=== PATIENT | female | born 1945 | race Caucasian/White ===

== ENCOUNTER 2021-01-07 14:53 | Emergency (ER) | payer OTHER ==
[2021-01-07 16:55] LABS: Absolute Lymphocytes (CBC) 1.9 K/uL (0.7-4.9); Basophils % 0.8 % (0-1.3); Hematocrit 41.6 % (36.0-45.0); Lymphocytes % 17.8 % (15.3-44.8)
[2021-01-07 17:05] LABS: Protime INR 0.95
--- NOTE | 2021-01-07 21:24 | ER ---
Nurse's Notes [facility] Name: Lavonne Vitale Age: 75 yrs Sex: Female : 1945 Arrival Date: 01/07/2021 Time: 14:55 Bed Waiting Private MD: Diagnosis: Presentation: 01/07 16:20 Chief complaint: Pt's states "her blood sugar has been high since yesterday, aa5 today it was 583 and she threw up twice". Pt sleepy during triage, pt states that is pt's baseline and states "she sleeps all day mostly and the doctor says it's the dementia". 16:20 Coronavirus screen: vomiting. Ebola Screen: Patient negative for fever greater than or aa5 equal to 101.5 degrees Fahrenheit, and additional compatible Ebola Virus Disease symptoms. Initial Sepsis Screen: Does the patient meet any 2 criteria? HR > 90 bpm. Does the patient have a suspected source of infection? No. Patient's initial sepsis screen is negative. Risk Assessment: Do you want to hurt yourself or someone else? Unable to obtain. Onset of symptoms was January 2021. 16:20 Method Of Arrival: Wheelchair aa5 16:20 Acuity: ESTRELLA 2 aa5 Historical: - Allergies: 16:33 Sulfa (Sulfonamide Antibiotics); aa5 - PMHx: 16:33 Diabetes mellitus; Dementia; Hypertensive disorder; Depressive disorder; aa5 - Immunization history:: Client reports receiving the 2nd dose of the Covid vaccine. - Social history:: Smoking status: Patient denies any tobacco usage or history of. Vital Signs: 16:20 BP 125 / 66; Pulse 108; Resp 20 S; Temp 98.8(TE); Pulse Ox 100% on R/A; Weight 51.26 kg aa5 (R); Height 5 ft. 0 in. (152.40 cm) (R); 16:20 Body Mass Index 22.07 (51.26 kg, 152.40 cm) aa5 ED Course: 14:55 Patient arrived in ED. as 16:31 Arm band placed on. aa5 16:33 Triage completed. aa5 16:42 Initial lab(s) drawn, by me, sent to lab. Inserted saline lock: 20 gauge in left aa5 antecubital area, using aseptic technique. Blood collected. 21:23 Patient's name was called from ER lobby. Unable to locate patient. Will disposition as lp1 left without being seen by a provider. Administered Medications: No medications were administered Point of Care Testing: Blood Glucose: 16:31 Blood Glucose: 352 mg/dL; aa5 Ranges: Outcome: 21:23 Patient left the ED. lp1 Signatures: Brittany Yoo Audri RN RN aa5 Cynid Root RN RN lp1 Corrections: (The following items were deleted from the chart) 19:18 16:20 Chief complaint: Pt's states "her blood sugar has been high since aa5 yesterday, today it was 583 and she threw up twice" aa5
[2021-01-07 21:31] VITALS: BP 125/66; TEMP 98.8; O2SAT 100
== END 2021-01-07 21:23 | disposition left against medical advice (07) ==
LOC: ER 14:53
DX: Z53.21 Procedure and treatment not carried out due to patient leaving prior to being seen by health care provider (principal)
CPT/HCPCS: 36415; 82947; 85025; 85610; 99283

== ENCOUNTER 2021-11-04 07:13 | Emergency (ER) | payer OTHER, SELFPAY ==
[2021-11-04 08:02] LABS: Hematocrit 33.5 % (36.0-45.0); Lymphocytes % 21.7 % (15.3-44.8); MCV 81.8 fL (80-100); MPV 7.4 fL (7.6-11.3)
[2021-11-04 08:28] LABS: Potassium 3.8 mmol/L (3.5-5.1)
--- NOTE | 2021-11-04 08:49 | RAD REPORT ---
EXAM DESCRIPTION: CT - Head Brain Wo Cont - 11/04/2021 8:12 am CLINICAL HISTORY: Syncope, simple, normal neuro exam COMPARISON: <Comparisons> TECHNIQUE: All CT scans are performed using dose optimization technique as appropriate and may inclu de automated exposure control or mA/KV adjustment according to patient size. FINDINGS: No intracranial hemorrhage, hydrocephalus or extra-axial fluid collection.No areas of brai n edema or evidence of midline shift. Mild chronic small vessel ischemic changes. The paranasal sinuses and mastoids are clear. The calvarium is intact. IMPRESSION: No acute intracranial abnormality.
--- NOTE | 2021-11-04 08:51 | RAD REPORT ---
EXAM DESCRIPTION: RAD - Chest Single View - 11/04/2021 8:23 am CLINICAL HISTORY: Syncope COMPARISON: CHEST SINGLE VIEW dated 02/07/2011 FINDINGS: Lines: None. Lungs: No evidence of edema or pneumonia. Pleural: No significant pleural effusions or pneumothorax. Cardiac: The heart size is within normal limits. Bones: No acute fractures. Other: IMPRESSION: No acute cardiopulmonary disease.
--- NOTE | 2021-11-04 10:31 | ER ---
Nurse's Notes [facility] Name: Lavonne Vitale Age: 75 yrs Sex: Female : 1945 Arrival Date: 11/04/2021 Time: 07:19 Bed 18 Private MD: Diagnosis: Vasovagal Syncope Presentation: 11/04 07:19 Chief complaint: EMS states: Pt from [facility], was found this morning by staff ph slumped over on toilet, unresponsive and diaphoretic, awake when EMS arrived, states that she was bearing down to have bowel movement, BP 120s/80s, HR 94, 99% RA, T 97.2, BGL 316, hx of dementia but pt is at baseline mental status. Coronavirus screen: Vaccine status: Patient reports receiving the 2nd dose of the covid vaccine. Ebola Screen: No symptoms or risks identified at this time. Initial Sepsis Screen: Does the patient meet any 2 criteria? No. Patient's initial sepsis screen is negative. Does the patient have a suspected source of infection? No. Patient's initial sepsis screen is negative. Risk Assessment: Do you want to hurt yourself or someone else? Patient reports no desire to harm self or others. Onset of symptoms was November 04, 2021. 07:19 Method Of Arrival: EMS: [facility] 07:19 Acuity: ESTRELLA 3 ph Triage Assessment: 07:25 General: Appears in no apparent distress. comfortable, Behavior is calm, cooperative, ph appropriate for age. Pain: Denies pain. Neuro: Level of Consciousness is awake, alert, obeys commands, Oriented to person, place, situation, Speech is normal, Pupils are PERRLA, Reports a syncopal episode. Cardiovascular: Capillary refill < 3 seconds in bilateral fingers Patient's skin is warm and dry. Respiratory: Airway is patent Respiratory effort is even, unlabored, Respiratory pattern is regular, symmetrical. Derm: Skin is intact, is healthy with good turgor, Skin is pink, warm \T\ dry. Musculoskeletal: Circulation, motion, and sensation intact. Range of motion: intact in all extremities. Historical: - Allergies: 07:22 Sulfa (Sulfonamide Antibiotics); ph - Home Meds: 07:57 aspirin 81 mg Oral tab 81 mg daily [Active]; atorvastatin 20 mg oral tab 1 tab once ph daily [Active]; buspirone 30 mg Oral tab 1 tab 2 times per day [Active]; calcium carbonate 500 mg Oral cap as needed for heartburn [Active]; cyanocobalamin (vitamin B-12) 1,000 mcg oral cap daily [Active]; escitalopram oxalate 15 mg oral tab once daily [Active]; furosemide 20 mg Oral tab 1 tab once daily [Active]; insulin glargine 100 unit/mL (3 mL) Sub-Q inpn 38 unit daily [Active]; levothyroxine 75 mcg cap 1 cap once daily [Active]; meloxicam 7.5 mg oral tab 1 tab once daily [Active]; Novolog U-100 Insulin aspart 100 unit/mL Sub-Q soln 8 unit before meals [Active]; Novolog U-100 Insulin aspart 100 unit/mL Sub-Q soln 100 unit/mL per sliding scale [Active]; omeprazole 20 mg Oral cpDR 1 cap once daily [Active]; ondansetron HCl 4 mg Oral tab 1 tab q6h PRN [Active]; - PMHx: 07:22 Dementia; depressive disorder; diabetes mellitus; Hypertensive disorder; ph - Immunization history:: Adult Immunizations up to date. - Social history:: Smoking status: Patient denies any tobacco usage or history of. Screenin:27 Abuse screen: Denies threats or abuse. Denies injuries from another. Nutritional ph screening: No deficits noted. Tuberculosis screening: No symptoms or risk factors identified. Fall Risk None identified. Assessment: 07:51 General: SEE TRIAGE ASSESSMENT. ph 09:00 Reassessment: Patient appears in no apparent distress at this time. No changes from ph previously documented assessment. Patient and/or family updated on plan of care and expected duration. Pain level reassessed. 10:00 Reassessment: Patient appears in no apparent distress at this time. No changes from ph previously documented assessment. Patient and/or family updated on plan of care and expected duration. Pain level reassessed. 10:47 Reassessment: Patient appears in no apparent distress at this time. Patient and/or ph family updated on plan of care and expected duration. Pain level reassessed. Pt awake and alert, oriented to person and place, pt placed up for d/c, report called to OPAL Mathis at [facility]. 11:00 Cardiovascular: Rhythm is sinus rhythm. jg9 11:03 Reassessment: Spoke with Brandi Edge regarding arranging transportation back to facility. [facility] nurse states that she will call back shortly. 12:18 Reassessment: patient advised that nursing staff at facility is working on getting jg9 someone to pick her up. 12:49 Reassessment: assisted to bathroom. jg9 Vital Signs: 07:19 BP 133 / 69; Pulse 64; Resp 13; Temp 97.3(T); Pulse Ox 100% on R/A; Weight 54.43 kg mb7 (R); Height 5 ft. 5 in. (165.10 cm) (R); 07:19 Pain 0/10; ph 08:04 BP 135 / 90; Pulse 74; Resp 18; Pulse Ox 99% on R/A; ph 09:00 BP 136 / 87; Pulse 68; Resp 18; Pulse Ox 99% on R/A; ph 10:44 BP 127 / 72; Pulse 81; Resp 18; Temp 97.4; Pulse Ox 100% on R/A; ph 07:19 Body Mass Index 19.97 (54.43 kg, 165.10 cm) mb7 ED Course: 07:19 Patient arrived in ED. ph 07:20 Patient has correct armband on for positive identification. Bed in low position. Call mb7 light in reach. Side rails up X 1. Door closed. Noise minimized. Warm blanket given. Client placed on continuous cardiac and pulse oximetry monitoring. NIBP monitoring applied. night monitor on. Pulse ox on. 07:22 Triage completed. ph 07:22 Naman Senior MD is Attending Physician. kdr 07:24 Shi Azul, OPAL is Primary Nurse. ph 07:27 Arm band placed on Patient placed in an exam room, on a stretcher. ph 07:41 EKG done, by ED staff, reviewed by Naman Senior MD. mb7 07:51 Initial lab(s) drawn, by me, sent to lab. Inserted saline lock: 22 gauge in right ph antecubital area, using aseptic technique. Blood collected. 08:14 CT Head Brain wo Cont In Process Unspecified. EDMS 08:25 XRAY Chest (1 view) In Process Unspecified. EDMS 10:44 No provider procedures requiring assistance completed. IV discontinued, intact, ph bleeding controlled, No redness/swelling at site. Pressure dressing applied. 11:30 Awaiting transportation. jg9 11:42 No apparent distress. Resting quietly. jg9 Administered Medications: No medications were administered Medication: 07:27 VIS not applicable for this client. ph Point of Care Testin:43 n/a jg9 Ranges: Outcome: 10:30 Discharge ordered by . kdr 11:43 Condition: stable jg9 13:19 Discharged to snf. jg9 13:19 Discharged to snf. Report called to OPAL Mathis jg9 13:19 Condition: stable 13:19 Discharge instructions given to 13:19 Discharge instructions given to patient, snf, Instructed on discharge instructions, follow up and referral plans. Demonstrated understanding of instructions, follow-up care. 13:20 Patient left the ED. jg9 Signatures: Dispatcher [employer] EDMS Naman Senior MD MD [facility] Mague Oliveira RN RN Shi Azul RN RN Sheron Tellez [id number] Niki Acosta RN RN jg9 Corrections: (The following items were deleted from the chart) 08:04 07:57 Home Meds: calcium-vitamin D3-vitamin K 500-100-40 mg-unit-mcg oral chew; ph ph
--- NOTE | 2021-11-04 10:31 | EDPHYS ---
Physician Documentation [facility] Name: Lavonne Vitale Age: 75 yrs Sex: Female : 1945 Arrival Date: 11/04/2021 Time: 07:19 Bed 18 Private MD: ED Physician Naman Senior HPI: 11/04 07:57 This 75 yrs old Female presents to ER via EMS with complaints of Syncope. kdr 07:57 The patient has experienced syncope, became unresponsive, lost consciousness. Onset: kdr The symptoms/episode began/occurred suddenly, just prior to arrival. Duration: This was a single episode, that lasted an unknown period of time. Context: the episode(s) was witnessed, by a bystander, by the [facility] staff, occurred at a [facility] or assisted living facility, occurred while the patient was defecating. Associated injury: The patient did not suffer any apparent associated injury. Associated signs and symptoms: Pertinent positives: diaphoresis, lightheadedness, weakness. Current symptoms: Currently, the patient is not experiencing any symptoms. The patient has not experienced similar symptoms in the past. The patient has not recently seen a physician. 10:35 The patient was reportedly on the toilet trying to have a bowel movement when she kdr became unresponsive. She was found diaphoretic sitting on the toilet. Arrival in the ED she was at her baseline neurologically.. Historical: - Allergies: 07:22 Sulfa (Sulfonamide Antibiotics); ph - Home Meds: 07:57 aspirin 81 mg Oral tab 81 mg daily [Active]; atorvastatin 20 mg oral tab 1 tab once ph daily [Active]; buspirone 30 mg Oral tab 1 tab 2 times per day [Active]; calcium carbonate 500 mg Oral cap as needed for heartburn [Active]; cyanocobalamin (vitamin B-12) 1,000 mcg oral cap daily [Active]; escitalopram oxalate 15 mg oral tab once daily [Active]; furosemide 20 mg Oral tab 1 tab once daily [Active]; insulin glargine 100 unit/mL (3 mL) Sub-Q inpn 38 unit daily [Active]; levothyroxine 75 mcg cap 1 cap once daily [Active]; meloxicam 7.5 mg oral tab 1 tab once daily [Active]; Novolog U-100 Insulin aspart 100 unit/mL Sub-Q soln 8 unit before meals [Active]; Novolog U-100 Insulin aspart 100 unit/mL Sub-Q soln 100 unit/mL per sliding scale [Active]; omeprazole 20 mg Oral cpDR 1 cap once daily [Active]; ondansetron HCl 4 mg Oral tab 1 tab q6h PRN [Active]; - PMHx: 07:22 Dementia; depressive disorder; diabetes mellitus; Hypertensive disorder; ph - Immunization history:: Adult Immunizations up to date. - Social history:: Smoking status: Patient denies any tobacco usage or history of. ROS: 10:35 Constitutional: Negative for fever, chills, and weight loss, Eyes: Negative for injury, kdr pain, redness, and discharge, Neck: Negative for injury, pain, and swelling, Cardiovascular: Negative for chest pain, palpitations, and edema, Respiratory: Negative for shortness of breath, cough, wheezing, and pleuritic chest pain, Abdomen/GI: Negative for abdominal pain, nausea, vomiting, diarrhea, and constipation, Back: Negative for injury and pain, : Negative for injury, bleeding, discharge, and swelling, MS/Extremity: Negative for injury and deformity, Skin: Negative for injury, rash, and discoloration, Psych: Negative for depression, anxiety, suicide ideation, homicidal ideation, and hallucinations, Allergy/Immunology: Negative for hives, rash, and allergies, Endocrine: Negative for neck swelling, polydipsia, polyuria, polyphagia, and marked weight changes, Hematologic/Lymphatic: Negative for swollen nodes, abnormal bleeding, and unusual bruising. 10:35 Neuro: Positive for syncope, Negative for altered mental status, dizziness, gait disturbance, headache, hearing loss, numbness, seizure activity. Exam: 07:56 ECG was reviewed by the Attending Physician. kdr 10:35 Constitutional: This is a well developed, well nourished patient who is awake, alert, kdr and in no acute distress. Head/Face: Normocephalic, atraumatic. Eyes: Pupils equal round and reactive to light, extra-ocular motions intact. Lids and lashes normal. Conjunctiva and sclera are non-icteric and not injected. Cornea within normal limits. Periorbital areas with no swelling, redness, or edema. Neck: Trachea midline, no thyromegaly or masses palpated, and no cervical lymphadenopathy. Supple, full range of motion without nuchal rigidity, or vertebral point tenderness. No Meningismus. Chest/axilla: Normal chest wall appearance and motion. Nontender with no deformity. No lesions are appreciated. Cardiovascular: Regular rate and rhythm with a normal S1 and S2. No gallops, murmurs, or rubs. Normal PMI, no JVD. No pulse deficits. Respiratory: Lungs have equal breath sounds bilaterally, clear to auscultation and percussion. No rales, rhonchi or wheezes noted. No increased work of breathing, no retractions or nasal flaring. Abdomen/GI: Soft, non-tender, with normal bowel sounds. No distension or tympany. No guarding or rebound. No evidence of tenderness throughout. Back: No spinal tenderness. No costovertebral tenderness. Full range of motion. Skin: Warm, dry with normal turgor. Normal color with no rashes, no lesions, and no evidence of cellulitis. MS/ Extremity: Pulses equal, no cyanosis. Neurovascular intact. Full, normal range of motion. Neuro: Awake and alert, GCS 15, oriented to person, place, time, and situation. Cranial nerves II-XII grossly intact. Motor strength 5/5 in all extremities. Sensory grossly intact. Cerebellar exam normal. Normal gait. Psych: Awake, alert, with orientation to person, place and time. Behavior, mood, and affect are within normal limits. Vital Signs: 07:19 BP 133 / 69; Pulse 64; Resp 13; Temp 97.3(T); Pulse Ox 100% on R/A; Weight 54.43 kg mb7 (R); Height 5 ft. 5 in. (165.10 cm) (R); 07:19 Pain 0/10; ph 08:04 BP 135 / 90; Pulse 74; Resp 18; Pulse Ox 99% on R/A; ph 09:00 BP 136 / 87; Pulse 68; Resp 18; Pulse Ox 99% on R/A; ph 10:44 BP 127 / 72; Pulse 81; Resp 18; Temp 97.4; Pulse Ox 100% on R/A; ph 07:19 Body Mass Index 19.97 (54.43 kg, 165.10 cm) [facility] MDM: 10:30 Patient medically screened. kdr 10:35 Data reviewed: vital signs, nurses notes, lab test result(s), radiologic studies. kdr Counseling: I had a detailed discussion with the patient and/or guardian regarding: the historical points, exam findings, and any diagnostic results supporting the discharge/admit diagnosis, lab results, radiology results, the need for outpatient follow up. ED course: Patient was alert and oriented at time of discharge she had no complaints at time of discharge. She was happy with the care provided the plan for discharge and follow-up. 11/04 07:23 Order name: Basic Metabolic Panel; Complete Time: 09:13 kdr 11/04 07:23 Order name: CBC with Diff; Complete Time: 09:13 kdr 11/04 07:23 Order name: Troponin HS; Complete Time: 09:13 kdr 11/04 07:23 Order name: XRAY Chest (1 view); Complete Time: 09:13 kdr 11/04 07:23 Order name: EKG; Complete Time: 07:23 kdr 11/04 07:59 Order name: CT Head Brain wo Cont; Complete Time: 09:13 kdr 11/04 07:23 Order name: Cardiac monitoring; Complete Time: 07:31 kdr 11/04 07:23 Order name: EKG - Nurse/Tech; Complete Time: 07:42 kdr 11/04 07:23 Order name: IV Saline Lock; Complete Time: 07:51 kdr 11/04 07:23 Order name: Labs collected and sent; Complete Time: 07:51 kdr 11/04 07:23 Order name: O2 Per Protocol; Complete Time: 07:31 kdr 11/04 07:23 Order name: O2 Sat Monitoring; Complete Time: 07:31 kdr EC:56 Rate is 60 beats/min. Rhythm is regular, Normal Sinus Rhythm with No ectopy. QRS [place] kdr is Normal. DE interval is normal. QRS interval is normal. QT interval is normal. Clinical impression: Normal ECG. Administered Medications: No medications were administered Point of Care Testin:43 n/a jg9 Ranges: Critical Glucose Levels:Adult <50 mg/dl or >400 mg/dl <40 mg/dl or >180 mg/dl Disposition Summary: 11/04/21 10:30 Discharge Ordered Location: Home kdr Problem: new kdr Symptoms: have improved kdr Condition: Stable kdr Diagnosis - Vasovagal Syncope kdr Followup: kdr - With: Private Physician - When: 2 - 3 days - Reason: If symptoms return, Further diagnostic work-up, Recheck today's complaints, Continuance of care, Re-evaluation by your physician Discharge Instructions: - Discharge Summary Sheet kdr - Vasovagal Syncope, Pediatric kdr Forms: - Medication Reconciliation Form kdr - Thank You Letter kdr Signatures: Dispatcher [employer] Naman Kaur MD MD kdr Shi Azul RN RN ph Corrections: (The following items were deleted from the chart) 08:04 07:57 Home Meds: calcium-vitamin D3-vitamin K 500-100-40 mg-unit-mcg oral chew; ph ph 10:38 08:00 Urine Dipstick-Ancillary ordered. kdr ph
[2021-11-04 13:32] VITALS: BP 127/72; TEMP 97.4; O2SAT 100
--- NOTE | 2021-11-07 08:03 | EKG ---
Test Date: 2021-11-04 Test Time: 07:41:40 Prn Physical Therapist: MB MEASUREMENT RESULTS: Intervals: Rate: 60 MN: 164 QRSD: 80 QT: 472 QTc: 472 [place]: P: 76 MN: 164 QRS: 89 T: 80 INTERPRETIVE STATEMENTS: Normal sinus rhythm Normal ECG Compared to ECG 02/07/2011 09:21:48 Sinus arrhythmia no longer present Electronically Signed On 11-07-21 07:56:17 CDT by Izaiah Handy
== END 2021-11-04 13:20 | disposition home or self-care (01) ==
LOC: ER 07:13
DX: R55 Syncope and collapse (principal); F03.90 Unspecified dementia, unspecified severity, without behavioral disturbance, psychotic disturbance, mood disturbance, and anxiety; I10 Essential (primary) hypertension; E11.8 Type 2 diabetes mellitus with unspecified complications; Z79.82 Long term (current) use of aspirin; Z79.4 Long term (current) use of insulin; Z88.2 Allergy status to sulfonamides
CPT/HCPCS: 36415; 70450; 71045; 80048; 84484; 85025; 93005; 99285

== ENCOUNTER 2021-12-23 14:26 | Emergency (ER) | payer OTHER ==
--- OUTSIDE RECORDS SUMMARY | 2021-12-23 14:32 | XMS REPORT | Continuity of Care Document ---
:1945 Author Organization [facility] t Address [address] [place] [address] Care Team Providers Name Role Phone Pcp, Patient Does Not Have A Primary Care Physician [phone] ANA NAPOLES Attending Clinician Unavailable ANA NAPOLES Attending Clinician Unavailable Doctor Unassigned, [place] Attending Clinician Unavailable Pcp, Patient Does Not Have A Attending Clinician [phone] FINN JOSEPH Attending Clinician Unavailable Willi Osullivan Attending Clinician Unavailable Piotr Arshad Attending Clinician Unavailable Lyudmila Montgomery Attending Clinician Unavailable SARY FUNK Admitting Clinician Unavailable Physician, No Primary or Family Admitting Clinician Unavaila Piotr Pack Admitting Clinician Unavailable UNDEFINED Admitting Clinician Unavailable Lyudmila Montgomery Admitting Clinician Unavailable Payers Payer Name Policy Type Policy Number Effective Date Expiration Date S ource Problems Condition Condition Condition Status Onset Resolution Last Treating Co mments Source Name Details Category Date Date Treatment Clinician Date Pneumonia Pneumonia Disease Active Uni vers 9-05 ity of 00:00: [place] 00 Medical Branch Allergies, Adverse Reactions, Alerts Allergy Allergy Status Severity Reaction(s) Onset Inactive Treating Comm ents Source Name Type Date Date Clinician Sulfa DA Active U UNKNOWN [facility] (Sulfona 2-24 [place] mide 00:00: d Antibiot 00 Medical ics) Center Sulfa DA Active SV UNKNOWN IN [facility] (Sulfona CHILDHOOD 1-14 Clear mide 00:00: [place] Antibiot 00 Regiona ics) l [facility] Sulfa Propensi Active Other - See Uni vers (Sulfona ty to comments 9-05 ity of mide adverse 00:00: [place] Antibiot reaction 00 Medica l ics) s Branch SULFA Drug Active Other-Cmnt Univer s (SULFONA Class 9-05 ity of MIDE 00:00: [place] ANTIBIOT 00 Medical ICS) Branch Sulfa DA Active SV UNKNOWN IN [facility] (Sulfona CHILDHOOD 1-04 [place] an mide 00:00: d Antibiot 00 Medical ics) Center Social History Social Habit Start Date Stop Date Quantity Comments Source History [facility] University o f Alcohol Std [place] Medical Drinks Branch History [facility] University o f Alcohol Binge [place] Medic al Branch History [facility] University o f Alcohol Comment [place] Med ical Branch Exposure to 2021-09-29 2021-10-09 Not sure University of SARS-CoV-2 00:00:00 15:02:00 [facility] (event) Branch Tobacco use and 2021-01-08 2021-01-08 Smokeless tobacco Un iversity of exposure 00:00:00 00:00:00 non-user [place] [facility] Alcohol intake 2021-01-08 2021-01-08 Lifetime University of 00:00:00 00:00:00 non-drinker [facility] (finding) Branch History SDOH 2021-01-08 2021-01-08 1 University o f Alcohol Frequency 00:00:00 00:00:[address] [facility] edical [place] [address] Sex Assigned At [birth year] Universit y of 00:00:00 00:00:00 [facility] Smoking Status Start Date Stop Date Source Never smoked tobacco [facility] Medications Ordered Filled Start Stop Current Ordering Indication Dosage Frequency Signature Comments Components Source Medication Medication Date Date Medication? Clinician (SIG) Name Name padmaja 0 Yes [id number] 1{box} 1 Box Un josse glucose 6-06 9101 daily. ity of scanning 00:00: [place] reader 00 Medical (FREESTYLE Branch ANALY 2 READER) Misc flash 2021-0 Yes [id number] 1{box} 1 Box Un josse glucose 6-06 9101 every 14 ity of sensor 00:00: (fourteen) [place] (FREESTYLE 00 days. Medical ANALY 2 Branch SENSOR) Kit flash 2021-0 Yes [id number] 1{box} 1 Box Un josse glucose 6-06 9101 daily. ity of scanning 00:00: [place] reader 00 Medical (FREESTYLE Branch ANALY 2 READER) Misc flash 2021-0 Yes [id number] 1{box} 1 Box Un josse glucose 6-06 9101 every 14 ity of sensor 00:00: (fourteen) [place] (FREESTYLE 00 days. Medical ANALY 2 Branch SENSOR) Kit flash 2021-0 Yes [id number] 1{box} 1 Box Un josse glucose 6-06 9101 daily. ity of scanning 00:00: [place] reader 00 Medical (FREESTYLE Branch ANALY 2 READER) Misc flash 2021-0 Yes [id number] 1{box} 1 Box Un josse glucose 6-06 9101 every 14 ity of sensor 00:00: (fourteen) [place] (FREESTYLE 00 days. Medical ANALY 2 Branch SENSOR) Kit aspirin 81 Yes 81mg Take 81 mg U nivers mg chewable 08 by mouth ity of tablet 18:57: daily. [place] [address] Medical Branch acetaZOLAMI Yes 250mg Take 250 U nivers DE 250 mg 9-08 mg by ity of tablet 18:57: mouth [place] 11 daily. Medical Branch escitalopra Yes 10mg Take 10 mg Univers m oxalate 08 by mouth ity of 10 mg 18:57: daily. [address] calcium-vit Yes Take by Uni vers gifford D 500 01-11 mouth ity of mg(1,250mg) 18:57: [place]. [place] -200 [place] 11 Medical per tablet Branch vitamin Yes 1000ug Take 1,000 Un josse B-12 1,000 9-08 mcg by ity of mcg tablet 18:57: mouth [place] 11 daily. [facility] Branch donepeziL Yes 10mg Take 10 mg Un josse 10 mg 9-08 by mouth ity of tablet 18:57: daily. [address] foLIC acid Yes 1mg Take 1 mg Un josse 1 mg tablet 9-08 by mouth ity of 18:57: daily. [address] insulin Yes 30U inject 30 Unive rs glargine,hu 9-08 Units ity of m.rec.anlog 18:57: under the [place] ([place] 11 skin every Me dical morning. [address] Morning insulin Yes 10U inject 10 Unive rs glargine,hu 9-08 Units ity of m.rec.anlog 18:57: under the [place] ([place] 11 skin every Me dical evening. [address] insulin Yes 10U inject 10 Unive rs lispro, 9-08 Units ity of human, 18:57: under the [place] injection 11 skin Medical before [address] meals and at bedtime. Humalog SITagliptin Yes 100mg Take 100 U nivers (JANUVIA) 9-08 mg by ity of 100 mg 18:57: mouth [place] tablet 11 daily. [facility] Levothyroxi Yes 75ug Take 75 Uni vers ne 75 mcg 9-08 mcg by ity of capsule 18:57: mouth [place] 11 daily. [facility] Branch lisinopriL Yes 5mg Take 5 mg Un josse 10 mg 9-08 by mouth ity of tablet 18:57: daily. [address] medroxyPROG Yes 2.5mg Take 2.5 U nivers ESTERone 9-08 mg by ity of 2.5 mg 18:57: mouth [place] tablet 11 daily. [facility] meloxicam Yes 7.5mg Take 7.5 Uni vers 7.5 mg 9-08 mg by ity of tablet 18:57: mouth [place] 11 daily. [facility] Branch pantoprazol Yes 40mg Take 40 mg Univers e 40 mg EC 01-11 by mouth ity o f tablet 18:57: daily. EC [place] [address] Medical Branch atorvastati Yes 20mg Take 20 mg Univers n 20 mg 9-08 by mouth ity of tablet 18:57: at [place] [address] bedtime. Medical Branch aspirin 81 Yes 81mg Take 81 mg U nivers mg chewable 908 by mouth ity of tablet 18:57: daily. [place] [address] Medical Branch acetaZOLAMI Yes 250mg Take 250 U nivers DE 250 mg 9-08 mg by ity of tablet 18:57: mouth [place] [address] daily. Medical Branch escitalopra Yes 10mg Take 10 mg Univers m oxalate 08 by mouth ity of 10 mg 18:57: daily. [address] Branch calcium-vit Yes Take by Uni vers gifford D 500 9-08 mouth ity of mg(1,250mg) 18:57: [place]. [place] -200 unit Medical per tablet Branch vitamin Yes 1000ug Take 1,000 Un josse B-12 1,000 9-08 mcg by ity of mcg tablet 18:57: mouth [place] [address] daily. Medical Branch donepeziL Yes 10mg Take 10 mg Un josse 10 mg 9-08 by mouth ity of tablet 18:57: daily. [address] foLIC acid Yes 1mg Take 1 mg Un josse 1 mg tablet 9-08 by mouth ity of 18:57: daily. [address] Branch insulin Yes 30U inject 30 Unive rs glargine,hu 9-08 Units ity of m.rec.anlog 18:57: under the [place] ([place] 11 skin every Me dical morning. [address] Morning insulin Yes 10U inject 10 Unive rs glargine,hu 9-08 Units ity of m.rec.anlog 18:57: under the [place] ([place] 11 skin every Me dical evening. Branch insulin Yes 10U inject 10 Unive rs lispro, 9-08 Units ity of human, 18:57: under the [place] [address] skin Medical before Branch meals and at bedtime. Humalog SITagliptin Yes 100mg Take 100 U nivers (JANUVIA) 9-08 mg by ity of 100 mg 18:57: mouth [place] tablet 11 daily. Medical Branch Levothyroxi Yes 75ug Take 75 Uni vers ne 75 mcg 9-08 mcg by ity of capsule 18:57: mouth [place] 11 daily. Medical Branch lisinopriL Yes 5mg Take 5 mg Un josse 10 mg 9-08 by mouth ity of tablet 18:57: daily. [place] [address] Medical Branch medroxyPROG Yes 2.5mg Take 2.5 U nivers ESTERone 9-08 mg by ity of 2.5 mg 18:57: mouth [place] tablet 11 daily. Medical Branch meloxicam Yes 7.5mg Take 7.5 Uni vers 7.5 mg 9-08 mg by ity of tablet 18:57: mouth [place] 11 daily. Medical Branch pantoprazol Yes 40mg Take 40 mg Univers e 40 mg EC 9-08 by mouth ity o f tablet 18:57: daily. EC [place] [address] Medical Branch atorvastati Yes 20mg Take 20 mg Univers n 20 mg 9-08 by mouth ity of tablet 18:57: at [place] [address] bedtime. Medical Branch aspirin 81 Yes 81mg Take 81 mg U nivers mg chewable 9-08 by mouth ity of tablet 18:57: daily. [place] [address] Medical Branch acetaZOLAMI Yes 250mg Take 250 U nivers DE 250 mg 9-08 mg by ity of tablet 18:57: mouth [place] 11 daily. Medical Branch escitalopra Yes 10mg Take 10 mg Univers m oxalate 9-08 by mouth ity of 10 mg 18:57: daily. [place] [address] Medical Branch calcium-vit Yes Take by Uni vers gifford D 500 9-08 mouth ity of mg(1,250mg) 18:57: [place]. [place] -200 unit 11 Medical per tablet Branch vitamin Yes 1000ug Take 1,000 Un josse B-12 1,000 9-08 mcg by ity of mcg tablet 18:57: mouth [place] 11 daily. Medical Branch donepeziL Yes 10mg Take 10 mg Un josse 10 mg 9-08 by mouth ity of tablet 18:57: daily. [address] Branch foLIC acid Yes 1mg Take 1 mg Un josse 1 mg tablet 9-08 by mouth ity of 18:57: daily. [address] insulin Yes 30U inject 30 Unive rs glargine,hu 9-08 Units ity of m.rec.anlog 18:57: under the [place] ([place] 11 skin every Me dical morning. Branch Morning insulin Yes 10U inject 10 Unive rs glargine,hu 9-08 Units ity of m.rec.anlog 18:57: under the [place] ([place] 11 skin every Me dical evening. Branch insulin Yes 10U inject 10 Unive rs lispro, 9-08 Units ity of human, 18:57: under the [place] injection 11 skin Medical before [address] meals and at bedtime. Humalog SITagliptin Yes 100mg Take 100 U nivers (JANUVIA) 9-08 mg by ity of 100 mg 18:57: mouth [place] tablet 11 daily. Medical Branch Levothyroxi Yes 75ug Take 75 Uni vers ne 75 mcg 9-08 mcg by ity of capsule 18:57: mouth [place] 11 daily. Medical Branch lisinopriL Yes 5mg Take 5 mg Un josse 10 mg 9-08 by mouth ity of tablet 18:57: daily. [address] Branch medroxyPROG Yes 2.5mg Take 2.5 U nivers ESTERone 9-08 mg by ity of 2.5 mg 18:57: mouth [place] tablet 11 daily. Medical Branch meloxicam Yes 7.5mg Take 7.5 Uni vers 7.5 mg 9-08 mg by ity of tablet 18:57: mouth [place] 11 daily. Medical Branch pantoprazol Yes 40mg Take 40 mg Univers e 40 mg EC 9-08 by mouth ity o f tablet 18:57: daily. EC [address] Branch atorvastati Yes 20mg Take 20 mg Univers n 20 mg 9-08 by mouth ity of tablet 18:57: at [place] 11 bedtime. Medical Branch Immunizations Ordered Filled Immunization Date Status Comments [facility] e Immunization Name Name SARS-COV-2 COVID-19 2020-08-20 Completed Unive rsity of MODERNA VACCINE 00:00:00 [facility] Branch SARS-COV-2 COVID-19 2020-08-20 Completed Unive rsity of MODERNA VACCINE 00:00:00 [facility] Branch SARS-COV-2 COVID-19 2020-08-20 Completed Unive rsity of MODERNA VACCINE 00:00:00 [facility] Branch SARS-COV-2 COVID-19 2020-07-20 Completed Unive rsity of MODERNA VACCINE 00:00:00 [facility] Branch SARS-COV-2 COVID-19 2020-07-20 Completed Unive rsity of MODERNA VACCINE 00:00:00 [facility] Branch SARS-COV-2 COVID-19 2020-07-20 Completed Unive rsity of MODERNA VACCINE 00:00:00 [facility] Branch Pneumococcal 13 2015-01-03 Completed Universit y of Conjugate, PCV13 00:00:00 [facility] dical (Prevnar 13) Branch Pneumococcal 13 2015-01-03 Completed Universit y of Conjugate, PCV13 00:00:00 [facility] dical (Prevnar 13) Branch Pneumococcal 13 2015-01-03 Completed Universit y of Conjugate, PCV13 00:00:00 [facility] dical (Prevnar 13) Branch Pneumococcal 2010-01-25 Completed University o f Polysaccharide, 00:00:00 [facility] PPSV23 (PNEUMOVAX) Branch Zoster(Zostavax)( 2010-01-25 Completed Unive rsity of ingles) 00:00:00 [facility] Pneumococcal 2010-01-25 Completed University o f [facility]ys[facility], [facility] Branch Zoster(Zostavax)( 2010-01-25 Completed Unive rsity of ingles) 00:00:00 [facility] Pneumococcal 2010-01-25 Completed University o f Polysaccharide, 00:00[facility]00 [facility]UM[facility] Branch Zoster(Zostavax)( 2010-01-25 Completed Unive rsity of ingles) 00:00:00 [facility] Influenza Virus 2008-05-06 Completed Universit y of Vaccine 00:00:00 [facility] Influenza Virus 2008-05-06 Completed Universit y of Vaccine 00:00:00 [facility] Influenza Virus 2008-05-06 Completed Universit y of Vaccine 00:00:00 [facility] Vital Signs Vital Name Observation Time Observation Value Comments Source Systolic blood 2021-10-09 20:18:00 179 [facility]Hg[facility] Diastolic blood 2021-10-09 20:18:00 62 mm[Hg] [facility] BMI 2021-10-09 20:17:00 22.55 kg/m2 [facility] Oxygen saturation 2021-10-09 20:17:00 98 /min [facility] in Arterial blood [facility] anch by Pulse oximetry Heart rate 2021-10-09 20:17:00 90 /min [facility] Body height 2021-10-09 20:17:00 153.7 cm [facility] Body weight 2021-10-09 20:17:00 53.252 kg [facility] Procedures Procedure Date / Time Performed Performing Clinician Sourc e EXTERNAL PROVIDER 2021-11-14 05:01:00 Doctor Unassigned, No Univ [facility] RECORDS [facility] POCT HEMOGLOBIN A1C 2021-10-09 20:20:00 Ana Napoles [facility] [place] [id number] 2021-06-12 00:00:00 RAJNISA.02 [facility] [id number] 2021-05-19 00:00:00 NICOLA [facility] Encounters Start End Encounter Admission Attending Care Care Encounter Source Date/Time Date/Time Type Type Clinicians Facility Department ID 2022-01-10 2022-01-10 Outpatient R ANA NAPOLES [facility] [id number] Univers 15:00:00 15:00:00 ANA NAPOLES [id number] [facility] 2021-12-25 2021-12-25 Outpatient R ANA NAPOLES [facility] [id number] Univers 08:30:00 08:30:00 ANA NAPOLES [id number] [facility] 2021-11-14 2021-11-14 Orders Doctor MARCELO [id number] Univers 00:00:00 00:00:00 Only Unassigned, FREDY 350.1.13.10 ity of [place] [facility] 4.2.7.2.686 Leonel as [id number] [address] 2021-11-09 2021-11-09 Telephone Pcp, [facility] [id number] Univers 00:00:00 00:00:00 Patient HEALTH 350.1.13.10 it y of Does Not [place] JO-ANN?BLEA [id number] [address] OFFICE [facility] 2021-10-09 2021-10-09 Office Ana Napoles [facility] [id number] Univers 15:00:00 16:13:14 Visit HEALTH 350.1.13.10 it y of [place] 4.2.7.2.686 Leonel as JO-ANN?BLEA [id number] [address] OFFICE [facility] 2021-09-01 2021-09-03 Inpatient E JAKE, [facility] MED [id number] 14:27:00 18:00:00 FINN Hobbs [place] 2021-06-29 2021-06-29 Emergency EM Willi Osullivan HCAPM KANDY LA61 [id number] [facility] 13:12:00 21:46:00 [id number] [facility] 2021-06-29 2021-06-29 Emergency EM [facility] H[facility] [id number] [facility] 13:12:00 21:46:00 12 [facility] 2021-06-11 2021-06-17 Inpatient EM ZACAHRY Arshad INTE [id number] [facility] 19:47:00 15:00:00 [facility] [id number] [facility] [place] 2021-06-11 2021-06-17 Inpatient EM BAYLEE ArshadPM INTE [id number] [facility] 19:47:00 15:00:00 Piotr 96 [facility] [place] 2021-06-12 2021-06-12 Outpatient EL JENNIFER Arshad LABO [id number] [facility] 01:15:00 01:15:00 Piotr [id number] [facility] 2021-05-20 2021-05-22 Inpatient EM Ulises, HCAPM MEDI.01 [id number] [facility] 10:41:00 19:00:00 Oladipo [id number] [facility] 2021-05-20 2021-05-22 Inpatient EM Ulises, HCAPM MEDI.01 [id number] [facility] 10:41:00 19:00:00 Oladipo 26 [facility] 2021-05-19 2021-05-19 Outpatient Ulises, HCACL LABO [id number] [facility] 23:50:00 23:50:00 Oladipo [id number] [facility] 2021-05-19 2021-05-19 Inpatient EM Ulises, BAYLEEPM INTE.02 [id number] [facility] 09:12:00 09:11:00 Oladipo [id number] [facility] Results Test Description Test Time Test Comments Results Result Comments Source POCT HEMOGLOBIN A1C TEST 2021-10-09 20:22:00 Test Item Value Reference Range Interpretation Comme nts POCT HBA1C (test code = 4548-4) 9 % 4-6 A Lab Interpretation (test code = 47543-1) [facility] [id number] 18:33:00 Test Item Value Reference Range Interpretation Comments SODIUM (test code = NA) 135 mmol/L 134-147 N POTASSIUM (test code = K) 3.5 mmol/L 3.4-5.0 N CHLORIDE (test code = CL) 102 mmol/L 100-108 N CARBON DIOXIDE (test code = 19 mmol/L 21-32 L CO2) ANION GAP (test code = GAP) 14.0 GAP calc 4.0-15.0 N GLUCOSE (test code = GLU) 275 MG/DL 70-110 H BLOOD UREA NITROGEN (test code 22 MG/DL 7-18 H = BUN) GLOMERULAR FILTRATION RATE 47 estGFR >60 L (test code = GFR) CREATININE (test code = CREAT) 1.2 MG/DL 0.6-1.0 H CALCIUM (test code = CA) 8.2 MG/DL 8.5-10.1 L GLUCOSE BEDSIDE [id number] 17:40:00 Test Item Value Reference Range Interpretation Comments GLUCOSE BEDSIDE TESTING (test code 274 mg/dL 70-110 H = GLUBED) VENOUS BLOOD [id number] 15:34:00 Test Item Value Reference Range Interpretation Comments VENOUS BLOOD GAS PH (test 7.28 pH units 7.26-7.43 N code = PHV) VENOUS BLOOD GAS PCO2 (test 32 mmHg 33-58 L code = PCO2V) VENOUS BLOOD GAS PO2 (test 29 mmHg 80-100 L code = PO2V) VBG HCO3 (test code = 14.5 mmol/L 22.0-26.0 L HCO3V) VBG BASE EXCESS (test code -11.0 mmol/L -2.0-2.0 L = RAYNE) VENOUS BLOOD GAS O2 SAT. 48 % (calc) 72-77 L (test code = O2SATV) VENOUS BLOOD GAS FIO2 (test 21 % 21-100 N code = FIO2V) VBG VENT MODE (test code = Room Air Descript VentMode MODEV) VENOUS BLOOD GAS SITE (test Other Site DESCRIPTION code = SITEV) UA RFLX MICR CULT IF [id number] 14:55:00 Test Item Value Reference Range Interpretation Comments UA COLOR (test code = YELLOW discript YEL/STRAW COLU) UA APPEARANCE (test code CLEAR discript CLEAR = APPU) UA GLUCOSE DIPSTICK (test 3+ mg/dL NEG code = DGLUU) UA BILIRUBIN DIPSTICK 1+ mg/dL NEG A (test code = BILU) UA KETONE DIPSTICK (test 2+ mg/dL NEG A code = KETU) UA SPECIFIC GRAVITY (test 1.010 SG 1.005-1.030 code = SGU) UA BLOOD DIPSTICK (test NEGATIVE mg/DL NEG code = EARLINE) UA PH DIPSTICK (test code 5.5 pH UNITS 5.0-7.0 = GAURANG) UA PROTEIN DIPSTICK (test NEGATIVE mg/dL NEG code = PROU) UA UROBILINIOGEN DIPSTICK 0.2 mg/dL <2.0 (test code = URO) UA NITRITE DIPSTICK (test NEGATIVE SCREEN NEG code = JILLIAN) UA LEUKOCYTE ESTERASE NEGATIVE Leuk/mcL NEGATIVE DIPSTICK (test code = LEUU) UA CULTURE NEEDED? (test NO, WBC<10 Criteria Culture CHK code = UACULT) Indication for culture: RiskForSepsis-no oth srcBASIC METABOLIC [id number] 14:51:00 Test Item Value Reference Range Interpretation Comments SODIUM (test code = NA) 128 mmol/L 134-147 L POTASSIUM (test code = K) 4.3 mmol/L 3.4-5.0 N CHLORIDE (test code = CL) 95 mmol/L 100-108 L CARBON DIOXIDE (test code = 17 mmol/L 21-32 L CO2) ANION GAP (test code = GAP) 16.0 GAP calc 4.0-15.0 H GLUCOSE (test code = GLU) 481 MG/DL 70-110 HH BLOOD UREA NITROGEN (test code 26 MG/DL 7-18 H = BUN) GLOMERULAR FILTRATION RATE 43 estGFR >60 L (test code = GFR) CREATININE (test code = CREAT) 1.3 MG/DL 0.6-1.0 H CALCIUM (test code = CA) 9.1 MG/DL 8.5-10.1 N HEPATIC FUNCTION [id number] 14:51:00 Test Item Value Reference Range Interpretation Comments TOTAL PROTEIN (test code = PROT) 6.8 G/DL 6.4-8.2 N ALBUMIN (test code = ALB) 3.2 G/DL 3.4-5.0 L BILIRUBIN TOTAL (test code = BILT) 0.50 MG/DL 0.2-1.2 N BILIRUBIN DIRECT (test code = 0.20 MG/DL 0.00-0.30 N BILD) BILIRUBIN INDIRECT (test code = 0.30 MG/DL 0.2-1.2 N BILIND) SGOT/AST (test code = AST) 14 Unit/L 15-37 L SGPT/ALT (test code = ALT) 19 Unit/L 12-78 N ALKALINE PHOSPHATASE TOTAL (test 79 Unit/L 45-117 N code = ALKP) [id number] 14:51:00 Test Item Value Reference Range Interpretation Comments LIPASE (test code = LIP) 149 Unit/L 114-286 N CBC W/AUTO [id number] 14:14:00 Test Item Value Reference Range Interpretation Comments WHITE BLOOD CELL (test code = 5.9 K/mm3 3.5-11.0 N WBC) RED BLOOD CELL (test code = 3.65 M/mm3 4.70-6.10 L RBC) HEMOGLOBIN (test code = HGB) 10.7 G/DL 10.4-14.9 N HEMATOCRIT (test code = HCT) 34.3 % 31.5-44.1 N MEAN CELL VOLUME (test code = 94.0 Fl 84.5-98.6 N MCV) MEAN CELL HGB (test code = MCH) 29.3 pg 27.0-34.2 N MEAN CELL HGB CONCETRATION 31.2 G/DL 31.5-34.0 L (test code = MCHC) RED CELL DISTRIBUTION WIDTH 16.6 SD 11.5-14.5 H (test code = RDW) PLATELET COUNT (test code = 388 K/mm3 150-450 N PLT) MEAN PLATELET VOLUME (test code 9.70 fL 7.0-10.5 N = MPV) NEUTROPHIL % (test code = NT%) 71.3 % 40-76 N IMMATURE GRANULOCYTE % (test 0.3 % 0.0-5.0 N code = IG%) LYMPHOCYTE % (test code = LY%) 16.9 % 20.5-51.1 L MONOCYTE % (test code = MO%) 10.3 % 1.7-9.3 H EOSINOPHIL % (test code = EO%) 0.2 % 0.0-6.0 N BASOPHIL % (test code = BA%) 1.0 % 0.0-2.0 N NUCLEATED RBC % (test code = 0.0 /100WBC% 0.0-1.0 N NRBC%) NEUTROPHIL # (test code = NT#) 4.2 K/mm3 1.8-7.6 N IMMATURE GRANULOCYTE # (test 0.02 x10 3/uL 0.00-0.03 N code = IG#) LYMPHOCYTE # (test code = LY#) 1.0 K/mm3 0.6-3.2 N MONOCYTE # (test code = MO#) 0.6 K/mm3 0.3-1.1 N EOSINOPHIL # (test code = EO#) 0.0 K/mm3 0.0-0.4 N BASOPHIL # (test code = BA#) 0.1 K/mm3 0.0-0.1 N NUCLEATED RBC # (test code = 0.0 K/mm3 0.0-0.1 N NRBC#) MANUAL DIFF REQUIRED (test code NO DIFF/SCN CRITERIA = MDIFF) GLUCOSE BEDSIDE [id number] 11:42:00 Test Item Value Reference Range Interpretation Comments GLUCOSE BEDSIDE TESTING (test code 222 mg/dL 70-110 H = GLUBED) GLUCOSE BEDSIDE [id number] 07:46:00 Test Item Value Reference Range Interpretation Comments GLUCOSE BEDSIDE TESTING (test code 170 mg/dL 70-110 H = GLUBED) GLUCOSE BEDSIDE [id number] 20:26:00 Test Item Value Reference Range Interpretation Comments GLUCOSE BEDSIDE TESTING (test code 235 mg/dL 70-110 H = GLUBED) GLUCOSE BEDSIDE [id number] 16:22:00 Test Item Value Reference Range Interpretation Comments GLUCOSE BEDSIDE TESTING (test code 120 mg/dL 70-110 H = GLUBED) GLUCOSE BEDSIDE [id number] 12:04:00 Test Item Value Reference Range Interpretation Comments GLUCOSE BEDSIDE TESTING (test code 146 mg/dL 70-110 H = GLUBED) GLUCOSE BEDSIDE [id number] 08:03:00 Test Item Value Reference Range Interpretation Comments GLUCOSE BEDSIDE TESTING (test code 137 mg/dL 70-110 H = GLUBED) GLUCOSE BEDSIDE [id number] 07:39:00 Test Item Value Reference Range Interpretation Comments GLUCOSE BEDSIDE TESTING (test code = 24 mg/dL 70-110 LL GLUBED) CBC W/AUTO [id number] 06:39:00 Test Item Value Reference Range Interpretation Comments WHITE BLOOD CELL (test code = 4.3 K/mm3 3.5-11.0 N WBC) RED BLOOD CELL (test code = 4.16 M/mm3 4.70-6.10 L RBC) HEMOGLOBIN (test code = HGB) 11.9 G/DL 10.4-14.9 N HEMATOCRIT (test code = HCT) 36.7 % 31.5-44.1 N MEAN CELL VOLUME (test code = 88.2 Fl 84.5-98.6 N MCV) MEAN CELL HGB (test code = MCH) 28.6 pg 27.0-34.2 N MEAN CELL HGB CONCETRATION 32.4 G/DL 31.5-34.0 N (test code = MCHC) RED CELL DISTRIBUTION WIDTH 16.1 SD 11.5-14.5 H (test code = RDW) PLATELET COUNT (test code = 218 K/mm3 150-450 N PLT) MEAN PLATELET VOLUME (test code 10.00 fL 7.0-10.5 N = MPV) NEUTROPHIL % (test code = NT%) 39.6 % 40-76 L IMMATURE GRANULOCYTE % (test 0.5 % 0.0-5.0 N code = IG%) LYMPHOCYTE % (test code = LY%) 42.4 % 20.5-51.1 N MONOCYTE % (test code = MO%) 10.7 % 1.7-9.3 H EOSINOPHIL % (test code = EO%) 6.3 % 0.0-6.0 H BASOPHIL % (test code = BA%) 0.5 % 0.0-2.0 N NUCLEATED RBC % (test code = 0.0 /100WBC% 0.0-1.0 N NRBC%) NEUTROPHIL # (test code = NT#) 1.7 K/mm3 1.8-7.6 L IMMATURE GRANULOCYTE # (test 0.02 x10 3/uL 0.00-0.03 N code = IG#) LYMPHOCYTE # (test code = LY#) 1.8 K/mm3 0.6-3.2 N MONOCYTE # (test code = MO#) 0.5 K/mm3 0.3-1.1 N EOSINOPHIL # (test code = EO#) 0.3 K/mm3 0.0-0.4 N BASOPHIL # (test code = BA#) 0.0 K/mm3 0.0-0.1 N NUCLEATED RBC # (test code = 0.0 K/mm3 0.0-0.1 N NRBC#) MANUAL DIFF REQUIRED (test code NO DIFF/SCN CRITERIA = MDIFF) GLUCOSE BEDSIDE [id number] 21:13:00 Test Item Value Reference Range Interpretation Comments GLUCOSE BEDSIDE TESTING (test code 168 mg/dL 70-110 H = GLUBED) BASIC METABOLIC [id number] 05:43:00 Test Item Value Reference Range Interpretation Comments SODIUM (test code = NA) 143 mmol/L 134-147 N POTASSIUM (test code = 3.9 mmol/L 3.4-5.0 N K) CHLORIDE (test code = 112 mmol/L 100-108 H CL) CARBON DIOXIDE (test 26 mmol/L 21-32 N code = CO2) ANION GAP (test code = 5.0 GAP calc 4.0-15.0 N GAP) GLUCOSE (test code = 47 MG/DL 70-110 L GLU) BLOOD UREA NITROGEN 2 MG/DL 7-18 L (test code = BUN) GLOMERULAR FILTRATION >=60 max estimate >60 RATE (test code = GFR) estGFR CREATININE (test code = 0.6 MG/DL 0.6-1.0 N CREAT) CALCIUM (test code = CA) 8.4 MG/DL 8.5-10.1 L [id number] 05:43:00 Test Item Value Reference Range Interpretation Comments PHOSPHOROUS (test code = PHOS) 2.5 MG/DL 2.5-4.9 N [id number] 05:43:00 Test Item Value Reference Range Interpretation Comments MAGNESIUM (test code = MAG) 1.9 MG/DL 1.8-2.4 N CBC W/AUTO [id number] 05:28:00 Test Item Value Reference Range Interpretation Comments WHITE BLOOD CELL (test code = 4.7 K/mm3 3.5-11.0 N WBC) RED BLOOD CELL (test code = 3.33 M/mm3 4.70-6.10 L RBC) HEMOGLOBIN (test code = HGB) 9.5 G/DL 10.4-14.9 L HEMATOCRIT (test code = HCT) 30.1 % 31.5-44.1 L MEAN CELL VOLUME (test code = 90.4 Fl 84.5-98.6 N MCV) MEAN CELL HGB (test code = MCH) 28.5 pg 27.0-34.2 N MEAN CELL HGB CONCETRATION 31.6 G/DL 31.5-34.0 N (test code = MCHC) RED CELL DISTRIBUTION WIDTH 16.2 SD 11.5-14.5 H (test code = RDW) PLATELET COUNT (test code = 169 K/mm3 150-450 N PLT) MEAN PLATELET VOLUME (test code 10.60 fL 7.0-10.5 H = MPV) NEUTROPHIL % (test code = NT%) 56.4 % 40-76 IMMATURE GRANULOCYTE % (test 0.2 % 0.0-5.0 N code = IG%) LYMPHOCYTE % (test code = LY%) 31.8 % 20.5-51.1 N MONOCYTE % (test code = MO%) 8.5 % 1.7-9.3 N EOSINOPHIL % (test code = EO%) 2.5 % 0.0-6.0 N BASOPHIL % (test code = BA%) 0.6 % 0.0-2.0 N NUCLEATED RBC % (test code = 0.0 /100WBC% 0.0-1.0 N NRBC%) NEUTROPHIL # (test code = NT#) 2.7 K/mm3 1.8-7.6 N IMMATURE GRANULOCYTE # (test 0.01 x10 3/uL 0.00-0.03 N code = IG#) LYMPHOCYTE # (test code = LY#) 1.5 K/mm3 0.6-3.2 N MONOCYTE # (test code = MO#) 0.4 K/mm3 0.3-1.1 N EOSINOPHIL # (test code = EO#) 0.1 K/mm3 0.0-0.4 N BASOPHIL # (test code = BA#) 0.0 K/mm3 0.0-0.1 N NUCLEATED RBC # (test code = 0.0 K/mm3 0.0-0.1 N NRBC#) MANUAL DIFF REQUIRED (test code NO DIFF/SCN CRITERIA = MDIFF) GLUCOSE BEDSIDE [id number] 21:02:00 Test Item Value Reference Range Interpretation Comments GLUCOSE BEDSIDE TESTING (test code 155 mg/dL 70-110 H = GLUBED) GLUCOSE BEDSIDE [id number] 16:10:00 Test Item Value Reference Range Interpretation Comments GLUCOSE BEDSIDE TESTING (test code 146 mg/dL 70-110 H = GLUBED) GLUCOSE BEDSIDE [id number] 12:23:00 Test Item Value Reference Range Interpretation Comments GLUCOSE BEDSIDE TESTING (test code 329 mg/dL 70-110 H = GLUBED) GLUCOSE BEDSIDE [id number] 07:59:00 Test Item Value Reference Range Interpretation Comments GLUCOSE BEDSIDE TESTING (test code 225 mg/dL 70-110 H = GLUBED) - XR CHEST 1 [id number] 07:34:00 [facility] 1945 Sex: F Name: AKIRA RODRIGUEZ [place] : 1945 Age/S: 75 / F [id number] Unit #: [id number] Loc: [place] [address] Phys: Yanet Bragg APRENRRIQUE Acct: [id number] Dis Date: Status: ADM IN PHONE #: [phone] Exam Date: 06/14/2021 0700 FAX #: Reason: cough EXAMS: CPT: [id number] XR CHEST 1 V 06125 Fluoro Time: DAP (Gy m2): Air Kerma (mGy): EXAMINATION: Frontal chest radiograph INDICATION: cough COMPARISON: Previous day LOCATION: S17 FINDINGS: Mild interlobular septal thickening. Appearance is most suggestive of edema, infection considered less likely. No definite pleural effusion or pneumothorax. Grossly stable cardiac silhouette. IMPRESSION: Suspect mild edema. at 0734 Reported and signed by: Latrell Weston M.D. CC: Yanet Bragg; Piotr Arshad MD PAGE 1 Signed Report Name: AKIRA RODRIGUEZ [place] : 1945 Age/S: 75 / F [address] [place] [address] Unit #: [id number] Loc: [place] [address] Phys: Yanet Bragg APRENRRIQUE Acct: [id number] Dis Date: Status: ADM IN PHONE #: [phone] Exam Date: 06/14/2021 0700 FAX#: Reason: cough EXAMS: CPT: [id number] XR CHEST 1 V 46497 Fluoro Time: DAP (Gy m2): Air Kerma (mGy): (Continued) Technologist: Twin Lopez, RT(R)(CT) Trnscb Date/Time: 06/14/2021 (0734) [email or web address] Orig Print D/T: S: 06/14/2021 (0762) PAGE 2 Signed ReportT4 [id number] 05:13:00 Test Item Value Reference Range Interpretation Comments T4 FREE (test code = T4F) 1.00 NG/DL 0.89-1.76 N THYROID STIMULATING [id number] 05:13:00 Test Item Value Reference Range Interpretation Comments THYROID STIMULATING HORMONE 2.680 mcIU/ML 0.340-4.820 (test code = TSH) BASIC METABOLIC [id number] 04:48:00 Test Item Value Reference Range Interpretation Comments SODIUM (test code = NA) 142 mmol/L 134-147 N POTASSIUM (test code = 3.2 mmol/L 3.4-5.0 L K) CHLORIDE (test code = 114 mmol/L 100-108 H CL) CARBON DIOXIDE (test 21 mmol/L 21-32 N code = CO2) ANION GAP (test code = 7.0 GAP calc 4.0-15.0 N GAP) GLUCOSE (test code = 198 MG/DL 70-110 H GLU) BLOOD UREA NITROGEN 4 MG/DL 7-18 L (test code = BUN) GLOMERULAR FILTRATION >=60 max estimate >60 RATE (test code = GFR) estGFR CREATININE (test code = 0.7 MG/DL 0.6-1.0 N CREAT) CALCIUM (test code = CA) 7.2 MG/DL 8.5-10.1 L [id number] 04:48:00 Test Item Value Reference Range Interpretation Comments PHOSPHOROUS (test code = PHOS) 2.3 MG/DL 2.5-4.9 L [id number] 04:48:00 Test Item Value Reference Range Interpretation Comments MAGNESIUM (test code = MAG) 1.6 MG/DL 1.8-2.4 L CBC W/AUTO [id number] 04:30:00 Test Item Value Reference Range Interpretation Comments WHITE BLOOD CELL (test code = 6.0 K/mm3 3.5-11.0 N WBC) RED BLOOD CELL (test code = 3.01 M/mm3 4.70-6.10 L RBC) HEMOGLOBIN (test code = HGB) 8.5 G/DL 10.4-14.9 L HEMATOCRIT (test code = HCT) 26.7 % 31.5-44.1 L MEAN CELL VOLUME (test code = 88.7 Fl 84.5-98.6 N MCV) MEAN CELL HGB (test code = MCH) 28.2 pg 27.0-34.2 N MEAN CELL HGB CONCETRATION 31.8 G/DL 31.5-34.0 N (test code = MCHC) RED CELL DISTRIBUTION WIDTH 15.9 SD 11.5-14.5 H (test code = RDW) PLATELET COUNT (test code = 159 K/mm3 150-450 N PLT) MEAN PLATELET VOLUME (test code 10.00 fL 7.0-10.5 N = MPV) NEUTROPHIL % (test code = NT%) 72.0 % 40-76 IMMATURE GRANULOCYTE % (test 0.3 % 0.0-5.0 N code = IG%) LYMPHOCYTE % (test code = LY%) 21.2 % 20.5-51.1 N MONOCYTE % (test code = MO%) 5.0 % 1.7-9.3 N EOSINOPHIL % (test code = EO%) 1.0 % 0.0-6.0 N BASOPHIL % (test code = BA%) 0.5 % 0.0-2.0 N NUCLEATED RBC % (test code = 0.0 /100WBC% 0.0-1.0 N NRBC%) NEUTROPHIL # (test code = NT#) 4.3 K/mm3 1.8-7.6 N IMMATURE GRANULOCYTE # (test 0.02 x10 3/uL 0.00-0.03 N code = IG#) LYMPHOCYTE # (test code = LY#) 1.3 K/mm3 0.6-3.2 N MONOCYTE # (test code = MO#) 0.3 K/mm3 0.3-1.1 N EOSINOPHIL # (test code = EO#) 0.1 K/mm3 0.0-0.4 N BASOPHIL # (test code = BA#) 0.0 K/mm3 0.0-0.1 N NUCLEATED RBC # (test code = 0.0 K/mm3 0.0-0.1 N NRBC#) MANUAL DIFF REQUIRED (test code NO DIFF/SCN CRITERIA = MDIFF) GLUCOSE BEDSIDE [id number] 01:33:00 Test Item Value Reference Range Interpretation Comments GLUCOSE BEDSIDE TESTING (test code 156 mg/dL 70-110 H = GLUBED) BASIC METABOLIC [id number] 23:08:00 Test Item Value Reference Range Interpretation Comments SODIUM (test code = NA) 140 mmol/L 134-147 N POTASSIUM (test code = 3.2 mmol/L 3.4-5.0 L K) CHLORIDE (test code = 112 mmol/L 100-108 H CL) CARBON DIOXIDE (test 20 mmol/L 21-32 L code = CO2) ANION GAP (test code = 8.0 GAP calc 4.0-15.0 N GAP) GLUCOSE (test code = 249 MG/DL 70-110 H GLU) BLOOD UREA NITROGEN 6 MG/DL 7-18 L (test code = BUN) GLOMERULAR FILTRATION >=60 max estimate >60 RATE (test code = GFR) estGFR CREATININE (test code = 0.8 MG/DL 0.6-1.0 N CREAT) CALCIUM (test code = CA) 6.9 MG/DL 8.5-10.1 L [id number] 23:08:00 Test Item Value Reference Range Interpretation Comments PHOSPHOROUS (test code = PHOS) 2.4 MG/DL 2.5-4.9 L [id number] 23:08:00 Test Item Value Reference Range Interpretation Comments MAGNESIUM (test code = MAG) 1.9 MG/DL 1.8-2.4 GLUCOSE BEDSIDE [id number] 21:28:00 Test Item Value Reference Range Interpretation Comments GLUCOSE BEDSIDE TESTING (test code 280 mg/dL 70-110 H = GLUBED) GLUCOSE BEDSIDE [id number] 19:42:00 Test Item Value Reference Range Interpretation Comments GLUCOSE BEDSIDE TESTING (test code 242 mg/dL 70-110 H = GLUBED) GLUCOSE BEDSIDE [id number] 18:53:00 Test Item Value Reference Range Interpretation Comments GLUCOSE BEDSIDE TESTING (test code 231 mg/dL 70-110 H = GLUBED) GLUCOSE BEDSIDE [id number] 17:55:00 Test Item Value Reference Range Interpretation Comments GLUCOSE BEDSIDE TESTING (test code 159 mg/dL 70-110 H = GLUBED) GLUCOSE BEDSIDE [id number] 17:53:00 Test Item Value Reference Range Interpretation Comments GLUCOSE BEDSIDE TESTING (test code 196 mg/dL 70-110 H = GLUBED) BASIC METABOLIC [id number] 16:26:00 Test Item Value Reference Range Interpretation Comments SODIUM (test code = NA) 139 mmol/L 134-147 N POTASSIUM (test code = 3.3 mmol/L 3.4-5.0 L K) CHLORIDE (test code = 112 mmol/L 100-108 H CL) CARBON DIOXIDE (test 18 mmol/L 21-32 L code = CO2) ANION GAP (test code = 9.0 GAP calc 4.0-15.0 N GAP) GLUCOSE (test code = 112 MG/DL 70-110 H GLU) BLOOD UREA NITROGEN 9 MG/DL 7-18 N (test code = BUN) GLOMERULAR FILTRATION >=60 max estimate >60 RATE (test code = GFR) estGFR CREATININE (test code = 0.9 MG/DL 0.6-1.0 N CREAT) CALCIUM (test code = CA) 7.0 MG/DL 8.5-10.1 L [id number] 16:26:00 Test Item Value Reference Range Interpretation Comments PHOSPHOROUS (test code = PHOS) 2.6 MG/DL 2.5-4.9 N [id number] 16:26:00 Test Item Value Reference Range Interpretation Comments MAGNESIUM (test code = MAG) 2.2 MG/DL 1.8-2.4 N GLUCOSE BEDSIDE [id number] 16:20:00 Test Item Value Reference Range Interpretation Comments GLUCOSE BEDSIDE TESTING (test code 115 mg/dL 70-110 H = GLUBED) GLUCOSE BEDSIDE [id number] 16:20:00 Test Item Value Reference Range Interpretation Comments GLUCOSE BEDSIDE TESTING (test code 112 mg/dL 70-110 H = GLUBED) GLUCOSE BEDSIDE [id number] 16:04:00 Test Item Value Reference Range Interpretation Comments GLUCOSE BEDSIDE TESTING (test code 147 mg/dL 70-110 H = GLUBED) GLUCOSE BEDSIDE [id number] 11:58:00 Test Item Value Reference Range Interpretation Comments GLUCOSE BEDSIDE TESTING (test code 165 mg/dL 70-110 H = GLUBED) GLUCOSE BEDSIDE [id number] 11:58:00 Test Item Value Reference Range Interpretation Comments GLUCOSE BEDSIDE TESTING (test code 199 mg/dL 70-110 H = GLUBED) BASIC METABOLIC [id number] 11:00:00 Test Item Value Reference Range Interpretation Comments SODIUM (test code = NA) 141 mmol/L 134-147 N POTASSIUM (test code = K) 3.7 mmol/L 3.4-5.0 N CHLORIDE (test code = CL) 115 mmol/L 100-108 H CARBON DIOXIDE (test code = 16 mmol/L 21-32 L CO2) ANION GAP (test code = GAP) 10.0 GAP calc 4.0-15.0 N GLUCOSE (test code = GLU) 188 MG/DL 70-110 H BLOOD UREA NITROGEN (test code 10 MG/DL 7-18 N = BUN) GLOMERULAR FILTRATION RATE 52 estGFR >60 L (test code = GFR) CREATININE (test code = CREAT) 1.1 MG/DL 0.6-1.0 H CALCIUM (test code = CA) 6.6 MG/DL 8.5-10.1 L [id number] 11:00:00 Test Item Value Reference Range Interpretation Comments PHOSPHOROUS (test code = PHOS) 2.2 MG/DL 2.5-4.9 L [id number] 11:00:00 Test Item Value Reference Range Interpretation Comments MAGNESIUM (test code = MAG) 2.0 MG/DL 1.8-2.4 VENOUS BLOOD [id number] 10:20:00 Test Item Value Reference Range Interpretation Comments VENOUS BLOOD GAS PH (test code 7.39 pH units 7.26-7.43 N = PHV) VENOUS BLOOD GAS PCO2 (test 24 mmHg 33-58 L code = PCO2V) VENOUS BLOOD GAS PO2 (test code 33 mmHg 80-100 L = PO2V) VBG HCO3 (test code = HCO3V) 14.3 mmol/L 22.0-26.0 L VBG BASE EXCESS (test code = -8.6 mmol/L -2.0-2.0 L RAYNE) VENOUS BLOOD GAS O2 SAT. (test 63 % (calc) 72-77 L code = O2SATV) VENOUS BLOOD GAS FIO2 (test 21 % 21-100 N code = FIO2V) VENOUS BLOOD GAS SITE (test Other Site DESCRIPTION code = SITEV) GLUCOSE BEDSIDE [id number] 09:21:00 Test Item Value Reference Range Interpretation Comments GLUCOSE BEDSIDE TESTING (test code 256 mg/dL 70-110 H = GLUBED) GLUCOSE BEDSIDE [id number] 09:21:00 Test Item Value Reference Range Interpretation Comments GLUCOSE BEDSIDE TESTING (test code 281 mg/dL 70-110 H = GLUBED) - XR CHEST 1 [id number] 08:49:00 [facility] 1945 Sex: F Name: AKIRA RODRIGUEZ [facility] : 1945 Age/S: 75 / F [id number] Unit #: [id number] Loc: [place] [address] Phys: Indra Corado MD Acct: [id number] Dis Date: Status: ADM IN PHONE #: [phone] Date: 06/13/2021 0840 FAX #: Reason: POSSIBLE PNA EXAMS: CPT: [id number] XR CHEST 1 V 46494 Fluoro Time: DAP (Gy m2): Air Kerma (mGy): EXAMINATION: - XR CHEST 1 V. LOCATION: B2. HISTORY: POSSIBLE PNA. COMPARISON: Radiograph dated 06/12/2021. TECHNIQUE: Single AP view of the chest was obtained. FINDINGS: The heart is mildly enlarged in size. Lungs are clear. No acute osseous abnormality is identified. IMPRESSION: Mild cardiomegaly with no acute pulmonary process. at 0849 Reported and signed by: Nasim Jamison M.D. CC: Indra Corado MD;Piotr Arshad MD PAGE 1 Signed Report Name: AKIRA RODRIGUEZ [place] : 1945 Age/S: 75 / F [id number] Unit #: [id number] Loc: [place] [address] Phys: Indra Corado MD Acct: [id number] Dis Date: Status: ADM IN PHONE #: [phone] Exam Date: 06/13/2021 08 FAX #: Reason: POSSIBLE PNA EXAMS: CPT: [id number] XR CHEST 1 V 23036 Fluoro Time: DAP (Gy m2): Air Kerma (mGy): (Continued) Technologist: GUILHERME COLES, RT(R)(CT) Trnscb Date/Time: 06/13/2021 (0849) [email or web address] Orig PrintD/T: S: 06/13/2021 (0852) PAGE 2 Signed ReportGLUCOSE BEDSIDE [id number] 07:17:00 Test Item Value Reference Range Interpretation Comments GLUCOSE BEDSIDE TESTING (test code 340 mg/dL 70-110 H = GLUBED) GLUCOSE BEDSIDE [id number] 07:17:00 Test Item Value Reference Range Interpretation Comments GLUCOSE BEDSIDE TESTING (test code 418 mg/dL 70-110 H = GLUBED) BASIC METABOLIC [id number] 04:54:00 Test Item Value Reference Range Interpretation Comments SODIUM (test code = 140 mmol/L 134-147 N NA) POTASSIUM (test code 3.7 mmol/L 3.4-5.0 N = K) CHLORIDE (test code = 110 mmol/L 100-108 H CL) CARBON DIOXIDE (test 12 mmol/L 21-32 L code = CO2) ANION GAP (test code 18.0 GAP calc 4.0-15.0 H = GAP) GLUCOSE (test code = 446 MG/DL 70-110 H RN ARIANA OLEARY AGREED GLU) WITH THE RESULT . BLOOD UREA NITROGEN 11 MG/DL 7-18 N (test code = BUN) GLOMERULAR FILTRATION 58 estGFR >60 L RATE (test code = GFR) CREATININE (test code 1.0 MG/DL 0.6-1.0 N = CREAT) CALCIUM (test code = 7.1 MG/DL 8.5-10.1 L CA) [id number] 04:54:00 Test Item Value Reference Range Interpretation Comments PHOSPHOROUS (test code = PHOS) 2.4 MG/DL 2.5-4.9 L [id number] 04:54:00 Test Item Value Reference Range Interpretation Comments MAGNESIUM (test code = MAG) 2.3 MG/DL 1.8-2.4 CBC W/AUTO [id number] 04:39:00 Test Item Value Reference Range Interpretation Comments WHITE BLOOD CELL (test code = 14.8 K/mm3 3.5-11.0 H WBC) RED BLOOD CELL (test code = 3.34 M/mm3 4.70-6.10 L RBC) HEMOGLOBIN (test code = HGB) 9.7 G/DL 10.4-14.9 L HEMATOCRIT (test code = HCT) 30.4 % 31.5-44.1 L MEAN CELL VOLUME (test code = 91.0 Fl 84.5-98.6 N MCV) MEAN CELL HGB (test code = MCH) 29.0 pg 27.0-34.2 N MEAN CELL HGB CONCETRATION 31.9 G/DL 31.5-34.0 N (test code = MCHC) RED CELL DISTRIBUTION WIDTH 15.3 SD 11.5-14.5 H (test code = RDW) PLATELET COUNT (test code = 197 K/mm3 150-450 N PLT) MEAN PLATELET VOLUME (test code 10.30 fL 7.0-10.5 N = MPV) NEUTROPHIL % (test code = NT%) 88.7 % 40-76 H IMMATURE GRANULOCYTE % (test 0.7 % 0.0-5.0 N code = IG%) LYMPHOCYTE % (test code = LY%) 6.5 % 20.5-51.1 L MONOCYTE % (test code = MO%) 3.9 % 1.7-9.3 N EOSINOPHIL % (test code = EO%) 0.1 % 0.0-6.0 N BASOPHIL % (test code = BA%) 0.1 % 0.0-2.0 N NUCLEATED RBC % (test code = 0.0 /100WBC% 0.0-1.0 N NRBC%) NEUTROPHIL # (test code = NT#) 13.2 K/mm3 1.8-7.6 H IMMATURE GRANULOCYTE # (test 0.11 x10 3/uL 0.00-0.03 H code = IG#) LYMPHOCYTE # (test code = LY#) 1.0 K/mm3 0.6-3.2 N MONOCYTE # (test code = MO#) 0.6 K/mm3 0.3-1.1 N EOSINOPHIL # (test code = EO#) 0.0 K/mm3 0.0-0.4 N BASOPHIL # (test code = BA#) 0.0 K/mm3 0.0-0.1 N NUCLEATED RBC # (test code = 0.0 K/mm3 0.0-0.1 N NRBC#) MANUAL DIFF REQUIRED (test code NO DIFF/SCN CRITERIA = MDIFF) GLUCOSE BEDSIDE [id number] 04:20:00 Test Item Value Reference Range Interpretation Comments GLUCOSE BEDSIDE TESTING (test code 414 mg/dL 70-110 H = GLUBED) GLUCOSE BEDSIDE [id number] 23:58:00 Test Item Value Reference Range Interpretation Comments GLUCOSE BEDSIDE TESTING (test code 236 mg/dL 70-110 H = GLUBED) - US RETROPERITONEAL [id number] 23:14:00 [facility] 1945 Sex: F Name: AKIRA RODRIGUEZ [facility] : 1945 Age/S: 75 / F [id number] Unit #: [id number] Loc: [place] [address] Phys: Rufus Luke MD Acct: [id number] Dis Date: Status: ADM IN PHONE #: [phone] Exam Date: 06/12/2021 2304 FAX #: Reason: urinary retention EXAMS: CPT: [id number] US RETROPERITONEAL COM [id number] EXAM: - US RETROPERITONEAL COM LOCATION: H61 REASON FOR EXAM: urinary retention TECHNIQUE: Grayscale grayscale and color Doppler evaluation of the kidneys was performed by the maintenance instructor. Multiple still images were saved and submitted for interpretation. COMPARISON: None. FINDINGS: RIGHT KIDNEY: The right kidney measures 10.7 x 3.9 x 4.4 cm. The right kidney is normal in size, morphology, an d echogenicity, without evidence of solid mass or hydronephrosis. A few small subcentimeter cysts are present. LEFT KIDNEY: The left kidney measures 10.6 x 4.6 x 4.3 cm. The left kidney is normal in size, morphology, and echogenicity, without evidence of solid mass or hydronephrosis. A few small subcentimeter cysts are present. URINARY BLADDER: The urinary bladder is decompressed with Danielson catheter in place. OTHER FINDINGS: There is small volume simple free fluid in the right upper quadrant surrounding the liver. IMPRESSION: 1. Normal renal cortical echogenicity and thickness without hydronephrosis. 2. Small volume simple free fluid in the right upper quadrant. at 2314 Reported and signed by: Lawrence Kennedy M.D. CC: Rufus Luke MD; Piotr Arshad MD Technologist: Velasquez Ronquillo [facility] Date/Time: 06/12/2021 (2314) [email or web address] PAGE 1 Signed Report Name: AKIRA RODRIGUEZ [place] : 1945 Age/S: 75 / F [id number] Unit #: [id number] Loc: [place] [address] Phys: Rufus Luke MD Acct: [id number] Dis Date: Status: ADM IN PHONE #: [phone] Exam Date: 06/12/2021 2306 FAX #: Reason: urinary retention EXAMS: CPT: [id number] Hello! Messenger [facility] [id number] (Continued) Orig Print D/T: S: 06/12/2021 (2317) Probe: PAGE 2 Signed Report BASIC METABOLIC [id number] 19:03:00 Test Item Value Reference Range Interpretation Comments SODIUM (test code = NA) 141 mmol/L 134-147 N POTASSIUM (test code = 3.5 mmol/L 3.4-5.0 N K) CHLORIDE (test code = 114 mmol/L 100-108 H CL) CARBON DIOXIDE (test 19 mmol/L 21-32 L code = CO2) ANION GAP (test code = 8.0 GAP calc 4.0-15.0 N GAP) GLUCOSE (test code = 99 MG/DL 70-110 N GLU) BLOOD UREA NITROGEN 14 MG/DL 7-18 N (test code = BUN) GLOMERULAR FILTRATION >=60 max estimate >60 RATE (test code = GFR) estGFR CREATININE (test code = 0.9 MG/DL 0.6-1.0 N CREAT) CALCIUM (test code = CA) 6.9 MG/DL 8.5-10.1 L [id number] 19:03:00 Test Item Value Reference Range Interpretation Comments PHOSPHOROUS (test code = PHOS) 2.7 MG/DL 2.5-4.9 [id number] 19:03:00 Test Item Value Reference Range Interpretation Comments MAGNESIUM (test code = MAG) 1.8 MG/DL 1.8-2.4 LACTIC [id number] 18:57:00 Test Item Value Reference Range Interpretation Comments LACTIC ACID (test code = LACT) 1.6 mmol/L 0.4-2.0 N GLUCOSE BEDSIDE [id number] 18:44:00 Test Item Value Reference Range Interpretation Comments GLUCOSE BEDSIDE TESTING (test code = 94 mg/dL 70-110 N GLUBED) GLUCOSE BEDSIDE [id number] 16:46:00 Test Item Value Reference Range Interpretation Comments GLUCOSE BEDSIDE TESTING (test code 104 mg/dL 70-110 N = GLUBED) LACTIC [id number] 15:02:00 Test Item Value Reference Range Interpretation Comments LACTIC ACID (test code = LACT) 3.0 mmol/L 0.4-2.0 H GLUCOSE BEDSIDE [id number] 13:34:00 Test Item Value Reference Range Interpretation Comments GLUCOSE BEDSIDE TESTING (test code = 70 mg/dL 70-110 N GLUBED) GLUCOSE BEDSIDE [id number] 13:34:00 Test Item Value Reference Range Interpretation Comments GLUCOSE BEDSIDE TESTING (test code 160 mg/dL 70-110 H = GLUBED) GLUCOSE BEDSIDE [id number] 13:34:00 Test Item Value Reference Range Interpretation Comments GLUCOSE BEDSIDE TESTING (test code 173 mg/dL 70-110 H = GLUBED) GLUCOSE BEDSIDE [id number] 13:34:00 Test Item Value Reference Range Interpretation Comments GLUCOSE BEDSIDE TESTING (test code 178 mg/dL 70-110 H = GLUBED) GLUCOSE BEDSIDE [id number] 13:34:00 Test Item Value Reference Range Interpretation Comments GLUCOSE BEDSIDE TESTING (test code 230 mg/dL 70-110 H = GLUBED) - XR CHEST 1 [id number] 12:00:00 [facility] 1945 Sex: F Name: AKIRA RODRIGUEZ [facility] : 1945 Age/S: 75 / F [id number] Unit #: [id number] Loc: [place] [address] Phys: Indra Corado MD Acct: [id number] Dis Date: Status: ADM IN PHONE #: [phone] Exam Date: 06/12/2021 1153 FAX #: Reason: SOB EXAMS: CPT: [id number] XR CHEST 1 V [id number] Fluoro Time: DAP (Gy m2): Air Kerma (mGy): EXAM: - XR CHEST 1 V CLINICAL HISTORY: SOB TECHNIQUE: Single frontal view. COMPARISON: Chest radiograph 05/20/2021 LOCATION: U19 FINDINGS: The trachea appears normal. The mediastinum and cardiac silhouette are within the upper limits for normal size. The lungs are clear. No pleural effusions. Mild thoracic levocurvature noted. IMPRESSION: No acute cardiopulmonary process. at 1200 Reported and signed by: Bautista Delgado D.O. CC: Indra Corado MD; Piotr Arshad MD PAGE 1 Signed Report Name: AKIRA RODRIGUEZ [facility] : 1945 Age/S: 75 / F [id number] Unit #: [id number] Loc: [place] [address] Phys: Indra Corado MD Acct: [id number] Dis Date: Status: ADM IN PHONE #: [phone] Exam Date: 06/12/2021 1153 FAX #: Reason: SOB EXAMS: CPT: [id number] XR CHEST 1 V 60843 Fluoro Time: DAP (Gy m2): AirKerma (mGy): (Continued) Technologist: Jaylen Whitehead RT(R) Trnscb Date/Time: 06/12/2021 (1200) [email or web address] Orig Print D/T: S: 06/12/2021 (6146) PAGE 2 Signed ReportBASIC METABOLIC [id number] 11:33:00 Test Item Value Reference Range Interpretation Comments SODIUM (test code = NA) 140 mmol/L 134-147 N POTASSIUM (test code = K) 2.6 mmol/L 3.4-5.0 LL CHLORIDE (test code = CL) 109 mmol/L 100-108 H CARBON DIOXIDE (test code = CO2) 22 mmol/L 21-32 N ANION GAP (test code = GAP) 9.0 GAP calc 4.0-15.0 N GLUCOSE (test code = GLU) 181 MG/DL 70-110 H BLOOD UREA NITROGEN (test code = 23 MG/DL 7-18 H BUN) GLOMERULAR FILTRATION RATE (test 39 estGFR >60 L code = GFR) CREATININE (test code = CREAT) 1.4 MG/DL 0.6-1.0 H CALCIUM (test code = CA) 6.9 MG/DL 8.5-10.1 L [id number] 10:36:00 Test Item Value Reference Range Interpretation Comments MAGNESIUM (test code = MAG) 1.4 MG/DL 1.8-2.4 L CBC W/AUTO [id number] 10:26:00 Test Item Value Reference Range Interpretation Comments WHITE BLOOD CELL (test code = 11.7 K/mm3 3.5-11.0 H WBC) RED BLOOD CELL (test code = 2.82 M/mm3 4.70-6.10 L RBC) HEMOGLOBIN (test code = HGB) 8.2 G/DL 10.4-14.9 L HEMATOCRIT (test code = HCT) 24.6 % 31.5-44.1 L MEAN CELL VOLUME (test code = 87.2 Fl 84.5-98.6 MCV) MEAN CELL HGB (test code = MCH) 29.1 pg 27.0-34.2 N MEAN CELL HGB CONCETRATION 33.3 G/DL 31.5-34.0 N (test code = MCHC) RED CELL DISTRIBUTION WIDTH 14.4 SD 11.5-14.5 N (test code = RDW) PLATELET COUNT (test code = 196 K/mm3 150-450 N PLT) MEAN PLATELET VOLUME (test code 9.90 fL 7.0-10.5 N = MPV) NEUTROPHIL % (test code = NT%) 87.1 % 40-76 H IMMATURE GRANULOCYTE % (test 0.4 % 0.0-5.0 N code = IG%) LYMPHOCYTE % (test code = LY%) 7.0 % 20.5-51.1 L MONOCYTE % (test code = MO%) 5.4 % 1.7-9.3 N EOSINOPHIL % (test code = EO%) 0.0 % 0.0-6.0 N BASOPHIL % (test code = BA%) 0.1 % 0.0-2.0 N NUCLEATED RBC % (test code = 0.0 /100WBC% 0.0-1.0 N NRBC%) NEUTROPHIL # (test code = NT#) 10.2 K/mm3 1.8-7.6 H IMMATURE GRANULOCYTE # (test 0.05 x10 3/uL 0.00-0.03 H code = IG#) LYMPHOCYTE # (test code = LY#) 0.8 K/mm3 0.6-3.2 N MONOCYTE # (test code = MO#) 0.6 K/mm3 0.3-1.1 N EOSINOPHIL # (test code = EO#) 0.0 K/mm3 0.0-0.4 N BASOPHIL # (test code = BA#) 0.0 K/mm3 0.0-0.1 N NUCLEATED RBC # (test code = 0.0 K/mm3 0.0-0.1 N NRBC#) MANUAL DIFF REQUIRED (test code NO DIFF/SCN CRITERIA = MDIFF) LACTIC [id number] 09:08:00 Test Item Value Reference Range Interpretation Comments LACTIC ACID (test code = LACT) 3.8 mmol/L 0.4-2.0 H GLUCOSE BEDSIDE [id number] 07:16:00 Test Item Value Reference Range Interpretation Comments GLUCOSE BEDSIDE TESTING (test code 254 mg/dL 70-110 H = GLUBED) UA RFLX MICR CULT IF [id number] 06:53:00 Test Item Value Reference Range Interpretation Comments UA COLOR (test code = YELLOW discript YEL/STRAW COLU) UA APPEARANCE (test code CLOUDY discript CLEAR A = APPU) UA GLUCOSE DIPSTICK (test 1+ mg/dL NEG code = DGLUU) UA BILIRUBIN DIPSTICK 2+ mg/dL NEG A (test code = BILU) UA KETONE DIPSTICK (test 3+ mg/dL NEG A code = KETU) UA SPECIFIC GRAVITY (test 1.020 SG 1.005-1.030 code = SGU) UA BLOOD DIPSTICK (test 1+ mg/DL NEG A code = EARLINE) UA PH DIPSTICK (test code 5.5 pH UNITS 5.0-7.0 = GAURANG) UA PROTEIN DIPSTICK (test TRACE mg/dL NEG A code = PROU) UA UROBILINIOGEN DIPSTICK 0.2 mg/dL <2.0 (test code = URO) UA NITRITE DIPSTICK (test NEGATIVE SCREEN NEG code = JILLIAN) UA LEUKOCYTE ESTERASE TRACE Leuk/mcL NEGATIVE A DIPSTICK (test code = LEUU) UA CULTURE NEEDED? (test NO, WBC<10 Criteria Culture CHK code = UACULT) UA WBC (test code = WBCU) 0-1 #WBC/HPF 0-3 UA RBC (test code = RBCU) 3-5 #RBC/HPF 0-3 A UA BACTERIA (test code = TRACE /HPF NONE-TRACE BACU) UA SQUAMOUS CELLS (test TRACE /HPF NONE code = SQU) UA MUCUS (test code = TRACE /LPF NONE SEEN MUCU) Indication for culture: Suprapubic PainBASIC METABOLIC [id number] 06:17:00 Test Item Value Reference Range Interpretation Comments SODIUM (test code = NA) 137 mmol/L 134-147 N POTASSIUM (test code = K) 3.0 mmol/L 3.4-5.0 L CHLORIDE (test code = CL) 108 mmol/L 100-108 N CARBON DIOXIDE (test code = 15 mmol/L 21-32 L CO2) ANION GAP (test code = GAP) 14.0 GAP calc 4.0-15.0 GLUCOSE (test code = GLU) 335 MG/DL 70-110 H BLOOD UREA NITROGEN (test code 30 MG/DL 7-18 H = BUN) GLOMERULAR FILTRATION RATE 29 estGFR >60 L (test code = GFR) CREATININE (test code = CREAT) 1.8 MG/DL 0.6-1.0 H CALCIUM (test code = CA) 7.1 MG/DL 8.5-10.1 L [id number] 06:17:00 Test Item Value Reference Range Interpretation Comments PHOSPHOROUS (test code = PHOS) 1.6 MG/DL 2.5-4.9 L [id number] 06:17:00 Test Item Value Reference Range Interpretation Comments MAGNESIUM (test code = MAG) 0.5 MG/DL 1.8-2.4 LL VENOUS BLOOD [id number] 06:16:00 Test Item Value Reference Range Interpretation Comments VENOUS BLOOD GAS PH (test code 7.32 pH units 7.26-7.43 N = PHV) VENOUS BLOOD GAS PCO2 (test 30 mmHg 33-58 L code = PCO2V) VENOUS BLOOD GAS PO2 (test code 70 mmHg 80-100 L = PO2V) VBG HCO3 (test code = HCO3V) 15.2 mmol/L 22.0-26.0 L VBG BASE EXCESS (test code = -9.5 mmol/L -2.0-2.0 L RAYNE) VENOUS BLOOD GAS O2 SAT. (test 93 % (calc) 72-77 H code = O2SATV) VENOUS BLOOD GAS FIO2 (test 21 % 21-100 N code = FIO2V) VENOUS BLOOD GAS SITE (test Other Site DESCRIPTION code = SITEV) LACTIC [id number] 06:02:00 Test Item Value Reference Range Interpretation Comments LACTIC ACID (test code = LACT) 3.4 mmol/L 0.4-2.0 H GLUCOSE BEDSIDE [id number] 05:13:00 Test Item Value Reference Range Interpretation Comments GLUCOSE BEDSIDE TESTING (test code 297 mg/dL 70-110 H = GLUBED) GLUCOSE BEDSIDE [id number] 03:10:00 Test Item Value Reference Range Interpretation Comments GLUCOSE BEDSIDE TESTING (test code 396 mg/dL 70-110 H = GLUBED) VENOUS BLOOD [id number] 02:04:00 Test Item Value Reference Range Interpretation Comments VENOUS BLOOD GAS PH (test 7.21 pH units 7.26-7.43 L code = PHV) VENOUS BLOOD GAS PCO2 (test 23 mmHg 33-58 L code = PCO2V) VENOUS BLOOD GAS PO2 (test 32 mmHg 80-100 L code = PO2V) VBG HCO3 (test code = 9.1 mmol/L 22.0-26.0 L HCO3V) VBG BASE EXCESS (test code -16.8 mmol/L -2.0-2.0 L = RAYNE) VENOUS BLOOD GAS O2 SAT. 51 % (calc) 72-77 L (test code = O2SATV) VENOUS BLOOD GAS FIO2 (test 21 % 21-100 N code = FIO2V) VBG VENT MODE (test code = Room Air Descript VentMode MODEV) VENOUS BLOOD GAS SITE (test Other Site DESCRIPTION code = SITEV) LACTIC [id number] 01:22:00 Test Item Value Reference Range Interpretation Comments LACTIC ACID (test code = LACT) 2.4 mmol/L 0.4-2.0 H BASIC METABOLIC [id number] 01:21:00 Test Item Value Reference Range Interpretation Comments SODIUM (test code = NA) 133 mmol/L 134-147 L POTASSIUM (test code = K) 4.0 mmol/L 3.4-5.0 N CHLORIDE (test code = CL) 101 mmol/L 100-108 CARBON DIOXIDE (test code = 7 mmol/L 21-32 LL CO2) ANION GAP (test code = GAP) 25.0 GAP calc 4.0-15.0 H GLUCOSE (test code = GLU) 550 MG/DL 70-110 HH BLOOD UREA NITROGEN (test code 37 MG/DL 7-18 H = BUN) GLOMERULAR FILTRATION RATE 27 estGFR >60 L (test code = GFR) CREATININE (test code = CREAT) 1.9 MG/DL 0.6-1.0 H CALCIUM (test code = CA) 7.4 MG/DL 8.5-10.1 L [id number] 01:21:00 Test Item Value Reference Range Interpretation Comments PHOSPHOROUS (test code = PHOS) 4.5 MG/DL 2.5-4.9 N [id number] 01:21:00 Test Item Value Reference Range Interpretation Comments MAGNESIUM (test code = MAG) 1.2 MG/DL 1.8-2.4 L GLUCOSE BEDSIDE [id number] 00:27:00 Test Item Value Reference Range Interpretation Comments GLUCOSE BEDSIDE TESTING (test code 525 mg/dL 70-110 HH = GLUBED) BASIC METABOLIC [id number] 22:41:00 Test Item Value Reference Range Interpretation Comments SODIUM (test code = NA) 128 mmol/L 134-147 L POTASSIUM (test code = K) 4.9 mmol/L 3.4-5.0 N CHLORIDE (test code = CL) 92 mmol/L 100-108 L CARBON DIOXIDE (test code = 4 mmol/L 21-32 LL CO2) ANION GAP (test code = GAP) 32.0 GAP calc 4.0-15.0 H GLUCOSE (test code = GLU) 880 MG/DL 70-110 HH BLOOD UREA NITROGEN (test code 39 MG/DL 7-18 H = BUN) GLOMERULAR FILTRATION RATE 23 estGFR >60 L (test code = GFR) CREATININE (test code = CREAT) 2.2 MG/DL 0.6-1.0 H CALCIUM (test code = CA) 8.0 MG/DL 8.5-10.1 L TROP-I HIGH [id number] 22:39:00 Test Item Value Reference Range Interpretation Comments TROP-I HIGH 30.8 ng/L 0-34 CAUTION: Units of the SENSITIVITY (test current te st methodology code = TROPIHS) (ng/L) diffe rfrom the prior test meth odology (ng/mL) by a fa ctor of 1000. 99t h Percentile Uppe r Reference Limit (URL):Fem ales: 34 ng/LMales: 54 n g/L In order to distin guish acute elevations of h igh sensitivitytrop onin from other clinical conditions, the FourthUnive rsal Definition of M yocardial Infarction stressesclinica l assessment and the demonstration o f a rise and/orfall in s erial troponin result s above the URL. Results fr om different metho dologies should not be c omparedto one another as quantitative re sults and URLs may varyby method. Completed by Nursing: [id number] 22:04:00 Test Item Value Reference Range Interpretation Comments PaO2/FiO2 (test 542.9 mm/Hg See_Comment [Automated message] The code = [id number]) system ic h generated this result tra nsmitted reference range : 200. The reference r lizabeth was not used to int erpret this result as normal/abnormal . ARTERIAL BLOOD [id number] 22:04:00 Test Item Value Reference Range Interpretation Comments ARTERIAL BLOOD GAS PH 6.99 pH units 7.35-7.45 LL (test code = PHA) ARTERIAL BLOOD GAS PCO2 17 mmHg 35-45 LL (test code = PCO2A) ARTERIAL BLOOD GAS PO2 114 mmHg 80-100 H (test code = PO2A) BICARBONATE TOTAL HCO3 4.0 mmol/L 22.0-26.0 L (test code = HCO3) BASE EXCESS (test code = -25.8 mmol/L -3.0-3.0 L SUSY) ABG O2 SATURATION (test 96 % 90-100 N code = SATA) FIO2 (test code = FIO2A) 21 % (calc) 21-100 N ABG VENT MODE (test code Room Air Descript Vent Mode = MODEA) ABG SITE (test code = Left Brachial ARTKIT DESCRIPTION SITEA) MODIFIED KATRIN'S (test Yes Circ.CHK POSITIVE code = MODALL) [id number] 21:37:00 Test Item Value Reference Range Interpretation Comments POTASSIUM (test code = K) 4.9 mmol/L 3.4-5.0 N LACTIC [id number] 21:31:00 Test Item Value Reference Range Interpretation Comments LACTIC ACID (test code = LACT) 4.7 mmol/L 0.4-2.0 HH LACTIC [id number] 20:01:00 Test Item Value Reference Range Interpretation Comments LACTIC ACID (test code = LACT) 4.4 mmol/L 0.4-2.0 HH VENOUS BLOOD [id number] 19:50:00 Test Item Value Reference Range Interpretation Comments VENOUS BLOOD GAS PH (test 6.97 pH units 7.26-7.43 L code = PHV) VENOUS BLOOD GAS PCO2 26 mmHg 33-58 L (test code = PCO2V) VENOUS BLOOD GAS PO2 37 mmHg 80-100 L (test code = PO2V) VBG HCO3 (test code = 5.8 mmol/L 22.0-26.0 L HCO3V) VBG BASE EXCESS (test -24.8 mmol/L -2.0-2.0 L code = RAYNE) VENOUS BLOOD GAS O2 SAT. 45 % (calc) 72-77 L (test code = O2SATV) VENOUS BLOOD GAS FIO2 21 % 21-100 N (test code = FIO2V) VBG VENT MODE (test code SIMV PC/PS Descript VentMode = MODEV) VENOUS BLOOD GAS SITE Other Site DESCRIPTION (test code = SITEV) COMPREHENSIVE METABOLIC [id number] 19:14:00 Test Item Value Reference Range Interpretation Comments SODIUM (test code = NA) 122 mmol/L 134-147 LL mmo l/L POTASSIUM (test code = K) 5.5 mmol/L 3.4-5.0 H CHLORIDE (test code = CL) 85 mmol/L 100-108 L CARBON DIOXIDE (test code = 5 mmol/L 21-32 LL CO2) ANION GAP (test code = GAP) 32.0 GAP calc 4.0-15.0 H GLUCOSE (test code = GLU) 973 MG/DL 70-110 HH BLOOD UREA NITROGEN (test code 37 MG/DL 7-18 H = BUN) GLOMERULAR FILTRATION RATE 23 estGFR >60 L (test code = GFR) CREATININE (test code = CREAT) 2.2 MG/DL 0.6-1.0 H TOTAL PROTEIN (test code = 7.4 G/DL 6.4-8.2 N PROT) ALBUMIN (test code = ALB) 3.6 G/DL 3.4-5.0 N GLOBULIN (test code = GLOB) 3.8 GM/dL ALBUMIN/GLOBULIN RATIO (test 1.0 RATIO 1.2-2.2 L code = A/G) CALCIUM (test code = CA) 8.5 MG/DL 8.5-10.1 N BILIRUBIN TOTAL (test code = 0.60 MG/DL 0.2-1.2 N BILT) SGOT/AST (test code = AST) 17 Unit/L 15-37 N SGPT/ALT (test code = ALT) 15 Unit/L 12-78 N ALKALINE PHOSPHATASE TOTAL 90 Unit/L 45-117 N (test code = ALKP) Completed by Nursing: [id number] 19:14:00 Test Item Value Reference Range Interpretation Comments MAGNESIUM (test code = MAG) 1.3 MG/DL 1.8-2.4 L Completed by Nursing: NOTROP-I HIGH [id number] 19:14:00 Test Item Value Reference Range Interpretation Comments TROP-I HIGH 19.1 ng/L 0-34 N CAUTION: Units of the SENSITIVITY (test current te st methodology code = TROPIHS) (ng/L) diffe rfrom the prior test meth odology (ng/mL) by a fa ctor of 1000. 99t h Percentile Uppe r Reference Limit (URL):Fem ales: 34 ng/LMales: 54 n g/L In order to distin guish acute elevations of h igh sensitivitytrop onin from other clinical conditions, the FourthUnive rsal Definition of M yocardial Infarction stressesclinica l assessment and the demonstration o f a rise and/orfall in s erial troponin result s above the URL. Results fr om different metho dologies should not be c omparedto one another as quantitative re sults and URLs may varyby method. Completed by Nursing: NO- CT HEAD/BRAIN W/O [id number] 18:42:00 [facility] 1945 Sex: F Name: AKIRA RODRIGUEZ : 1945 Age/S: 75 / F [id number] [address] [place] Unit #: [id number] Loc: [facility] [address] Phys: Savanah Crowley MD Acct: [id number] Dis Date: Status: REG ER PHONE #: [phone] Exam Date: 06/11/20211836 FAX #: Reason: AMS EXAMS: CPT: [id number] CT HEAD/BRAIN W/O CONT [id number] Exam: CT head without contrast. Location: H 12 History: AMS Technique: Unenhanced spiral slices were taken from the base of the skull, through the vertex. One or more of the following dose reduction techniques were used: Automated exposure control, adjustment of the mA and/or kV according to patient size, and/or utilization of iterative reconstruction technique. Findings: No acute intracranial abnormality is identified. Prominence of the gyri and sulci is consistent with mild, diffuse cerebral atrophy. Periventricular ischemic white matter changes are present along with scattered microinfarcts in the periventricular and subcortical deep white matter. The brain parenchyma and the CSF spaces areotherwise unremarkable. No mass, midline shift, hemorrhage, edema or hydrocephalus is seen. The visualized paranasal sinuses are clear. The mastoid air cells are well pneumatized. The bony calvarium isintact. Impression: 1. No acute intracranial abnormality. 2. Atrophy. 3. Atherosclerotic microvascular disease. 4. Otherwise unremarkable exam. Electronically Signed by Lizett Modi on 06/11/2021 at 1842 Reported and signed by: Benoit Modi M.D. CC: Savanah Crowley MDTechnologist:Geovanna Iglesias, RT(R) CTDI: DLP: Trnscb Date/Time: 06/11/2021 (1841) Wilfrido Orig Print D/T: S: 06/11/2021 (1845) PAGE 1 Signed ReportCBC W/AUTO [id number] 18:31:00 Test Item Value Reference Range Interpretation Comments WHITE BLOOD CELL (test code = 16.3 K/mm3 3.5-11.0 H WBC) RED BLOOD CELL (test code = 3.80 M/mm3 4.70-6.10 L RBC) HEMOGLOBIN (test code = HGB) 10.9 G/DL 10.4-14.9 N HEMATOCRIT (test code = HCT) 37.0 % 31.5-44.1 N MEAN CELL VOLUME (test code = 97.4 Fl 84.5-98.6 N MCV) MEAN CELL HGB (test code = MCH) 28.7 pg 27.0-34.2 N MEAN CELL HGB CONCETRATION 29.5 G/DL 31.5-34.0 L (test code = MCHC) RED CELL DISTRIBUTION WIDTH 15.1 SD 11.5-14.5 H (test code = RDW) PLATELET COUNT (test code = 290 K/mm3 150-450 N PLT) MEAN PLATELET VOLUME (test code 11.20 fL 7.0-10.5 H = MPV) NEUTROPHIL % (test code = NT%) 83.9 % 40-76 H IMMATURE GRANULOCYTE % (test 1.2 % 0.0-5.0 N code = IG%) LYMPHOCYTE % (test code = LY%) 8.1 % 20.5-51.1 L MONOCYTE % (test code = MO%) 6.2 % 1.7-9.3 N EOSINOPHIL % (test code = EO%) 0.2 % 0.0-6.0 N BASOPHIL % (test code = BA%) 0.4 % 0.0-2.0 N NUCLEATED RBC % (test code = 0.0 /100WBC% 0.0-1.0 N NRBC%) NEUTROPHIL # (test code = NT#) 13.7 K/mm3 1.8-7.6 H IMMATURE GRANULOCYTE # (test 0.20 x10 3/uL 0.00-0.03 H code = IG#) LYMPHOCYTE # (test code = LY#) 1.3 K/mm3 0.6-3.2 N MONOCYTE # (test code = MO#) 1.0 K/mm3 0.3-1.1 N EOSINOPHIL # (test code = EO#) 0.0 K/mm3 0.0-0.4 N BASOPHIL # (test code = BA#) 0.1 K/mm3 0.0-0.1 N NUCLEATED RBC # (test code = 0.0 K/mm3 0.0-0.1 N NRBC#) MANUAL DIFF REQUIRED (test code NO DIFF/SCN CRITERIA = MDIFF) COVID 19 Asymptomatic IH [id number] 18:24:00 Test Item Value Reference Range Interpretation Comments COVID 19 Asymptomatic NEGATIVE Negative Per ma nufacturer, IH AG (test code = negative results should COVNONPUIAG) be treated aspresumptive a nd, if inconsistent wi th clinical signs andsymptoms or necessary for p atient management, jasmin uld betested with a n alternative mol ecular assay. Negative resultsdo not p reclude SARS-CoV-2 infe ction and should not be usedas the sole basis for patient man agement decisions. Nega tive results should be considered in t he context of apat ient's recent exposure s, history, presen ce of clinicalsigns a nd symptoms consis tent with COVID-19. GLUCOSE BEDSIDE [id number] 17:21:00 Test Item Value Reference Range Interpretation Comments GLUCOSE BEDSIDE TESTING (test code 271 mg/dL 70-110 H = GLUBED) - DUP VEIN UNI [id number] 13:04:00 [facility] 1945 Sex: F Name: AKIRA RODRIGUEZ [facility] : 1945 Age/S: 75 / F [id number] [address] Unit #: [id number] Loc: [place] [address] Phys: Lyudmila Montgomery MD Acct: [id number] Dis Date: Status: ADM IN PHONE #: [phone] Exam Date: 05/22/2021 1245 FAX #: Reason: left arm swelling EXAMS: CPT: [id number] [place] [address] HISTORY: Right leg pain TECHNIQUE: Grayscale real-time B-mode imaging with color flow and spectral flow Doppler analysis was performed of the upper extremity. FINDINGS: There is normal flow and compressibility involving the visualized venous structures of the left upper extremity. The cephalic vein is not well visualized.. IMPRESSION: 1. No evidence of left upper extremity venous thrombus. at 1304 Reported and signed by: Juanito Olsen M.D. CC: Lyudmila Montgomery MD Technologist: Tash Vargas [facility] Date/Time: 05/22/2021 (0644) [id number] PAGE 1 Signed Report Name: AKIRA RODRIGUEZ [facility] : 1945 Age/S: 75 / F [id number] [address] Unit #: [id number] Loc: [place] [address] Phys: Lyudmila Montgomery MD Acct: [id number] Date: Status: ADM IN PHONE #: [phone] Exam Date: 05/22/2021 1245 FAX #: Reason: left arm swelling EXAMS: CPT: [id number] [address] (Continued) Orig Print D/T: S: 05/22/2021 (6088) Probe: PAGE 2 Signed ReportGLUCOSE BEDSIDE [id number] 11:46:00 Test Item Value Reference Range Interpretation Comments GLUCOSE BEDSIDE TESTING (test code 205 mg/dL 70-110 H = GLUBED) GLUCOSE BEDSIDE [id number] 07:54:00 Test Item Value Reference Range Interpretation Comments GLUCOSE BEDSIDE TESTING (test code = 94 mg/dL 70-110 N GLUBED) COMPREHENSIVE METABOLIC [id number] 06:29:00 Test Item Value Reference Range Interpretation Comments SODIUM (test code = NA) 146 mmol/L 134-147 N POTASSIUM (test code = 4.0 mmol/L 3.4-5.0 N K) CHLORIDE (test code = 119 mmol/L 100-108 H CL) CARBON DIOXIDE (test 23 mmol/L 21-32 N code = CO2) ANION GAP (test code = 4.0 GAP calc 4.0-15.0 N GAP) GLUCOSE (test code = 120 MG/DL 70-110 H GLU) BLOOD UREA NITROGEN 3 MG/DL 7-18 L (test code = BUN) GLOMERULAR FILTRATION >=60 max estimate >60 RATE (test code = GFR) estGFR CREATININE (test code = 0.6 MG/DL 0.6-1.0 N CREAT) TOTAL PROTEIN (test code 4.7 G/DL 6.4-8.2 L = PROT) ALBUMIN (test code = 1.7 G/DL 3.4-5.0 L ALB) GLOBULIN (test code = 3.0 GM/dL GLOB) ALBUMIN/GLOBULIN RATIO 0.6 RATIO 1.2-2.2 L (test code = A/G) CALCIUM (test code = CA) 7.5 MG/DL 8.5-10.1 L BILIRUBIN TOTAL (test 0.30 MG/DL 0.2-1.2 N code = BILT) SGOT/AST (test code = 10 Unit/L 15-37 L AST) SGPT/ALT (test code = 7 Unit/L 12-78 L ALT) ALKALINE PHOSPHATASE 51 Unit/L 45-117 N TOTAL (test code = ALKP) [id number] 06:29:00 Test Item Value Reference Range Interpretation Comments PHOSPHOROUS (test code = PHOS) 2.2 MG/DL 2.5-4.9 L [id number] 06:29:00 Test Item Value Reference Range Interpretation Comments MAGNESIUM (test code = MAG) 2.3 MG/DL 1.8-2.4 CBC W/AUTO [id number] 06:27:00 Test Item Value Reference Range Interpretation Comments WHITE BLOOD CELL (test code = 6.0 K/mm3 3.5-11.0 N WBC) RED BLOOD CELL (test code = 3.26 M/mm3 4.70-6.10 L RBC) HEMOGLOBIN (test code = HGB) 9.3 G/DL 10.4-14.9 L HEMATOCRIT (test code = HCT) 30.0 % 31.5-44.1 L MEAN CELL VOLUME (test code = 92.0 Fl 84.5-98.6 N MCV) MEAN CELL HGB (test code = MCH) 28.5 pg 27.0-34.2 N MEAN CELL HGB CONCETRATION 31.0 G/DL 31.5-34.0 L (test code = MCHC) RED CELL DISTRIBUTION WIDTH 15.6 SD 11.5-14.5 H (test code = RDW) PLATELET COUNT (test code = 296 K/mm3 150-450 N PLT) MEAN PLATELET VOLUME (test code 9.70 fL 7.0-10.5 N = MPV) NEUTROPHIL % (test code = NT%) 63.1 % 40-76 IMMATURE GRANULOCYTE % (test 0.2 % 0.0-5.0 N code = IG%) LYMPHOCYTE % (test code = LY%) 22.8 % 20.5-51.1 N MONOCYTE % (test code = MO%) 8.7 % 1.7-9.3 N EOSINOPHIL % (test code = EO%) 4.5 % 0.0-6.0 N BASOPHIL % (test code = BA%) 0.7 % 0.0-2.0 N NUCLEATED RBC % (test code = 0.0 /100WBC% 0.0-1.0 N NRBC%) NEUTROPHIL # (test code = NT#) 3.8 K/mm3 1.8-7.6 N IMMATURE GRANULOCYTE # (test 0.01 x10 3/uL 0.00-0.03 N code = IG#) LYMPHOCYTE # (test code = LY#) 1.4 K/mm3 0.6-3.2 N MONOCYTE # (test code = MO#) 0.5 K/mm3 0.3-1.1 N EOSINOPHIL # (test code = EO#) 0.3 K/mm3 0.0-0.4 N BASOPHIL # (test code = BA#) 0.0 K/mm3 0.0-0.1 N NUCLEATED RBC # (test code = 0.0 K/mm3 0.0-0.1 N NRBC#) MANUAL DIFF REQUIRED (test code NO DIFF/SCN CRITERIA = MDIFF) Novel Coronavirus 20:46:00 Test Item Value Reference Range Interpretation Comments Novel Coronavirus Negative Negative Positive r esults are 2019 Inhouse (test indicativ e of the presence code = [id number]) ofSARS-CoV -2 RNA, clinical correlation wit h patient historyand othe r diagnostic info rmation is necessary to determinepatien t infection status. Positiv e results do not rule out bacterial infection or co -infection with other viru ses. Negative result s do not preclude SARS-C oV-2 infection andsh ould not be used as the devonte e basis for patient managementdecis ions. Negative result s must be combined with otherclinical observations, p atient history, and epidemiological information . Detection of SARS-CoV-2 RNA may be affe cted bysample collec tion methods, storag e conditions, and /or stageof infection. Imelda l RNA mutations, vacc inations, antiviraltherap eutics, antibiotics, chemotherapeuti c orimmunosuppres tangela drugs have not been e valuated for effectson d etection. Results are for the identification of SARS-CoV-2 RNA usingreal-time (RT) polymerase jose n reaction (PCR) technolog yfor the qualitative det ection of nucleic acids f rom [id number] v irus and diagnosis of SA RS-CoV-2 virusinfection. It is an Emergency Use Authorization ( EUA) testauthorized by the [place] FDA. Novel Coronavirus [id number] 20:45:00 Test Item Value Reference Range Interpretation Comments Novel Coronavirus Negative Negative Positive r esults are 2019 Inhouse (test indicativ e of the presence code = [id number]) ofSARS-CoV -2 RNA, clinical correlation wit h patient historyand othe r diagnostic info rmation is necessary to determinepatien t infection status. Positiv e results do not rule out bacterial infection or co -infection with other viru ses. Negative result s do not preclude SARS-C oV-2 infection andsh ould not be used as the devonte e basis for patient managementdecis ions. Negative result s must be combined with otherclinical observations, p atient history, and epidemiological information . Detection of SARS-CoV-2 RNA may be affe cted bysample collec tion methods, storag e conditions, and /or stageof infection. Imelda l RNA mutations, vacc inations, antiviraltherap eutics, antibiotics, chemotherapeuti c orimmunosuppres tangela drugs have not been e valuated for effectson d etection. Results are for the identification of SARS-CoV-2 RNA usingreal-time (RT) polymerase jose n reaction (PCR) technolog yfor the qualitative det ection of nucleic acids f rom [id number] v irus and diagnosis of SA RS-CoV-2 virusinfection. It is an Emergency Use Authorization ( EUA) testauthorized by the [place] FDA. GLUCOSE BEDSIDE [id number] 20:18:00 Test Item Value Reference Range Interpretation Comments GLUCOSE BEDSIDE TESTING (test code 212 mg/dL 70-110 H = GLUBED) GLUCOSE BEDSIDE [id number] 16:28:00 Test Item Value Reference Range Interpretation Comments GLUCOSE BEDSIDE TESTING (test code 202 mg/dL 70-110 H = GLUBED) GLUCOSE BEDSIDE [id number] 11:13:00 Test Item Value Reference Range Interpretation Comments GLUCOSE BEDSIDE TESTING (test code 102 mg/dL 70-110 N = GLUBED) [id number] 06:57:00 Test Item Value Reference Range Interpretation Comments PHOSPHOROUS (test code = PHOS) 1.9 MG/DL 2.5-4.9 L [id number] 06:57:00 Test Item Value Reference Range Interpretation Comments MAGNESIUM (test code = MAG) 1.6 MG/DL 1.8-2.4 L GLUCOSE BEDSIDE [id number] 06:41:00 Test Item Value Reference Range Interpretation Comments GLUCOSE BEDSIDE TESTING (test code = 95 mg/dL 70-110 N GLUBED) BASIC METABOLIC [id number] 05:04:00 Test Item Value Reference Range Interpretation Comments SODIUM (test code = NA) 146 mmol/L 134-147 N POTASSIUM (test code = 3.0 mmol/L 3.4-5.0 L K) CHLORIDE (test code = 119 mmol/L 100-108 H CL) CARBON DIOXIDE (test 20 mmol/L 21-32 L code = CO2) ANION GAP (test code = 7.0 GAP calc 4.0-15.0 N GAP) GLUCOSE (test code = 172 MG/DL 70-110 H GLU) BLOOD UREA NITROGEN 5 MG/DL 7-18 L (test code = BUN) GLOMERULAR FILTRATION >=60 max estimate >60 RATE (test code = GFR) estGFR CREATININE (test code = 0.5 MG/DL 0.6-1.0 L CREAT) CALCIUM (test code = CA) 6.9 MG/DL 8.5-10.1 L CBC W/AUTO [id number] 04:49:00 Test Item Value Reference Range Interpretation Comments WHITE BLOOD CELL (test code = 7.2 K/mm3 3.5-11.0 N WBC) RED BLOOD CELL (test code = 3.13 M/mm3 4.70-6.10 L RBC) HEMOGLOBIN (test code = HGB) 9.2 G/DL 10.4-14.9 L HEMATOCRIT (test code = HCT) 28.4 % 31.5-44.1 L MEAN CELL VOLUME (test code = 90.7 Fl 84.5-98.6 N MCV) MEAN CELL HGB (test code = MCH) 29.4 pg 27.0-34.2 N MEAN CELL HGB CONCETRATION 32.4 G/DL 31.5-34.0 N (test code = MCHC) RED CELL DISTRIBUTION WIDTH 15.4 SD 11.5-14.5 H (test code = RDW) PLATELET COUNT (test code = 257 K/mm3 150-450 N PLT) MEAN PLATELET VOLUME (test code 9.20 fL 7.0-10.5 N = MPV) NEUTROPHIL % (test code = NT%) 74.2 % 40-76 N IMMATURE GRANULOCYTE % (test 0.3 % 0.0-5.0 N code = IG%) LYMPHOCYTE % (test code = LY%) 12.9 % 20.5-51.1 L MONOCYTE % (test code = MO%) 9.0 % 1.7-9.3 N EOSINOPHIL % (test code = EO%) 3.0 % 0.0-6.0 N BASOPHIL % (test code = BA%) 0.6 % 0.0-2.0 N NUCLEATED RBC % (test code = 0.0 /100WBC% 0.0-1.0 N NRBC%) NEUTROPHIL # (test code = NT#) 5.4 K/mm3 1.8-7.6 N IMMATURE GRANULOCYTE # (test 0.02 x10 3/uL 0.00-0.03 N code = IG#) LYMPHOCYTE # (test code = LY#) 0.9 K/mm3 0.6-3.2 N MONOCYTE # (test code = MO#) 0.7 K/mm3 0.3-1.1 N EOSINOPHIL # (test code = EO#) 0.2 K/mm3 0.0-0.4 N BASOPHIL # (test code = BA#) 0.0 K/mm3 0.0-0.1 N NUCLEATED RBC # (test code = 0.0 K/mm3 0.0-0.1 N NRBC#) MANUAL DIFF REQUIRED (test code NO DIFF/SCN CRITERIA = MDIFF) BASIC METABOLIC [id number] 20:58:00 Test Item Value Reference Range Interpretation Comments SODIUM (test code = NA) 138 mmol/L 134-147 N POTASSIUM (test code = 3.5 mmol/L 3.4-5.0 N K) CHLORIDE (test code = 111 mmol/L 100-108 H CL) CARBON DIOXIDE (test 19 mmol/L 21-32 L code = CO2) ANION GAP (test code = 8.0 GAP calc 4.0-15.0 N GAP) GLUCOSE (test code = 281 MG/DL 70-110 H GLU) BLOOD UREA NITROGEN 7 MG/DL 7-18 N (test code = BUN) GLOMERULAR FILTRATION >=60 max estimate >60 RATE (test code = GFR) estGFR CREATININE (test code = 0.7 MG/DL 0.6-1.0 N CREAT) CALCIUM (test code = CA) 7.7 MG/DL 8.5-10.1 L GLUCOSE BEDSIDE [id number] 20:17:00 Test Item Value Reference Range Interpretation Comments GLUCOSE BEDSIDE TESTING (test code 212 mg/dL 70-110 H = GLUBED) BASIC METABOLIC [id number] 18:31:00 Test Item Value Reference Range Interpretation Comments SODIUM (test code = NA) 141 mmol/L 134-147 N POTASSIUM (test code = 4.0 mmol/L 3.4-5.0 N K) CHLORIDE (test code = 116 mmol/L 100-108 H CL) CARBON DIOXIDE (test 19 mmol/L 21-32 L code = CO2) ANION GAP (test code = 6.0 GAP calc 4.0-15.0 N GAP) GLUCOSE (test code = 145 MG/DL 70-110 H GLU) BLOOD UREA NITROGEN 8 MG/DL 7-18 N (test code = BUN) GLOMERULAR FILTRATION >=60 max estimate >60 RATE (test code = GFR) estGFR CREATININE (test code = 0.7 MG/DL 0.6-1.0 N CREAT) CALCIUM (test code = CA) 7.9 MG/DL 8.5-10.1 L [id number] 18:31:00 Test Item Value Reference Range Interpretation Comments MAGNESIUM (test code = MAG) 3.0 MG/DL 1.8-2.4 H GLUCOSE BEDSIDE [id number] 16:33:00 Test Item Value Reference Range Interpretation Comments GLUCOSE BEDSIDE TESTING (test code 172 mg/dL 70-110 H = GLUBED) UA RFLX MICR CULT IF [id number] 13:31:00 Test Item Value Reference Range Interpretation Comments UA COLOR (test code = YELLOW discript YEL/STRAW COLU) UA APPEARANCE (test code CLEAR discript CLEAR = APPU) UA GLUCOSE DIPSTICK (test NEGATIVE mg/dL NEG code = DGLUU) UA BILIRUBIN DIPSTICK NEGATIVE mg/dL NEG (test code = BILU) UA KETONE DIPSTICK (test TRACE mg/dL NEG code = KETU) UA SPECIFIC GRAVITY (test 1.015 SG 1.005-1.030 code = SGU) UA BLOOD DIPSTICK (test NEGATIVE mg/DL NEG code = EARLINE) UA PH DIPSTICK (test code 6.0 pH UNITS 5.0-7.0 = GAURANG) UA PROTEIN DIPSTICK (test NEGATIVE mg/dL NEG code = PROU) UA UROBILINIOGEN DIPSTICK 0.2 mg/dL <2.0 (test code = URO) UA NITRITE DIPSTICK (test NEGATIVE SCREEN NEG code = JILLIAN) UA LEUKOCYTE ESTERASE NEGATIVE Leuk/mcL NEGATIVE DIPSTICK (test code = LEUU) UA CULTURE NEEDED? (test NO, WBC<10 Criteria Culture CHK code = UACULT) Indication for culture: Flank [id number] 10:41:00 Test Item Value Reference Range Interpretation Comments PHOSPHOROUS (test code = PHOS) 3.2 MG/DL 2.5-4.9 N [id number] 10:41:00 Test Item Value Reference Range Interpretation Comments MAGNESIUM (test code = MAG) 0.9 MG/DL 1.8-2.4 LL BASIC METABOLIC [id number] 08:10:00 Test Item Value Reference Range Interpretation Comments SODIUM (test code = NA) 141 mmol/L 134-147 N POTASSIUM (test code = 3.0 mmol/L 3.4-5.0 L K) CHLORIDE (test code = 114 mmol/L 100-108 H CL) CARBON DIOXIDE (test 20 mmol/L 21-32 L code = CO2) ANION GAP (test code = 7.0 GAP calc 4.0-15.0 N GAP) GLUCOSE (test code = 219 MG/DL 70-110 H GLU) BLOOD UREA NITROGEN 12 MG/DL 7-18 N (test code = BUN) GLOMERULAR FILTRATION >=60 max estimate >60 RATE (test code = GFR) estGFR CREATININE (test code = 0.8 MG/DL 0.6-1.0 N CREAT) CALCIUM (test code = CA) 7.9 MG/DL 8.5-10.1 L CBC W/AUTO [id number] 07:50:00 Test Item Value Reference Range Interpretation Comments WHITE BLOOD CELL (test code = 8.9 K/mm3 3.5-11.0 N WBC) RED BLOOD CELL (test code = 3.37 M/mm3 4.70-6.10 L RBC) HEMOGLOBIN (test code = HGB) 9.9 G/DL 10.4-14.9 L HEMATOCRIT (test code = HCT) 30.8 % 31.5-44.1 L MEAN CELL VOLUME (test code = 91.4 Fl 84.5-98.6 N MCV) MEAN CELL HGB (test code = MCH) 29.4 pg 27.0-34.2 N MEAN CELL HGB CONCETRATION 32.1 G/DL 31.5-34.0 N (test code = MCHC) RED CELL DISTRIBUTION WIDTH 15.1 SD 11.5-14.5 H (test code = RDW) PLATELET COUNT (test code = 307 K/mm3 150-450 N PLT) MEAN PLATELET VOLUME (test code 9.50 fL 7.0-10.5 N = MPV) NEUTROPHIL % (test code = NT%) 77.9 % 40-76 H IMMATURE GRANULOCYTE % (test 0.5 % 0.0-5.0 N code = IG%) LYMPHOCYTE % (test code = LY%) 11.9 % 20.5-51.1 L MONOCYTE % (test code = MO%) 6.7 % 1.7-9.3 N EOSINOPHIL % (test code = EO%) 2.4 % 0.0-6.0 N BASOPHIL % (test code = BA%) 0.6 % 0.0-2.0 N NUCLEATED RBC % (test code = 0.0 /100WBC% 0.0-1.0 N NRBC%) NEUTROPHIL # (test code = NT#) 6.9 K/mm3 1.8-7.6 N IMMATURE GRANULOCYTE # (test 0.04 x10 3/uL 0.00-0.03 H code = IG#) LYMPHOCYTE # (test code = LY#) 1.1 K/mm3 0.6-3.2 N MONOCYTE # (test code = MO#) 0.6 K/mm3 0.3-1.1 N EOSINOPHIL # (test code = EO#) 0.2 K/mm3 0.0-0.4 N BASOPHIL # (test code = BA#) 0.1 K/mm3 0.0-0.1 N NUCLEATED RBC # (test code = 0.0 K/mm3 0.0-0.1 N NRBC#) MANUAL DIFF REQUIRED (test code NO DIFF/SCN CRITERIA = MDIFF) - XR CHEST 1 [id number] 07:30:00 [facility] 1945 Sex: F Name: AKIRA RODRIGUEZ [facility] : 1945 Age/S: 75 / F [id number] [address] [place] Unit #: [id number] Loc: [place] [address] Phys: Indra Corado MD Acct: [id number] Dis Date: Status: ADM IN PHONE #: [phone] Exam Date: 05/20/2021714 FAX #: Reason: NEW ICU ADMIT EXAMS: CPT: [id number] XR CHEST 1 V 28644 Fluoro Time: DAP (Gy m2): Air Kerma (mGy): Chest one view portable 05/20/2021 7:30 AM CLINICAL INDICATION: Syncope COMPARISON: The previous day LOCATION: W1 IMPRESSION: There has been no significant interval change when compared to the previous examination. Cardiomediastinal contours are stable. The central pulmonary vasculature is not engorged. There is bibasilar atelectasis. A right PICC is present. at 0730 Reported and signed by: Jhon gAuilar M.D. CC: Indra Corado MD; Lyudmila Montgomery MD PAGE 1 Signed Report Name: AKIRA RODRIGUEZ [facility] : 1945 Age/S: 75 / F [id number] [address] Unit #: [id number] Loc: [place] [address] Phys: Indra Corado MD Acct: [id number] Dis Date: Status: ADM IN PHONE #: [phone] Exam Date:05/20/2021714 FAX #: Reason: NEW ICU ADMIT EXAMS: CPT: [id number] XR CHEST 1 V 20411 Fluoro Time: DAP (Gy m2): Air Kerma (mGy): (Continued) Technologist: Twin Lopez, RT(R)(CT) Trnscb Date/Time: 05/20/2021 (729) [email or web address] Orig Print D/T: S: 05/20/2021 (0733) PAGE 2 Signed ReportT3 [id number] 02:08:00 Test Item Value Reference Range Interpretation Comments T3 FREE (test code = 1.4 pg/mL 2.0-4.4 A Perform ed At: [facility] T3F) [id number] [place], [place] [id number] Serafin Fuentes MD Ph:[phone] [id number] 19:02:00 Test Item Value Reference Range Interpretation Comments GLYCOSYLATED HEMOGLOBIN (HA1C) 10.4 % A1C 0.0-5.7 H (test code = GLYHGB) ESTIMATED AVERAGE GLUCOSE (test 252 MG/DLest code = EAG) THYROID STIMULATING [id number] 18:56:00 Test Item Value Reference Range Interpretation Comments THYROID STIMULATING HORMONE 0.130 mcIU/ML 0.340-4.820 L (test code = TSH) T4 [id number] 18:52:00 Test Item Value Reference Range Interpretation Comments T4 FREE (test code = T4F) 1.22 NG/DL 0.89-1.76 N - CT HEAD/BRAIN W/O [id number] 14:53:00 [facility] : 1945 Sex: F Name: AKIRA RODRIGUEZ [facility] : 1945 Age/S: 75 / F [address] [facility] [place] Unit #: [id number] Loc: [place] [address] Phys: Lyudmila Montgomery MD Acct: [id number] Dis Date: Status: ADM IN PHONE #: [phone] Exam Date: 05/19/2021 1445 FAX #: Reason: syncope EXAMS: CPT: [id number] CT HEAD/BRAIN W/O CONT 48789 LOCATION: T18 EXAM: CT HEAD WITHOUT CONTRAST INDICATION: syncope, COMPARISON: CT head May 09, 2012 TECHNIQUE: Multiple CT images of the head were obtained. No intravenous contrast was given. Up-to-date CT equipment and radiation dose reduction techniques were utilized. Automatic exposure controlwas utilized. FINDINGS: No intracranial hemorrhage or extra-axial collection is seen. Bilateral basal ganglia calcifications. No midline shift or mass effect is identified. There is no territorial infarct. Patient Agata loss with proportional enlargement of ventricles and sulci. The calvarium is intact. Peripheral soft tissues are normal. Paranasal sinuses and mastoid air cells are clear. IMPRESSION: No intracranial hemorrhage or territorial infarct. Age- related volume loss. at 1453 Reported and signed by: Otis Jiang M.D. CC: Lyudmila Montgomery MD Technologist:Cyndi Landrum, RT(R); Jacqueline CTDI: DLP: Trnscb Date/Time: 05/19/2021 (0907) [email or web address] Orig Print D/T: S: 05/19/2021 (6240) PAGE 1 Signed Report- XR CHEST 1 [id number] 13:56:00 [facility] : 1945 Sex: F Name: AKIRA RODRIGUEZ [facility] : 1945 Age/S: 75 / F [id number] [address] [place] Unit #: [id number] Loc: [place] [address] Phys: Lyudmila Montgomery MD Acct: [id number] Dis Date: Status: ADM IN PHONE #: [phone] Exam Date: 05/19/2021 1340 FAX #: Reason: PICC LINE PLACEMENT EXAMS: CPT: [id number] XR CHEST 1 V 24606 Fluoro Time: DAP (Gy m2): Air Kerma (mGy): EXAMINATION: Frontal chest radiograph INDICATION: PICC LINE PLACEMENT COMPARISON: 05/19/2021 LOCATION: S17 FINDINGS: PICC terminates at SVC. Clear lungs. No pleural effusion or pneumothorax identified. Cardiac silhouette is mildly enlarged similar to prior. IMPRESSION: PICC terminates at SVC. at 1356 Reported and signed by: Latrell Weston M.D. CC: Lyudmila Montgomery MD PAGE 1 Signed Report Name: AKIRA RODRIGUEZ [place] : 1945 Age/S: 75 / F [id number] [address] Unit #: [id number]: [place] [address] Phys: Lyudmila Montgomery MD Acct: [id number] Dis Date: Status: ADM IN PHONE #: [phone] Exam Date: 05/19/2021 1345 FAX #: Reason: PICC LINE PLACEMENT EXAMS: CPT: [id number] XR CHEST 1 V 19352 Fluoro Time: DAP (Gy m2): Air Kerma (mGy): (Continued) Technologist: Sophie Naylor, RT(R) Trnscb Date/Time: 05/19/2021 (9166) [email or web address] Orig Print D/T: S: 05/19/2021 (8678) PAGE 2 Signed ReportCOVID 19 Asymptomatic IH [id number] 11:23:00 Test Item Value Reference Range Interpretation Comments COVID 19 Asymptomatic NEGATIVE Negative Per ma nufacturer, IH AG (test code = negative results should COVNONPUIAG) be treated aspresumptive a nd, if inconsistent wi th clinical signs andsymptoms or necessary for p atient management, jasmin uld betested with a n alternative mol ecular assay. Negative resultsdo not p reclude SARS-CoV-2 infe ction and should not be usedas the sole basis for patient man agement decisions. Nega tive results should be considered in t he context of apat ient's recent exposure s, history, presen ce of clinicalsigns a nd symptoms consis tent with COVID-19. RBC [id number] 10:25:00 Test Item Value Reference Range Interpretation Comments PLATELET ESTIMATE (test ADEQUATE THOUSAND ADEQUATE code = PLTEST) PLATELET MORPHOLOGY (test NORMAL code = PLTMORPH) CBC W/AUTO [id number] 10:25:00 Test Item Value Reference Range Interpretation Comments WHITE BLOOD CELL (test code = 9.9 K/mm3 3.5-11.0 N WBC) RED BLOOD CELL (test code = 3.15 M/mm3 4.70-6.10 L RBC) HEMOGLOBIN (test code = HGB) 9.1 G/DL 10.4-14.9 L HEMATOCRIT (test code = HCT) 29.3 % 31.5-44.1 L MEAN CELL VOLUME (test code = 93.0 Fl 84.5-98.6 N MCV) MEAN CELL HGB (test code = MCH) 28.9 pg 27.0-34.2 N MEAN CELL HGB CONCETRATION 31.1 G/DL 31.5-34.0 L (test code = MCHC) RED CELL DISTRIBUTION WIDTH 15.1 SD 11.5-14.5 H (test code = RDW) PLATELET COUNT (test code = 272 K/mm3 150-450 N PLT) MEAN PLATELET VOLUME (test code 11.20 fL 7.0-10.5 H = MPV) NEUTROPHIL % (test code = NT%) 68.3 % 40-76 N IMMATURE GRANULOCYTE % (test 0.3 % 0.0-5.0 N code = IG%) LYMPHOCYTE % (test code = LY%) 18.5 % 20.5-51.1 L MONOCYTE % (test code = MO%) 9.3 % 1.7-9.3 N EOSINOPHIL % (test code = EO%) 3.1 % 0.0-6.0 N BASOPHIL % (test code = BA%) 0.5 % 0.0-2.0 N NUCLEATED RBC % (test code = 0.0 /100WBC% 0.0-1.0 N NRBC%) NEUTROPHIL # (test code = NT#) 6.8 K/mm3 1.8-7.6 N IMMATURE GRANULOCYTE # (test 0.03 x10 3/uL 0.00-0.03 N code = IG#) LYMPHOCYTE # (test code = LY#) 1.8 K/mm3 0.6-3.2 N MONOCYTE # (test code = MO#) 0.9 K/mm3 0.3-1.1 N EOSINOPHIL # (test code = EO#) 0.3 K/mm3 0.0-0.4 N BASOPHIL # (test code = BA#) 0.1 K/mm3 0.0-0.1 N NUCLEATED RBC # (test code = 0.0 K/mm3 0.0-0.1 N NRBC#) MANUAL DIFF REQUIRED (test code NO DIFF/SCN CRITERIA = MDIFF) TROP-I HIGH [id number] 10:14:00 Test Item Value Reference Range Interpretation Comments TROP-I HIGH 8.8 ng/L 0-34 N CAUTION: Units of the SENSITIVITY (test current te st methodology code = TROPIHS) (ng/L) diffe rfrom the prior test meth odology (ng/mL) by a fa ctor of 1000. 99t h Percentile Uppe r Reference Limit (URL):Fem ales: 34 ng/LMales: 54 n g/L In order to distin guish acute elevations of h igh sensitivitytrop onin from other clinical conditions, the FourthUnive rsal Definition of M yocardial Infarction stressesclinica l assessment and the demonstration o f a rise and/orfall in s erial troponin result s above the URL. Results fr om different metho dologies should not be c omparedto one another as quantitative re sults and URLs may varyby method. Completed by Nursing: NOBASIC METABOLIC [id number] 10:14:00 Test Item Value Reference Range Interpretation Comments SODIUM (test code = NA) 141 mmol/L 134-147 N POTASSIUM (test code = K) 3.4 mmol/L 3.4-5.0 N CHLORIDE (test code = CL) 110 mmol/L 100-108 H CARBON DIOXIDE (test code = CO2) 22 mmol/L 21-32 N ANION GAP (test code = GAP) 9.0 GAP calc 4.0-15.0 N GLUCOSE (test code = GLU) 306 MG/DL 70-110 H BLOOD UREA NITROGEN (test code = 16 MG/DL 7-18 N BUN) GLOMERULAR FILTRATION RATE (test 52 estGFR >60 L code = GFR) CREATININE (test code = CREAT) 1.1 MG/DL 0.6-1.0 H CALCIUM (test code = CA) 8.5 MG/DL 8.5-10.1 N Completed by Nursing: NOHEPATIC FUNCTION [id number] 10:14:00 Test Item Value Reference Range Interpretation Comments TOTAL PROTEIN (test code = PROT) 5.8 G/DL 6.4-8.2 L ALBUMIN (test code = ALB) 2.4 G/DL 3.4-5.0 L BILIRUBIN TOTAL (test code = BILT) 0.40 MG/DL 0.2-1.2 N BILIRUBIN DIRECT (test code = 0.20 MG/DL 0.00-0.30 N BILD) BILIRUBIN INDIRECT (test code = 0.20 MG/DL 0.2-1.2 N BILIND) SGOT/AST (test code = AST) 8 Unit/L 15-37 L SGPT/ALT (test code = ALT) 10 Unit/L 12-78 L ALKALINE PHOSPHATASE TOTAL (test 71 Unit/L 45-117 N code = ALKP) Completed by Nursing: NO- XR CHEST 1 [id number] 10:14:00 [facility] 1945 Sex: F Name: AKIRA RODRIGUEZ [facility] : 1945 Age/S: 75 / F [id number] [address] [place] Unit #: [id number] Loc: [place] [address] Phys: Willi Osullivan DO Acct: [id number] Dis Date: Status: REG ER PHONE #: [phone] Exam Date: 05/19/2021 1010 FAX #: Reason: Code Sepsis EXAMS: CPT: [id number] XR CHEST 1 V 02565 Fluoro Time: DAP (Gy m2): Air Kerma (mGy): EXAMINATION: Frontal chest radiograph INDICATION: Code Sepsis COMPARISON: 05/09/2012 LOCATION: S17 FINDINGS/ IMPRESSION: Cardiac silhouette appears slightly increased in size from prior and is mildly enlarged. No definite pleural effusion or pneumothorax. Minimal linear atelectasis in the mid right lung. Lungs are otherwise clear. at 1014 Reported and signed by: Latrell Weston M.D. CC: Willi Osullivan DO PAGE 1 Signed Report Name: AKIRA RODRIGUEZ : 1945 Age/S: 75 / F [id number] [address] Unit #: [id number] Loc: [place] [address] Phys: Willi Osullivan DO Acct: [id number] Dis Date: Status: REG ER PHONE #: [phone] Exam Date: 05/19/2021 1010 FAX #: Reason: Code Sepsis EXAMS: CPT: [id number] XR CHEST 1 V 10602 Fluoro Time: DAP (Gy m2): Air Kerma (mGy): (Continued) Technologist:Francesco Delgado RT(R)(CT) Trnscb Date/Time: 05/19/2021 (1014) [email or web address] Orig Print D/T: S: 05/19/2021 (1017) PAGE 2 Signed ReportLACTIC [id number] 10:11:00 Test Item Value Reference Range Interpretation Comments LACTIC ACID (test code = LACT) 1.7 mmol/L 0.4-2.0 N
--- NOTE | 2021-12-23 16:27 | RAD REPORT ---
EXAM DESCRIPTION: CT - CTHCSPWOC - 12/23/2021 4:03 pm CLINICAL HISTORY: fall, head injury COMPARISON: No comparisons TECHNIQUE: Axial 5 mm thick images of the head were obtained. Axial 2 mm thick images of the cervic al spine were obtained with sagittal and coronal reconstruction images generated and reviewed. All CT scans are performed using dose optimization technique as appropriate and may include automated exposure control or mA/KV adjustment according to patient size. FINDINGS: No intracranial hemorrhage, mass, edema or acute intracranial finding. No cortical edema o r sulcal effacement. Mild to moderate for age atrophy changes are present with ventricles in proporti on to volume loss. Physiologic basal ganglia calcifications are present. Patient has chronic ischemic change scattered in the cerebral white matter extending into the thalamus and basal ganglia tissues. Mastoid air cells and paranasal sinuses are clear. No globe or orbit abnormality seen. Cervical body height and alignment are normal. C5-6 disc space narrowing present. Facet joint degener ative changes are present. No fracture or acute bony abnormality. Central canal detail is inherently limited. No paraspinal mass or hematoma. IMPRESSION: Negative CT head examination for acute finding. Negative CT cervical spine examination for acute finding.
--- NOTE | 2021-12-23 16:36 | ER ---
Nurse's Notes [facility] Name: Lavonne Vitale Age: 76 yrs Sex: Female : 1945 Arrival Date: 12/23/2021 Time: 14:27 Bed 16 Private MD: Diagnosis: Headache Presentation: 12/23 14:27 Chief complaint: EMS states: Patient was ambulating with a walker and fell backwards. bm7 [facility] said she fell back on her head but did not have any LOC. She is at [facility] for therapy and high blood sugar. Her blood sugar was 350 en route. Coronavirus screen: At this time, the client does not indicate any symptoms associated with coronavirus-19. Ebola Screen: No symptoms or risks identified at this time. Initial Sepsis Screen: Does the patient meet any 2 criteria? No. Patient's initial sepsis screen is negative. Does the patient have a suspected source of infection? No. Patient's initial sepsis screen is negative. Risk Assessment: Do you want to hurt yourself or someone else? Patient reports no desire to harm self or others. Onset of symptoms was December 23, 2021. Care prior to arrival: Glucose check: 350. 14:27 Method Of Arrival: EMS: [facility] bm7 14:27 Acuity: ESTRELLA 3 bm7 Triage Assessment: 14:31 General: Appears in no apparent distress. comfortable, Behavior is calm, cooperative, bm7 appropriate for age. Pain: Denies pain. EENT: No deficits noted. No signs and/or symptoms were reported regarding the EENT system. 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 Cardiovascular: No deficits noted. Respiratory: No deficits noted. GI: No deficits noted. No signs and/or symptoms were reported involving the gastrointestinal system. : No deficits noted. No signs and/or symptoms were reported regarding the genitourinary system. Derm: No deficits noted. No signs and/or symptoms reported regarding the dermatologic system. Musculoskeletal: No deficits noted. No signs and/or symptoms reported regarding the musculoskeletal system. Historical: - Allergies: 14:31 Sulfa (Sulfonamide Antibiotics); bm7 - Home Meds: 14:31 aspirin 81 mg Oral tab 81 mg daily [Active]; atorvastatin 20 mg Oral tab 1 tab once bm7 daily [Active]; buspirone 30 mg Oral tab 1 tab 2 times per day [Active]; calcium carbonate 500 mg Oral cap as needed for Heartburn [Active]; cyanocobalamin (vitamin B-12) 1,000 mcg Oral cap daily [Active]; escitalopram oxalate 15 mg Oral tab once daily [Active]; furosemide 20 mg Oral tab 1 tab once daily [Active]; insulin glargine 100 unit/mL (3 mL) Sub-Q inpn 38 unit daily [Active]; levothyroxine 75 mcg cap 1 cap once daily [Active]; meloxicam 7.5 mg Oral tab 1 tab once daily [Active]; Novolog U-100 Insulin aspart 100 unit/mL Sub-Q soln 8 unit before meals [Active]; omeprazole 20 mg Oral cpDR 1 cap once daily [Active]; ondansetron HCl 4 mg Oral tab 1 tab q6h prn [Active]; - PMHx: 14:31 Dementia; depressive disorder; diabetes mellitus; Hypertensive disorder; bm7 - Immunization history:: Adult Immunizations up to date. - Social history:: Patient/guardian denies using tobacco products, Smoking status: Patient denies any tobacco usage or history of. Screenin:16 Abuse screen: Denies threats or abuse. Nutritional screening: No deficits noted. bm7 Tuberculosis screening: No symptoms or risk factors identified. Fall Risk None identified. Assessment: 14:33 Reassessment: No changes from previously documented assessment. [facility] 15:16 Reassessment: Patient and/or family updated on plan of care and expected duration. Pain bm7 level reassessed. Patient is alert, oriented x 3, equal unlabored respirations, skin warm/dry/pink. 15:29 Reassessment: called CT to find out ETA of Head CT and tech states there are three bm7 people in front of her. 16:47 Reassessment: Patient and/or family updated on plan of care and expected duration. Pain bm7 level reassessed. Patient is alert, oriented x 3, equal unlabored respirations, skin warm/dry/pink. Vital Signs: 14:27 BP 141 / 81; Pulse 72; Resp 16; Temp 97.3(TE); Pulse Ox 100% on R/A; Weight 53.52 kg bm7 (R); Height 5 ft. 0 in. (152.40 cm); Pain 4/10; 15:47 BP 135 / 58; Pulse 66; Resp 16; Pulse Ox 99% on R/A; Pain 0/10; bm7 16:47 BP 136 / 78; Pulse 68; Resp 16; Pulse Ox 100% on R/A; Pain 0/10; bm7 14:27 Body Mass Index 23.05 (53.52 kg, 152.40 cm) 7 ED Course: 14:27 Patient arrived in ED. 14:27 Ashley Be, RN is Primary Nurse. bm7 14:27 Kofi Escalante PA is PHCP. [facility] 14:27 Amy Rader MD is Attending Physician. [facility] 14:31 Triage completed. bm7 14:31 Arm band placed on right wrist. bm7 15:16 Patient has correct armband on for positive identification. Bed in low position. Call 7 light in reach. Side rails up X2. Client placed on continuous cardiac and pulse oximetry monitoring. NIBP monitoring applied. Lights dimmed. Warm blanket given. Head of bed elevated. 15:16 No provider procedures requiring assistance completed. bm7 15:[address] via stretcher. bm7 16:04 Head C Spine Mpr Wo Con In Process Unspecified. EDMS 16:49 Report given to RONEL Mendez \T\ [facility]. bm7 16:55 No apparent distress. Resting quietly. transfer transportation to receiving facility. bm7 16:56 Patient did not have IV access during this emergency room visit. bm7 Administered Medications: No medications were administered Medication: 15:16 VIS not applicable for this client. bm7 Outcome: 16:36 Discharge ordered by . [facility] 16:55 [facility] jail[facility] Report called to RONEL Mendez bm7 16:55 Condition: good 16:55 Discharge instructions given to jail, EMS, Instructed on discharge instructions, Demonstrated understanding of instructions. 17:09 Patient left the ED. bm7 Signatures: Dispatcher [employer] EDMS Kofi Escalante PA PA [facility] Aide Loaiza Be, Ashley, RN RN bm7
--- NOTE | 2021-12-23 16:36 | EDPHYS ---
Physician Documentation [facility] Name: Lavonne Vitale Age: 76 yrs Sex: Female : 1945 Arrival Date: 12/23/2021 Time: 14:27 Bed 16 Private MD: ED Physician Amy Rader HPI: 12/23 14:54 This 76 yrs old Female presents to ER via EMS with complaints of head injury. jmm 14:54 The patient or guardian reports injury, pain. Onset: The symptoms/episode jmm began/occurred acutely. Associated signs and symptoms: Loss of consciousness: This patient did not experience any loss of consciousness. This is a 76 year old female with a history of dementia that presents to the ED with complaints of headache after a fall which occurred just prior to arrival. Patient slipped while using her walker. Falling backward. Denies loc, vomiting. Denies chest pain, abdominal pain. . Historical: - Allergies: 14:31 Sulfa (Sulfonamide Antibiotics); bm7 - Home Meds: 14:31 aspirin 81 mg Oral tab 81 mg daily [Active]; atorvastatin 20 mg Oral tab 1 tab once bm7 daily [Active]; buspirone 30 mg Oral tab 1 tab 2 times per day [Active]; calcium carbonate 500 mg Oral cap as needed for Heartburn [Active]; cyanocobalamin (vitamin B-12) 1,000 mcg Oral cap daily [Active]; escitalopram oxalate 15 mg Oral tab once daily [Active]; furosemide 20 mg Oral tab 1 tab once daily [Active]; insulin glargine 100 unit/mL (3 mL) Sub-Q inpn 38 unit daily [Active]; levothyroxine 75 mcg cap 1 cap once daily [Active]; meloxicam 7.5 mg Oral tab 1 tab once daily [Active]; Novolog U-100 Insulin aspart 100 unit/mL Sub-Q soln 8 unit before meals [Active]; omeprazole 20 mg Oral cpDR 1 cap once daily [Active]; ondansetron HCl 4 mg Oral tab 1 tab q6h prn [Active]; - PMHx: 14:31 Dementia; depressive disorder; diabetes mellitus; Hypertensive disorder; bm7 - Immunization history:: Adult Immunizations up to date. - Social history:: Patient/guardian denies using tobacco products, Smoking status: Patient denies any tobacco usage or history of. ROS: 14:54 Constitutional: Negative for fever, chills, and weight loss, Cardiovascular: Negative jm for chest pain, palpitations, and edema, Respiratory: Negative for shortness of breath, cough, wheezing, and pleuritic chest pain. 14:54 Neuro: Positive for headache. 14:54 All other systems are negative. Exam: 14:54 Constitutional: This is a well developed, well nourished patient who is awake, alert, jmm and in no acute distress. Head/Face: atraumatic. Eyes: EOMI, no conjunctival erythema appreciated ENT: Moist Mucus Membranes Neck: Trachea midline, Supple Chest/axilla: Normal chest wall appearance and motion. Cardiovascular: Regular rate and rhythm. No edema appreciated Respiratory: Normal respirations, no respiratory distress appreciated Abdomen/GI: Non distended Back: Normal ROM Skin: General appearance color normal MS/ Extremity: Moves all extremities, no obvious deformities appreciated, no edema noted to the lower extremities Neuro: Awake and alert Psych: Behavior is normal, Mood is normal, Patient is cooperative and pleasant Vital Signs: 14:27 BP 141 / 81; Pulse 72; Resp 16; Temp 97.3(TE); Pulse Ox 100% on R/A; Weight 53.52 kg bm7 (R); Height 5 ft. 0 in. (152.40 cm); Pain 4/10; 15:47 BP 135 / 58; Pulse 66; Resp 16; Pulse Ox 99% on R/A; Pain 0/10; bm7 16:47 BP 136 / 78; Pulse 68; Resp 16; Pulse Ox 100% on R/A; Pain 0/10; bm7 14:27 Body Mass Index 23.05 (53.52 kg, 152.40 cm) bm7 MDM: 14:27 Patient medically screened. [facility] 16:29 Data reviewed: vital signs, nurses notes. Counseling: I had a detailed discussion with yza the patient and/or guardian regarding: the historical points, exam findings, and any diagnostic results supporting the discharge/admit diagnosis, radiology results, the need for outpatient follow up, to return to the emergency department if symptoms worsen or persist or if there are any questions or concerns that arise at home. ED course: ct is negative. Patient advised to follow up with pcp and otherwise given strict return precautions. Patient understood and agrees with the plan of care. . 12/23 14:28 Order name: CT Head C Spine [facility] 12/23 14:32 Order name: Head C Spine Mpr Wo Con; Complete Time: 16:29 EDMS Administered Medications: No medications were administered Disposition: 18:03 Co-signature as Attending Physician, Amy Rader MD STAFF ATTESTATION STATEMENT: I sd2 was immediately available onsite in the emergency department for consultation in the care of this patient. I did not see or examine this patient. Amy Rader MD. Disposition Summary: 12/23/21 16:36 Discharge Ordered Location: Home jm Condition: Stable jm Diagnosis - Headache [facility] Followup: m - With: Private Physician - When: 2 - 3 days - Reason: Recheck today's complaints, Continuance of care, Re-evaluation by your physician Discharge Instructions: - Discharge Summary Sheet jmm - Head Injury, Adult jm Forms: - Medication Reconciliation Form [facility] - Thank You Letter jm - Antibiotic Education jm - Prescription Opioid Use [facility] Signatures: Dispatcher [employer] EDMS Kofi Escalante PA PA jmm McCarthy, Brittany, RN RN bm7 Amy Rader MD MD sd2
[2021-12-23 17:35] VITALS: TEMP 97.3
[2021-12-23 17:59] VITALS: BP 136/78; O2SAT 100
== END 2021-12-23 17:09 | disposition home or self-care (01) ==
LOC: ER 14:26
DX: R51.9 Headache, unspecified (principal); I10 Essential (primary) hypertension; E11.620 Type 2 diabetes mellitus with diabetic dermatitis; Z79.4 Long term (current) use of insulin; F03.90 Unspecified dementia, unspecified severity, without behavioral disturbance, psychotic disturbance, mood disturbance, and anxiety; Z79.82 Long term (current) use of aspirin; Z88.2 Allergy status to sulfonamides
CPT/HCPCS: 70450; 72125; 99284

== ENCOUNTER 2022-01-28 10:59 | Emergency (ER) | payer OTHER ==
--- OUTSIDE RECORDS SUMMARY | 2022-01-28 11:08 | XMS REPORT | Continuity of Care Document ---
:1945 Author Organization [facility] t Address [address] [place] [address] Care Team Providers Name Role Phone Pcp, Patient Does Not Have A Primary Care Physician [id number] Nola Lr MD Attending Clinician ANSLEY QUINTANILLA Attending Clinician Unavailable Ansley Quintanilla Attending Clinician Willi Osullivan Attending Clinician Unavailable Piotr Arshad Attending Clinician Unavailable Lyudmila Montgomery Attending Clinician Unavailable SARY FUNK Admitting Clinician Unavailable Sary Funk Admitting Clinician Physician, No Primary or Family Admitting Clinician UnavailPiotr Carlton Admitting Clinician Unavailable UNDEFINED Admitting Clinician Unavailable Lyudmila Montgomery Admitting Clinician Unavailable Payers Payer Name Policy Type Policy Number Effective Date Expiration Date S ource Problems Condition Condition Condition Status Onset Resolution Last Treating Co mments Source Name Details Category Date Date Treatment Clinician Date DKA DKA Diagnosis Active 2021-09-12 Mem oria Active 09-01 21:54:00 l 09/01/2021 00:00: Y[place]anny [place] FALL FALL Diagnosis Active 2021-09-01 Mem oria Active 09-01 14:06:00 l 09/01/2021 00:00: Yovanny [place] Pneumonia Pneumonia Disease Active Uni vers 01-08 ity of 00:00: [address] NPH NPH Disease Active Methodi (normal (normal 10-22 pressure pressure 00:00: Hospit a hydrocepha hydrocepha 00 l allie) allie) Type 2 Type 2 Disease Active Methodi diabetes diabetes 10-22 mellitus mellitus 00:00: Hospit a 00 l Altered Altered Disease Active Methodi mental mental 10-11 status status 00:00: Hospita 00 l Essential Essential Disease Active Met hodi hypertensi hypertensi 10-11 on on 00:00: Hospita 00 l Weakness Weakness Disease Active Metho di of lower of lower 10-11 extremity extremity 00:00: Hosp jasmin 00 l Bipolar I Bipolar I Disease Active Met hodi disorder, disorder, 09-13 single single 00:00: Hospita manic manic 00 l episode episode Common Common Disease Active Methodi cold cold 09-13 00:00: Hospita 00 l Dementia Dementia Disease Active Metho di 09-13 00:00: Hospita 00 l Depression Depression Disease Active M ethodi 09-13 00:00: Hospita 00 l Hypertensi Hypertensi Disease Active M ethodi on on 09-13 00:00: Hospita 00 l Abnormal Abnormal Disease Active Metho di liver liver 09-13 function function 00:00: Hospit a tests tests 00 l Lymphoma Lymphoma Disease Active Metho di 09-13 st 00:00: Hospita 00 l Encounter Encounter Disease Active Met hodi for health for health 01-08 maintenanc maintenanc 00:00: Ho spita e e 00 l examinatio examinatio n in adult n in adult Weight Weight Disease Active Methodi loss loss 529 st 00:00: Hospita 00 l Dizziness Dizziness Disease Active 2011-05 Met hodi and and 0[address] st giddiness giddiness 00:00: Hosp jasmin 00 l Dementia Dementia Disease Active 2011-05 Metho di due to due to 0-10 st general general 00:00: Hospita medical medical 00 l condition condition Hypothyroi Hypothyroi Disease Active M ethodi dism dism 05-18 st 00:00: Hospita 00 l Essential Essential Disease Active 2010-05 Met hodi hypertensi hypertensi 0-19 st on on 00:00: Hospita 00 l Osteoarthr Osteoarthr Disease Active M ethodi itis itis 7 st 00:00: Hospita 00 l Benign Benign Disease Active Methodi paroxysmal paroxysmal [address] positional positional 00:00: Virgil jimenes vertigo vertigo 00 l Neurologic Neurologic Disease Active M ethcyn al al 3-17 st disorder disorder 00:00: Hospit a 00 l Anxiety Anxiety Disease Active Methodi state state 06-06 st 00:00: Hospita 00 l Counseling Counseling Disease Active M ethodi and and 2 coordinati coordinati 00:00: Virgil jimenes on of care on of care 00 l Type 2 Type 2 Disease Active Methodi diabetes diabetes 2 mellitus mellitus 00:00: Hospit a 00 l HLD HLD Disease Active Methodi (hyperlipi (hyperlipi 06-06 demia) demia) 00:00: Hospita 00 l Vitamin D Vitamin D Disease Active Met hodi deficiency deficiency 06-06 00:00: Hospita 00 l Muscle Muscle Disease Active Methodi weakness weakness st Hospita l Myopathy Myopathy Disease Active Metho st Hospita l Hyperglyce Hyperglyc Problem Active 2021-09-05 Memoria tawanna due to emia due 22:20:43 l type 2 to type 2 Raoul diabetes diabetes mellitus mellitus (disorder) (disorder) Active Problem 09/05/2021 [facility] TYPE 2 TYPE 2 Diagnosis Active 2021-09-03 Me petr DIABETES DIABETES 14:43:00 l MELLITUS MELLITUS Yovanny n WITH WITH KETOACIDOS KETOACIDOS IS WITHOUT IS WITHOUT CO CO Active [facility] TYPE 2 TYPE 2 Diagnosis Active 2021-09-12 Me petr DIABETES DIABETES 21:54:00 l MELLITUS MELLITUS Yovanny n WITH WITH KETOACIDOS KETOACIDOS Active [facility] Allergies, Adverse Reactions, Alerts Allergy Allergy Status [...] See Uni vers (Sulfona ty to comments 05 ity of mide adverse 00:00: [place] Antibiot reaction 00 Medica l ics) s Branch Sulfanil Propensi Active Method i amide ty to 5-11 st adverse 00:00: Hospita reaction 00 l s to drug Sulfa DA Active SV UNKNOWN IN [facility] (Sulfona CHILDHOOD 1-04 Cyndee an mide 00:00: d Antibiot 00 Medical ics) Center sulfa sulfa Active Memoria drugs drugs l Raoul Family History Family Member Diagnosis Comments Start Date Stop Date Source Natural father Pancreatic cancer Met [facility] Natural mother [facility] Social History Social Habit Start Date Stop Date Quantity Comments Source History [facility] o f Alcohol Std [place] [facility] Dr[facility] History [facility] University o f Alcohol Binge [place] [facility] al Branch History [facility] University o f Alcohol Comment [place] [facility] Tobacco use and 2021-01-08 2021-01-08 Smokeless tobacco Un iversity of exposure 00:00:00 00:00:00 non-user [place] [facility] History SDHI 2021-01-08 2021-01-08 1 University o f Alcohol Frequency 00:00:00 00:00:00 [place] M edical Branch Alcohol intake 2016-12-26 2016-12-26 Current [facility] 00:00:00 00:00:00 non-drinker of Hospital alcohol (finding) Sex Ass[birth year] At [birth year] F [facility] 00:00:00 00:00:00 Hospital Smoking Status Start Date Stop Date Source Social History [facility] Raoul Never smoked tobacco [facility] Medical Branch Medications Ordered Filled Start Stop Current Ordering Indication Dosage Frequency Signature Comments Components Source Medication Medication Date Date Medication? Clinician (SIG) Name Name flash 2022-0 Yes [id number] 1{box} 1 Box Un josse glucose 6-06 9101 daily. ity of scanning 00:00: [place] reader 00 Medical (FREESTYLE Branch ANALY 2 READER) Misc flash 2022-0 Yes [id number] 1{box} 1 Box Un josse glucose 6-06 9101 every 14 ity of sensor 00:00: (fourteen) [place] (FREESTYLE 00 days. Medical ANALY 2 Branch SENSOR) Kit flash 2022-0 Yes [id number] 1{box} 1 Box Un josse glucose 6-06 9101 daily. ity of scanning 00:00: [place] reader 00 Medical (FREESTYLE Branch ANALY 2 READER) Misc flash 2022-0 Yes [id number] 1{box} 1 Box Un josse glucose 6-06 9101 every 14 ity of sensor 00:00: (fourteen) [place] (FREESTYLE 00 days. Medical ANALY 2 Branch SENSOR) Kit Accu-Chek 2022-0 Yes , # 100 Memor ia Fay Plus 5-01 ea, l Blood 20:45: Insulin Raoul Glucose 00 dependent, Test Strips Does not use insulin pump, Last DM eval date 09/03/21, 0 Refill(s), Pharmacy: [facility]... Accu-Chek 2022-0 Yes , # 100 Memor ia FastClix 5-01 ea, l Lancets 20:45: Insulin Hubertus 00 dependent, Does not use insulin pump, Last DM eval date 09/03/21, 0 Refill(s), Pharmacy: [facility].. . Accu-Chek 2022-0 Yes , # 1 ea, Mem oria FastClix 5-01 Insulin l Lancets 20:45: dependent, Herm coral Device 00 Does not use insulin pump, Last DM eval date 09/03/21, 0 Refill(s), Pharmacy: [facility]... Accu-Chek Yes , # 1 ea, Angel andrea Guide Blood 09-03 Insulin l Glucose 20:45: dependent, Herm coral Meter 00 Does not use insulin pump, Last DM eval date 09/03/21, 0 Refill(s), Pharmacy: [facility]... Advocate Yes 1 ea, Eros Insulin Pen - MISC, TID, l Jupiter 29G 20:45: # 100 ea, H ermann 12.7mm=1/2 00 0 inch Refill(s), Pharmacy: [facility], 152.4, cm, 09/02/21 7:01:00 CDT, Height, 55.2, kg, 09/02/21 7:01:00 CDT, Weight Lantus Yes 18 unit, Memoria Solostar 09-03 SUB-Q, l Pen 100 20:45: Daily, # Yovanny n units/mL 00 10 mL, 0 subcutaneou Refill(s), s solution Pharmacy: [facility], 152.4, cm, 09/02/21 7:01:00 CDT, Height, 55.2, kg, 09/02/21 7:01:00 CDT, Weight NovoLOG Yes 6 unit, Memoria FlexPen 100 09-03 SUB-Q, l units/mL 20:45: TID-Before Her mccracken injectable 00 Meals, # solution 15 mL, 0 Refill(s), Pharmacy: [facility], 152.4, cm, 09/02/21 7:01:00 CDT, Height, 55.2, kg, 09/02/21 7:01:00 CDT, Weight insulin No Notes: Memoria glargine 09-03 (Same as: l 100 14:00: Lantus) Do Hubertus units/mL 00 not hold subcutaneou insulin s solution without contacting prescriber aspirin No Notes: Memoria 5-01 Take with l 14:00: food. Hubertus 00 Synthroid No Notes: Memori a 5- Take 1 l 11:30: hour Hubertus 00 before or 2 hours after meal; Enteral feeds may interefere with the absorption of this medication . (Same as:Synthro id, Levothroid ) atorvastati No Notes: Carlos coco n 5-01 (Same As: l 02:00: Lipitor) [place] 00 busPIRone No Notes: Memori a 4-30 (Same As: l 22:00: BuSpar) Hubertus 00 insulin No Notes: Memoria lispro 4-30 (Same as: l 21:30: Humalog) Raoul 00 Roll in palms of hands gently; Do not shake vigorously . Stable for 28 days at room temperatur e. insulin Yes Notes: Memoria lispro 4-30 (Same as: l 21:22: Humalog) Hubertus 00 Roll in palms of hands gently; Do not shake vigorously . WASTE: F/P - Black; E - Municipal Trash Bin Stable for 28 days at room temperatur e. Expires in days from ____Date Lactated No 1,000 mL, Carlos coco Ringers 4-30 1,000 l (Bolus) IV 20:43: ml/hr, Monica nn 00 Infuse Over: 1 hr, Route: IV, 1,000, Drug form: INJ, ONCE, Priority: STAT, Dosing Weight 55.2 kg, Start date: 09/02/21 15:43:00 CDT, Stop date: 09/02/21 15:43:00 CDT, 0 Insulin No Notes: Memoria regular 4-30 (Same as: l 20:43: Humulin R, Raoul 00 NovoLIN R) Roll in palms of hands gently; Do not shake vigorously . WASTE: F/P - Black; E - Municipal Trash Bin Stable for 31 days at room temperatur e Expires in days from ____Date Protonix No Notes: Memoria 4-30 Tablet l 17:00: should not Hubertus 00 be chewed or crushed. (Same as: Protonix) insulin No Notes: Memoria glargine 4-30 (Same as: l 100 16:30: Lantus) Do Hubert[place] units/mL 00 not hold subcutaneou insulin s solution without contacting prescriber WASTE: F/P - Black; E - Municipal Trash Bin "single patient use only" Stable for 28 days at room temperatur e Expires in days from ____Date Dextrose 0 No 25 mL, Memoria 50% Syringe 09-02 Route: l (D50W) 16:29: IVP, Hubertus 00 Dosing Weight 55.2, kg, PRN, PRN Blood Glucose Results, Start date: 09/02/21 11:29:00 CDT, Duration: 30 day, Stop date: 10/02/21 11:28:00 CDT glucagon No 1 mg, Memoria 09-02 Route: IM, l 16:29: Drug form: Raoul 00 PDR/INJ, PRN, Dosing Weight 55.2, kg, PRN Blood Glucose Results, Start date: 09/02/21 11:29:00 CDT, Duration: 30 day, Stop date: 10/02/21 11:28:00 CDT, 0 insulin No Notes: Memoria lispro -30 (Same as: l 16:29: Humalog) Raoul 00 Roll in palms of hands gently; Do not shake vigorously . WASTE: F/P - Black; E - Municipal Trash Bin Stable for 28 days at room temperatur e. Expires in days from ____Date insulin No Notes: Memoria glargine 4-30 (Same as: l 100 14:00: Lantus) Do Hubertus units/mL 00 not hold subcutaneou insulin s solution without contacting prescriber WASTE: F/P - Black; E - Municipal Trash Bin "single patient use only" Stable for 28 days at room temperatur e Expires in days from ____Date potassium No Notes: Memori a chloride 4-30 (Same as: l 07:32: KCL) 10 Hubert[address] 00 mEq/100ml product recommende d for peripheral line administra tion. Infuse no faster than 10 mEq/hr if given peripheral ly. magnesium No Notes: Memori a sulfate 09-02 WASTE: F/P l 07:32: - Sink; E - Municipal Trash Bin potassium No Notes: Memori a phosphate + 09-02 (Same as: l Sodium 07:32: K Phosphate. 0.9% IV 250 ) Do not mL infuse phosphorou s concurrent ly in the same line as TPN or IVF that contains calcium. For double lumen central lines, phosphorou s may be infused in a separate lumen from TPN. 1 mMol phoshate has 1.47 mEq potassium Infuse over 4 hours Dextrose No 25 mL, Memoria 50% Syringe 09-02 Route: l (D50W) 06:24: IVP, Dosing Weight 57.2, kg, PRN, PRN Blood Glucose Results, Start date: 09/02/21 1:24:00 CDT, Duration: 30 day, Stop date: 10/02/21 1:23:00 CDT glucagon No 1 mg, Memoria 09-02 Route: IM, l 06:24: Drug form: PDR/INJ, PRN, Dosing Weight 57.2, kg, PRN Blood Glucose Results, Start date: 09/02/21 1:24:00 CDT, Duration: 30 day, Stop date: 10/02/21 1:23:00 CDT, 0 insulin No Notes: Memoria lispro 09-02 (Same as: l 06:24: Humalog) Roll in palms of hands gently; Do not shake vigorously . WASTE: F/P - Black; E - Municipal Trash Bin Stable for 28 days at room temperatur e. Expires in days from ____Date Protonix Yes 40 mg, PO, Mem oria -29 Daily, # l 22:02: 30 tab, 0 Hubertus 00 Refill(s) meloxicam Yes 7.5 mg = 1 Me moria 7.5 mg oral -29 tab, PO, l tablet 22:01: Daily, 0 Refill(s) metFORMIN No 1,000 mg, Mem oria 4-29 PO, Daily, l 22:01: 0 [address] 00 Refill(s) Please No Please Memoria update 09-01 update l Allergies 22:00: Allergies, He rm Please update in AdHoc, Drug form: MISC, Route: MISC, Q15Min, 09/01/21 17:00:00 CDT, Duration: 30 day, Stop date: 10/01/21 16:45:00 CDT, 0 furosemide Yes 20 mg = 1 Me moria 20 mg oral 09-01 tab, PO, l tablet 22:00: Daily, 0 Refill(s) estradiol Yes 2 mg, PO, Mem oria -29 Daily, 0 l 21:59: Refill(s) busPIRone Yes 30 mg = 1 Mem oria 30 mg oral -29 tab, PO, l tablet 21:58: BID, 0 Refill(s) pneumococca No Notes: Carlos coco l 23-valent 09-01 (Same as: l vaccine 20:54: Pneumovax Monica nn 51 23) Refrigerat e D5W 1/2NS No 1,000 mL, Mem oria 1,000 mL 09-01 Rate: 250 l 20:41: ml/hr, Infuse over: 4 hr, Route: IV, Dosing Weight 50 kg, Total Volume: 1,000, Start date: 09/01/21 15:41:00 CDT, Duration: 30 day, Stop date: 10/01/21 15:40:00 CDT, BSA: 1.52 m2, 0 Dextrose No 250 mL, Memori a 10% in 09-01 Rate: 999 l Water IV 18:37: ml/hr, Infuse over: 0.3 hr, Route: IV, Total Volume: 250, Start date: 09/01/21 13:37:00 CDT, Duration: 30 day, Stop date: 10/01/21 13:36:00 CDT, PRN Blood Glucose Results, 0 Dextrose No 125 mL, Memori a 10% in 09-01 Rate: 999 l Water IV 18:36: ml/hr, Infuse over: 0.1 hr, Route: IV, Total Volume: 125, Start date: 09/01/21 13:36:00 CDT, Duration: 30 day, Stop date: 10/01/21 13:35:00 CDT, PRN Blood Glucose Results, 0 Lactated No 1,000 mL, Carlos coco Ringers IV 09-01 Rate: 250 l 1,000 mL 18:34: ml/hr, Infuse over: 4 hr, Route: IV, Dosing Weight 50 kg, Total Volume: 1,000, Start date: 09/01/21 13:34:00 CDT, Duration: 30 day, Stop date: 10/01/21 13:33:00 CDT, BSA: 1.52 m2, 0 D5LR 1,000 No 1,000 mL, Me moria mL 09-01 Rate: 250 l 18:34: ml/hr, Infuse over: 4 hr, Route: IV, Dosing Weight 50 kg, Total Volume: 1,000, Start date: 09/01/21 13:34:00 CDT, Duration: 30 day, Stop date: 10/01/21 13:33:00 CDT, BSA: 1.52 m2, 0 Insulin No Notes: Memoria (regular) 09-01 (Same as: l Titrate IV 18:34: Humulin R, H ermann additive 00 NovoLIN R) 100 unit + WASTE: F/P Sodium - Black; E Chloride - 0.9% Municipal (titrate) Trash Bin 99 mL Expires in days from ____Date Dextrose No 25 mL, Memoria 50% Syringe 09-01 Route: l (D50W) 18:34: IVP, Hubertus 00 Dosing Weight 50, kg, PRN, PRN Blood Glucose Results, Start date: 09/01/21 13:34:00 CDT, Duration: 30 day, Stop date: 10/01/21 13:33:00 CDT glucagon No 1 mg, Memoria 09-01 Route: IM, l 18:34: Drug form: Hubertus 00 PDR/INJ, PRN, Dosing Weight 50, kg, PRN Blood Glucose Results, Start date: 09/01/21 13:34:00 CDT, Duration: 30 day, Stop date: 10/01/21 13:33:00 CDT, 0 potassium No Notes: Memori a chloride 09-01 (Same as: l 18:34: KCL) Hubertus magnesium No Notes: Memori a sulfate 09-01 WASTE: F/P l 18:34: - Sink; E Raoul 00 - Municipal Trash Bin potassium No Notes: Memori a phosphate + - (Same as: l Sodium 18:34: K Raoul Chloride 00 Phosphate. 0.9% IV 245 ) Do not mL infuse phosphorou s concurrent ly in the same line as TPN or IVF that contains calcium. For double lumen central lines, phosphorou s may be infused in a separate lumen from TPN. 1 mMol phoshate has 1.47 mEq potassium Infuse over 4 hours potassium No Notes: Memori a phosphate + - (Same as: l Sodium 18:34: K Raoul Chloride 00 Phosphate. 0.9% IV 240 ) Do not mL infuse phosphorou s concurrent ly in the same line as TPN or IVF that contains calcium. For double lumen central lines, phosphorou s may be infused in a separate lumen from TPN. 1 mMol phoshate has 1.47 mEq potassium Infuse over 4 hours Lactated 0 No 1,000 mL, Carlos cooc Ringers 4-29 1000 l (Bolus) IV 18:09: ml/hr, Monica nn 00 Infuse Over: 1 hr, Route: IV, 1,000, Drug form: INJ, ONCE, Priority: STAT, Dosing Weight 50 kg, Start date: 09/01/21 13:09:00 CDT, Stop date: 09/01/21 13:09:00 CDT, 0 Lactated No 1,000 mL, Carlos coco Ringers 4-29 Infuse l (Bolus) IV 16:02: Over: 1 Herm coral 00 hr, Route: IV, ONCE, Priority: STAT, Dosing Weight 50 kg, Start date: 09/01/21 11:02:00 CDT, Stop date: 09/01/21 11:02:00 CDT ondansetron 0 No 4 mg, Memor ia 09-01 Route: l 16:02: IVP, Drug Hubertus 00 form: INJ, ONCE, Dosing Weight 50, kg, Priority: STAT, Start date: 09/01/21 11:02:00 CDT, Stop date: 09/01/21 11:02:00 CDT Sodium 2021-0 No 1,000 mL, Memori a Chloride 09-01 Infuse l 0.9% 16:01: Over: 1 Hubertus (Bolus) IV 00 hr, Route: IV, ONCE, Priority: STAT, Dosing Weight 50 kg, Start date: 09/01/21 11:01:00 CDT, Stop date: 09/01/21 11:01:00 CDT Sodium 2021-0 No 1,000 mL, Memori a Chloride 09-01 1000 l 0.9% 15:28: ml/hr, Hubertus (Bolus) IV 00 Infuse Over: 1 hr, Route: IV, 1,000, Drug form: INJ, ONCE, Priority: STAT, Dosing Weight 50 kg, Start date: 09/01/21 10:28:00 CDT, Stop date: 09/01/21 10:28:00 CDT, 0 aspirin 81 Yes 81mg Take 81 mg U nivers mg chewable 9-08 by mouth ity of tablet 18:57: daily. [place] [address] Medical Branch acetaZOLAMI Yes 250mg Take 250 U nivers DE 250 mg 9-08 mg by ity of tablet 18:57: mouth [place] [address] daily. Medical Branch escitalopra Yes 10mg Take 10 mg Univers m oxalate 9-08 by mouth ity of 10 mg 18:57: daily. [facility] 11 Medical Branch calcium-vit Yes Take by Uni vers gifford D 500 9-08 mouth ity of mg(1,250mg) 18:57: [place] 11 Medical per tablet Branch vitamin Yes 1000ug Take 1,000 Un josse B-12 1,000 9-08 mcg by ity of mcg tablet 18:57: mouth [place] [address] daily. Medical Branch donepeziL Yes 10mg Take 10 mg Un josse 10 mg 9-08 by mouth ity of tablet 18:57: daily. [address] Branch foLIC acid Yes 1mg Take 1 mg Un josse 1 mg tablet 9-08 by mouth ity of 18:57: daily. [address] insulin Yes 30U inject 30 Unive [...] the [place] injection 11 skin Medical before [place] meals and at bedtime. Humalog SITagliptin Yes [...] by mouth ity of tablet 18:57: daily. [address] Branch medroxyPROG Yes 2.5mg Take 2.5 [...] ity o f tablet 18:57: daily. EC [address] Branch atorvastati Yes 20mg Take 20 mg Univers n 20 mg 9-08 by mouth ity of tablet 18:57: at [place] 11 bedtime. Medical Branch aspirin 81 Yes 81mg Take 81 mg U nivers mg chewable 9-08 by mouth ity of tablet 18:57: daily. [place] [address] Medical Branch acetaZOLAMI Yes 250mg Take 250 U nivers DE 250 mg 9-08 mg by ity of tablet 18:57: mouth [place] 11 daily. Medical Branch escitalopra Yes 10mg Take 10 mg Univers m oxalate 908 by mouth ity of 10 mg 18:57: daily. [place] tablet 11 Medical Branch calcium-vit Yes Take by Uni vers gifford D 500 9-08 mouth ity of mg(1,250mg) 18:57: [place]. [place] 11 Medical per tablet Branch vitamin Yes 1000ug Take 1,000 Un josse B-12 1,000 9-08 mcg by ity of mcg tablet 18:57: mouth [place] [address] daily. Medical Branch donepeziL Yes 10mg Take 10 mg Un josse 10 mg 9-08 by mouth ity of tablet 18:57: daily. [address] Branch foLIC acid Yes 1mg Take 1 mg Un josse 1 mg tablet 9-08 by mouth ity of 18:57: daily. [address] insulin Yes 30U inject 30 Unive rs glargine,hu 9-08 Units ity of m.rec.anlog 18:57: under the [place] ([place]US [place]) 11 skin every Me dical morning. [place] Morning insulin Yes 10U inject 10 Unive rs glargine,hu 9-08 Units ity of m.rec.anlog 18:57: under the [place] (L[place]US [place]) 11 skin every Me dical evening. [place] insulin Yes 10U inject 10 Unive rs lispro, 9-08 Units ity of human, 18:57: under the [place] injection 11 skin Medical before [place] meals and at bedtime. Humalog SITagliptin Yes 100mg Take 100 U nivers (JANUVIA) 9-08 mg by ity of 100 mg 18:57: mouth [place] tablet 11 daily. Medical Branch Levothyroxi Yes 75ug Take 75 Uni vers ne 75 mcg 9-08 mcg by ity of capsule 18:57: mouth [place] 11 daily. Medical Branch lisinopriL Yes 5mg Take 5 mg Un josse 10 mg 9-08 by mouth ity of tablet 18:57: daily. [place] [address] Medical Branch medroxyPROG Yes 2.5mg Take 2.5 U nivers ESTERone 9-08 mg by ity of 2.5 mg 18:57: mouth [place] tablet 11 daily. Medical Branch meloxicam Yes 7.5mg Take 7.5 Uni vers 7.5 mg 9-08 mg by ity of tablet 18:57: mouth [place] 11 daily. Medical Branch pantoprazol Yes 40mg Take 40 mg Univers e 40 mg EC 908 by mouth ity o f tablet 18:57: daily. EC [place] 11 Medical Branch atorvastati Yes 20mg Take 20 mg Univers n 20 mg 908 by mouth ity of tablet 18:57: at [place] [address] bedtime. Medical Branch atorvastati Yes 20mg QD Take 20 mg Methodi n (LIPITOR) 8-[address] 20 MG 20:43: daily. Hospita tablet 08 Default OP l ins meloxicam Yes TAKE 1 Method i (MOBIC) 7.5 8-[address] mg tablet 14:44: DAILY Hospita 40 l busPIRone Yes TAKE 1 Method i (BUSPAR) 30 8-[address] MG tablet 14:44: MOUTH Hospita 40 TWICE l DAILY medroxyPROG Yes TAKE 1 Meth cyn ESTERone 8-[address] (PROVERA) 14:44: DAILY Hospita 2.5 MG 40 l tablet blood sugar Yes OneTouch Hi thodi diagnostic [address] strips 14:44: strips Hospita (ONETOUCH 40 l ULTRA TEST) strip test strips blood-gluco Yes Method i se meter 8-[address] (ONETOUCH 14:44: Hospita ULTRA2) kit 40 l LANTUS Yes Methodi SOLOSTAR 8-08 st 100 unit/mL 00:00: Hospit a injection 00 l (pen) insulin Yes 30U QD Inject 30 Metho di GLARGINE 6-[address] (LANTUS) 00:00: under the Hosp jasmin 100 unit/mL 00 skin daily l injection before (vial) breakfast. lancets Yes CHECK Methodi (onetouch 6-[address] ultrasoft) 14:44: SUGAR 3 Hosp jasmin misc 15 TIMES A l DAY pantoprazol 2017 Yes 40mg QD Take 40 mg Methodi e 6-[address] (PROTONIX) 14:44: daily. Hospi ta 40 MG EC 15 l tablet lisinopril 2017 Yes 5mg QD Take 5 mg Me thodi (PRINIVIL,Z 6-[address] ESTRIL) 5 14:44: daily. Hospit a mg tablet 15 l acetaZOLAMI Yes 250mg Q.5D Take 1 Met hodi DE (DIAMOX) 6-[address] 250 MG 00:00: (250 mg Hospita tablet 00 total) by l mouth 2 (two) times a day. cholecalcif Yes 1000U QD Take 1 Met hodi edd, 6-[address] vitamin D3, 00:00: (1,000 Hosp jasmin (VITAMIN 00 Units l D3) 1,000 total) by unit tablet mouth daily. cyanocobala Yes 1000ug QD Take 1 Me thodi min 1000 6-[address] MCG tablet 00:00: (1,000 mcg H ospita 00 total) by l mouth daily. folic acid Yes 1mg QD Take 1 Metho di (FOLVITE) 1 6-21 tablet (1 st MG tablet 00:00: mg total) Hos celine 00 by mouth l daily. levothyroxi Yes 75ug QD Take 1 Meth cyn ne 6-21 tablet (75 st (SYNTHROID, 00:00: mcg total) Hospita LEVOXYL) 75 00 by mouth l mcg tablet daily. calcium Yes 1{tbl} QD Take 1 Method i carbonate-v 6-[address] itamin D3 00:00: mouth Hospita 500 mg-200 00 daily. l unit per tablet insulin Yes 10U [id number] Inject 10 Methodi lispro 6-[id number] (HumaLOG) 00:00: 3D under the Hos celine 100 unit/mL 00 skin 3 l injection (three) times a day before meals. donepezil Yes 10mg QD Take 1 Method i (ARICEPT) 6-21 tablet (10 st 10 MG 00:00: mg total) Hospita tablet 00 by mouth l every morning. HUMALOG Yes 10U [id number] Inject 10 Methodi KWIKPEN 100 6-21 [id number] Units s t unit/mL 00:00: 3D under the Hospi ta injection 00 skin 3 l pen (three) times a day before meals. JANUVIA 100 Yes Method i mg tablet 4-30 st 00:00: Hospita 00 l aspirin 81 0 Yes Yissel Method i mg chewable 7-[address] tablet 00:00: Aspirin 81 Hospi ta 00 mg l chewable tablet Immunizations Ordered Immunization Filled Immunization Date Status Commen ts Source Name Name SARS-COV-2 COVID-19 2020-08-20 Completed Unive rsity of MODERNA VACCINE 00:00:00 [facility] ical Branch SARS-COV-2 COVID-19 2020-08-20 Completed Unive rsity of MODERNA 12+ YRS 00:00:00 [facility] ical VACCINE Branch SARS-COV-2 COVID-19 2020-07-20 Completed Unive rsity of MODERNA VACCINE 00:00:00 [facility] ical Branch SARS-COV-2 COVID-19 2020-07-20 Completed Unive rsity of MODERNA 12+ YRS 00:00:00 [facility] ical VACCINE Branch Pneumococcal 13 2015-01-03 Completed Universit y of Conjugate, PCV13 00:00:00 [facility] dical (Prevnar 13) Branch Pneumococcal 13 2015-01-03 Completed Universit y of Conjugate, PCV13 00:00:00 [facility] dical (Prevnar 13) Branch Pneumococcal 2010-01-25 Completed University o f Polysaccharide, 00:00:00 [facility] ical PPSV23 (PNEUMOVAX) Branch Zoster(Zostavax)(Garcia 2010-01-25 Completed Uni versity of gles) 00:00:00 [facility] Pneumococcal 2010-01-25 Completed University o f Polysaccharide, 00:00:00 [facility] ical PPSV23 (PNEUMOVAX) Branch Zoster(Zostavax)(Garcia 2010-01-25 Completed Uni versity of gles) 00:00:00 [facility] Pneumococcal 2010-01-25 [facility]pleted [facility] Zoster 2010-01-25 [facility]pleted [facility] Influenza Virus 2008-05-06 Completed Universit y of Vaccine 00:00:00 [facility] Influenza Virus 2008-05-06 Completed Universit y of Vaccine 00:00:00 [facility] Influenza Split 2008-05-06 Completed [facility] 00:[facility]:00 [facility] Vital Signs Vital Name Observation Time Observation Value Comments Source Heart Rate 2021-09-03 20:48:29 [facility] Respitory Rate 2021-09-03 20:48:29 [facility] Temperature Oral (F) 2021-09-03 20:47:30 98.3 F [facility] Systolic (mm Hg) 2021-09-03 20:47:14 [facility] Diastolic (mm Hg) 2021-09-03 20:47:14 [facility] Heart Rate 2021-09-03 20:47:14 [facility] Heart Rate 2021-09-03 16:23:02 [facility] Respitory Rate 2021-09-03 16:23:02 [facility] Systolic (mm Hg) 2021-09-03 16:22:56 [facility] Diastolic (mm Hg) 2021-09-03 16:22:56 [facility] Temperature Oral (F) 2021-09-03 16:22:36 98.1 F [facility] Respitory Rate 2021-09-03 12:50:15 [facility] Systolic (mm Hg) 2021-09-03 12:50:09 [facility] Diastolic (mm Hg) 2021-09-03 12:50:09 [facility] Temperature Oral (F) 2021-09-03 08:33:26 98.3 F [facility] Height 2021-09-02 01:00:00 152.4 cm [facility] Weight 2021-09-02 01:00:00 [facility] BMI Calculated 2021-09-02 01:00:00 [facility] Height 2021-09-01 21:14:00 152.4 cm [facility] Weight 2021-09-01 21:14:00 [facility] BMI Calculated 2021-09-01 21:14:00 Homer Tamayo Height 2021-09-01 21:13:00 152.4 cm [facility] Weight 2021-09-01 21:13:00 [facility] BMI Calculated 2021-09-01 21:13:00 Homer Tamayo Procedures Procedure Date / Time Performed Performing Clinician Royce zana [id number] 2021-06-12 00:00:00 KUMSA.[id number] [facility] [id number] 2021-05-19 00:00:00 DADOL [facility] Plan of Care Planned Activity Planned Date Details Comments Source Future Scheduled 2022-01-02 HEPATITIS B VACCINES Met [facility] Test 06:01:58 (1 of 3 - 3-dose series) [code = HEPATITIS B VACCINES (1 of 3 - 3-dose series)] Future Scheduled 2022-01-02 COVID-19 VACCINE (#1) [facility] Test 06:01:58 [code = COVID-19 VACCINE (#1)] Future Scheduled 2022-01-[address] [facility] Test 06:01:58 SCREENING [code = BREAST CANCER SCREENING] Future Scheduled 2022-01-[address] [facility] Test 06:01:58 [code = COLONOSCOPY SCREENING] Future Scheduled 2022-01-02 SHINGLES VACCINES (2 Met [facility] Test 06:01:58 of 3) [code = SHINGLES VACCINES (2 of 3)] Future Scheduled 2022-01-02 65+ [facility]:01[facility]58 VACCINE (2 - PCV) [code = 65+ PNEUMOCOCCAL VACCINE (2 - PCV)] Future Scheduled 2022-01-02 INFLUENZA VACCINE Method [facility] Test 06:01:58 [code = INFLUENZA VACCINE] Encounters Start End Encounter Admission Attending Care Care Encounter Source Date/Time Date/Time Type Type Clinicians Facility Department ID 2022-01-07 2022-01-07 Telephone [facility]ola [facility]r [id number] Univers 00:00:00 00:00:00 PRIMARY [id number] it y of CARE [id number] Flex TOM [id number] Hi dical 220 Branch 2021-12-272021-12-27 Telephone Nola Lr [facility] [id number] Univers 00:00:00 00:00:00 HEALTH [id number] it y of [facility] [id number] Leonel as JO-ANN?BLEA [id number] Hi lindsey [address] MEDICAL OFFICE [facility] 2021-09-01 2021-09-03 Inpatient Formerly [facility], 1928–[facility] [id number] [facility] 15:08:00 23:00:00 [facility] 00 l [facility] 2021-09-01 2021-09-03 Inpatient E DWIGHT, MHSE MED [id number] 14:27:00 18:00:00 [facility] 2021-09-01 2021-09-03 Outpatient Dwight, MHSE MHSE [id number] 10:08:00 18:00:00 Gyanendra 00 Arshad 2021-09-01 2021-09-03 Outpatient Dwight MHSE MHSE [id number] 10:08:00 18:00:00 Gyanendra 00 Jeancarlos 2021-06-29 2021-06-29 Emergency EM Willi Osullivan HCAPM KANDY LA00 [id number] [facility] 13:12:00 21:46:00 12 [facility] 2021-06-11 2021-06-17 Inpatient EM ArshadBAYLEEPM INTE [id number] [facility] 19:47:00 15:00:00 Piotr 96 [facility] 2021-06-12 2021-06-12 Outpatient TAMAR ArshadBAYLEECL LABO [id number] [facility] 01:15:00 01:15:00 Piotr 33 [facility] 2021-05-20 2021-05-22 Inpatient EM Ulises, HCAPM MEDI.01 [id number] [facility] 10:41:00 19:00:00 Oladipo 26 [facility] 2021-05-19 2021-05-19 Outpatient UlisesBAYLEECL LABO [id number] [facility] 23:50:00 23:50:00 Oladipo 08 [facility] Results Test Description Test Time Test Comments Results Result Comments Source CHEM PANEL 2021-09-02 23:39:00 Test Item Value Reference Range Interpretation Comme nts Glucose Lvl (test code = Glucose Lvl) 214 70-99 [facility]2022-04-30 23:39:00 Test Item Value Reference Range Interpretation Comments BUN (test code = BUN) 20 7-22 [place] [id number] 23:39:00 Test Item Value Reference Range Interpretation Comments Creatinine Lvl (test code = Creatinine 1.15 0.50-1.40 Lvl) [facility]2022-04-30 23:39:00 Test Item Value Reference Range Interpretation Comments Sodium Lvl (test code = Sodium Lvl) 135 135-145 [place] 717782-04-30 23:39:00 Test Item Value Reference Range Interpretation Comments Potassium Lvl (test code = Potassium 4.3 3.5-5.1 Lvl) [facility]2022-04-30 23:39:00 Test Item Value Reference Range Interpretation Comments Chloride Lvl (test code = Chloride Lvl) 106 95-109 [facility]2022-04-30 23:39:00 Test Item Value Reference Range Interpretation Comments CO2 (test code = CO2) 22 24-32 [facility]2022-04-30 23:39:00 Test Item Value Reference Range Interpretation Comments AGAP (test code = AGAP) 11.3 10.0-20.0 [facility]2022-04-30 23:39:00 Test Item Value Reference Range Interpretation Comments Calcium Lvl (test code = Calcium Lvl) 8.2 8.5-10.5 [facility]2022-04-30 23:39:00 Test Item Value Reference Range Interpretation Comments eGFR (test code = eGFR) 47 [place] 717782-04-30 23:39:00 Test Item Value Reference Range Interpretation Comments Ketone Quantitative (test code = Ketone 0.16 Quantitative) [facility]2022-04-30 19:35:00 Test Item Value Reference Range Interpretation Comments Ketone Quantitative (test code = Ketone 2.98 Quantitative) [facility]2022-04-30 19:35:00 Test Item Value Reference Range Interpretation Comments Magnesium Lvl (test code = Magnesium 2.1 1.8-2.4 Lvl) [facility]2022-04-30 19:35:00 Test Item Value Reference Range Interpretation Comments Phosphorus (test code = Phosphorus) 2.9 2.5-4.5 [facility]2022-04-30 19:35:00 Test Item Value Reference Range Interpretation Comments Glucose Lvl (test code = Glucose Lvl) 351 70-99 [place] [id number] 19:35:00 Test Item Value Reference Range Interpretation Comments BUN (test code = BUN) 22 7- [place] 717782-04-30 19:35:00 Test Item Value Reference Range Interpretation Comments Creatinine Lvl (test code = Creatinine 1.12 0.50-1.40 Lvl) [facility]2022-04-30 19:35:00 Test Item Value Reference Range Interpretation Comments Sodium Lvl (test code = Sodium Lvl) 135 135-145 [place] 717782-04-30 19:35:00 Test Item Value Reference Range Interpretation Comments Potassium Lvl (test code = Potassium 4.3 3.5-5.1 Lvl) [facility]2022-04-30 19:35:00 Test Item Value Reference Range Interpretation Comments Chloride Lvl (test code = Chloride Lvl) 104 95-109 [facility]2022-04-30 19:35:00 Test Item Value Reference Range Interpretation Comments CO2 (test code = CO2) 19 - [facility]2022-04-30 19:35:00 Test Item Value Reference Range Interpretation Comments AGAP (test code = AGAP) 16.3 10.0-20.0 [facility]2022-04-30 19:35:00 Test Item Value Reference Range Interpretation Comments Calcium Lvl (test code = Calcium Lvl) 8.0 8.5-10.5 [facility]2022-04-30 19:35:00 Test Item Value Reference Range Interpretation Comments eGFR (test code = eGFR) 49 [facility]2022-04-30 19:35:00 Test Item Value Reference Range Interpretation Comments Glucose Lvl (test code = Glucose Lvl) 351 70-99 [facility]2022-04-30 19:35:00 Test Item Value Reference Range Interpretation Comments BUN (test code = BUN) 23 7- [facility] [id number] 19:35:00 Test Item Value Reference Range Interpretation Comments Creatinine Lvl (test code = Creatinine 1.14 0.50-1.40 Lvl) [place] 717782-04-30 19:35:00 Test Item Value Reference Range Interpretation Comments Sodium Lvl (test code = Sodium Lvl) 135 135-145 [place] 717782-04-30 19:35:00 Test Item Value Reference Range Interpretation Comments Potassium Lvl (test code = Potassium 4.3 3.5-5.1 Lvl) [facility]2022-04-30 19:35:00 Test Item Value Reference Range Interpretation Comments Chloride Lvl (test code = Chloride Lvl) 104 95-109 [place] 717782-04-30 19:35:00 Test Item Value Reference Range Interpretation Comments CO2 (test code = CO2) 19 - [place] 717782-04-30 19:35:00 Test Item Value Reference Range Interpretation Comments AGAP (test code = AGAP) 16.3 10.0-20.0 [place] 717782-04-30 19:35:00 Test Item Value Reference Range Interpretation Comments Calcium Lvl (test code = Calcium Lvl) 7.9 8.5-10.5 [place] 717782-04-30 19:35:00 Test Item Value Reference Range Interpretation Comments eGFR (test code = eGFR) 47 [place] 426772-04-30 11:24:00 Test Item Value Reference Range Interpretation Comments WBC (test code = WBC) 9.7 3.7-10.4 [place] 426772-04-30 11:24:00 Test Item Value Reference Range Interpretation Comments RBC (test code = RBC) 3.11 4.20-5.40 [place] [address]-04-30 11:24:00 Test Item Value Reference Range Interpretation Comments Hgb (test code = Hgb) 8.5 12.0-16.0 [place] [address]-04-30 11:24:00 Test Item Value Reference Range Interpretation Comments Hct (test code = Hct) 26.6 36.0-48.0 [place] 426772-04-30 11:24:00 Test Item Value Reference Range Interpretation Comments MCV (test code = MCV) 85.5 80.0-98.0 [facility]VavvgkkNVXOMZZCBV6715-75-06 11:24:00 Test Item Value Reference Range Interpretation Comments MCH (test code = MCH) 27.3 pg 27.0-31.0 [facility] HospitalTcjqadiPQAIHTIHSW3631-79-89 11:24:00 Test Item Value Reference Range Interpretation Comments MCHC (test code = MCHC) 32.0 32.0-36.0 [facility] HospitalSqwextnXUOPJZZTYE3368-02-06 11:24:00 Test Item Value Reference Range Interpretation Comments RDW (test code = RDW) 17.0 11.5-14.5 [facility] HospitalLigawaiDHOMCNCKRG9800-80-19 11:24:00 Test Item Value Reference Range Interpretation Comments Platelet (test code = Platelet) 248 133-450 [facility] HospitalEswpgwpOBFFTPTKOM6876-73-87 11:24:00 Test Item Value Reference Range Interpretation Comments MPV (test code = MPV) 8.2 7.4-10.4 [place] 426772-04-30 11:24:00 Test Item Value Reference Range Interpretation Comments Segs (test code = Segs) 73.5 45.0-75.0 [facility] HospitalEmjwhpoYCNEAODUCV7383-41-47 11:24:00 Test Item Value Reference Range Interpretation Comments Lymphocytes (test code = Lymphocytes) 16.3 20.0-40.0 [facility] HospitalZtwnlleWJXDWVSFID7728-52-48 11:24:00 Test Item Value Reference Range Interpretation Comments Monocytes (test code = Monocytes) 8.1 2.0-12.0 [place] 426772-04-30 11:24:00 Test Item Value Reference Range Interpretation Comments Eosinophils (test code = 0.7 See_Comment [A utomated message] The Eosinophils) system which ge nerated this result tra nsmitted reference range : <=4.0. The reference r lizabeth was not used to int erpret this result as normal/abnormal . [facility] HospitalSuxaqtfPVTQXVRMPM6525-79-44 11:24:00 Test Item Value Reference Range Interpretation Comments Basophils (test code = 1.4 See_Comment [Aut omated message] The Basophils) system which ge nerated this result tra nsmitted reference range : <=1.0. The reference r lizabeth was not used to int erpret this result as normal/abnormal . [facility] HospitalZtrpdhuBQOQATJAYX7463-24-58 11:24:00 Test Item Value Reference Range Interpretation Comments Neutrophils # (test code = Neutrophils 7.1 1.5-8.1 #) [facility] HospitalVpbjmlzPKIBOMGCKH7807-73-66 11:24:00 Test Item Value Reference Range Interpretation Comments Lymphocytes # (test code = Lymphocytes 1.6 1.0-5.5 #) [facility] HospitalQnlvmhiFWYKLYANKW1655-94-48 11:24:00 Test Item Value Reference Range Interpretation Comments Monocytes # (test code 0.8 See_Comment [Aut omated message] The = Monocytes #) system which generated this result tra nsmitted reference range : <=0.8. The reference r lizabeth was not used to int erpret this result as normal/abnormal . [facility] HospitalZksysypOMXRCZYAAD3612-91-21 11:24:00 Test Item Value Reference Range Interpretation Comments Eosinophils # (test code 0.1 See_Comment [A utomated message] The = Eosinophils #) system whic h generated this result tra nsmitted reference range : <=0.5. The reference r lizabeth was not used to int erpret this result as normal/abnormal . [facility] HospitalOumgwclCXBFXANZZG7210-67-50 11:24:00 Test Item Value Reference Range Interpretation Comments Basophils # (test code 0.1 See_Comment [Aut omated message] The = Basophils #) system which generated this result tra nsmitted reference range : <=0.2. The reference r lizabeth was not used to int erpret this result as normal/abnormal . [facility] [id number] 11:24:00 Test Item Value Reference Range Interpretation Comments Ketone Quantitative (test code = Ketone 2.53 Quantitative) [facility]2022-04-30 11:24:00 Test Item Value Reference Range Interpretation Comments Magnesium Lvl (test code = Magnesium 2.6 1.8-2.4 Lvl) [facility] [id number] 11:24:00 Test Item Value Reference Range Interpretation Comments Phosphorus (test code = Phosphorus) 3.0 2.5-4.5 [facility] [id number] 04:04:00 Test Item Value Reference Range Interpretation Comments Magnesium Lvl (test code = Magnesium 1.0 1.8-2.4 Lvl) [facility] [id number] 04:04:00 Test Item Value Reference Range Interpretation Comments Hgb A1C (test code = Hgb A1C) 9.0 [facility] AND [id number] 19:39:00 Test Item Value Reference Range Interpretation Comments UA Turbidity (test code = Clear (09/01/21 2:39 UA Turbidity) PM) [facility] [id number] 19:39:00 Test Item Value Reference Range Interpretation Comments UA Spec Grav (test code = UA Spec 1.016 1 Grav) [facility] [id number] 19:39:00 Test Item Value Reference Range Interpretation Comments UA pH (test code = UA pH) 5.0 1 5.0-8.0 [facility] [id number] 19:39:00 Test Item Value Reference Range Interpretation Comments UA Protein (test code = UA Negative mg/dL Protein) [facility] [id number] 19:39:00 Test Item Value Reference Range Interpretation Comments UA Glucose (test code = UA Glucose) 500 mg/dL [facility] [id number] 19:39:00 Test Item Value Reference Range Interpretation Comments UA Ketones (test code = UA Ketones) 80 mg/dL [facility] [id number] 19:39:00 Test Item Value Reference Range Interpretation Comments UA Bili (test code = Negative *NA*(09/01/21 UA Bili) 2:39 PM) [facility] [id number] 19:39:00 Test Item Value Reference Range Interpretation Comments UA Blood (test code = Negative (09/01/21 2:39 UA Blood) PM) [facility] [id number] 19:39:00 Test Item Value Reference Range Interpretation Comments UA Nitrite (test code Negative (09/01/21 2:39 = UA Nitrite) PM) [facility] [id number] 19:39:00 Test Item Value Reference Range Interpretation Comments UA Leuk Est (test Negative (09/01/21 2:39 code = UA Leuk Est) PM) [facility] [id number] 19:39:00 Test Item Value Reference Range Interpretation Comments UA Sq Epi (test code = UA Sq Occasional /LPF Epi) [facility] [id number] 19:39:00 Test Item Value Reference Range Interpretation Comments UA WBC (test code = no gt See_Comment [Automa marge message] The UA WBC) system which ge nerated this result transmit marge reference range : <=5. The reference range was not used to interpr et this result as dain l/abnormal. [facility] [id number] 19:39:00 Test Item Value Reference Range Interpretation Comments UA Bacteria (test code = UA Occasional /HPF Bacteria) [facility] [id number] 19:39:00 Test Item Value Reference Range Interpretation Comments UA Mucus (test code = UA Mucus) Few /LPF [facility] [id number] 19:39:00 Test Item Value Reference Range Interpretation Comments UA Color (test code = UA Color) Ltyellow [facility] [id number] 19:39:00 Test Item Value Reference Range Interpretation Comments UA Urobilinogen (test code = UA <=1.0 mg/dL 0.1-1.0 Urobilinogen) [facility] [id number] 16:52:00 Test Item Value Reference Range Interpretation Comments HS Troponin I (test code = HS Troponin 8 I) [facility] [id number] 16:52:00 Test Item Value Reference Range Interpretation Comments Total CK (test code = Total CK) 37 12-191 [facility] [employer] [id number] 16:52:00 Test Item Value Reference Range Interpretation Comments Phosphorus (test code = Phosphorus) 4.8 2.5-4.5 [facility] [employer] [id number] 16:52:00 Test Item Value Reference Range Interpretation Comments Total Protein (test code = Total 6.4 6.4-8.4 Protein) [facility] [employer] [id number] 16:52:00 Test Item Value Reference Range Interpretation Comments Albumin Lvl (test code = Albumin Lvl) 3.3 3.5-5.0 [facility] [id number] 16:52:00 Test Item Value Reference Range Interpretation Comments ALT (test code = ALT) 12 See_Comment [Auto mated message] The system which ge nerated this result transmit marge reference range : <=65. The reference range was not used to interpr et this result as dain l/abnormal. [facility] [id number] 16:52:00 Test Item Value Reference Range Interpretation Comments AST (test code = AST) 11 See_Comment [Auto mated message] The system which ge nerated this result transmit marge reference range : <=37. The reference range was not used to interpr et this result as dain l/abnormal. [facility] [id number] 16:52:00 Test Item Value Reference Range Interpretation Comments Alk Phos (test code = Alk Phos) 43 39-136 [facility] [id number] 16:52:00 Test Item Value Reference Range Interpretation Comments Bili Total (test code = Bili Total) 0.6 0.2-1.3 [place] [id number] 16:52:00 Test Item Value Reference Range Interpretation Comments Bili Direct (test code 0.2 See_Comment [Aut omated message] The = Bili Direct) system which generated this result tra nsmitted reference range : <=0.3. The reference r lizabeth was not used to int erpret this result as dain l/abnormal. [facility] [id number] 16:52:00 Test Item Value Reference Range Interpretation Comments Bili Indirect (test 0.4 See_Comment [Automa marge message] The code = Bili Indirect) system which generated this result tra nsmitted reference range : <=1.0. The reference r lizabeth was not used to int erpret this result as normal/abnormal . [facility] [id number] 16:52:00 Test Item Value Reference Range Interpretation Comments Globulin (test code = Globulin) 3.1 2.7-4.2 [facility] [id number] 16:52:00 Test Item Value Reference Range Interpretation Comments A/G Ratio (test code = A/G Ratio) 1.1 1 0.7-1.6 [facility] Hos[id number] 15:44:00 Test Item Value Reference Range Interpretation Comments Coronavirus (COVID-19) Not Detected (09/01/21 DANIELLE (test code = 10:44 AM) Coronavirus (COVID-19) DANIELLE) [facility] HospitalNpbhmcjLSYHDJVNQL6964-58-52 15:31:00 Test Item Value Reference Range Interpretation Comments WBC (test code = WBC) 7.5 3.7-10.4 [facility] HospitalMtprideYMVVDOVCJK7132-30-17 15:31:00 Test Item Value Reference Range Interpretation Comments RBC (test code = RBC) 3.85 4.20-5.40 [facility] HospitalMlwslsyCBMCPDEFJG9057-56-02 15:31:00 Test Item Value Reference Range Interpretation Comments Hgb (test code = Hgb) 10.6 12.0-16.0 [facility] H[id number] 15:31:00 Test Item Value Reference Range Interpretation Comments Hct (test code = Hct) 36.3 36.0-48.0 [facility] H[id number] 15:31:00 Test Item Value Reference Range Interpretation Comments MCV (test code = MCV) 94.2 80.0-98.0 [facility] HospitalUndgyibJEOGKYXKLI9845-10-25 15:31:00 Test Item Value Reference Range Interpretation Comments MCH (test code = MCH) 27.6 pg 27.0-31.0 [facility] Hos[id number] 15:31:00 Test Item Value Reference Range Interpretation Comments MCHC (test code = MCHC) 29.3 32.0-36.0 [facility] [facility]tuoaoeFDIBQYZEAY0234-31-61 15:31:00 Test Item Value Reference Range Interpretation Comments RDW (test code = RDW) 18.4 11.5-14.5 [facility] HospitalNshmjcdSRSUIXHWOF8371-72-81 15:31:00 Test Item Value Reference Range Interpretation Comments Platelet (test code = Platelet) 336 133-450 [facility] HospitalMvjdnppPPIIGCWBRW7201-30-75 15:31:00 Test Item Value Reference Range Interpretation Comments MPV (test code = MPV) 9.1 7.4-10.4 [facility] HospitalMpobpejSVJUZHUKID3365-93-22 15:31:00 Test Item Value Reference Range Interpretation Comments PT (test code = PT) 13.2 s 12.0-14.7 [facility] HospitalEsansmpNEKDATTYXZ1129-31-21 15:31:00 Test Item Value Reference Range Interpretation Comments INR (test code = INR) 1.01 1 0.85-1.17 [facility] HospitalOgcceoaCXLRCPVPMG9584-87-90 15:31:00 Test Item Value Reference Range Interpretation Comments PTT (test code = PTT) 23.7 s 22.9-35.8 [place] 426772-04-29 15:31:00 Test Item Value Reference Range Interpretation Comments Plt Morph (test code = Normal (09/01/21 10:31 Plt Morph) AM) [facility] HospitalJetoqfuERNOUHSGRV4382-16-80 15:31:00 Test Item Value Reference Range Interpretation Comments Segs (test code = Segs) 81.9 45.0-75.0 [place] 426772-04-29 15:31:00 Test Item Value Reference Range Interpretation Comments Lymphocytes (test code = Lymphocytes) 14.4 20.0-40.0 [place] 426772-04-29 15:31:00 Test Item Value Reference Range Interpretation Comments Monocytes (test code = Monocytes) 2.6 2.0-12.0 [facility] HospitalUgispfxYJNSKSAOUH0846-13-04 15:31:00 Test Item Value Reference Range Interpretation Comments Eosinophils (test code = 0.4 See_Comment [A utomated message] The Eosinophils) system which ge nerated this result tra nsmitted reference range : <=4.0. The reference r lizabeth was not used to int erpret this result as normal/abnormal . [facility] HospitalNsqcernXJGRGEKQNF8083-14-42 15:31:00 Test Item Value Reference Range Interpretation Comments Basophils (test code = 0.7 See_Comment [Aut omated message] The Basophils) system which ge nerated this result tra nsmitted reference range : <=1.0. The reference r lizabeth was not used to int erpret this result as normal/abnormal . [facility] HospitalZwkcvsvMRWHBVJFBH8815-28-86 15:31:00 Test Item Value Reference Range Interpretation Comments Neutrophils # (test code = Neutrophils 6.1 1.5-8.1 #) [place] 426772-04-29 15:31:00 Test Item Value Reference Range Interpretation Comments Lymphocytes # (test code = Lymphocytes 1.1 1.0-5.5 #) [place] [id number] 15:31:00 Test Item Value Reference Range Interpretation Comments Monocytes # (test code 0.2 See_Comment [Aut omated message] The = Monocytes #) system which generated this result tra nsmitted reference range : <=0.8. The reference r lizabeth was not used to int erpret this result as normal/abnormal . [facility] HospitalJrhkzddZJYOTARMDD9324-12-60 15:31:00 Test Item Value Reference Range Interpretation Comments Basophils # (test code 0.1 See_Comment [Aut omated message] The = Basophils #) system which generated this result tra nsmitted reference range : <=0.2. The reference r lizabeth was not used to int erpret this result as normal/abnormal . [facility] HospitalNwinenpJQFUFCINAL7461-57-12 15:31:00 Test Item Value Reference Range Interpretation Comments Hypochrom (test code = 2+ (09/01/21 10:31 Hypochrom) AM) [facility] METABOLIC [id number] 18:33:00 Test Item Value Reference Range Interpretation [...] CA) 8.2 MG/DL 8.5-10.1 L GLUCOSE BEDSIDE [id number] 17:40:00 Test Item Value Reference Range Interpretation Comments GLUCOSE BEDSIDE TESTING (test code 274 mg/dL 70-110 H = GLUBED) VENOUS BLOOD [id number] 15:34:00 Test Item Value Reference Range Interpretation [...] = SITEV) UA RFLX MICR CULT IF [id number] 14:55:00 Test Item Value Reference Range Interpretation [...] Indication for culture: RiskForSepsis-no oth srcBASIC METABOLIC [id number] 14:51:00 Test Item Value Reference Range Interpretation [...] CA) 9.1 MG/DL 8.5-10.1 N HEPATIC FUNCTION [id number] 14:51:00 Test Item Value Reference Range Interpretation [...] 79 Unit/L 45-117 N code = ALKP) [id number] 14:51:00 Test Item Value Reference Range Interpretation Comments LIPASE (test code = LIP) 149 Unit/L 114-286 N CBC W/AUTO [id number] 14:14:00 Test Item Value Reference Range Interpretation [...] NO DIFF/SCN CRITERIA = MDIFF) GLUCOSE BEDSIDE [id number] 11:42:00 Test Item Value Reference Range Interpretation Comments GLUCOSE BEDSIDE TESTING (test code 222 mg/dL 70-110 H = GLUBED) GLUCOSE BEDSIDE [id number] 07:46:00 Test Item Value Reference Range Interpretation Comments GLUCOSE BEDSIDE TESTING (test code 170 mg/dL 70-110 H = GLUBED) GLUCOSE BEDSIDE [id number] 20:26:00 Test Item Value Reference Range Interpretation Comments GLUCOSE BEDSIDE TESTING (test code 235 mg/dL 70-110 H = GLUBED) GLUCOSE BEDSIDE [id number] 16:22:00 Test Item Value Reference Range Interpretation Comments GLUCOSE BEDSIDE TESTING (test code 120 mg/dL 70-110 H = GLUBED) GLUCOSE BEDSIDE [id number] 12:04:00 Test Item Value Reference Range Interpretation Comments GLUCOSE BEDSIDE TESTING (test code 146 mg/dL 70-110 H = GLUBED) GLUCOSE BEDSIDE [id number] 08:03:00 Test Item Value Reference Range Interpretation Comments GLUCOSE BEDSIDE TESTING (test code 137 mg/dL 70-110 H = GLUBED) GLUCOSE BEDSIDE [id number] 07:39:00 Test Item Value Reference Range Interpretation Comments GLUCOSE BEDSIDE TESTING (test code = 24 mg/dL 70-110 LL GLUBED) CBC W/AUTO [id number] 06:39:00 Test Item Value Reference Range Interpretation [...] NO DIFF/SCN CRITERIA = MDIFF) GLUCOSE BEDSIDE [id number] 21:13:00 Test Item Value Reference Range Interpretation Comments GLUCOSE BEDSIDE TESTING (test code 168 mg/dL 70-110 H = GLUBED) BASIC METABOLIC [id number] 05:43:00 Test Item Value Reference Range Interpretation [...] code = CA) 8.4 MG/DL 8.5-10.1 L HRSRPMHLHFU5225-98-58 05:43:00 Test Item Value Reference Range Interpretation Comments PHOSPHOROUS (test code = PHOS) 2.5 MG/DL 2.5-4.9 N [id number] 05:43:00 Test Item Value Reference Range Interpretation Comments MAGNESIUM (test code = MAG) 1.9 MG/DL 1.8-2.4 N CBC W/AUTO [id number] 05:28:00 Test Item Value Reference Range Interpretation [...] NO DIFF/SCN CRITERIA = MDIFF) GLUCOSE BEDSIDE [id number] 21:02:00 Test Item Value Reference Range Interpretation Comments GLUCOSE BEDSIDE TESTING (test code 155 mg/dL 70-110 H = GLUBED) GLUCOSE BEDSIDE [id number] 16:10:00 Test Item Value Reference Range Interpretation Comments GLUCOSE BEDSIDE TESTING (test code 146 mg/dL 70-110 H = GLUBED) GLUCOSE BEDSIDE [id number] 12:23:00 Test Item Value Reference Range Interpretation Comments GLUCOSE BEDSIDE TESTING (test code 329 mg/dL 70-110 H = GLUBED) GLUCOSE BEDSIDE [id number] 07:59:00 Test Item Value Reference Range Interpretation Comments GLUCOSE BEDSIDE TESTING (test code 225 mg/dL 70-110 H = GLUBED) - XR CHEST 1 [id number] 07:34:00 [facility] 1945 Sex: F Name: AKIRA RODRIGUEZ [facility] : 1945 Age/S: 75 / F [address] [address] Unit #: [id number] Loc: [place] [address] Phys: Yanet Bragg Acct: [id number] Dis Date: Status: ADM IN PHONE #: [phone] Exam Date: 06/14/2021 0700 FAX #: Reason: cough EXAMS: CPT: [id number] XR CHEST 1 V 06096 Fluoro Time: DAP (Gy m2): Air Kerma [...] MD PAGE 1 Signed Report Name: AKIRA RODRIGUEZland : 1945 A ge/S: 75 / F [address] [address] Unit #: [id number] Loc: [place] [address] Phys: Yanet Bragg Acct: [id number] Dis Date: Status: ADM IN PHONE #: [phone] Exam Date: 06/14/2021 0700 FAX #: Reason: cough EXAMS: CPT: [id number] XR CHEST 1 V 56721 Fluoro Time: DAP (Gy m2): Air Kerma (mGy): (C ontinued) Technologist: Twin Lopez, RT(R)(CT) Trnscb Date/Time: 06/14/2021 (34) Sherrell Orig Print D/T: S: 06/14/2021 (0737) PAGE 2 Signed ReportT4 [id number] 05:13:00 Test Item Value Reference Range Interpretation Comments T4 FREE (test code = T4F) 1.00 NG/DL 0.89-1.76 N THYROID STIMULATING [id number] 05:13:00 Test Item Value Reference Range Interpretation Comments THYROID STIMULATING HORMONE 2.680 mcIU/ML 0.340-4.820 (test code = TSH) BASIC METABOLIC [id number] 04:48:00 Test Item Value Reference Range Interpretation [...] code = CA) 7.2 MG/DL 8.5-10.1 L [id number] 04:48:00 Test Item Value Reference Range Interpretation Comments PHOSPHOROUS (test code = PHOS) 2.3 MG/DL 2.5-4.9 L [id number] 04:48:00 Test Item Value Reference Range Interpretation Comments MAGNESIUM (test code = MAG) 1.6 MG/DL 1.8-2.4 L CBC W/AUTO [id number] 04:30:00 Test Item Value Reference Range Interpretation [...] NO DIFF/SCN CRITERIA = MDIFF) GLUCOSE BEDSIDE [id number] 01:33:00 Test Item Value Reference Range Interpretation Comments GLUCOSE BEDSIDE TESTING (test code 156 mg/dL 70-110 H = GLUBED) BASIC METABOLIC [id number] 23:08:00 Test Item Value Reference Range Interpretation [...] code = CA) 6.9 MG/DL 8.5-10.1 L [id number] 23:08:00 Test Item Value Reference Range Interpretation Comments PHOSPHOROUS (test code = PHOS) 2.4 MG/DL 2.5-4.9 L [id number] 23:08:00 Test Item Value Reference Range Interpretation Comments MAGNESIUM (test code = MAG) 1.9 MG/DL 1.8-2.4 GLUCOSE BEDSIDE [id number] 21:28:00 Test Item Value Reference Range Interpretation Comments GLUCOSE BEDSIDE TESTING (test code 280 mg/dL 70-110 H = GLUBED) GLUCOSE BEDSIDE [id number] 19:42:00 Test Item Value Reference Range Interpretation Comments GLUCOSE BEDSIDE TESTING (test code 242 mg/dL 70-110 H = GLUBED) GLUCOSE BEDSIDE [id number] 18:53:00 Test Item Value Reference Range Interpretation Comments GLUCOSE BEDSIDE TESTING (test code 231 mg/dL 70-110 H = GLUBED) GLUCOSE BEDSIDE [id number] 17:55:00 Test Item Value Reference Range Interpretation Comments GLUCOSE BEDSIDE TESTING (test code 159 mg/dL 70-110 H = GLUBED) GLUCOSE BEDSIDE [id number] 17:53:00 Test Item Value Reference Range Interpretation Comments GLUCOSE BEDSIDE TESTING (test code 196 mg/dL 70-110 H = GLUBED) BASIC METABOLIC [id number] 16:26:00 Test Item Value Reference Range Interpretation [...] code = CA) 7.0 MG/DL 8.5-10.1 L [id number] 16:26:00 Test Item Value Reference Range Interpretation Comments PHOSPHOROUS (test code = PHOS) 2.6 MG/DL 2.5-4.9 N [id number] 16:26:00 Test Item Value Reference Range Interpretation Comments MAGNESIUM (test code = MAG) 2.2 MG/DL 1.8-2.4 N GLUCOSE BEDSIDE [id number] 16:20:00 Test Item Value Reference Range Interpretation Comments GLUCOSE BEDSIDE TESTING (test code 115 mg/dL 70-110 H = GLUBED) GLUCOSE BEDSIDE [id number] 16:20:00 Test Item Value Reference Range Interpretation Comments GLUCOSE BEDSIDE TESTING (test code 112 mg/dL 70-110 H = GLUBED) GLUCOSE BEDSIDE [id number] 16:04:00 Test Item Value Reference Range Interpretation Comments GLUCOSE BEDSIDE TESTING (test code 147 mg/dL 70-110 H = GLUBED) GLUCOSE BEDSIDE [id number] 11:58:00 Test Item Value Reference Range Interpretation Comments GLUCOSE BEDSIDE TESTING (test code 165 mg/dL 70-110 H = GLUBED) GLUCOSE BEDSIDE [id number] 11:58:00 Test Item Value Reference Range Interpretation Comments GLUCOSE BEDSIDE TESTING (test code 199 mg/dL 70-110 H = GLUBED) BASIC METABOLIC [id number] 11:00:00 Test Item Value Reference Range Interpretation [...] code = CA) 6.6 MG/DL 8.5-10.1 L [id number] 11:00:00 Test Item Value Reference Range Interpretation Comments PHOSPHOROUS (test code = PHOS) 2.2 MG/DL 2.5-4.9 L [id number] 11:00:00 Test Item Value Reference Range Interpretation Comments MAGNESIUM (test code = MAG) 2.0 MG/DL 1.8-2.4 VENOUS BLOOD [id number] 10:20:00 Test Item Value Reference Range Interpretation [...] Site DESCRIPTION code = SITEV) GLUCOSE BEDSIDE [id number] 09:21:00 Test Item Value Reference Range Interpretation Comments GLUCOSE BEDSIDE TESTING (test code 256 mg/dL 70-110 H = GLUBED) GLUCOSE BEDSIDE [id number] 09:21:00 Test Item Value Reference Range Interpretation Comments GLUCOSE BEDSIDE TESTING (test code 281 mg/dL 70-110 H = GLUBED) - XR CHEST 1 [id number] 08:49:00 [facility] 1945 Sex: F Name: AKIRA RODRIGUEZ [facility] : 1945 Age/S: 75 / F [address] [address] Unit #: [id number] Loc: [place] [address] Phys: Indra Corado MD Acct: [id number] Dis Date: Status: ADM IN PHONE #: [phone] Exam Date: 06/13/2021 0840 FAX #: Reason: POSSIBLE PNA EXAMS: CPT: [id number] XR CHEST 1 V 67973 Fluoro Time: DAP (Gy m2): Air Kerma [...] by: Nasim Jamison M.D. CC: Indra Corado MD; Piotr Arshad MD PAGE 1 Signed Report Name: AKIRA RODRIGUEZ [facility] : 1945 Age/S: 75 / F [address] [place] [address] Unit #: [id number] Loc: [place] [address] Phys: Indra Corado MD Acct: [id number] Dis Date: Status: ADM IN PHONE #: [phone] Exam Date: 06/13/2021 0840 FAX #: Reason: POSSIBLE PNA EXAMS: CPT: [id number] XR CHEST 1 V 58493 Fluoro Time: DAP (Gy m2): Air Kerma (mGy): (Continued) Technologist: GUILHERME COLES, RT(R)(CT) Trnscb Date/Time: 06/13/2021 (0849) [email or web address] Orig Print D/T: S: 06/13/2021 (0852) PAGE 2 Signed ReportGLUCOSE BEDSIDE [id number] 07:17:00 Test Item Value Reference Range Interpretation Comments GLUCOSE BEDSIDE TESTING (test code 340 mg/dL 70-110 H = GLUBED) GLUCOSE BEDSIDE [id number] 07:17:00 Test Item Value Reference Range Interpretation Comments GLUCOSE BEDSIDE TESTING (test code 418 mg/dL 70-110 H = GLUBED) BASIC METABOLIC [id number] 04:54:00 Test Item Value Reference Range Interpretation [...] code = 446 MG/DL 70-110 H RN CAR ANIRUDH AGREED GLU) WITH THE RESULT . BLOOD UREA NITROGEN 11 MG/DL 7-18 N (test code = BUN) GLOMERULAR FILTRATION 58 estGFR >60 L RATE (test code = GFR) CREATININE (test code 1.0 MG/DL 0.6-1.0 N = CREAT) CALCIUM (test code = 7.1 MG/DL 8.5-10.1 L CA) [id number] 04:54:00 Test Item Value Reference Range Interpretation Comments PHOSPHOROUS (test code = PHOS) 2.4 MG/DL 2.5-4.9 L [id number] 04:54:00 Test Item Value Reference Range Interpretation Comments MAGNESIUM (test code = MAG) 2.3 MG/DL 1.8-2.4 CBC W/AUTO [id number] 04:39:00 Test Item Value Reference Range Interpretation [...] NO DIFF/SCN CRITERIA = MDIFF) GLUCOSE BEDSIDE [id number] 04:20:00 Test Item Value Reference Range Interpretation Comments GLUCOSE BEDSIDE TESTING (test code 414 mg/dL 70-110 H = GLUBED) GLUCOSE BEDSIDE [id number] 23:58:00 Test Item Value Reference Range Interpretation Comments GLUCOSE BEDSIDE TESTING (test code 236 mg/dL 70-110 H = GLUBED) - US RETROPERITONEAL [id number] 23:14:00 [facility] 1945 Sex: F Name: AKIRA RODRIGUEZ [facility] : 1945 Age/S: 75 / F [address] Unit #: [id number] Loc: [place] [address] Phys: Rufus Luke MD Acct: [id number] Dis Date: Status: ADM IN PHONE #: [phone] Exam Date: 06/12/2021 2306 FAX #: Reason: urinary retention EXAMS: CPT: [id number] US RETROPERITONEAL COM 64894 EXAM: - US RETROPERITONEAL COM LOCATION: H61 REASON FOR EXAM: urinary retention TECHNIQUE: Grayscale grayscale and color Doppler evaluation of the kidneys was performed by the battery assembler. Multiple still images were saved and submitted [...] MD; Piotr Arshad MD Technologist: Velasquez Ronquillo Trntnb Date/Time: 06/12/2021 (2313) [email or web address] PAGE 1 Signed Report Name: AKIRA RODRIGUEZ [facility] : 1945 Age/S: 75 / F [address] [address] Unit #: [id number] Loc: [place] [address] Phys: Rufus Luke MD Acct: [id number] Dis Date: Status: ADM IN PHONE #: [phone] Exam Date: 06/12/2021 230 FAX #: Reason: urinary retention EXAMS: CPT: [id number] [facility] [address] (Continued) Orig Print D/T: S: 06/12/2021 (2316) Probe: PAGE 2 Signed Report BASIC METABOLIC [id number] 19:03:00 Test Item Value Reference Range Interpretation [...] code = CA) 6.9 MG/DL 8.5-10.1 L [id number] 19:03:00 Test Item Value Reference Range Interpretation Comments PHOSPHOROUS (test code = PHOS) 2.7 MG/DL 2.5-4.9 [id number] 19:03:00 Test Item Value Reference Range Interpretation Comments MAGNESIUM (test code = MAG) 1.8 MG/DL 1.8-2.4 LACTIC [id number] 18:57:00 Test Item Value Reference Range Interpretation Comments LACTIC ACID (test code = LACT) 1.6 mmol/L 0.4-2.0 N GLUCOSE BEDSIDE [id number] 18:44:00 Test Item Value Reference Range Interpretation Comments GLUCOSE BEDSIDE TESTING (test code = 94 mg/dL 70-110 N GLUBED) GLUCOSE BEDSIDE [id number] 16:46:00 Test Item Value Reference Range Interpretation Comments GLUCOSE BEDSIDE TESTING (test code 104 mg/dL 70-110 N = GLUBED) LACTIC [id number] 15:02:00 Test Item Value Reference Range Interpretation Comments LACTIC ACID (test code = LACT) 3.0 mmol/L 0.4-2.0 H GLUCOSE BEDSIDE [id number] 13:34:00 Test Item Value Reference Range Interpretation Comments GLUCOSE BEDSIDE TESTING (test code = 70 mg/dL 70-110 N GLUBED) GLUCOSE BEDSIDE [id number] 13:34:00 Test Item Value Reference Range Interpretation Comments GLUCOSE BEDSIDE TESTING (test code 160 mg/dL 70-110 H = GLUBED) GLUCOSE BEDSIDE [id number] 13:34:00 Test Item Value Reference Range Interpretation Comments GLUCOSE BEDSIDE TESTING (test code 173 mg/dL 70-110 H = GLUBED) GLUCOSE BEDSIDE [id number] 13:34:00 Test Item Value Reference Range Interpretation Comments GLUCOSE BEDSIDE TESTING (test code 178 mg/dL 70-110 H = GLUBED) GLUCOSE BEDSIDE [id number] 13:34:00 Test Item Value Reference Range Interpretation Comments GLUCOSE BEDSIDE TESTING (test code 230 mg/dL 70-110 H = GLUBED) - XR CHEST 1 [id number] 12:00:00 [facility] 1945 Sex: F Name: AKIRA RODRIGUEZ [facility] : 1945 Age/S: 75 / F [address] [address] Unit #: [id number] Loc: [place] [address] Phys: Indra Corado MD Acct: [id number] Dis Date: Status: ADM IN PHONE #: [phone] Date: 06/12/2021 1153 FAX #: Reason: SOB EXAMS: CPT: [id number] XR CHEST 1 V 78816 Fluoro Time:DAP (Gy m2): Air Kerma (mGy): EXAM: - [...] PAGE 1 Signed Report Name: AKIRA RODRIGUEZ [facility] : 1945 Age/S: 75 / F [address] [address] Unit #: [id number] Loc: [place] [address] Phys: Indra Corado MD Acct: [id number] Dis Date: Status: ADM IN PHONE #: [phone] Exam Date: 06/12/2021 1153 FAX #: Reason: SOB EXAMS: CPT: [id number] XR CHEST 1 V 97235 Fluoro Time: DAP (Gy m2): Air Kerma (mGy): (Continued) Technologist: RT Cassie(R) Trnscb Date/Time: 06/12/2021 (1200) [email or web address] Orig Print D/T: S: 06/12/2021 (1203) PAGE 2 Signed ReportBASIC METABOLIC [id number] 11:33:00 Test Item Value Reference Range Interpretation [...] code = CA) 6.9 MG/DL 8.5-10.1 L [id number] 10:36:00 Test Item Value Reference Range Interpretation Comments MAGNESIUM (test code = MAG) 1.4 MG/DL 1.8-2.4 L CBC W/AUTO [id number] 10:26:00 Test Item Value Reference Range Interpretation [...] code NO DIFF/SCN CRITERIA = MDIFF) LACTIC [id number] 09:08:00 Test Item Value Reference Range Interpretation Comments LACTIC ACID (test code = LACT) 3.8 mmol/L 0.4-2.0 H GLUCOSE BEDSIDE [id number] 07:16:00 Test Item Value Reference Range Interpretation Comments GLUCOSE BEDSIDE TESTING (test code 254 mg/dL 70-110 H = GLUBED) UA RFLX MICR CULT IF [id number] 06:53:00 Test Item Value Reference Range Interpretation [...] MUCU) Indication for culture: Suprapubic PainBASIC METABOLIC [id number] 06:17:00 Test Item Value Reference Range Interpretation [...] code = CA) 7.1 MG/DL 8.5-10.1 L [id number] 06:17:00 Test Item Value Reference Range Interpretation Comments PHOSPHOROUS (test code = PHOS) 1.6 MG/DL 2.5-4.9 L [id number] 06:17:00 Test Item Value Reference Range Interpretation Comments MAGNESIUM (test code = MAG) 0.5 MG/DL 1.8-2.4 LL VENOUS BLOOD [id number] 06:16:00 Test Item Value Reference Range Interpretation [...] Other Site DESCRIPTION code = SITEV) LACTIC [id number] 06:02:00 Test Item Value Reference Range Interpretation Comments LACTIC ACID (test code = LACT) 3.4 mmol/L 0.4-2.0 H GLUCOSE BEDSIDE [id number] 05:13:00 Test Item Value Reference Range Interpretation Comments GLUCOSE BEDSIDE TESTING (test code 297 mg/dL 70-110 H = GLUBED) GLUCOSE BEDSIDE [id number] 03:10:00 Test Item Value Reference Range Interpretation Comments GLUCOSE BEDSIDE TESTING (test code 396 mg/dL 70-110 H = GLUBED) VENOUS BLOOD [id number] 02:04:00 Test Item Value Reference Range Interpretation [...] Other Site DESCRIPTION code = SITEV) LACTIC [id number] 01:22:00 Test Item Value Reference Range Interpretation Comments LACTIC ACID (test code = LACT) 2.4 mmol/L 0.4-2.0 H BASIC METABOLIC [id number] 01:21:00 Test Item Value Reference Range Interpretation [...] code = CA) 7.4 MG/DL 8.5-10.1 L [id number] 01:21:00 Test Item Value Reference Range Interpretation Comments PHOSPHOROUS (test code = PHOS) 4.5 MG/DL 2.5-4.9 N [id number] 01:21:00 Test Item Value Reference Range Interpretation Comments MAGNESIUM (test code = MAG) 1.2 MG/DL 1.8-2.4 L GLUCOSE BEDSIDE [id number] 00:27:00 Test Item Value Reference Range Interpretation Comments GLUCOSE BEDSIDE TESTING (test code 525 mg/dL 70-110 HH = GLUBED) BASIC METABOLIC [id number] 22:41:00 Test Item Value Reference Range Interpretation [...] CA) 8.0 MG/DL 8.5-10.1 L TROP-I HIGH [id number] 22:39:00 Test Item Value Reference Range Interpretation [...] URLs may varyby method. Completed by Nursing: NOPaO2/[id number] 22:04:00 Test Item Value Reference Range Interpretation Comments PaO2/FiO2 (test 542.9 mm/Hg See_Comment [Automated message] The code = TQH1IIG2) system [facility] generated this result tra nsmitted reference range : 200. The reference r lizabeth was not used to int erpret this result as normal/abnormal . ARTERIAL BLOOD [id number] 22:04:00 Test Item Value Reference Range Interpretation [...] (test Yes Circ.CHK POSITIVE code = MODALL) [id number] 21:37:00 Test Item Value Reference Range Interpretation Comments POTASSIUM (test code = K) 4.9 mmol/L 3.4-5.0 N LACTIC [id number] 21:31:00 Test Item Value Reference Range Interpretation Comments LACTIC ACID (test code = LACT) 4.7 mmol/L 0.4-2.0 LACTIC [id number] 20:01:00 Test Item Value Reference Range Interpretation Comments LACTIC ACID (test code = LACT) 4.4 mmol/L 0.4-2.0 VENOUS BLOOD [id number] 19:50:00 Test Item Value Reference Range Interpretation [...] DESCRIPTION (test code = SITEV) COMPREHENSIVE METABOLIC [id number] 19:14:00 Test Item Value Reference Range Interpretation [...] (test code = ALKP) Completed by Nursing: [id number] 19:14:00 Test Item Value Reference Range Interpretation Comments MAGNESIUM (test code = MAG) 1.3 MG/DL 1.8-2.4 L Completed by Nursing: NOTROP-I HIGH [id number] 19:14:00 Test Item Value Reference Range Interpretation [...] Completed by Nursing: NO- CT HEAD/BRAIN W/O [id number] 18:42:00 [facility] : 1945 Sex: F Name: AKIRA RODRIGUEZ [facility] : 1945 Age/S: 75 / F [id number] [address] [place] Unit #: [id number] Loc: [place] [address] Phys: Savanah Crowley MD Acct: [id number] Dis Date: Status: REG ER PHONE #: [phone] Exam Date: 06/11/[id number] FAX #: Reason: AMS EXAMS: CPT: [id number] CT HEAD/BRAIN W/O CONT [id number] Exam: CT head without contrast. Location: H [...] changes are present along with scattered microinfarcts inthe periventricular and subcortical deep white matter. The brain parenchyma and the CSF spaces are otherwise unremarkable. No mass, midline shift, hemorrhage, edema or hydrocephalus is seen. The visualized paranasal sinuses are clear. The mastoid air cells are well pneumatized. The bony calvarium is intact. Impression: 1. No acute intracranial abnormality. 2. Atrophy. 3. Atherosclerotic microvasculardisease. 4. Otherwise unremarkable exam. at 1842 Reported and signed by: Benoit Modi M.D. CC: Savanah Crowley MD Technologist:Geovanna Iglesias, RT(R) CTDI: DLP: Trnscb Date/Time: 06/11/2021 (1841) [email or web address] Orig Print D/T: S: 06/11/2021 (1845) PAGE 1 Signed ReportCBC W/AUTO [id number] 18:31:00 Test Item Value Reference Range Interpretation [...] CRITERIA = MDIFF) COVID 19 Asymptomatic IH [id number] 18:24:00 Test Item Value Reference Range Interpretation [...] symptoms consis tent with COVID-19. GLUCOSE BEDSIDE [id number] 17:21:00 Test Item Value Reference Range Interpretation Comments GLUCOSE BEDSIDE TESTING (test code 271 mg/dL 70-110 H = GLUBED) - DUP VEIN UNI [id number] 13:04:00 [facility] 1945 Sex: F Name: AKIRA RODRIGUEZ [facility] : 1945 Age/S: 75 / F [id number] #: [id number] Loc: [place] [address] Phys: Lyudmila Montgomery MD Acct: [id number] Dis Date: Status: ADM IN PHONE #: [phone] Exam Date: 05/22/2021 1245 FAX #: Reason: left arm swelling EXAMS: CPT: [id number] DUP VEIN UNI [id number] HISTORY: Right leg pain TECHNIQUE: Grayscale real-time [...] CC: Lyudmila Montgomery MD Technologist: Tash Vargas [facility] Date/Time: 05/22/2021 (8231) [email or web address] PAGE 1 Signed Report Name: AKIRA RODRIGUEZland : 1945 Age/S: 75 / F [id number] [address] #: [id number] Loc: [place] [address] Phys: Lyudmila Montgomery MD Acct: [id number] Dis Date: Status: ADM IN PHONE #: [phone] Exam Date: 05/22/2021 1245 FAX #: Reason: left armswelling EXAMS: CPT: [id number] [address] (Continued) Orig Print D/T: S: 05/22/2021 (6095) Probe: PAGE 2 Signed ReportGLUCOSE BEDSIDE [id number] 11:46:00 Test Item Value Reference Range Interpretation Comments GLUCOSE BEDSIDE TESTING (test code 205 mg/dL 70-110 H = GLUBED) GLUCOSE BEDSIDE [id number] 07:54:00 Test Item Value Reference Range Interpretation Comments GLUCOSE BEDSIDE TESTING (test code = 94 mg/dL 70-110 N GLUBED) COMPREHENSIVE METABOLIC [id number] 06:29:00 Test Item Value Reference Range Interpretation [...] 45-117 N TOTAL (test code = ALKP) [id number] 06:29:00 Test Item Value Reference Range Interpretation Comments PHOSPHOROUS (test code = PHOS) 2.2 MG/DL 2.5-4.9 L [id number] 06:29:00 Test Item Value Reference Range Interpretation Comments MAGNESIUM (test code = MAG) 2.3 MG/DL 1.8-2.4 CBC W/AUTO [id number] 06:27:00 Test Item Value Reference Range Interpretation [...] NO DIFF/SCN CRITERIA = MDIFF) Novel Coronavirus [id number] 20:46:00 Test Item Value Reference Range Interpretation Comments Novel Coronavirus Negative Negative Positive r esults are 2019 Inhouse (test indicativ e of the presence code = [id number]) ofSARS-CoV -2 RNA, clinical correlation wit h [...] det ection of nucleic acids f rom weuKXNQ-HuW-2 v irus and diagnosis of SA RS-CoV-2 virusinfection. It is an Emergency Use Authorization ( EUA) testauthorized by the U.[place]. FDA. Novel Coronavirus [id number] 20:45:00 Test Item Value Reference Range Interpretation Comments Novel Coronavirus Negative Negative Positive r esults are 2019 Inhouse (test indicativ e of the presence code = [id number]) ofSARS-CoV -2 RNA, clinical correlation wit h [...] det ection of nucleic acids f rom azqVXVY-NiB-7 v irus and diagnosis of SA RS-CoV-2 virusinfection. It is an Emergency Use Authorization ( EUA) testauthorized by the U.[place]. FDA. GLUCOSE BEDSIDE [id number] 20:18:00 Test Item Value Reference Range Interpretation Comments GLUCOSE BEDSIDE TESTING (test code 212 mg/dL 70-110 H = GLUBED) GLUCOSE BEDSIDE [id number] 16:28:00 Test Item Value Reference Range Interpretation Comments GLUCOSE BEDSIDE TESTING (test code 202 mg/dL 70-110 H = GLUBED) GLUCOSE BEDSIDE [id number] 11:13:00 Test Item Value Reference Range Interpretation Comments GLUCOSE BEDSIDE TESTING (test code 102 mg/dL 70-110 N = GLUBED) [id number] 06:57:00 Test Item Value Reference Range Interpretation Comments PHOSPHOROUS (test code = PHOS) 1.9 MG/DL 2.5-4.9 L [id number] 06:57:00 Test Item Value Reference Range Interpretation Comments MAGNESIUM (test code = MAG) 1.6 MG/DL 1.8-2.4 L GLUCOSE BEDSIDE [id number] 06:41:00 Test Item Value Reference Range Interpretation Comments GLUCOSE BEDSIDE TESTING (test code = 95 mg/dL 70-110 N GLUBED) BASIC METABOLIC [id number] 05:04:00 Test Item Value Reference Range Interpretation [...] CA) 6.9 MG/DL 8.5-10.1 L CBC W/AUTO [id number] 04:49:00 Test Item Value Reference Range Interpretation [...] NO DIFF/SCN CRITERIA = MDIFF) BASIC METABOLIC [id number] 20:58:00 Test Item Value Reference Range Interpretation [...] CA) 7.7 MG/DL 8.5-10.1 L GLUCOSE BEDSIDE [id number] 20:17:00 Test Item Value Reference Range Interpretation Comments GLUCOSE BEDSIDE TESTING (test code 212 mg/dL 70-110 H = GLUBED) BASIC METABOLIC [id number] 18:31:00 Test Item Value Reference Range Interpretation [...] code = CA) 7.9 MG/DL 8.5-10.1 L [id number] 18:31:00 Test Item Value Reference Range Interpretation Comments MAGNESIUM (test code = MAG) 3.0 MG/DL 1.8-2.4 H GLUCOSE BEDSIDE [id number] 16:33:00 Test Item Value Reference Range Interpretation Comments GLUCOSE BEDSIDE TESTING (test code 172 mg/dL 70-110 H = GLUBED) UA RFLX MICR CULT IF [id number] 13:31:00 Test Item Value Reference Range Interpretation [...] code = UACULT) Indication for culture: Flank [id number] 10:41:00 Test Item Value Reference Range Interpretation Comments PHOSPHOROUS (test code = PHOS) 3.2 MG/DL 2.5-4.9 N [id number] 10:41:00 Test Item Value Reference Range Interpretation Comments MAGNESIUM (test code = MAG) 0.9 MG/DL 1.8-2.4 LL BASIC METABOLIC [id number] 08:10:00 Test Item Value Reference Range Interpretation [...] CA) 7.9 MG/DL 8.5-10.1 L CBC W/AUTO [id number] 07:50:00 Test Item Value Reference Range Interpretation [...] CRITERIA = MDIFF) - XR CHEST 1 [id number] 07:30:00 [facility] : 1945 Sex: F Name: AKIRA RODRIGUEZ [facility] : 1945 Age/S: 75 / F [address] [address] #: [id number] Loc: [place] [address] Phys: Indra Corado MD Acct: [id number] Dis Date: Status: ADM IN PHONE #: [phone] Exam Date: 05/20/2021714 FAX #: Reason: NEW ICU ADMIT EXAMS: CPT: [id number] XR CHEST 1 V 15255 Fluoro Time: DAP (Gy m2): Air Kerma (mGy): Chest one view portable 05/20/2021 7:30 AM CLINICAL INDICATION: Syncope COMPARISON: The previous day LOCATION: W1 IMPRESSION: There has been no significant interval change when compared to the previous examination. Cardiomediastinal contours are stable. The central pulmonary vasculature is not engorged. There is bibasilar atelectasis. A right PICC is present. at 0730 Reported and signed by:Jhon Aguilar M.D. CC: Indra Corado MD; Lyudmila Montgomery MD PAGE 1 Signed Report Name: AKIRA RODRIGUEZ [facility] : 1945 Age/S: 75 / F [address] [address] #: [id number] Loc: [place] [address] Phys: Indra Corado MD Acct: [id number] Dis Date: Status: ADM IN PHONE #: [phone] Exam Date: 05/20/2021714 FAX #: Reason: NEW ICU ADMIT EXAMS: CPT: [id number] XR CHEST 1 V 33358 Fluoro Time:DAP (Gy m2): Air Kerma (mGy): (Continued) Technologist: Twin Lopez, RT(R)(CT) Trnscb Date/Time: 05/20/2021 (729) [id number] Orig Print D/T: S: 05/20/2021 (33) PAGE 2 Signed ReportT3 [id number] 02:08:00 Test Item Value Reference Range Interpretation Comments T3 FREE (test code = 1.4 pg/mL 2.0-4.4 A Perform ed At: [facility] T3F) [id number] [place], [place] [id number] Serafin Fuentes MD Ph:[phone] [id number] 19:02:00 Test Item Value Reference Range Interpretation Comments GLYCOSYLATED HEMOGLOBIN (HA1C) 10.4 % A1C 0.0-5.7 H (test code = GLYHGB) ESTIMATED AVERAGE GLUCOSE (test 252 MG/DLest code = EAG) THYROID STIMULATING [id number] 18:56:00 Test Item Value Reference Range Interpretation Comments THYROID STIMULATING HORMONE 0.130 mcIU/ML 0.340-4.820 L (test code = TSH) T4 [id number] 18:52:00 Test Item Value Reference Range Interpretation Comments T4 FREE (test code = T4F) 1.22 NG/DL 0.89-1.76 N - CT HEAD/BRAIN W/O [id number] 14:53:00 [facility] : 1945 Sex: F Name: AKIRA RODRIGUEZ [facility] : 1945 Age/S: 75 / F [id number] [address] #: [id number] Loc: [place] [address] Phys: Lyudmila Montgomery MD Acct: [id number] Dis Date: Status: ADM IN PHONE #: [phone] Exam Date: 05/19/2021 1441 FAX #: Reason: syncope EXAMS: CPT: [id number] CT HEAD/BRAIN W/O CONT 97527 LOCATION: T18 EXAM: CT HEAD WITHOUT CONTRAST INDICATION: syncope, COMPARISON: CT head May 09, 2012 TECHNIQUE: Multiple CT images of the head were obtained. No intravenous contrast was given. Up-to-date CT equipment and radiation dose reduction techniques were utilized. Automatic exposure control was utilized. FINDINGS: No intracranial hemorrhage or extra-axial collection is seen. Bilateral basalganglia calcifications. No midline shift or mass effect is identified. There is no territorial infarct. Patient Agata loss with proportional enlargement of ventricles and sulci. The calvarium is intact. Peripheral soft tissues are normal. Paranasal sinuses and mastoid air cells are clear. IMPRESSION:No intracranial hemorrhage or territorial infarct. Age-related volume loss. Electronically Signedby Lizett Jiang on 05/19/2021 at 1453 Reported and signed by: Otis Jiang M.D. CC: Hi Montgomery MD Technologist:Cyndi Landrum, RT(R); Jacqueline CTDI: DLP: Trnscb Date/Time: 05/19/2021 (3498)[email or web address].[email or web address] Orig Print D/T: S: 05/19/2021 (1456) PAGE 1 Signed Report- XR CHEST 1 [id number] 13:56:00 [facility] : 1945 Sex: F Name: AKIRA RODRIGUEZ [facility] : 1945 Age/S: 75 / F [address] [address] #: [id number] Loc: [place] [address] Phys: Lyudmila Montgomery MD Acct: [id number] Dis Date: Status: ADM IN PHONE #: [phone] Exam Date: 05/19/2021 1345 FAX #: Reason: PICC LINE PLACEMENT EXAMS: CPT: [id number] XR CHEST 1 V 78272 Fluoro Time: DAP (Gy m2): Air Kerma [...] PAGE 1 Signed Report Name: AKIRA RODRIGUEZ [facility] : 1945 Age/S: 75 / F [address] [address] #: [id number] Loc: [place] [address] Phys: Lyudmila Montgomery MD Acct: [id number] Dis Date: Status: ADM IN PHONE #: [phone] Exam Date: 05/19/2021 1345 FAX #: Reason: PICC LINE PLACEMENT EXAMS: CPT: [id number] XRCHEST 1 V 53706 Fluoro Time: DAP (Gy m2): Air Kerma (mGy): (Continued) Technologist: Sophie Naylor, RT(R) Trnscb Date/Time: 05/19/2021 (7474) JeniferPE1 Orig Print D/T: S: 05/19/2021 (2127) PAGE 2 Signed ReportCOVID 19 Asymptomatic IH [id number] 11:23:00 Test Item Value Reference Range Interpretation [...] nd symptoms consis tent with COVID-19. RBC [id number] 10:25:00 Test Item Value Reference Range Interpretation Comments PLATELET ESTIMATE (test ADEQUATE THOUSAND ADEQUATE code = PLTEST) PLATELET MORPHOLOGY (test NORMAL code = PLTMORPH) CBC W/AUTO [id number] 10:25:00 Test Item Value Reference Range Interpretation [...] NO DIFF/SCN CRITERIA = MDIFF) TROP-I HIGH [id number] 10:14:00 Test Item Value Reference Range Interpretation [...] varyby method. Completed by Nursing: NOBASIC METABOLIC [id number] 10:14:00 Test Item Value Reference Range Interpretation [...] 8.5-10.1 N Completed by Nursing: NOHEPATIC FUNCTION [id number] 10:14:00 Test Item Value Reference Range Interpretation [...] Completed by Nursing: NO- XR CHEST 1 [id number] 10:14:00 [facility] : 1945 Sex: F Name: AKIRA RODRIGUEZ [facility] : 1945 Age/S: 75 / F [address] [address] #: [id number] Loc: [place] [address] Phys: Willi Osullivan DO Acct: [id number] Dis Date: Status: REG ER PHONE #: [phone] Exam Date: 05/19/2021 1010 FAX #: Reason: Code Sepsis EXAMS: CPT: [id number] XR CHEST 1 V 12962 Fluoro Time: DAP (Gy m2): Air Kerma (mGy): EXAMINATION: Frontal chest radiograph INDICATION: Code Sepsis COMPARISON: 05/09/2012 LOCATION: S17 FINDINGS/ IMPRESSION: Cardiac silhouette appears slightly increased insize from prior and is mildly enlarged. No definite pleural effusion or pneumothorax. Minimal linearatelectasis in the mid right lung. Lungs are otherwise clear. at 1014 Reported and signed by: Latrell Weston M.D. CC: Willi Osullivan DO PAGE 1 Signed Report Name: AKIRA RODRIGUEZ [facility] : 1945 Age/S: 75 / F [address] [address] #: [id number] Loc: [place] [address] Phys: Willi Osullivan DO Acct: [id number] Dis Date: Status: REG ER PHONE #: [phone] Exam Date: 05/19/2021 1010 FAX #: Reason: Code Sepsis EXAMS: CPT: [id number] XR CHEST 1 V 44564 Fluoro Time: DAP (Gy m2): Air Kerma (mGy): (Continued) Technologist: Francesco Delgado, RT(R)(CT) Trnscb Date/Time: 05/19/2021 (1014) [email or web address] Orig Print D/T: S: 05/19/2021 (1017) PAGE 2 Signed ReportLACTIC [id number] 10:11:00 Test Item Value Reference Range Interpretation Comments LACTIC ACID (test code = LACT) 1.7 mmol/L 0.4-2.0 N
--- NOTE | 2022-01-28 11:54 | RAD REPORT ---
EXAM DESCRIPTION: CT - CTHCSPWOC - 01/28/2022 11:31 am CLINICAL HISTORY: fall head injury COMPARISON: <Comparisons> TECHNIQUE: Axial 5 mm thick images of the head were obtained. Axial 2 mm thick images of the cervic al spine were obtained with sagittal and coronal reconstruction images generated and reviewed. All CT scans are performed using dose optimization technique as appropriate and may include automated exposure control or mA/KV adjustment according to patient size. FINDINGS: No intracranial hemorrhage, mass, edema or acute intracranial finding. No acute cortical b ased infarction identified. Moderate atrophy and chronic ischemic changes match the short interval Au milly 20 study. Ventricles are in proportion to volume loss. No extra-axial fluid collections. Mastoid air cells and paranasal sinuses are clear. No globe or orbit abnormality seen. No skull fracture see n. No measurable scalp hematoma. Physiologic and arterial tree calcifications are present. Cervical body height and alignment are normal. C5-6 disc space narrowing present with endplate spurri ng and disc bulge. There is calcification in the posterior canal in the ligaments. There is central s sonia stenosis through this region. No fracture or acute bony abnormality. Central canal detail is i nherently limited. No paraspinal mass or hematoma. Assessment is limited somewhat by amount of motion present. 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 IMPRESSION: Negative CT head examination for acute or significant finding. Negative CT cervical spine examination for acute finding. Degenerative change in the C5-C6 region is present with central spinal stenosis.
[2022-01-28 13:24] LABS: Potassium 4.2 mmol/L (3.5-5.1)
--- NOTE | 2022-01-28 13:28 | EDPHYS ---
Physician Documentation [facility] Name: Lavonne Vitale Age: 76 yrs Sex: Female : 1945 Arrival Date: 01/28/2022 Time: 11:05 Bed 23 Private MD: ED Physician Escobar Sotelo HPI: 01/28 11:08 This 76 yrs old Female presents to ER via Unassigned with complaints of head injury, rn fall. 11:08 The patient or guardian reports injury, swelling. The complaints affect the right side rn of the back of head. Onset: The symptoms/episode began/occurred just prior to arrival. Associated signs and symptoms: Loss of consciousness: This patient did not experience any loss of consciousness. Pertinent negatives: biting tongue, double vision, headache, incontinence, neck pain, seizure, shortness of breath, vomiting, weakness in extremities, generalized weakness. Severity of symptoms: At their worst the symptoms were mild, in the emergency department the symptoms have improved. The patient has not experienced similar symptoms in the past. The patient has not recently seen a physician. Pt reports fall from standing, no LOC, no blood thinners, no vomiting. No focal neuro complaints. Reports "clumsy" and fell. No extremity injury. . Historical: - Allergies: 12:27 Sulfa (Sulfonamide Antibiotics); ph - PMHx: 12:27 Dementia; depressive disorder; diabetes mellitus; Hypertensive disorder; ph - Immunization history:: Adult Immunizations up to date. - Family history:: not pertinent. - Social history:: Smoking status: Patient denies any tobacco usage or history of. - Hospitalizations: : No recent hospitalization is reported. ROS: 11:08 Constitutional: Negative for fever, chills, and weight loss, Eyes: Negative for injury, rn pain, redness, and discharge, Neck: Negative for injury, pain, and swelling, Cardiovascular: Negative for chest pain, palpitations, and edema, Respiratory: Negative for shortness of breath, cough, wheezing, and pleuritic chest pain, Abdomen/GI: Negative for abdominal pain, nausea, vomiting, diarrhea, and constipation, Back: Negative for injury and pain, MS/Extremity: Negative for injury and deformity, Skin: Negative for injury, rash, and discoloration, Neuro: Negative for weakness, numbness, tingling, and seizure. Exam: 11:08 Constitutional: This is a well developed, well nourished patient who is awake, alert, rn and in no acute distress. Head/Face: Normocephalic, atraumatic. Eyes: Periorbital areas with no swelling, redness, or edema. Neck: Supple, full range of motion without nuchal rigidity, or vertebral point tenderness. Cardiovascular: Regular rate and rhythm. No pulse deficits. Respiratory: No increased work of breathing, no retractions or nasal flaring. Abdomen/GI: Soft, non-tender Back: No spinal tenderness. No costovertebral tenderness. Full range of motion. Skin: Warm, dry MS/ Extremity: Pulses equal, no cyanosis Neuro: Awake and alert, GCS 15, oriented to person, place, and situation. Cranial nerves II-XII grossly intact. Motor strength 5/5 in all extremities. Sensory grossly intact. Vital Signs: 11:08 BP 139 / 67; Pulse 81; Resp 26; Temp 97.3(TE); Pulse Ox 100% ; Weight 54.43 kg; Height db 5 ft. (152.40 cm); 12:54 BP 158 / 80; Pulse 72; Resp 18; Pulse Ox 100% ; db 13:56 BP 148 / 72; Pulse 92; Resp 21; Pulse Ox 100% on R/A; tw2 11:08 Body Mass Index 23.44 (54.43 kg, 152.40 cm) db Hermilo Coma Score: 11:08 Eye Response: spontaneous(4). Verbal Response: oriented(5). Motor Response: obeys rn commands(6). Total: 15. 13:26 Eye Response: spontaneous(4). Verbal Response: oriented(5). Motor Response: obeys rn commands(6). Total: 15. MDM: 11:05 Patient medically screened. rn 13:26 Differential diagnosis: Contusion of Hematoma on Intracranial bleed- Concussion. Data rn reviewed: vital signs, nurses notes, lab test result(s), radiologic studies, and as a result, I will discharge patient. Counseling: I had a detailed discussion with the patient and/or guardian regarding: the historical points, exam findings, and any diagnostic results supporting the discharge/admit diagnosis, lab results, radiology results, the need for outpatient follow up, to return to the emergency department if symptoms worsen or persist or if there are any questions or concerns that arise at home. Response to treatment: the patient's symptoms have markedly improved after treatment, and as a result, I will discharge patient. Special discussion: Based on the patient's history, exam and DX evaluation, there is no indication for emergent intervention or inpatient [place]. It is understood by the patient/guardian that if the SXs persist or worsen they need to return immediately for re-evaluation. I discussed with the patient/guardian in detail that at this point there is no indication for admission to the hospital. It is understood, however, that if the symptoms persist or worsen the patient needs to return immediately for re-evaluation. 01/28 11:06 Order name: Basic Metabolic Panel; Complete Time: 13:26 rn 01/28 11:05 Order name: CT Head C Spine; Complete Time: 11:56 rn 01/28 11:06 Order name: IV Start; Complete Time: 12:28 rn 01/28 12:35 Order name: Labs - recollect needed: recollect blood hemolyzed; Complete Time: 12:56 ss Administered Medications: 11:10 Drug: NS 0.9% 500 ml Route: IV; Rate: bolus; Site: right hand; ph 12:00 Follow up: Response: No adverse reaction; IV Status: Completed infusion; IV Intake: ph 500ml Disposition Summary: 01/28/22 13:28 Discharge Ordered Location: Home rn Problem: new rn Symptoms: have improved rn Condition: Stable rn Diagnosis - Unspecified injury of head, initial encounter rn - Hyperglycemia, unspecified rn - Dehydration rn Followup: rn - With: Private Physician - When: As needed - Reason: Recheck today's complaints, Re-evaluation by your physician Discharge Instructions: - Discharge Summary Sheet rn - Dehydration, Adult rn - Head Injury, Adult rn - Hematoma rn - Hyperglycemia rn - Blood Glucose Monitoring, Adult rn Forms: - Medication Reconciliation Form rn - Thank You Letter rn - Antibiotic journalism professor - Prescription Opioid Use rn Signatures: Dispatcher [employer] Escobar Flanagan MD MD rn Smirch, Shelby, RN RN ss Shi Azul RN RN ph
--- NOTE | 2022-01-28 13:28 | ER ---
Nurse's Notes [facility] Name: Lavonne Vitale Age: 76 yrs Sex: Female : 1945 Arrival Date: 01/28/2022 Time: 11:05 Bed 23 Private MD: Diagnosis: Unspecified injury of head, initial encounter;Hyperglycemia, unspecified;Dehydration Presentation: 01/28 11:08 Chief complaint: EMS states: patient is a ground level fall hit occipital part of head. db Denies LOC. BS 478 for EMS, facility had BS in 500's and gave insulin. Coronavirus screen: Vaccine status: Client denies travel out of the [place] in the last 14 days. At this time, the client does not indicate any symptoms associated with coronavirus-19. Ebola Screen: Patient negative for fever greater than or equal to 101.5 degrees Fahrenheit, and additional compatible Ebola Virus Disease symptoms Patient denies exposure to infectious person. Patient denies travel to an Ebola-affected area in the 21 days before illness onset. Initial Sepsis Screen: Does the patient meet any 2 criteria? No. Patient's initial sepsis screen is negative. Does the patient have a suspected source of infection? No. Patient's initial sepsis screen is negative. Risk Assessment: Do you want to hurt yourself or someone else? Patient reports no desire to harm self or others. Onset of symptoms was January 28, 2022. 11:08 Method Of Arrival: EMS: [facility] db 11:08 Acuity: ESTRELLA 3 db Triage Assessment: 11:12 General: Appears in no apparent distress. comfortable, Behavior is calm, cooperative, db appropriate for age, quiet. Pain: Denies pain. Historical: - Allergies: 12:27 Sulfa (Sulfonamide Antibiotics); ph - PMHx: 12:27 Dementia; depressive disorder; diabetes mellitus; Hypertensive disorder; ph - Immunization history:: Adult Immunizations up to date. - Family history:: not pertinent. - Social history:: Smoking status: Patient denies any tobacco usage or history of. - Hospitalizations: : No recent hospitalization is reported. Screenin:13 Abuse screen: Denies threats or abuse. Denies injuries from another. Nutritional db screening: No deficits noted. Tuberculosis screening: No symptoms or risk factors identified. Fall Risk Fall in past 12 months (25 points). Secondary diagnosis (15 points) dementia, No IV (0 pts). Ambulatory Aid- Crutches/Cane/Walker (15 pts). Gait- Weak (10 pts.). Mental Status- Oriented to own ability (0 pts). Total Fisher Fall Scale indicates High Risk Score (45 or more points). Fall prevention measures have been instituted. Placed Close to Nursing Station Frequent Obs/Assessments Occuring Family Present and informed to notify staff if the need to leave the bedside. Assessment: 11:12 Reassessment: Patient appears in no apparent distress at this time. Patient is alert, db oriented x 3, equal unlabored respirations, skin warm/dry/pink. General: Appears in no apparent distress. comfortable. Pain: Denies pain. Neuro: No deficits noted. Cardiovascular: No deficits noted. Respiratory: No deficits noted. GI: No deficits noted. : No deficits noted. EENT: No deficits noted. No signs and/or symptoms were reported regarding the EENT system. Derm: No deficits noted. Musculoskeletal: No deficits noted. Injury Description: Head injury sustained to scalp. 14:02 Reassessment: Patient is alert, oriented x 3, equal unlabored respirations, skin tw2 warm/dry/pink. 14:02 Reassessment: pt from [facility] ph#[phone] requesting the facility arrange tw2 transportation back to their facility as pt is being discharged. spoke with Trinidad she is trying to get the nurse at this time and I was placed on hold. 14:10 Reassessment: Spoke with OPAL Morales at [facility] giving pt status report and pt is tw2 ready for discharge. Armida at [facility] will arrange transportation and call us back with an ETA of ambulance arrival. charge nurse OPAL Bowser notified. Vital Signs: 11:08 BP 139 / 67; Pulse 81; Resp 26; Temp 97.3(TE); Pulse Ox 100% ; Weight 54.43 kg; Height db 5 ft. (152.40 cm); 12:54 BP 158 / 80; Pulse 72; Resp 18; Pulse Ox 100% ; db 13:56 BP 148 / 72; Pulse 92; Resp 21; Pulse Ox 100% on R/A; tw2 11:08 Body Mass Index 23.44 (54.43 kg, 152.40 cm) db Vitals: 12:54 Cardiac Rhythm Assessment Regular Sinus rhythm. db [place] Coma Score: 11:08 Eye Response: spontaneous(4). Verbal Response: oriented(5). Motor Response: obeys rn commands(6). Total: 15. 13:26 Eye Response: spontaneous(4). Verbal Response: oriented(5). Motor Response: obeys rn commands(6). Total: 15. ED Course: 11:05 Patient arrived in ED. rn 11:05 Escobar Sotelo MD is Attending Physician. rn 11:12 Triage completed. db 11:12 Arm band placed on Patient placed in an exam room. db 11:32 CT Head C Spine In Process Unspecified. EDMS 12:27 Shi Azul RN is Primary Nurse. ph 12:29 Patient has correct armband on for positive identification. Bed in low position. Call ph light in reach. Side rails up X 1. Client placed on continuous cardiac and pulse oximetry monitoring. NIBP monitoring applied. Door closed. Noise minimized. Warm blanket given. 14:51 No provider procedures requiring assistance completed. IV discontinued, intact, ss bleeding controlled, No redness/swelling at site. Pressure dressing applied. Administered Medications: 11:10 Drug: NS 0.9% 500 ml Route: IV; Rate: bolus; Site: right hand; ph 12:00 Follow up: Response: No adverse reaction; IV Status: Completed infusion; IV Intake: ph 500ml Medication: 12:29 VIS not applicable for this client. ph Intake: 12:00 IV: 500ml; Total: 500ml. ph Outcome: 13:28 Discharge ordered by . rn 14:51 Discharged to [facility], Report given to Andrew, by OPAL Knox 14:51 Condition: good 14:51 Discharge instructions given to patient, snf, Instructed on discharge instructions, follow up and referral plans. Demonstrated understanding of instructions, follow-up care. 14:52 Patient left the ED. ss Signatures: Dispatcher [employer] EDDC Escobar Sotelo MD MD rn Smirch, Shelby RN RN Shi Azul, Lisette Moreira RN, ph, RN RN tw2 Melany Patrick, RN OPAL db
[2022-01-30 04:00] VITALS: BP 148/72; O2SAT 100
[2022-01-30 04:07] VITALS: TEMP 97.3
== END 2022-01-28 14:52 | disposition home or self-care (01) ==
LOC: ER 10:59
DX: S09.90XA Unspecified injury of head, initial encounter (principal); E86.0 Dehydration; E11.65 Type 2 diabetes mellitus with hyperglycemia; F03.90 Unspecified dementia, unspecified severity, without behavioral disturbance, psychotic disturbance, mood disturbance, and anxiety; Z88.2 Allergy status to sulfonamides
CPT/HCPCS: 36415; 70450; 72125; 80048; 96360; 99283

== ENCOUNTER 2023-02-21 08:39 | Emergency (ER) | payer OTHER ==
--- OUTSIDE RECORDS SUMMARY | 2023-02-21 08:52 | XMS REPORT | Continuity of Care Document ---
:1945 Author Organization [facility] t Address [address] [place] [address] Care Team Providers Name Role Phone Alia Chavira MD Primary Care Physician [phone] NUBIA RAMIREZ Attending Clinician Unavailable ANA NAPOLES Attending Clinician Unavailable ANA NAPOLES Attending Clinician Unavailable Doctor Unassigned, [place] Attending Clinician Unavailable Natali Sharma RPH Attending Clinician Unavailable Pcp, Patient Does Not Have A Attending Clinician [phone] ANSLEY QUINTANILLA Attending Clinician Unavailable Ansley Quintanilla Attending Clinician Willi Osullivan Attending Clinician Unavailable Piotr Arshad Attending Clinician Unavailable Lyudmila Montgomery Attending Clinician Unavailable Ana Maria Watt RN Attending Clinician Unavailable Joey Macdonald MD Attending Clinician Maegan Weston MD Attending Clinician Taj Wells DO Attending Clinician TAJ WELLS Attending Clinician Unavailable SARY FUNK Admitting Clinician Unavailable Sary Funk Admitting Clinician Physician, No Primary or Family Admitting Clinician UnavailPiotr Carlton Admitting Clinician Unavailable UNDEFINED Admitting Clinician Unavailable Lyudmila Montgomery Admitting Clinician Unavailable Maegan Weston MD Admitting Clinician MAEGAN WESTON Admitting Clinician Unavailable Payers Payer Name Policy Type Policy Number Effective Date Expiration Date [facility] [id number] 2021 [facility] 00:00:00 PPO Problems Condition Condition Condition Status Onset Resolution Last Treating Co mments Source Name Details Category Date Date Treatment Clinician Date Type 1 Type 1 Disease Active Univers diabetes diabetes 1-08 ity of mellitus mellitus 00:00: [place] with with 00 Medical hyperglyce hyperglyce Br anch tawanna tawanna DKA DKA Diagnosis Active 2021-09-12 Mem oria Active 09-01 21:54:00 l 09/01/2021 00:00: [place]anny SU[place] 00 [place] Diagnosis Active 2021-09-01 Mem oria Active 09-01 14:06:00 l 09/01/2021 00:00: Yovanny SUERO 00 [place] Pneumonia Pneumonia Disease Active Uni vers 01-08 ity of 00:00: [place] [address] Medical Branch NPH NPH Disease Active Methodi (normal (normal 6-19 st pressure pressure 00:00: Hospit a hydrocepha hydrocepha 00 l allie) allie) Type 2 Type 2 Disease Active Methodi diabetes diabetes 6-19 st mellitus mellitus 00:00: Hospit a 00 l [...] Lymphoma Lymphoma Disease Active Metho di 09-13 00:00: Hospita 00 l Encounter Encounter Disease Active Met [facility] 01-08 [facility] 00:00: Ho spita e e 00 l examinatio examinatio n in adult n in adult Weight Weight Disease Active Methodi loss loss 10-01 00:00: Hospita 00 l Dizziness Dizziness Disease Active 2011-05 Met hodi and and [address] giddiness giddiness 00:00: Hosp jasmin 00 l Dementia Dementia Disease Active 2011-05 Metho di due to due to 0 st general general 00:00: Hospita medical medical 00 l condition condition Hypothyroi Hypothyroi Disease Active M ethodi dism dism 05-18 st 00:00: Hospita 00 l Essential Essential Disease Active 2010-05 Met hodi hypertensi hypertensi 0 on on 00:00: Hospita 00 l Osteoarthr Osteoarthr Disease Active M ethodi itis itis 11-21 00:00: Hospita 00 l Benign Benign Disease Active Methodi paroxysmal paroxysmal 5-10 st positional positional 00:00: Ho spita vertigo vertigo 00 l Neurologic Neurologic Disease Active M ethodi al al 3-17 st disorder disorder 00:00: Hospit a 00 l Anxiety Anxiety Disease Active Methodi state state 2- st 00:00: Hospita 00 l Counseling Counseling Disease Active M ethodi and and [address] coordinati coordinati 00:00: Ho spita on of care on of care 00 l Type 2 Type 2 Disease Active Methodi diabetes diabetes 2 st mellitus mellitus 00:00: Hospit a 00 l HLD HLD Disease Active Methodi (hyperlipi (hyperlipi 06-06 demia) demia) 00:00: Hospita 00 l Vitamin D Vitamin D Disease Active Met hodi deficiency deficiency 06-06 st 00:00: Hospita 00 l Hyperglyce Hyperglyc Problem Active 2021-09-05 Memoria tawanna due to emia due 22:20:43 l type 2 to type 2 Raoul diabetes diabetes mellitus mellitus (disorder) (disorder) Active Problem 09/05/2021 [facility] TYPE 2 TYPE 2 Diagnosis Active 2021-09-03 Me moria DIABETES DIABETES 14:43:00 l MELLITUS MELLITUS Yovanny n WITH WITH KETOACIDOS KETOACIDOS IS WITHOUT IS WITHOUT CO CO Active [facility] TYPE 2 TYPE 2 Diagnosis Active 2021-09-12 Me moria DIABETES DIABETES 21:54:00 l MELLITUS MELLITUS Yovanny n WITH WITH KETOACIDOS KETOACIDOS Active [facility] Muscle Muscle Disease Active Methodi weakness weakness st Hospita Myopathy Myopathy Disease Active Metho di st Hospita l Allergies, Adverse Reactions, Alerts Allergy Allergy Status [...] See Uni vers (Sulfona ty to comments 01-08 ity of mide adverse 00:00: [place] Antibiot reaction 00 Medica l ics) s Branch SULFA Drug Active Other-Cmnt Univer s (SULFONA Class 9-05 ity of MIDE 00:00: [place] ANTIBIOT 00 Medical ICS) Branch Sulfanil Propensi Active Method i amide [...] Date Source Natural father Pancreatic cancer [facility] Natural mother [facility] Social History Social Habit Start Date Stop Date Quantity Comments Source Gender identity [facility] University o f Alcohol Std Drinks [facility] History SDOH University o f Alcohol Binge [place] [facility] al [facility] History SDOH University o f Alcohol Comment [place] [facility] ical Branch Exposure to 2022-08-17 2022-08-27 Not sure [facility] SARS-CoV-2 (event) 00:00:00 13:30:00 [facility] Tobacco use and 2021-01-08 2021-01-08 Smokeless Universit y of exposure 00:00:00 00:00:00 tobacco non-user [facility] [place] [facility] dical Branch History SDOH 2021-01-08 2021-01-08 1 University o f Alcohol Frequency 00:00:00 00:00:00 [facility] edical [place] Alcohol intake 2016-12-26 2016-12-26 Current Scientologist 00:00:00 00:00:00 non-drinker of Hospital alcohol (finding) History of Social 2016-09-22 2016-09-[address] function 00:00:00 00:00:00 Hospital Sex [birth year] At [birth year] F Scientologist 00:00:00 00:00:00 Hospital Smoking Status Start Date Stop Date Source Social History [facility] Never smoked tobacco [facility] Medications Ordered Filled Start Stop Current Ordering Indication Dosage Frequency Signature Comments Components Source Medication Medication Date Date Medication? Clinician (SIG) Name Name furosemide 2021-05 Yes Univers 20 mg 2-28 ity of tablet 00:00: [address] furosemide 2021-05 Yes Univers 20 mg 2-28 ity of tablet 00:00: [place] [facility] furosemide 2021-05 Yes Univers 20 mg 2-28 ity of tablet 00:00: [place] [facility] furosemide 2021-05 Yes Univers 20 mg 2-28 ity of tablet 00:00: [place] [facility] furosemide 2021-05 Yes Univers 20 mg 2-28 ity of tablet 00:00: [place] [address] Medical Branch furosemide 2021-05 Yes Univers 20 mg 2-28 ity of tablet 00:00: [place] [facility] furosemide 2021-05 Yes Univers 20 mg 2-28 ity of tablet 00:00: [place] [address] Medical Branch furosemide 2021-05 Yes Univers 20 mg 2-28 ity of tablet 00:00: [place] [address] Medical Branch furosemide 2021-05 Yes Univers 20 mg 2-28 ity of tablet 00:00: [place] [address] Medical Branch furosemide 2021-05 Yes Univers 20 mg 2-28 ity of tablet 00:00: [place] [address] Medical Branch furosemide 2021-05 Yes Univers 20 mg 2-28 ity of tablet 00:00: [place] [address] Medical Branch furosemide 2021-05 Yes Univers 20 mg 2-28 ity of tablet 00:00: [place] [address] Medical Branch furosemide 2021-05 Yes Univers 20 mg 2-28 ity of tablet 00:00: [address] Branch furosemide 2021-05 Yes Univers 20 mg 2-28 ity of tablet 00:00: [place] [address] Medical Branch furosemide 2021-05 Yes Univers 20 mg 2-28 ity of tablet 00:00: [address] Branch busPIRone 2021-05 Yes Univers 30 mg 0-18 ity of tablet 00:00: [place] [facility] Branch busPIRone 2021-05 Yes Univers 30 mg 0-18 ity of tablet 00:00: [address] Branch busPIRone 2021-05 Yes Univers 30 mg 0-18 ity of tablet 00:00: [address] Branch busPIRone 2021- Yes Univers 30 mg 0-18 ity of tablet 00:00: [address] Branch busPIRone 2021- Yes Univers 30 mg 0-18 ity of tablet 00:00: [address] Branch busPIRone 2021- Yes Univers 30 mg 0-18 ity of tablet 00:00: [address] Branch busPIRone 2021- Yes Univers 30 mg 0-18 ity of tablet 00:00: Medical Branch busPIRone 2021-05 Yes Univers 30 mg 0-18 ity of tablet 00:00: Medical Branch busPIRone 2021-05 Yes Univers 30 mg 0-18 ity of tablet 00:00: Medical Branch busPIRone 2021-05 Yes Univers 30 mg 0-18 ity of tablet 00:00: Medical Branch busPIRone 2021-05 Yes Univers 30 mg 0-18 ity of tablet 00:00: Medical Branch busPIRone 2021-05 Yes Univers 30 mg 0-18 ity of tablet 00:00: Medical Branch busPIRone 2021-05 Yes Univers 30 mg 0-18 ity of tablet 00:00: Medical Branch busPIRone 2021-05 Yes Univers 30 mg 0-18 ity of tablet 00:00: Medical Branch busPIRone 2021-05 Yes Univers 30 mg 0-18 ity of tablet 00:00: Medical Branch flash 2021-0 Yes [id number] 1{box} 1 Box Un josse glucose 6-06 9101 daily. ity of scanning 00:00: [place] reader 00 Medical (FREESTYLE Branch ANALY 2 READER) Misc flash 2021-0 Yes [id number] 1{box} 1 Box Un josse glucose 6-06 9101 every 14 ity of sensor 00:00: (fourteen) [place] (FREESTYLE 00 days. Medical ANALY 2 Branch SENSOR) Kit flash 2021-0 Yes [id number] 1{box} 1 Box Un josse glucose 6-06 9101 daily. ity of scanning 00:00: [place] reader 00 Medical (FREESTYLE Branch ANALY 2 READER) Misc flash 2021-0 Yes [id number] 1{box} 1 Box Un josse glucose 6-06 9101 every 14 ity of sensor 00:00: (fourteen) [place] (FREESTYLE 00 days. Medical ANALY 2 Branch SENSOR) Kit flash 2021-0 Yes [id number] 1{box} 1 Box Un josse glucose 6-06 9101 daily. ity of scanning 00:00: [place] reader 00 Medical (FREESTYLE Branch ANALY 2 READER) Misc flash 2022-0 Yes [id number] 1{box} 1 Box Un josse glucose 6-06 9101 every 14 ity of sensor 00:00: (fourteen) [place] (FREESTYLE 00 days. Medical ANALY 2 Branch SENSOR) Kit flash 2022-0 Yes [id number] 1{box} 1 Box Un josse glucose 6-06 9101 daily. ity of scanning 00:00: [place] reader 00 Medical (FREESTYLE Branch ANALY 2 READER) Misc flash 2022-0 Yes [id number] 1{box} 1 Box Un josse glucose 6-06 9101 every 14 ity of sensor 00:00: (fourteen) [place] (FREESTYLE 00 days. Medical ANALY 2 Branch SENSOR) Kit flash 2022-0 Yes [id number] 1 Box Univ ers glucose 6-06 9101 daily. ity of scanning 00:00: [place] reader 00 Medical (FREESTYLE Branch ANALY 2 READER) Misc flash 2022-0 Yes [id number] 1 Box Univ ers glucose 6-06 9101 every 14 ity of sensor 00:00: (fourteen) [place] (FREESTYLE 00 days. Medical ANALY 2 Branch SENSOR) Kit flash 2022-0 Yes [id number] 1 Box Univ ers glucose 6-06 9101 daily. ity of scanning 00:00: [place] reader 00 Medical (FREESTYLE Branch ANALY 2 READER) Misc flash 2022-0 Yes [id number] 1 Box Univ ers glucose 6-06 9101 every 14 ity of sensor 00:00: (fourteen) [place] (FREESTYLE 00 days. Medical ANALY 2 Branch SENSOR) Kit flash 2022-0 Yes [id number] 1 Box Univ ers glucose 6-06 9101 daily. ity of scanning 00:00: [place] reader 00 Medical (FREESTYLE Branch ANALY 2 READER) Misc flash 2022-0 Yes [id number] 1 Box Univ ers glucose 6-06 9101 every 14 ity of sensor 00:00: (fourteen) [place] (FREESTYLE 00 days. Medical ANALY 2 Branch SENSOR) Kit flash 2022-0 Yes [id number] 1{box} 1 Box Un josse glucose 6-06 9101 daily. ity of scanning 00:00: [place] reader 00 Medical (FREESTYLE Branch ANALY 2 READER) Misc flash 2022-0 Yes [id number] 1{box} 1 Box Un josse glucose 6-06 9101 every 14 ity of sensor 00:00: (fourteen) [place] (FREESTYLE 00 days. Medical ANALY 2 Branch SENSOR) Kit flash 2022-0 Yes [id number] 1{box} 1 Box Un josse glucose 6-06 9101 daily. ity of scanning 00:00: [place] reader 00 Medical (FREESTYLE Branch ANALY 2 READER) Misc flash 2022-0 Yes [id number] 1{box} 1 Box Un josse glucose 6-06 9101 every 14 ity of sensor 00:00: (fourteen) [place] (FREESTYLE 00 days. Medical ANALY 2 Branch SENSOR) Kit flash 2022-0 Yes [id number] 1{box} 1 Box Un josse glucose 6-06 9101 daily. ity of scanning 00:00: [place] reader 00 Medical (FREESTYLE Branch ANALY 2 READER) Misc flash 2022-0 Yes [id number] 1{box} 1 Box Un josse glucose 6-06 9101 every 14 ity of sensor 00:00: (fourteen) [place] (FREESTYLE 00 days. Medical ANALY 2 Branch SENSOR) Kit flash 2022-0 Yes [id number] 1{box} 1 Box Un josse glucose 6-06 9101 daily. ity of scanning 00:00: [place] reader 00 Medical (FREESTYLE Branch ANALY 2 READER) Misc flash 2022-0 Yes [id number] 1{box} 1 Box Un josse glucose 6-06 9101 every 14 ity of sensor 00:00: (fourteen) [place] (FREESTYLE 00 days. Medical ANALY 2 Branch SENSOR) Kit flash 2022-0 Yes [id number] 1{box} 1 Box Un josse glucose 6-06 9101 daily. ity of scanning 00:00: [place] reader 00 Medical (FREESTYLE Branch ANALY 2 READER) Misc flash 2022-0 Yes [id number] 1{box} 1 Box Un josse glucose 6-06 9101 every 14 ity of sensor 00:00: (fourteen) [place] (FREESTYLE 00 days. Medical ANALY 2 Branch SENSOR) Kit flash 2022-0 Yes [id number] 1{box} 1 Box Un josse glucose 6-06 9101 daily. ity of scanning 00:00: [place] reader 00 Medical (FREESTYLE Branch ANALY 2 READER) Misc flash 2022-0 Yes [id number] 1{box} 1 Box Un josse glucose 6-06 9101 every 14 ity of sensor 00:00: (fourteen) [place] (FREESTYLE 00 days. Medical ANALY 2 Branch SENSOR) Kit flash 2022-0 Yes [id number] 1{box} 1 Box Un josse glucose 6-06 9101 daily. ity of scanning 00:00: [place] reader 00 Medical (FREESTYLE Branch ANALY 2 READER) Misc flash 2022-0 Yes [id number] 1{box} 1 Box Un josse glucose 6-06 9101 every 14 ity of sensor 00:00: (fourteen) [place] (FREESTYLE 00 days. Medical ANALY 2 Branch SENSOR) Kit flash 2022-0 Yes [id number] 1{box} 1 Box Un josse glucose 6-06 9101 daily. ity of scanning 00:00: [place] reader 00 Medical (FREESTYLE Branch ANALY 2 READER) Misc flash 2022-0 Yes [id number] 1{box} 1 Box Un josse glucose 6-06 9101 every 14 ity of sensor 00:00: (fourteen) [place] (FREESTYLE 00 days. Medical ANALY 2 Branch SENSOR) Kit flash 2022-0 Yes [id number] 1{box} 1 Box Un josse glucose 6-06 9101 daily. ity of scanning 00:00: [place] reader 00 Medical (FREESTYLE Branch ANALY 2 READER) Misc flash 2022-0 Yes [id number] 1{box} 1 Box Un josse glucose 6-06 9101 every 14 ity of sensor 00:00: (fourteen) [place] (FREESTYLE 00 days. Medical ANALY 2 Branch SENSOR) Kit flash 2022-0 Yes [id number] 1{box} 1 Box Un josse glucose 6-06 9101 daily. ity of scanning 00:00: [place] reader 00 Medical (FREESTYLE Branch ANALY 2 READER) Misc flash 2022-0 Yes [id number] 1{box} 1 Box Un josse glucose 6-06 9101 every 14 ity of sensor 00:00: (fourteen) [place] (FREESTYLE 00 days. Medical ANALY 2 Branch SENSOR) Kit flash 2022-0 Yes [id number] 1{box} 1 Box Un josse glucose 6-06 9101 daily. ity of scanning 00:00: [place] reader 00 Medical (FREESTYLE Branch ANALY 2 READER) Misc flash 2022-0 Yes [id number] 1{box} 1 Box Un josse glucose 6-06 9101 every 14 ity of sensor 00:00: (fourteen) [place] (FREESTYLE 00 days. Medical ANALY 2 Branch SENSOR) Kit flash 2022-0 Yes [id number] 1{box} 1 Box Un josse glucose 6-06 9101 daily. ity of scanning 00:00: [place] reader 00 Medical (FREESTYLE Branch ANALY 2 READER) Misc flash 2022-0 Yes [id number] 1{box} 1 Box Un josse glucose 6-06 9101 every 14 ity of sensor 00:00: (fourteen) [place] (FREESTYLE 00 days. Medical ANALY 2 Branch SENSOR) Kit Accu-Chek 2021-0 Yes , # 100 Memor ia Fay Plus 5-01 ea, l Blood 20:45: Insulin [place] Glucose 00 dependent, Test Strips Does not use insulin pump, Last DM eval date 09/03/21, 0 Refill(s), Pharmacy: [facility] Specialty Ser... Accu-Chek 2021-0 Yes , # 100 Memor ia FastClix 5-01 ea, l Lancets 20:45: Insulin Raoul 00 dependent, Does not use insulin pump, Last DM eval date 09/03/21, 0 Refill(s), Pharmacy: [facility].. . Accu-Chek 2022-0 Yes , # 1 ea, Mem oria FastClix 5-01 Insulin l Lancets 20:45: dependent, Herm coral Device 00 Does not use insulin pump, Last DM eval date 09/03/21, 0 Refill(s), Pharmacy: [facility]... Accu-Chek 2-0 Yes , # 1 ea, Mem oria Guide Blood 5-01 Insulin l Glucose 20:45: dependent, Herm coral Meter 00 Does not use insulin pump, Last DM eval date 09/03/21, 0 Refill(s), Pharmacy: [facility]... Advocate 2021-0 Yes 1 eaAngeloria Insulin Pen 5-01 MISC, TID, l Dracut 29G 20:45: # 100 ea, H ermann 12.7mm=05/07 00 0 inch Refill(s), Pharmacy: [facility] Service, 152.4, cm, 09/02/21 7:01:00 CDT, Height, 55.2, kg, 09/02/21 7:01:00 CDT, Weight Lantus 0 Yes 18 unit, Memoria Solostar 5-01 SUB-Q, l Pen 100 20:45: Daily, # Yovanny n units/mL 00 10 mL, 0 subcutaneou Refill(s), s solution Pharmacy: [facility], 152.4, cm, 09/02/21 7:01:00 CDT, Height, 55.2, kg, 09/02/21 7:01:00 CDT, Weight NovoLOG 0 Yes 6 unit, Memoria FlexPen 100 5-01 SUB-Q, l units/mL 20:45: TID-Before Her mccracken injectable 00 Meals, # solution 15 mL, 0 Refill(s), Pharmacy: [facility], 152.4, cm, 09/02/21 7:01:00 CDT, Height, 55.2, kg, 09/02/21 7:01:00 CDT, Weight Accu-Chek 2021-0 Yes , # 100 Memor ia Fay Plus 5-01 ea, l Blood 20:45: Insulin [place] Glucose 00 dependent, Test Strips Does not use insulin pump, Last DM eval date 09/03/21, 0 Refill(s), Pharmacy: [facility] Special[facility] Ser... Accu-Chek 2021-0 Yes , # 100 Memor ia FastClix 5-01 ea, l Lancets 20:45: Insulin Raoul 00 dependent, Does not use insulin pump, Last DM eval date 09/03/21, 0 Refill(s), Pharmacy: [facility].. . Accu-Chek 2021-0 Yes , # 1 ea, Mem oria FastClix 5-01 Insulin l Lancets 20:45: dependent, Herm coral Device 00 Does not use insulin pump, Last DM eval date 09/03/21, 0 Refill(s), Pharmacy: [facility]... Accu-Chek Yes , # 1 ea, Mem oria Guide Blood 5-01 Insulin l Glucose 20:45: dependent, Herm coral Meter 00 Does not use insulin pump, Last DM eval date 09/03/21, 0 Refill(s), Pharmacy: [facility]... [place] Yes 1 ea, Memoria Insulin Pen 5-01 MISC, TID, l Dracut 29G 20:45: # 100 ea, H ermann 12.7mm=05/07 00 0 inch Refill(s), Pharmacy: [facility], 152.4, cm, 09/02/21 7:01:00 CDT, Height, 55.2, kg, 09/02/21 7:01:00 CDT, Weight Lantus Yes 18 unit, Memoria Solostar 5- SUB-Q, l Pen 100 20:45: Daily, # Yovanny n units/mL 00 10 mL, 0 subcutaneou Refill(s), s solution Pharmacy: [facility], 152.4, cm, 09/02/21 7:01:00 CDT, Height, 55.2, kg, 09/02/21 7:01:00 CDT, Weight NovoLOG Yes 6 unit, Memoria FlexPen 100 5- SUB-Q, l units/mL 20:45: TID-Before Her mccracken injectable 00 Meals, # solution 15 mL, 0 Refill(s), Pharmacy: [facility], 152.4, cm, 09/02/21 7:01:00 CDT, Height, 55.2, kg, 09/02/21 7:01:00 CDT, Weight Accu-Chek Yes , # 100 Memor ia Fay Plus 5-01 ea, l Blood 20:45: Insulin [place] Glucose 00 dependent, Test Strips Does not use insulin pump, Last DM eval date 09/03/21, 0 Refill(s), Pharmacy: [facility] Ser... Accu-Chek Yes , # 100 Memor ia FastClix 5-01 ea, l Lancets 20:45: Insulin [place] 00 dependent, Does not use insulin pump, Last DM eval date 09/03/21, 0 Refill(s), Pharmacy: [facility].. . Accu-Chek Yes , # 1 ea, Mem oria FastClix 5- Insulin l Lancets 20:45: dependent, Herm coral Device 00 Does not use insulin pump, Last DM eval date 09/03/21, 0 Refill(s), Pharmacy: [facility]... Accu-Chek Yes , # 1 ea, Mem oria Guide Blood 5- Insulin l Glucose 20:45: dependent, Herm coral Meter 00 Does not use insulin pump, Last DM eval date 09/03/21, 0 Refill(s), Pharmacy: [facility]... Advocate Yes 1 ea, Angeloria Insulin Pen 5- MISC, TID, l Dracut 29G 20:45: # 100 ea, H ermann 12.7mm=/2 00 0 inch Refill(s), Pharmacy: [facility], 152.4, cm, 09/02/21 7:01:00 CDT, Height, 55.2, kg, 09/02/21 7:01:00 CDT, Weight Lantus Yes 18 unit, Memoria Solostar 5- SUB-Q, l Pen 100 20:45: Daily, # Yovanny n units/mL 00 10 mL, 0 subcutaneou Refill(s), s solution Pharmacy: [facility], 152.4, cm, 09/02/21 7:01:00 CDT, Height, 55.2, kg, 09/02/21 7:01:00 CDT, Weight NovoLOG Yes 6 unit, Memoria FlexPen 100 5- SUB-Q, l units/mL 20:45: TID-Before Her mccracken injectable 00 Meals, # solution 15 mL, 0 Refill(s), Pharmacy: [facility], 152.4, cm, 09/02/21 7:01:00 CDT, Height, 55.2, kg, 09/02/21 7:01:00 CDT, Weight Accu-Chek 0 Yes , # 100 Memor ia Fay Plus 5-01 ea, l Blood 20:45: Insulin [place] Glucose 00 dependent, Test Strips Does not use insulin pump, Last DM eval date 09/03/21, 0 Refill(s), Pharmacy: [facility]... Accu-Chek Yes , # 100 Memor ia FastClix 5- ea, l Lancets 20:45: Insulin [place] 00 dependent, Does not use insulin pump, Last DM eval date 09/03/21, 0 Refill(s), Pharmacy: [facility].. . Accu-Chek Yes , # 1 ea, Mem oria FastClix 5- Insulin l Lancets 20:45: dependent, Herm coral Device 00 Does not use insulin pump, Last DM eval date 09/03/21, 0 Refill(s), Pharmacy: [facility] Serv... Accu-Chek Yes , # 1 ea, Mem oria Guide Blood - Insulin l Glucose 20:45: dependent, Herm coral Meter 00 Does not use insulin pump, Last DM eval date 09/03/21, 0 Refill(s), Pharmacy: [facility]... Advocate Yes 1 ea, Memoria Insulin Pen 5- MISC, TID, l Dracut 29G 20:45: # 100 ea, H ermann 12.7mm=1/2 00 0 inch Refill(s), Pharmacy: [facility], 152.4, cm, 09/02/21 7:01:00 CDT, Height, 55.2, kg, 09/02/21 7:01:00 CDT, Weight Lantus Yes 18 unit, Memoria Solostar 5-01 SUB-Q, l Pen 100 20:45: Daily, # Yovanny n units/mL 00 10 mL, 0 subcutaneou Refill(s), s solution Pharmacy: [facility], 152.4, cm, 09/02/21 7:01:00 CDT, Height, 55.2, kg, 09/02/21 7:01:00 CDT, Weight NovoLOG Yes 6 unit, Memoria FlexPen 100 5-01 SUB-Q, l units/mL 20:45: TID-Before Her mccracken injectable 00 Meals, # solution 15 mL, 0 Refill(s), Pharmacy: [facility], 152.4, cm, 09/02/21 7:01:00 CDT, Height, 55.2, kg, 09/02/21 7:01:00 CDT, Weight Accu-Chek 0 Yes , # 100 Memor ia Fay Plus 5- ea, l Blood 20:45: Insulin [place] Glucose 00 dependent, Test Strips Does not use insulin pump, Last DM eval date 09/03/21, 0 Refill(s), Pharmacy: [facility] Specialty Ser... Accu-Chek 2021- Yes , # 100 Memor ia FastClix 5-01 ea, l Lancets 20:45: Insulin [place] 00 dependent, Does not use insulin pump, Last DM eval date 09/03/21, 0 Refill(s), Pharmacy: [facility].. . Accu-Chek 2021-0 Yes , # 1 ea, Mem oria FastClix 5- Insulin l Lancets 20:45: dependent, Herm coral Device 00 Does not use insulin pump, Last DM eval date 09/03/21, 0 Refill(s), Pharmacy: [facility] Serv... Accu-Chek 2021-0 Yes , # 1 ea, Mem oria Guide Blood 5- Insulin l Glucose 20:45: dependent, Herm coral Meter 00 Does not use insulin pump, Last DM eval date 09/03/21, 0 Refill(s), Pharmacy: [facility]... Advocate Yes 1 ea, Memoria Insulin Pen 5- MISC, TID, l Dracut 29G 20:45: # 100 ea, H ermann 12.7mm=05/07 00 0 inch Refill(s), Pharmacy: [facility], 152.4, cm, 09/02/21 7:01:00 CDT, Height, 55.2, kg, 09/02/21 7:01:00 CDT, Weight Lantus Yes 18 unit, Memoria Solostar 5-01 SUB-Q, l Pen 100 20:45: Daily, # Yovanny n units/mL 00 10 mL, 0 subcutaneou Refill(s), s solution Pharmacy: [facility], 152.4, cm, 09/02/21 7:01:00 CDT, Height, 55.2, kg, 09/02/21 7:01:00 CDT, Weight NovoLOG Yes 6 unit, Memoria FlexPen 100 5-01 SUB-Q, l units/mL 20:45: TID-Before Her mccracken injectable 00 Meals, # solution 15 mL, 0 Refill(s), Pharmacy: [facility], 152.4, cm, 09/02/21 7:01:00 CDT, Height, 55.2, kg, 09/02/21 7:01:00 CDT, Weight insulin No Notes: Memoria glargine 5-01 (Same as: l 100 14:00: Lantus) Do [place] units/mL 00 not hold subcutaneou insulin s solution without contacting prescriber aspirin No Notes: Memoria 5-01 Take with l 14:00: food. [place] 00 insulin No Notes: Memoria glargine 5-01 (Same as: l 100 14:00: Lantus) Do [place] units/mL 00 not hold subcutaneou insulin s solution without contacting prescriber aspirin No Notes: Memoria 5-01 Take with l 14:00: food. [place] 00 insulin No Notes: Memoria glargine 5-01 (Same as: l 100 14:00: Lantus) Do [place] units/mL 00 not hold subcutaneou insulin s solution without contacting prescriber aspirin No Notes: Memoria 5-01 Take with l 14:00: food. [place] 00 insulin No Notes: Memoria glargine 5-01 (Same as: l 100 14:00: Lantus) Do [place] units/mL 00 not hold subcutaneou insulin s solution without contacting prescriber aspirin No Notes: Memoria 5-01 Take with l 14:00: food. [place] 00 insulin No Notes: Memoria glargine 5-01 (Same as: l 100 14:00: Lantus) Do [place] units/mL 00 not hold subcutaneou insulin s solution without contacting prescriber aspirin No Notes: Memoria 09-03 Take with l 14:00: food. [place] Synthroid No Notes: Memori a 09-03 Take 1 l 11:30: hour [place] 00 before or 2 hours after meal; Enteral feeds may interefere with the absorption of this medication . (Same as:Synthro id, Levothroid ) Synthroid No Notes: Memori a 09-03 Take 1 l 11:30: hour [place] 00 before or 2 hours after meal; Enteral feeds may interefere with the absorption of this medication . (Same as:Synthro id, Levothroid ) Synthroid No Notes: Memori a 09-03 Take 1 l 11:30: hour [place] 00 before or 2 hours after meal; Enteral feeds may interefere with the absorption of this medication . (Same as:Synthro id, Levothroid ) Synthroid No Notes: Memori a 09-03 Take 1 l 11:30: hour [place] 00 before or 2 hours after meal; Enteral feeds may interefere with the absorption of this medication . (Same as:Synthro id, Levothroid ) Synthroid No Notes: Memori a 09-03 Take 1 l 11:30: hour [place] 00 before or 2 hours after meal; Enteral feeds may interefere with the absorption of this medication . (Same as:Synthro id, Levothroid ) atorvastati No Notes: Carlos coco n 5- (Same As: l 02:00: Lipitor) [place] atorvastati No Notes: Carlos coco n 5- (Same As: l 02:00: Lipitor) [place] atorvastati No Notes: Carlos coco n 5- (Same As: l 02:00: Lipitor) [place] atorvastati No Notes: Carlos coco n 5- (Same As: l 02:00: Lipitor) [place] atorvastati No Notes: Carlos coco n 5- (Same As: l 02:00: Lipitor) [place] busPIRone No Notes: Memori a 4-30 (Same As: l 22:00: BuSpar) [place] 00 busPIRone No Notes: Memori a 4-30 (Same As: l 22:00: BuSpar) [place] busPIRone No Notes: Memori a 4-30 (Same As: l 22:00: BuSpar) [place] busPIRone No Notes: Memori a 4-30 (Same As: l 22:00: BuSpar) [place] busPIRone No Notes: Memori a 4-30 (Same As: l 22:00: BuSpar) [place] 00 insulin No Notes: Memoria lispro 4-30 (Same as: l 21:30: Humalog) [place] 00 Roll in palms of hands gently; Do not shake vigorously . Stable for 28 days at room temperatur e. insulin No Notes: Memoria lispro 4-30 (Same as: l 21:30: Humalog) [place] 00 Roll in palms of hands gently; Do not shake vigorously . Stable for 28 days at room temperatur e. insulin No Notes: Memoria lispro 4-30 (Same as: l 21:30: Humalog) [place] 00 Roll in palms of hands gently; Do not shake vigorously . Stable for 28 days at room temperatur e. insulin No Notes: Memoria lispro 4-30 (Same as: l 21:30: Humalog) [place] 00 Roll in palms of hands gently; Do not shake vigorously . Stable for 28 days at room temperatur e. insulin No Notes: Memoria lispro 4-30 (Same as: l 21:30: Humalog) [place] 00 Roll in palms of hands gently; Do not shake vigorously . Stable for 28 days at room temperatur e. insulin Yes Notes: Memoria lispro 4-30 (Same as: l 21:22: Humalog) [place] 00 Roll in palms of hands gently; Do not shake vigorously . WASTE: F/P - Black; E - [facility] Stable for 28 days at room temperatur e. Expires in days from ____Date insulin Yes Notes: Memoria lispro 4-30 (Same as: l 21:22: Humalog) [place] 00 Roll in palms of hands gently; Do not shake vigorously . WASTE: F/P - Black; E - [facility] Stable for 28 days at room temperatur e. Expires in days from ____Date insulin Yes Notes: Memoria lispro 4-30 (Same as: l 21:22: Humalog) [place] 00 Roll in palms of hands gently; Do not shake vigorously . WASTE: F/P - Black; E - [facility] Stable for 28 days at room temperatur e. Expires in days from ____Date insulin Yes Notes: Memoria lispro 4-30 (Same as: l 21:22: Humalog) [place] 00 Roll in palms of hands gently; Do not shake vigorously . WASTE: F/P - Black; E - [facility] Stable for 28 days at room temperatur e. Expires in days from ____Date insulin Yes Notes: Memoria lispro 4-30 (Same as: l 21:22: Humalog) [place] 00 Roll in palms of hands gently; [...] Stop date: 09/02/21 15:43:00 CDT, 0 Insulin 0 No Notes: Memoria regular 4-30 (Same as: l 20:43: Humulin R, [place] 00 NovoLIN R) Roll in palms of hands gently; Do not shake vigorously . WASTE: F/P - Black; E - [facility] Stable for 31 days at room temperatur e Expires in days from ____Date Lactated No 1,000 mL, Carlos coco Ringers 4-30 1,000 l (Bolus) IV 20:43: ml/hr, Monica nn 00 Infuse Over: 1 hr, Route: IV, 1,000, Drug form: INJ, ONCE, Priority: STAT, Dosing Weight 55.2 kg, Start date: 09/02/21 15:43:00 CDT, Stop date: 09/02/21 15:43:00 CDT, 0 Insulin No Notes: Memoria regular 4-30 (Same as: l 20:43: Humulin R, [place] 00 NovoLIN R) Roll in palms of hands gently; Do not shake vigorously . WASTE: F/P - Black; E - [facility] Stable for 31 days at room temperatur e Expires in days from ____Date Lactated No 1,000 mL, Carlos coco Ringers 4-30 1,000 l (Bolus) IV 20:43: ml/hr, Monica nn 00 Infuse Over: 1 hr, Route: IV, 1,000, Drug form: INJ, ONCE, Priority: STAT, Dosing Weight 55.2 kg, Start date: 09/02/21 15:43:00 CDT, Stop date: 09/02/21 15:43:00 CDT, 0 Insulin No Notes: Memoria regular 4-30 (Same as: l 20:43: Humulin R, [place] 00 NovoLIN R) Roll in palms of hands gently; Do not shake vigorously . WASTE: F/P - Black; E - [facility] Stable for 31 days at room temperatur e Expires in days from ____Date Lactated No [...] temperatur e Expires in days from ____Date Lactated No 1,000 mL, Carlos coco Ringers 4-30 1,000 l (Bolus) IV 20:43: ml/hr, Monica nn 00 Infuse Over: 1 hr, Route: IV, 1,000, Drug form: INJ, ONCE, Priority: STAT, Dosing Weight 55.2 kg, Start date: 09/02/21 15:43:00 CDT, Stop date: 09/02/21 15:43:00 CDT, 0 Insulin No Notes: Memoria regular 4-30 (Same as: l 20:43: Humulin R, [place] 00 NovoLIN R) Roll in palms of hands gently; Do not shake vigorously . WASTE: F/P - Black; E - [facility] Stable for 31 days at room temperatur e Expires in days from ____Date Protonix No Notes: Memoria 4-30 Tablet l 17:00: should not [place] 00 be chewed or crushed. (Same as: Protonix) Protonix No Notes: Memoria 4-30 Tablet l 17:00: should not [place] 00 be chewed or crushed. (Same as: Protonix) Protonix No Notes: Memoria 4-30 Tablet l 17:00: should not [place] 00 be chewed or crushed. (Same as: Protonix) Protonix No Notes: Memoria 4-30 Tablet l 17:00: should not [place] 00 be chewed or crushed. (Same as: Protonix) Protonix No Notes: Memoria 4-30 Tablet l 17:00: should not [place] 00 be chewed or crushed. (Same as: Protonix) insulin No Notes: Memoria glargine 4-30 (Same as: l 100 16:30: Lantus) Do [place] units/mL 00 not hold subcutaneou insulin s solution without contacting prescriber WASTE: F/P - Black; E - [facility] "single patient use only" Stable for 28 days at room temperatur e Expires in days from ____Date insulin No Notes: Memoria glargine 4-30 (Same as: l 100 16:30: Lantus) Do [place] units/mL 00 not hold subcutaneou insulin s solution without contacting prescriber WASTE: F/P - Black; E - [facility] "single patient use only" Stable for 28 days at room temperatur e Expires in days from ____Date insulin No Notes: Memoria glargine 4-30 (Same as: l 100 16:30: Lantus) Do [place] units/mL 00 not hold subcutaneou insulin s solution without contacting prescriber WASTE: F/P - Black; E - [facility] "single patient use only" Stable for 28 days at room temperatur e Expires in days from ____Date insulin No Notes: Memoria glargine 4-30 (Same as: l 100 16:30: Lantus) Do [place] units/mL 00 not hold subcutaneou insulin s solution without contacting prescriber WASTE: F/P - Black; E - [facility] "single patient use only" Stable for 28 days at room temperatur e Expires in days from ____Date insulin 2021-0 No Notes: Memoria glargine 4-30 (Same as: l 100 16:30: Lantus) Do [place] units/mL 00 not hold subcutaneou insulin s solution without contacting prescriber WASTE: F/P - Black; E - [facility] "single patient use only" Stable for 28 days at room temperatur e Expires in days from ____Date glucagon 2021-0 No 1 mg, Memoria 4-30 Route: IM, l 16:29: Drug form: [place] 00 PDR/INJ, PRN, Dosing Weight 55.2, kg, PRN Blood Glucose Results, Start date: 09/02/21 11:29:00 CDT, Duration: 30 day, Stop date: 10/02/21 11:28:00 CDT, 0 insulin 2021-0 No Notes: Memoria lispro 4-30 (Same as: l 16:29: Humalog) [place] 00 Roll in palms of hands gently; Do not shake vigorously . WASTE: F/P - Black; E - [facility] Stable for 28 days at room temperatur e. Expires in days from ____Date Dextrose 2021-0 No 25 mL, Memoria 50% Syringe -30 Route: l (D50W) 16:29: IVP, [place] 00 Dosing Weight 55.2, kg, PRN, PRN Blood Glucose Results, Start date: 09/02/21 11:29:00 CDT, Duration: 30 day, Stop date: 10/02/21 11:28:00 CDT glucagon 2021-0 No 1 mg, Memoria 4-30 Route: IM, l 16:29: Drug form: [place] 00 PDR/INJ, PRN, Dosing Weight 55.2, kg, PRN Blood Glucose Results, Start date: 09/02/21 11:29:00 CDT, Duration: 30 day, Stop date: 10/02/21 11:28:00 CDT, 0 insulin 2022-0 No Notes: Memoria lispro 4-30 (Same as: l 16:29: Humalog) [place] 00 Roll in palms of hands gently; Do not shake vigorously . WASTE: F/P - Black; E - [facility] Stable for 28 days at room temperatur e. Expires in days from ____Date Dextrose 2022-0 No 25 mL, Memoria 50% Syringe 4-30 Route: l (D50W) 16:29: IVP, [place] 00 Dosing Weight 55.2, kg, PRN, PRN Blood Glucose Results, Start date: 09/02/21 11:29:00 CDT, Duration: 30 day, Stop date: 10/02/21 11:28:00 CDT glucagon 2022-0 No 1 mg, Memoria 4-30 Route: IM, l 16:29: Drug form: [place] 00 PDR/INJ, PRN, Dosing Weight 55.2, kg, PRN Blood Glucose Results, Start date: 09/02/21 11:29:00 CDT, Duration: 30 day, Stop date: 10/02/21 11:28:00 CDT, 0 insulin 2022-0 No Notes: Memoria lispro 4-30 (Same as: l 16:29: Humalog) [place] 00 Roll in palms of hands gently; Do not shake vigorously . WASTE: F/P - Black; E - [facility] Stable for 28 days at room temperatur e. Expires in days from ____Date Dextrose 2-0 No 25 mL, Memoria 50% Syringe 4-30 Route: l (D50W) 16:29: IVP, [place] 00 Dosing Weight 55.2, kg, PRN, PRN Blood Glucose Results, Start date: 09/02/21 11:29:00 CDT, Duration: 30 day, Stop date: 10/02/21 11:28:00 CDT glucagon 2022-0 No 1 mg, Memoria 4-30 Route: IM, l 16:29: Drug form: [place] 00 PDR/INJ, PRN, Dosing Weight 55.2, kg, PRN Blood Glucose Results, Start date: 09/02/21 11:29:00 CDT, Duration: 30 day, Stop date: 10/02/21 11:28:00 CDT, 0 insulin 2021-0 No Notes: Memoria lispro 4-30 (Same as: l 16:29: Humalog) Roll in palms of hands gently; Do not shake vigorously . WASTE: F/P - Black; E - [facility] Stable for 28 days at room temperatur e. Expires in days from ____Date Dextrose 2021-0 No 25 mL, Memoria 50% Syringe 4-30 Route: l (D50W) 16:29: IVP, Dosing Weight 55.2, kg, PRN, PRN Blood Glucose Results, Start date: 09/02/21 11:29:00 CDT, Duration: 30 day, Stop date: 10/02/21 11:28:00 CDT glucagon 2021-0 No 1 mg, Memoria 4-30 Route: IM, l 16:29: Drug form: PDR/INJ, PRN, Dosing Weight 55.2, kg, PRN Blood Glucose Results, Start date: 09/02/21 11:29:00 CDT, Duration: 30 day, Stop date: 10/02/21 11:28:00 CDT, 0 insulin 2021-0 No Notes: Memoria lispro 4-30 (Same as: l 16:29: Humalog) Roll in palms of hands gently; Do not shake vigorously . WASTE: F/P - Black; E - [facility] Stable for 28 days at room temperatur e. Expires in days from ____Date Dextrose 2021-0 No 25 mL, Memoria 50% Syringe 4-30 Route: l (D50W) 16:29: IVP, [place] 00 Dosing Weight 55.2, kg, PRN, PRN Blood Glucose Results, Start date: 09/02/21 11:29:00 CDT, Duration: 30 day, Stop date: 10/02/21 11:28:00 CDT insulin No Notes: Memoria glargine 4-30 (Same as: l 100 14:00: Lantus) Do [place] units/mL 00 not hold subcutaneou insulin s solution without contacting prescriber WASTE: F/P - Black; E - [facility] Tr[facility] "single patient use only" Stable for 28 days at room temperatur e Expires in days from ____Date insulin No Notes: Memoria glargine 4-30 (Same as: l 100 14:00: Lantus) Do [place] units/mL 00 not hold subcutaneou insulin s solution without contacting prescriber WASTE: F/P - Black; E - [facility] "single patient use only" Stable for 28 days at room temperatur e Expires in days from ____Date insulin No Notes: Memoria glargine 4-30 (Same as: l 100 14:00: Lantus) Do [place] units/mL 00 not hold subcutaneou insulin s solution without contacting prescriber WASTE: F/P - Black; E - [facility] "single patient use only" Stable for 28 days at room temperatur e Expires in days from ____Date insulin No Notes: Memoria glargine 4-30 (Same as: l 100 14:00: Lantus) Do [place] units/mL 00 not hold subcutaneou insulin s solution without contacting prescriber WASTE: F/P - Black; E - [facility] "single patient use only" Stable for 28 days at room temperatur e Expires in days from ____Date insulin No Notes: Memoria glargine 4-30 (Same as: l 100 14:00: Lantus) Do [place] units/mL 00 not hold subcutaneou insulin s solution without contacting prescriber WASTE: F/P - Black; E - [facility] "single patient use only" Stable for 28 days at room temperatur e Expires in days from ____Date potassium No Notes: Memori a chloride 4-30 (Same as: l 07:32: KCL) 10 [place] 00 mEq/100ml product recommende d for peripheral line administra tion. Infuse no faster than 10 mEq/hr if given peripheral ly. magnesium No Notes: Memori a sulfate 4-30 WASTE: F/P l 07:32: - Sink; E [place] 00 - [facility] Tr[facility] potassium No Notes: Memori a phosphate + 4-30 (Same as: l Sodium 07:32: K [place] Chloride 00 Phosphate. 0.9% IV 250 ) Do not mL infuse phosphorou s concurrent ly in the same line as TPN or IVF that contains calcium. For double lumen central lines, phosphorou s may be infused in a separate lumen from TPN. 1 mMol phoshate has 1.47 mEq potassium Infuse over 4 hours potassium No Notes: Memori a chloride 4-30 (Same as: l 07:32: KCL) 10 [place] 00 mEq/100ml product recommende d for peripheral line administra tion. Infuse no faster than 10 mEq/hr if given peripheral ly. magnesium No Notes: Memori a sulfate 4-30 WASTE: F/P l 07:32: - Sink; E [place] 00 - [facility] Tr[facility] potassium No Notes: Memori a phosphate + 4-30 (Same as: l Sodium 07:32: K [place] Chloride 00 Phosphate. 0.9% IV 250 ) Do not mL infuse phosphorou s concurrent ly in the same line as TPN or IVF that contains calcium. For double lumen central lines, phosphorou s may be infused in a separate lumen from TPN. 1 mMol phoshate has 1.47 mEq potassium Infuse over 4 hours potassium No Notes: Memori a chloride 4-30 (Same as: l 07:32: KCL) 10 [place] 00 mEq/100ml product recommende d for peripheral line administra tion. Infuse no faster than 10 mEq/hr if given peripheral ly. magnesium No Notes: Memori a sulfate 4-30 WASTE: F/P l 07:32: - Sink; E [place] 00 - [facility] Trash [facility] potassium No Notes: Memori a phosphate + 4-30 (Same as: l Sodium 07:32: K [place] Chloride 00 Phosphate. 0.9% IV 250 ) Do not mL infuse phosphorou s concurrent ly in the same line as TPN or IVF that contains calcium. For double lumen central lines, phosphorou s may be infused in a separate lumen from TPN. 1 mMol phoshate has 1.47 mEq potassium Infuse over 4 hours potassium No Notes: Memori a chloride 4-30 (Same as: l 07:32: KCL) 10 [place] 00 mEq/100ml product recommende d for peripheral line administra tion. Infuse no faster than 10 mEq/hr if given peripheral ly. magnesium No Notes: Memori a sulfate 4-30 WASTE: F/P l 07:32: - Sink; E [place] 00 - [facility] Tr[facility] potassium No Notes: Memori a phosphate + 4-30 (Same as: l Sodium 07:32: K [place] Chloride 00 Phosphate. 0.9% IV 250 ) Do not mL infuse phosphorou s concurrent ly in the same line as TPN or IVF that contains calcium. For double lumen central lines, phosphorou s may be infused in a separate lumen from TPN. 1 mMol phoshate has 1.47 mEq potassium Infuse over 4 hours potassium No Notes: Memori a chloride 4-30 (Same as: l 07:32: KCL) 10 [place] 00 mEq/100ml product recommende d for peripheral line administra tion. Infuse no faster than 10 mEq/hr if given peripheral ly. magnesium No Notes: Memori a sulfate 4-30 WASTE: F/P l 07:32: - Sink; E [place] 00 - [facility] Tr[facility] potassium No Notes: Memori a phosphate + 4-30 (Same as: l Sodium 07:32: K [place] Chloride 00 Phosphate. 0.9% IV 250 ) Do not mL infuse phosphorou s concurrent ly in the same line as TPN or IVF that contains calcium. For double lumen central lines, phosphorou s may be infused in a separate lumen from TPN. 1 mMol phoshate has 1.47 mEq potassium Infuse over 4 hours Dextrose 2022-0 No 25 mL, Memoria 50% Syringe 4-30 Route: l (D50W) 06:24: IVP, [place] 00 Dosing Weight 57.2, kg, PRN, PRN Blood Glucose Results, Start date: 09/02/21 1:24:00 CDT, Duration: 30 day, Stop date: 10/02/21 1:23:00 CDT glucagon 2-0 No 1 mg, Memoria 30 Route: IM, l 06:24: Drug form: [place] PDR/INJ, PRN, Dosing Weight 57.2, kg, PRN Blood Glucose Results, Start date: 09/02/21 1:24:00 CDT, Duration: 30 day, Stop date: 10/02/21 1:23:00 CDT, 0 insulin 2022-0 No Notes: Memoria lispro 4-30 (Same as: l 06:24: Humalog) Roll in palms of hands gently; Do not shake vigorously . WASTE: F/P - Black; E - [facility] Stable for 28 days at room temperatur e. Expires in days from ____Date Dextrose 2022-0 No 25 mL, Memoria 50% Syringe 30 Route: l (D50W) 06:24: IVP, Dosing Weight 57.2, kg, PRN, PRN Blood Glucose Results, Start date: 09/02/21 1:24:00 CDT, Duration: 30 day, Stop date: 10/02/21 1:23:00 CDT glucagon 2-0 No 1 mg, Memoria -30 Route: IM, l 06:24: Drug form: [place] 00 PDR/INJ, PRN, Dosing Weight 57.2, kg, PRN Blood Glucose Results, Start date: 09/02/21 1:24:00 CDT, Duration: 30 day, Stop date: 10/02/21 1:23:00 CDT, 0 insulin 2022-0 No Notes: Memoria lispro 4-30 (Same as: l 06:24: Humalog) [place] 00 Roll in palms of hands gently; Do not shake vigorously . WASTE: F/P - Black; E - [facility] Trash [facility] Stable for 28 days at room temperatur e. Expires in days from ____Date Dextrose 2-0 No 25 mL, Memoria 50% Syringe 4-30 Route: l (D50W) 06:24: IVP, [place] 00 Dosing Weight 57.2, kg, PRN, PRN Blood Glucose Results, Start date: 09/02/21 1:24:00 CDT, Duration: 30 day, Stop date: 10/02/21 1:23:00 CDT glucagon 2-0 No 1 mg, Memoria 4-30 Route: IM, l 06:24: Drug form: [place] 00 PDR/INJ, PRN, Dosing Weight 57.2, kg, PRN Blood Glucose Results, Start date: 09/02/21 1:24:00 CDT, Duration: 30 day, Stop date: 10/02/21 1:23:00 CDT, 0 insulin 2021-0 No Notes: Memoria lispro 4-30 (Same as: l 06:24: Humalog) [place] 00 Roll in palms of hands gently; Do not shake vigorously . WASTE: F/P - Black; E - [facility] Trash [facility] Stable for 28 days at room temperatur e. Expires in days from ____Date Dextrose 2021-0 No 25 mL, Memoria 50% Syringe 4-30 Route: l (D50W) 06:24: IVP, [place] 00 Dosing Weight 57.2, kg, PRN, PRN Blood Glucose Results, Start date: 09/02/21 1:24:00 CDT, Duration: 30 day, Stop date: 10/02/21 1:23:00 CDT glucagon 2-0 No 1 mg, Memoria 4-30 Route: IM, l 06:24: Drug form: [place] 00 PDR/INJ, PRN, Dosing Weight 57.2, kg, PRN Blood Glucose Results, Start date: 09/02/21 1:24:00 CDT, Duration: 30 day, Stop date: 10/02/21 1:23:00 CDT, 0 insulin 2022-0 No Notes: Memoria lispro 4-30 (Same as: l 06:24: Humalog) Roll in palms of hands gently; Do not shake vigorously . WASTE: F/P - Black; E - [facility] Trash [facility] Stable for 28 days at room temperatur e. Expires in days from ____Date Dextrose 2-0 No 25 mL, Memoria 50% Syringe 30 Route: l (D50W) 06:24: IVP, [place] 00 Dosing Weight 57.2, kg, PRN, PRN Blood Glucose Results, Start date: 09/02/21 1:24:00 CDT, Duration: 30 day, Stop date: 10/02/21 1:23:00 CDT glucagon 2-0 No 1 mg, Memoria 09-02 Route: IM, l 06:24: Drug form: PDR/INJ, PRN, Dosing Weight 57.2, kg, PRN Blood Glucose Results, Start date: 09/02/21 1:24:00 CDT, Duration: 30 day, Stop date: 10/02/21 1:23:00 CDT, 0 insulin 2021-0 No Notes: Memoria lispro 4-30 (Same as: l 06:24: Humalog) Roll in palms of hands gently; Do not shake vigorously . WASTE: F/P - Black; E - [facility] Trash [facility] Stable for 28 days at room temperatur e. Expires in days from ____Date Protonix 2022-0 Yes 40 mg, PO, Mem oria 4-29 Daily, # l 22:02: 30 tab, 0 [place] 00 Refill(s) Protonix 2022-0 Yes 40 mg, PO, Mem oria 4-29 Daily, # l 22:02: 30 tab, 0 [place] 00 Refill(s) Protonix 2022-0 Yes 40 mg, PO, Mem oria 4-29 Daily, # l 22:02: 30 tab, 0 [place] 00 Refill(s) Protonix 2022-0 Yes 40 mg, PO, Mem oria 4-29 Daily, # l 22:02: 30 tab, 0 [place] 00 Refill(s) Protonix 2021-0 Yes 40 mg, PO, Mem oria 4-29 Daily, # l 22:02: 30 tab, 0 [place] 00 Refill(s) meloxicam 2021-0 Yes 7.5 mg = 1 Me moria 7.5 mg oral 4-29 tab, PO, l tablet 22:01: Daily, 0 [place] 00 Refill(s) metFORMIN 0 No 1,000 mg, Mem oria 4-29 PO, Daily, l 22:01: 0 [place] 00 Refill(s) meloxicam 0 Yes 7.5 mg = 1 Me moria 7.5 mg oral 4-29 tab, PO, l tablet 22:01: Daily, 0 [place] 00 Refill(s) meloxicam 0 Yes 7.5 mg = 1 Me moria 7.5 mg oral 4-29 tab, PO, l tablet 22:01: Daily, 0 [place] 00 Refill(s) metFORMIN 0 No 1,000 mg, Mem oria 4-29 PO, Daily, l 22:01: 0 [place] 00 Refill(s) metFORMIN 2021-0 No 1,000 mg, Mem oria 4-29 PO, Daily, l 22:01: 0 [place] 00 Refill(s) meloxicam 2021-0 Yes 7.5 mg = 1 Me moria 7.5 mg oral 4-29 tab, PO, l tablet 22:01: Daily, 0 [place] 00 Refill(s) metFORMIN 2021-0 No 1,000 mg, Mem oria 4-29 PO, Daily, l 22:01: 0 [place] 00 Refill(s) meloxicam 2021-0 Yes 7.5 mg = 1 Me moria 7.5 mg oral 4-29 tab, PO, l tablet 22:01: Daily, 0 [place] 00 Refill(s) metFORMIN 2021-0 No 1,000 mg, Mem oria 4-29 PO, Daily, l 22:01: 0 [place] 00 Refill(s) Please No Please Memoria update 09-01 update l Allergies 22:00: Allergies, He rm Please update in [facility], Drug form: MISC, Route: MISC, Q15Min, 09/01/21 17:00:00 CDT, Duration: 30 day, Stop date: 10/01/21 16:45:00 CDT, 0 furosemide 2021-0 Yes 20 mg = 1 Me moria 20 mg oral 4-29 tab, PO, l tablet 22:00: Daily, 0 [place] 00 Refill(s) Please No Please Memoria update 09-01 update l Allergies 22:00: Allergies, He rm Please update in [facility], Drug form: MISC, Route: MISC, Q15Min, 09/01/21 17:00:00 CDT, Duration: 30 day, Stop date: 10/01/21 16:45:00 CDT, 0 furosemide 2021-0 Yes 20 mg = 1 Me moria 20 mg oral 4-29 tab, PO, l tablet 22:00: Daily, 0 [place] 00 Refill(s) Please No Please Memoria update 09-01 update l Allergies 22:00: Allergies, He rm Please update in [facility], Drug form: MISC, Route: MISC, Q15Min, 09/01/21 17:00:00 CDT, Duration: 30 day, Stop date: 10/01/21 16:45:00 CDT, 0 furosemide 2021-0 Yes 20 mg = 1 Me moria 20 mg oral 4-29 tab, PO, l tablet 22:00: Daily, 0 [place] 00 Refill(s) Please No Please Memoria update 09-01 update l Allergies 22:00: Allergies, He rm Please update in [facility], Drug form: MISC, Route: MISC, Q15Min, 09/01/21 17:00:00 CDT, Duration: 30 day, Stop date: 10/01/21 16:45:00 CDT, 0 furosemide 2021-0 Yes 20 mg = 1 Me moria 20 mg oral 4-29 tab, PO, l tablet 22:00: Daily, 0 [place] 00 Refill(s) Please No Please Memoria update 09-01 update l Allergies 22:00: Allergies, He rm Please update in [facility], Drug form: MISC, Route: MISC, Q15Min, 09/01/21 17:00:00 CDT, Duration: 30 day, Stop date: 10/01/21 16:45:00 CDT, 0 furosemide Yes 20 mg = 1 Me moria 20 mg oral 4-29 tab, PO, l tablet 22:00: Daily, 0 00 Refill(s) estradiol Yes 2 mg, PO, Mem oria 4-29 Daily, 0 l 21:59: Refill(s) estradiol 0 Yes 2 mg, PO, Mem oria 4-29 Daily, 0 l 21:59: Refill(s) estradiol 0 Yes 2 mg, PO, Mem oria 4-29 Daily, 0 l 21:59: Refill(s) estradiol 0 Yes 2 mg, PO, Mem oria 4-29 Daily, 0 l 21:59: Refill(s) estradiol 0 Yes 2 mg, PO, Mem oria 4-29 Daily, 0 l 21:59: Refill(s) busPIRone Yes 30 mg = 1 Mem oria 30 mg oral 4-29 tab, PO, l tablet 21:58: BID, 0 [place] 00 Refill(s) busPIRone Yes 30 mg = 1 Mem oria 30 mg oral 4-29 tab, PO, l tablet 21:58: BID, 0 Refill(s) busPIRone Yes 30 mg = 1 Mem oria 30 mg oral 4-29 tab, PO, l tablet 21:58: BID, 0 [place] 00 Refill(s) busPIRone Yes 30 mg = 1 Mem oria 30 mg oral 4-29 tab, PO, l tablet 21:58: BID, 0 [place] 00 Refill(s) busPIRone Yes 30 mg = 1 Mem oria 30 mg oral 4-29 tab, PO, l tablet 21:58: BID, 0 Refill(s) pneumococca No Notes: Carlos coco l 23-valent 4-29 (Same as: l vaccine 20:54: Pneumovax [place] nn [id number]) Refrigerat e pneumococca No Notes: Carlos coco l 23-valent 4-29 (Same as: l vaccine 20:54: Pneumovax [place] nn 51 [id number]) Refrigerat e pneumococca No Notes: Carlos coco l 23-valent 4-29 (Same as: l vaccine 20:54: Pneumovax [place] nn 51 23) Refrigerat e pneumococca No Notes: Carlos coco l 23-valent 4-29 (Same as: l vaccine 20:54: Pneumovax [place] nn 51 23) Refrigerat e pneumococca No Notes: Carlos coco l 23-valent 4-29 (Same as: l vaccine 20:54: Pneumovax [place] nn 51 23) Refrigerat e D5W /S No 1,000 mL, Mem oria 1,000 mL 09-01 Rate: 250 l 20:41: ml/hr, [place] 00 Infuse over: 4 hr, Route: IV, Dosing Weight 50 kg, Total Volume: 1,000, Start date: 09/01/21 15:41:00 CDT, Duration: 30 day, Stop date: 10/01/21 15:40:00 CDT, BSA: 1.52 m2, 0 D5W No 1,000 mL, Mem oria 1,000 mL 09-01 Rate: 250 l 20:41: ml/hr, [place] 00 Infuse over: 4 hr, Route: IV, Dosing Weight 50 kg, Total Volume: 1,000, Start date: 09/01/21 15:41:00 CDT, Duration: 30 day, Stop date: 10/01/21 15:40:00 CDT, BSA: 1.52 m2, 0 D5W S No 1,000 mL, Mem oria 1,000 mL 09-01 Rate: 250 l 20:41: ml/hr, [place] 00 Infuse over: 4 hr, Route: IV, Dosing Weight 50 kg, Total Volume: 1,000, Start date: 09/01/21 15:41:00 CDT, Duration: 30 day, Stop date: 10/01/21 15:40:00 CDT, BSA: 1.52 m2, 0 D5W 1/2NS 2021-0 No 1,000 mL, Mem oria 1,000 mL 09-01 Rate: 250 l 20:41: ml/hr, [place] 00 Infuse over: 4 hr, Route: IV, Dosing Weight 50 kg, Total Volume: 1,000, Start date: 09/01/21 15:41:00 CDT, Duration: 30 day, Stop date: 10/01/21 15:40:00 CDT, BSA: 1.52 m2, 0 D5W 1/2NS 202-0 No 1,000 mL, Mem oria 1,000 mL 09-01 Rate: 250 l 20:41: ml/hr, [place] 00 Infuse over: 4 hr, Route: IV, Dosing Weight 50 kg, Total Volume: 1,000, Start date: 09/01/21 15:41:00 CDT, Duration: 30 day, Stop date: 10/01/21 15:40:00 CDT, BSA: 1.52 m2, 0 Dextrose 2021-0 No 250 mL, Memori a 10% in 09-01 Rate: 999 l Water IV 18:37: ml/hr, [place] 00 Infuse over: 0.3 hr, Route: IV, Total Volume: 250, Start date: 09/01/21 13:37:00 CDT, Duration: 30 day, Stop date: 10/01/21 13:36:00 CDT, PRN Blood Glucose Results, 0 Dextrose 2021-0 No 250 mL, Memori a 10% in 09-01 Rate: 999 l Water IV 18:37: ml/hr, [place] 00 Infuse over: 0.3 hr, Route: IV, Total Volume: 250, Start date: 09/01/21 13:37:00 CDT, Duration: 30 day, Stop date: 10/01/21 13:36:00 CDT, PRN Blood Glucose Results, 0 Dextrose 2-0 No 250 mL, Memori a 10% in 09-01 Rate: 999 l Water IV 18:37: ml/hr, [place] 00 Infuse over: 0.3 hr, Route: IV, Total Volume: 250, Start date: 09/01/21 13:37:00 CDT, Duration: 30 day, Stop date: 10/01/21 13:36:00 CDT, PRN Blood Glucose Results, 0 Dextrose 2-0 No 250 mL, Memori a 10% in 09-01 Rate: 999 l Water IV 18:37: ml/hr, [place] 00 Infuse over: 0.3 hr, Route: IV, Total Volume: 250, Start date: 09/01/21 13:37:00 CDT, Duration: 30 day, Stop date: 10/01/21 13:36:00 CDT, PRN Blood Glucose Results, 0 Dextrose 2-0 No 250 mL, Memori a 10% in 09-01 Rate: 999 l Water IV 18:37: ml/hr, [place] 00 Infuse over: 0.3 hr, Route: IV, Total Volume: 250, Start date: 09/01/21 13:37:00 CDT, Duration: 30 day, Stop date: 10/01/21 13:36:00 CDT, PRN Blood Glucose Results, 0 Dextrose 2-0 No 125 mL, Memori a 10% in 09-01 Rate: 999 l Water IV 18:36: ml/hr, [place] 00 Infuse over: 0.1 hr, Route: IV, Total Volume: 125, Start date: 09/01/21 13:36:00 CDT, Duration: 30 day, Stop date: 10/01/21 13:35:00 CDT, PRN Blood Glucose Results, 0 Dextrose 2-0 No 125 mL, Memori a 10% in 09-01 Rate: 999 l Water IV 18:36: ml/hr, [place] 00 Infuse over: 0.1 hr, Route: IV, Total Volume: 125, Start date: 09/01/21 13:36:00 CDT, Duration: 30 day, Stop date: 10/01/21 13:35:00 CDT, PRN Blood Glucose Results, 0 Dextrose 2-0 No 125 mL, Memori a 10% in 09-01 Rate: 999 l Water IV 18:36: ml/hr, [place] 00 Infuse over: 0.1 hr, Route: IV, Total Volume: 125, Start date: 09/01/21 13:36:00 CDT, Duration: 30 day, Stop date: 10/01/21 13:35:00 CDT, PRN Blood Glucose Results, 0 Dextrose 2022-0 No 125 mL, Memori a 10% in 09-01 Rate: 999 l Water IV 18:36: ml/hr, [place] 00 Infuse over: 0.1 hr, Route: IV, Total Volume: 125, Start date: 09/01/21 13:36:00 CDT, Duration: 30 day, Stop date: 10/01/21 13:35:00 CDT, PRN Blood Glucose Results, 0 Dextrose No 125 mL, Memori a 10% in 09-01 Rate: 999 l Water IV 18:36: ml/hr, [place] 00 Infuse over: 0.1 hr, Route: IV, Total Volume: 125, Start date: 09/01/21 13:36:00 CDT, Duration: 30 day, Stop date: 10/01/21 13:35:00 CDT, PRN Blood Glucose Results, 0 Lactated No 1,000 mL, Carlos coco Ringers IV 09-01 Rate: 250 l 1,000 mL 18:34: ml/hr, [place] 00 Infuse over: 4 hr, Route: IV, Dosing Weight 50 kg, Total Volume: 1,000, Start date: 09/01/21 13:34:00 CDT, Duration: 30 day, Stop date: 10/01/21 13:33:00 CDT, BSA: 1.52 m2, 0 D5LR 1,000 No 1,000 mL, Me moria mL 09-01 Rate: 250 l 18:34: ml/hr, [place] 00 Infuse over: 4 hr, Route: IV, Dosing [...] Syringe 09-01 Route: l (D50W) 18:34: IVP, [place] 00 Dosing Weight 50, kg, PRN, PRN Blood Glucose Results, Start date: 09/01/21 13:34:00 CDT, Duration: 30 day, Stop date: 10/01/21 13:33:00 CDT glucagon No 1 mg, Memoria 09-01 Route: IM, l 18:34: Drug form: [place] PDR/INJ, PRN, Dosing Weight 50, kg, PRN Blood Glucose Results, Start date: 09/01/21 13:34:00 CDT, Duration: 30 day, Stop date: 10/01/21 13:33:00 CDT, 0 potassium No Notes: Memori a chloride 09-01 (Same as: l 18:34: KCL) magnesium No Notes: Memori a sulfate 09-01 WASTE: F/P l 18:34: - Sink; E [place] - [facility] Trash Bin potassium No Notes: Memori a phosphate + 09-01 (Same as: l Sodium 18:34: K [place] Chloride 00 Phosphate. 0.9% IV 245 ) [...] - (Same as: l Sodium 18:34: K [place] Chloride 00 Phosphate. 0.9% IV 240 ) Do not mL infuse phosphorou s concurrent ly in the same line as TPN or IVF that contains calcium. For double lumen central lines, phosphorou s may be infused in a separate lumen from TPN. 1 mMol phoshate has 1.47 mEq potassium Infuse over 4 hours Lactated No 1,000 mL, Carlos coco Ringers IV 09-01 Rate: 250 l 1,000 mL 18:34: ml/hr, [place] 00 Infuse over: 4 hr, Route: IV, Dosing [...] Syringe 09-01 Route: l (D50W) 18:34: IVP, Dosing Weight 50, kg, PRN, PRN Blood Glucose Results, Start date: 09/01/21 13:34:00 CDT, Duration: 30 day, Stop date: 10/01/21 13:33:00 CDT glucagon No 1 mg, Memoria 09-01 Route: IM, l 18:34: Drug form: PDR/INJ, PRN, Dosing Weight 50, kg, PRN Blood Glucose Results, Start date: 09/01/21 13:34:00 CDT, Duration: 30 day, Stop date: 10/01/21 13:33:00 CDT, 0 potassium No Notes: Memori a chloride 09-01 (Same as: l 18:34: KCL) magnesium No Notes: Memori a sulfate 09-01 WASTE: F/P l 18:34: - Sink; E - [facility] Tr[facility] Bin potassium No Notes: Memori a phosphate + 09-01 (Same as: l Sodium 18:34: K [place] [...] mEq potassium Infuse over 4 hours Lactated No 1,000 mL, Carlos coco Ringers IV 09-01 Rate: 250 l 1,000 mL 18:34: ml/hr, [place] 00 Infuse over: 4 hr, Route: IV, Dosing Weight 50 kg, Total Volume: 1,000, Start date: 09/01/21 13:34:00 CDT, Duration: 30 day, Stop date: 10/01/21 13:33:00 CDT, BSA: 1.52 m2, 0 D5LR 1,000 No 1,000 mL, Me moria mL 09-01 Rate: 250 l 18:34: ml/hr, [place] 00 Infuse over: 4 hr, Route: IV, Dosing [...] Syringe 09-01 Route: l (D50W) 18:34: IVP, [place] 00 Dosing Weight 50, kg, PRN, PRN Blood Glucose Results, Start date: 09/01/21 13:34:00 CDT, Duration: 30 day, Stop date: 10/01/21 13:33:00 CDT glucagon No 1 mg, Memoria 09-01 Route: IM, l 18:34: Drug form: [place] 00 PDR/INJ, PRN, Dosing Weight 50, kg, PRN Blood Glucose Results, Start date: 09/01/21 13:34:00 CDT, Duration: 30 day, Stop date: 10/01/21 13:33:00 CDT, 0 potassium No Notes: Memori a chloride 09-01 (Same as: l 18:34: KCL) magnesium No Notes: Memori a sulfate 09-01 WASTE: F/P l 18:34: - Sink; E [place] - [facility] Trash Bin potassium No Notes: Memori a phosphate + 09-01 (Same as: l Sodium 18:34: K [place] Chloride 00 Phosphate. 0.9% IV 245 ) Do not mL infuse phosphorou s concurrent ly in the same line as TPN or IVF that contains calcium. For double lumen central lines, phosphorou s may be infused in a separate lumen from TPN. 1 mMol phoshate has 1.47 mEq potassium Infuse over 4 hours potassium No Notes: Memori a phosphate + 09-01 (Same as: l Sodium 18:34: K [place] Chloride 00 Phosphate. 0.9% IV 240 ) Do not mL infuse phosphorou s concurrent ly in the same line as TPN or IVF that contains calcium. For double lumen central lines, phosphorou s may be infused in a separate lumen from TPN. 1 mMol phoshate has 1.47 mEq potassium Infuse over 4 hours Lactated No 1,000 mL, Carlos coco Ringers IV 09-01 Rate: 250 l 1,000 mL 18:34: ml/hr, [place] 00 Infuse over: 4 hr, Route: IV, Dosing Weight 50 kg, Total Volume: 1,000, Start date: 09/01/21 13:34:00 CDT, Duration: 30 day, Stop date: 10/01/21 13:33:00 CDT, BSA: 1.52 m2, 0 D5LR 1,000 No 1,000 mL, Me moria mL 09-01 Rate: 250 l 18:34: ml/hr, [place] 00 Infuse over: 4 hr, Route: IV, Dosing [...] Syringe 09-01 Route: l (D50W) 18:34: IVP, Dosing Weight 50, kg, PRN, PRN Blood Glucose Results, Start date: 09/01/21 13:34:00 CDT, Duration: 30 day, Stop date: 10/01/21 13:33:00 CDT glucagon No 1 mg, Memoria 09-01 Route: IM, l 18:34: Drug form: PDR/INJ, PRN, Dosing Weight 50, kg, PRN Blood Glucose Results, Start date: 09/01/21 13:34:00 CDT, Duration: 30 day, Stop date: 10/01/21 13:33:00 CDT, 0 potassium No Notes: Memori a chloride 09-01 (Same as: l 18:34: KCL) magnesium No Notes: Memori a sulfate 09-01 WASTE: F/P l 18:34: - Sink; E [place] 00 - [facility] Bin potassium No Notes: Memori a phosphate + 09-01 (Same as: l Sodium 18:34: K [place] Chloride 00 Phosphate. 0.9% IV 245 ) Do not mL infuse phosphorou s concurrent ly in the same line as TPN or IVF that contains calcium. For double lumen central lines, phosphorou s may be infused in a separate lumen from TPN. 1 mMol phoshate has 1.47 mEq potassium Infuse over 4 hours potassium No Notes: Memori a phosphate + 09-01 (Same as: l Sodium 18:34: K [place] Chloride 00 Phosphate. 0.9% IV 240 ) Do not mL infuse phosphorou s concurrent ly in the same line as TPN or IVF that contains calcium. For double lumen central lines, phosphorou s may be infused in a separate lumen from TPN. 1 mMol phoshate has 1.47 mEq potassium Infuse over 4 hours Lactated No 1,000 mL, Carlos coco Ringers IV 09-01 Rate: 250 l 1,000 mL 18:34: ml/hr, [place] 00 Infuse over: 4 hr, Route: IV, Dosing Weight 50 kg, Total Volume: 1,000, Start date: 09/01/21 13:34:00 CDT, Duration: 30 day, Stop date: 10/01/21 13:33:00 CDT, BSA: 1.52 m2, 0 D5LR 1,000 No 1,000 mL, Me moria mL 09-01 Rate: 250 l 18:34: ml/hr, [place] 00 Infuse over: 4 hr, Route: IV, Dosing [...] Syringe 09-01 Route: l (D50W) 18:34: IVP, [place] 00 Dosing Weight 50, kg, PRN, PRN Blood Glucose Results, Start date: 09/01/21 13:34:00 CDT, Duration: 30 day, Stop date: 10/01/21 13:33:00 CDT glucagon No 1 mg, Memoria 09-01 Route: IM, l 18:34: Drug form: [place] 00 PDR/INJ, PRN, Dosing Weight 50, kg, PRN Blood Glucose Results, Start date: 09/01/21 13:34:00 CDT, Duration: 30 day, Stop date: 10/01/21 13:33:00 CDT, 0 potassium No Notes: Memori a chloride 09-01 (Same as: l 18:34: KCL) [place] 00 magnesium No Notes: Memori a sulfate 09-01 WASTE: F/P l 18:34: - Sink; E [place] 00 - [facility] Trash Bin potassium No Notes: Memori a [...] potassium No Notes: Memori a phosphate + -29 (Same as: l Sodium 18:34: K [place] Chloride 00 Phosphate. 0.9% IV 240 ) Do not mL infuse phosphorou s concurrent ly in the same line as TPN or IVF that contains calcium. For double lumen central lines, phosphorou s may be infused in a separate lumen from TPN. 1 mMol phoshate has 1.47 mEq potassium Infuse over 4 hours Lactated No 1,000 mL, Carlos coco Ringers - 1000 l (Bolus) IV 18:09: ml/hr, [place] nn 00 Infuse Over: 1 hr, Route: IV, 1,000, Drug form: INJ, ONCE, Priority: STAT, Dosing Weight 50 kg, Start date: 09/01/21 13:09:00 CDT, Stop date: 09/01/21 13:09:00 CDT, 0 Lactated 2022-0 No 1,000 mL, Carlos coco Ringers 4-29 1000 l (Bolus) IV 18:09: ml/hr, [place] nn 00 Infuse Over: 1 hr, Route: IV, 1,000, Drug form: INJ, ONCE, Priority: STAT, Dosing Weight 50 kg, Start date: 09/01/21 13:09:00 CDT, Stop date: 09/01/21 13:09:00 CDT, 0 Lactated 2022-0 No 1,000 mL, Carlos coco Ringers 4-29 1000 l (Bolus) IV 18:09: ml/hr, [place] nn 00 Infuse Over: 1 hr, Route: IV, 1,000, Drug form: INJ, ONCE, Priority: STAT, Dosing Weight 50 kg, Start date: 09/01/21 13:09:00 CDT, Stop date: 09/01/21 13:09:00 CDT, 0 Lactated 2022-0 No 1,000 mL, Calros coco Ringers 4-29 1000 l (Bolus) IV 18:09: ml/hr, [place] nn 00 Infuse Over: 1 hr, Route: IV, 1,000, Drug form: INJ, ONCE, Priority: STAT, Dosing Weight 50 kg, Start date: 09/01/21 13:09:00 CDT, Stop date: 09/01/21 13:09:00 CDT, 0 Lactated 2022-0 No 1,000 mL, Carlos coco Ringers 4-29 1000 l (Bolus) IV 18:09: ml/hr, [place] nn 00 Infuse Over: 1 hr, Route: IV, 1,000, Drug form: INJ, ONCE, Priority: STAT, Dosing Weight 50 kg, Start date: 09/01/21 13:09:00 CDT, Stop date: 09/01/21 13:09:00 CDT, 0 Lactated 2022-0 No 1,000 mL, Carlos coco Ringers 4-29 Infuse l (Bolus) IV 16:02: Over: 1 Herm coral 00 hr, Route: IV, ONCE, Priority: STAT, Dosing Weight 50 kg, Start date: 09/01/21 11:02:00 CDT, Stop date: 09/01/21 11:02:00 CDT ondansetron 2-0 No 4 mg, Memor ia 4- Route: l 16:02: IVP, Drug [place] 00 form: INJ, ONCE, Dosing Weight 50, kg, Priority: STAT, Start date: 09/01/21 11:02:00 CDT, Stop date: 09/01/21 11:02:00 CDT Lactated 2022-0 No 1,000 mL, Carlos coco Ringers 4-29 Infuse l (Bolus) IV 16:02: Over: 1 [place] 00 hr, Route: IV, ONCE, Priority: STAT, Dosing Weight 50 kg, Start date: 09/01/21 11:02:00 CDT, Stop date: 09/01/21 11:02:00 CDT ondansetron 2-0 No 4 mg, Memor ia - Route: l 16:02: IVP, Drug [place] 00 form: INJ, ONCE, Dosing Weight 50, kg, Priority: STAT, Start date: 09/01/21 11:02:00 CDT, Stop date: 09/01/21 11:02:00 CDT Lactated 2022-0 No 1,000 mL, Carlos coco Ringers 4-29 Infuse l (Bolus) IV 16:02: Over: 1 [place] 00 hr, Route: IV, ONCE, Priority: STAT, Dosing Weight 50 kg, Start date: 09/01/21 11:02:00 CDT, Stop date: 09/01/21 11:02:00 CDT ondansetron 2-0 No 4 mg, Memor ia - Route: l 16:02: IVP, Drug [place] 00 form: INJ, ONCE, Dosing Weight 50, kg, Priority: STAT, Start date: 09/01/21 11:02:00 CDT, Stop date: 09/01/21 11:02:00 CDT Lactated 2022-0 No 1,000 mL, Carlos coco Ringers 4-29 Infuse l (Bolus) IV 16:02: Over: 1 [place] 00 hr, Route: IV, ONCE, Priority: STAT, Dosing Weight 50 kg, Start date: 09/01/21 11:02:00 CDT, Stop date: 09/01/21 11:02:00 CDT ondansetron 2022-0 No 4 mg, Memor ia 4-29 Route: l 16:02: IVP, Drug [place] 00 form: INJ, ONCE, Dosing Weight 50, kg, Priority: STAT, Start date: 09/01/21 11:02:00 CDT, Stop date: 09/01/21 11:02:00 CDT Lactated 2-0 No 1,000 mL, Carlos coco Ringers 4-29 Infuse l (Bolus) IV 16:02: Over: 1 Herm [place] 00 hr, Route: IV, ONCE, Priority: STAT, Dosing Weight 50 kg, Start date: 09/01/21 11:02:00 CDT, Stop date: 09/01/21 11:02:00 CDT ondansetron 2022-0 No 4 mg, Memor ia 09-01 Route: l 16:02: IVP, Drug [place] form: INJ, ONCE, Dosing Weight 50, kg, Priority: STAT, Start date: 09/01/21 11:02:00 CDT, Stop date: 09/01/21 11:02:00 CDT Sodium 2022-0 No 1,000 mL, Memori a Chloride 4-29 Infuse l 0.9% 16:01: Over: 1 [place] (Bolus) IV 00 hr, Route: IV, ONCE, Priority: STAT, Dosing Weight 50 kg, Start date: 09/01/21 11:01:00 CDT, Stop date: 09/01/21 11:01:00 CDT Sodium 2022-0 No 1,000 mL, Memori a Chloride 4-29 Infuse l 0.9% 16:01: Over: 1 [place] (Bolus) IV 00 hr, Route: IV, ONCE, Priority: STAT, Dosing Weight 50 kg, Start date: 09/01/21 11:01:00 CDT, Stop date: 09/01/21 11:01:00 CDT Sodium 2022-0 No 1,000 mL, Memori a Chloride 4-29 Infuse l 0.9% 16:01: Over: 1 [place] (Bolus) IV 00 hr, Route: IV, ONCE, Priority: STAT, Dosing Weight 50 kg, Start date: 09/01/21 11:01:00 CDT, Stop date: 09/01/21 11:01:00 CDT Sodium 2022-0 No 1,000 mL, Memori a Chloride 4-29 Infuse l 0.9% 16:01: Over: 1 [place] (Bolus) IV 00 hr, Route: IV, ONCE, Priority: STAT, Dosing Weight 50 kg, Start date: 09/01/21 11:01:00 CDT, Stop date: 09/01/21 11:01:00 CDT Sodium 2022-0 No 1,000 mL, Memori a Chloride 4-29 Infuse l 0.9% 16:01: Over: 1 [place] (Bolus) IV 00 hr, Route: IV, ONCE, Priority: STAT, Dosing Weight 50 kg, Start date: 09/01/21 11:01:00 CDT, Stop date: 09/01/21 11:01:00 CDT Sodium 2022-0 No 1,000 mL, Memori a Chloride 4-29 1000 l 0.9% 15:28: ml/hr, [place] (Bolus) IV 00 Infuse Over: 1 hr, Route: IV, 1,000, Drug form: INJ, ONCE, Priority: STAT, Dosing Weight 50 kg, Start date: 09/01/21 10:28:00 CDT, Stop date: 09/01/21 10:28:00 CDT, 0 Sodium 2022-0 No 1,000 mL, Memori a Chloride 4-29 1000 l 0.9% 15:28: ml/hr, [place] (Bolus) IV 00 Infuse Over: 1 hr, Route: IV, 1,000, Drug form: INJ, ONCE, Priority: STAT, Dosing Weight 50 kg, Start date: 09/01/21 10:28:00 CDT, Stop date: 09/01/21 10:28:00 CDT, 0 Sodium 2022-0 No 1,000 mL, Memori a Chloride 4-29 1000 l 0.9% 15:28: ml/hr, [place] (Bolus) IV 00 Infuse Over: 1 hr, Route: IV, 1,000, Drug form: INJ, ONCE, Priority: STAT, Dosing Weight 50 kg, Start date: 09/01/21 10:28:00 CDT, Stop date: 09/01/21 10:28:00 CDT, 0 Sodium 2022-0 No 1,000 mL, Memori a Chloride 4-29 1000 l 0.9% 15:28: ml/hr, [place] (Bolus) IV 00 Infuse Over: 1 hr, Route: IV, 1,000, Drug form: INJ, ONCE, Priority: STAT, Dosing Weight 50 kg, Start date: 09/01/21 10:28:00 CDT, Stop date: 09/01/21 10:28:00 CDT, 0 Sodium 2021-0 No 1,000 mL, Memori a Chloride 4-29 1000 l 0.9% 15:28: ml/hr, [place] (Bolus) IV 00 Infuse Over: 1 hr, Route: IV, 1,000, Drug form: INJ, ONCE, Priority: STAT, Dosing Weight 50 kg, Start date: 09/01/21 10:28:00 CDT, Stop date: 09/01/21 10:28:00 CDT, 0 aspirin 81 0 Yes 81mg Take 81 mg U nivers mg chewable 9-08 by mouth ity of tablet 18:57: daily. [address] acetaZOLAMI Yes 250mg Take 250 U nivers DE 250 mg 9-08 mg by ity of tablet 18:57: mouth [place] [address] daily. Medical Branch escitalopra Yes 10mg Take 10 mg Univers m oxalate 9-08 by mouth ity of 10 mg 18:57: daily. [address] calcium-vit Yes Take by Uni vers gifford D 500 9-08 mouth ity of mg(1,250mg) 18:57[place] 11 [facility] per tablet Branch vitamin Yes 1000ug Take 1,000 Un josse B-12 1,000 9-08 mcg by ity of mcg tablet 18:57: mouth [place] [address] daily. Medical Branch donepeziL Yes 10mg Take 10 mg Un josse 10 mg 9-08 by mouth ity of tablet 18:57: daily. [address] foLIC acid Yes 1mg Take 1 mg Un josse 1 mg tablet 9-08 by mouth ity of 18:57: daily. [address] insulin 0 Yes 30U inject 30 Unive rs glargine,hu [...] the [place] injection 11 skin Medical before Branch meals and at [...] by mouth ity of tablet 18:57: daily. [address] Branch medroxyPROG Yes 2.5mg Take 2.5 [...] ity o f tablet 18:57: daily. EC [place] [address] Medical Branch atorvastati Yes 20mg Take 20 mg Univers n 20 mg 9-08 by mouth ity of tablet 18:57: at [place] [address] bedtime. Medical Branch aspirin 81 Yes 81mg Take 81 mg U nivers mg chewable 9-08 by mouth ity of tablet 18:57: daily. [address] Branch acetaZOLAMI Yes 250mg Take 250 U nivers DE 250 mg 9-08 mg by ity of tablet 18:57: mouth [place] 11 daily. Medical Branch escitalopra Yes 10mg Take 10 mg Univers m oxalate 9-08 by mouth ity of 10 mg 18:57: daily. [place] tablet 11 [facility] Branch calcium-vit Yes Take by Uni vers gifford D 500 9-08 mouth ity of mg(1,250mg) 18:57: daily. [place] -200 unit 11 Medical per tablet Branch vitamin Yes 1000ug Take 1,000 Un josse B-12 1,000 9-08 mcg by ity of mcg tablet 18:57: mouth [place] 11 daily. [facility] Branch donepeziL Yes 10mg Take 10 mg Un josse 10 mg 9-08 by mouth ity of tablet 18:57: daily. [address] foLIC acid Yes 1mg Take 1 mg Un josse 1 mg tablet 9-08 by mouth ity of 18:57: daily. [address] insulin Yes 30U inject 30 Unive rs glargine,hu 9-08 Units ity of m.rec.anlog 18:57: under the [place] 11 skin every Me dical morning. [place] Morning insulin Yes 10U inject 10 Unive rs glargine,hu 9-08 Units ity of m.rec.anlog 18:57: under the [place] 11 skin every Me dical evening. [place] insulin Yes 10U inject 10 Unive rs lispro, 9-08 Units ity of human, 18:57: under the [place] injection 11 skin Medical before [place] meals and at bedtime. Humalog SITagliptin Yes 100mg Take 100 U nivers (JANUVIA) 9-08 mg by ity of 100 mg 18:57: mouth [place] tablet 11 daily. [facility] Branch Levothyroxi Yes 75ug Take 75 Uni vers ne 75 mcg 9-08 mcg by ity of capsule 18:57: mouth [place] 11 daily. [facility] lisinopriL Yes 5mg Take 5 mg Un josse 10 mg 9-08 by mouth ity of tablet 18:57: daily. [address] medroxyPROG Yes 2.5mg Take 2.5 U nivers ESTERone 9-08 mg by ity of 2.5 mg 18:57: mouth [place] tablet 11 daily. Medical Branch meloxicam Yes 7.5mg Take 7.5 Uni vers 7.5 mg 9-08 mg by ity of tablet 18:57: mouth [place] 11 daily. Medical Branch pantoprazol Yes 40mg Take 40 mg Univers e 40 mg EC 08 by mouth ity o f tablet 18:57: daily. EC [place] [address] [facility] Branch atorvastati Yes 20mg Take 20 mg Univers n 20 mg 9-08 by mouth ity of tablet 18:57: at [place] [address] bedtime. Medical Branch aspirin 81 Yes 81mg Take 81 mg U nivers mg chewable 9-08 by mouth ity of tablet 18:57: daily. [place] [address] Medical Branch acetaZOLAMI Yes 250mg Take 250 U nivers DE 250 mg 9-08 mg by ity of tablet 18:57: mouth [place] 11 daily. Medical Branch escitalopra Yes 10mg Take 10 mg Univers m oxalate 908 by mouth ity of 10 mg 18:57: daily. [place] [id number] Medical Branch calcium-vit Yes Take by Uni vers gifford D 500 9-08 mouth ity of mg(1,250mg) 18:57: [place]. [place] -200 unit Medical per tablet Branch vitamin Yes 1000ug Take 1,000 Un josse B-12 1,000 9-08 mcg by ity of mcg tablet 18:57: mouth [place] 11 daily. Medical [facility] donepeziL Yes 10mg Take 10 mg Un josse 10 mg 9-08 by mouth ity of tablet 18:57: daily. [place] [address] Medical Branch foLIC acid Yes 1mg Take 1 mg Un josse 1 mg tablet 9-08 by mouth ity of 18:57: daily. [address] Branch insulin Yes 30U inject 30 [...] the [place] injection 11 skin Medical before Branch meals and at [...] by mouth ity of tablet 18:57: daily. [place] [address] Medical Branch medroxyPROG Yes 2.5mg Take 2.5 [...] ity o f tablet 18:57: daily. EC [place] [address] [facility] Branch atorvastati Yes 20mg Take 20 mg Univers n 20 mg 9-08 by mouth ity of tablet 18:57: at [place] [address] bedtime. Medical Branch aspirin 81 Yes 81mg Take 81 mg U nivers mg chewable 9-08 by mouth ity of tablet 18:57: daily. [place] [address] Medical Branch acetaZOLAMI Yes 250mg Take 250 U nivers DE 250 mg 9-08 mg by ity of tablet 18:57: mouth [place] 11 daily. Medical Branch escitalopra Yes 10mg Take 10 mg Univers m oxalate 9-08 by mouth ity of 10 mg 18:57: daily. [place] [id number] Medical Branch calcium-vit Yes Take by Uni vers gifford D 500 9-08 mouth ity of mg(1,250mg) 18:57[place] unit 11 [facility] per tablet Branch vitamin Yes 1000ug Take 1,000 Un josse B-12 1,000 9-08 mcg by ity of mcg tablet 18:57: mouth [place] 11 daily. [facility] Branch donepeziL Yes 10mg Take 10 mg Un josse 10 mg 9-08 by mouth ity of tablet 18:57: daily. [address] foLIC acid Yes 1mg Take 1 mg Un josse 1 mg tablet 9-08 by mouth ity of 18:57: daily. [address] insulin Yes 30U inject 30 Unive rs glargine,hu 9-08 Units ity of m.rec.anlog 18:57: under the [place] 11 skin every Me dical morning. [place] Morning insulin Yes 10U inject 10 Unive rs glargine,hu 9-08 Units ity of .rec.anlog 18:57: under the [place] 11 skin every Me dical evening. [place] insulin Yes 10U inject 10 Unive rs lispro, 9-08 Units ity of human, 18:57: under the [place] injection 11 skin Medical before [place] meals and at bedtime. Humalog SITagliptin Yes 100mg Take 100 U nivers (JANUVIA) 9-08 mg by ity of 100 mg 18:57: mouth [place] tablet 11 daily. [facility] Levothyroxi Yes 75ug Take 75 Uni vers ne 75 mcg 9-08 mcg by ity of capsule 18:57: mouth [place] 11 daily. [facility] lisinopriL Yes 5mg Take 5 mg Un josse 10 mg 9-08 by mouth ity of tablet 18:57: daily. [address] medroxyPROG Yes 2.5mg Take 2.5 U nivers ESTERone 9-08 mg by ity of 2.5 mg 18:57: mouth [place] tablet 11 daily. [facility] meloxicam Yes 7.5mg Take 7.5 Uni vers 7.5 mg 9-08 mg by ity of tablet 18:57: mouth [place] 11 daily. [facility] pantoprazol Yes 40mg Take 40 mg Univers e 40 mg EC 9-08 by mouth ity o f tablet 18:57: daily. EC [place] [address] Medical Branch atorvastati Yes 20mg Take 20 mg Univers n 20 mg 9-08 by mouth ity of tablet 18:57: at [place] [address] bedtime. Medical Branch aspirin 81 Yes 81mg Take 81 mg U nivers mg chewable 9-08 by mouth ity of tablet 18:57: daily. [address] Branch acetaZOLAMI Yes 250mg Take 250 U nivers DE 250 mg 9-08 mg by ity of tablet 18:57: mouth [place] [address] daily. Medical Branch escitalopra Yes 10mg Take 10 mg Univers m oxalate 08 by mouth ity of 10 mg 18:57: daily. [address] Branch calcium-vit Yes Take by Uni vers [place] D 500 9-08 mouth ity of mg(1,250mg) 18:57: [place]. [place]200 unit [place] per tablet Branch vitamin Yes 1000ug Take 1,000 Un josse B-12 1,000 9-08 mcg by ity of mcg tablet 18:57: mouth [place] [address] daily. [facility] Branch donepeziL Yes 10mg Take 10 mg Un josse 10 mg 9-08 by mouth ity of tablet 18:57: daily. [address] foLIC acid Yes 1mg Take 1 mg Un josse 1 mg tablet 9-08 by mouth ity of 18:57: daily. [address] insulin Yes 30U inject 30 Unive [...] Units ity of human, 18:57: under the [place] [address] skin Medical before Branch meals and at [...] by mouth ity of tablet 18:57: daily. [place] [address] Medical Branch medroxyPROG Yes 2.5mg Take 2.5 [...] ity o f tablet 18:57: daily. EC [place] [address] Medical Branch atorvastati Yes 20mg Take 20 mg Univers n 20 mg 9-08 by mouth ity of tablet 18:57: at [place] [address] bedtime. Medical Branch aspirin 81 Yes 81mg Take 81 mg U nivers mg chewable 9-08 by mouth ity of tablet 18:57: daily. [place] [address] Medical Branch acetaZOLAMI Yes 250mg Take 250 U nivers DE 250 mg 9-08 mg by ity of tablet 18:57: mouth [place] 11 daily. Medical Branch escitalopra Yes 10mg Take 10 mg Univers m oxalate 9-08 by mouth ity of 10 mg 18:57: daily. [facility] 11 Medical Branch calcium-vit Yes Take by Uni vers [place] D 500 9-08 mouth ity of mg(1,250mg) 18:57: [place]. [place] unit 11 Medical per tablet Branch vitamin Yes 1000ug Take 1,000 Un josse B-12 1,000 9-08 mcg by ity of mcg tablet 18:57: mouth [place] 11 daily. Medical Branch donepeziL Yes 10mg Take 10 mg Un [place]osse 10 mg 9-08 by mouth ity of tablet 18:57: daily. [address] Branch foLIC acid Yes 1mg Take 1 mg Un josse 1 mg tablet 9-08 by mouth ity of 18:57: daily. [address] Branch insulin Yes 30U inject 30 [...] the [place] injection 11 skin Medical before [place] meals and at bedtime. Humalog SITagliptin Yes [...] by mouth ity of tablet 18:57: daily. [address] Branch medroxyPROG Yes 2.5mg Take 2.5 [...] ity o f tablet 18:57: daily. EC [place] [address] Medical Branch atorvastati Yes 20mg Take 20 mg Univers n 20 mg 9-08 by mouth ity of tablet 18:57: at [place] [address] bedtime. Medical Branch aspirin 81 Yes 81mg Take 81 mg U nivers mg chewable 9-08 by mouth ity of tablet 18:57: daily. [address] Branch acetaZOLAMI Yes 250mg Take 250 U [...] mcg tablet 18:57: mouth [place] 11 daily. [facility] donepeziL Yes 10mg Take 10 mg Un josse 10 mg 9-08 by mouth ity of tablet 18:57: daily. [address] foLIC acid Yes 1mg Take 1 mg Un josse 1 mg tablet 9-08 by mouth ity of 18:57: daily. [address] insulin Yes 30U inject 30 Unive rs glargine,hu 9-08 Units ity of m.rec.anlog 18:57: under the [place] 11 skin every Me dical morning. [place] Morning insulin Yes 10U inject 10 Unive rs glargine,hu 9-08 Units ity of m.rec.anlog 18:57: under the [place] 11 skin every Me dical evening. [place] insulin Yes 10U inject 10 Unive rs lispro, 9-08 Units ity of human, 18:57: under the [place] injection 11 skin Medical before [place] meals and at bedtime. Humalog SITagliptin Yes [...] by mouth ity of tablet 18:57: daily. [place] [address] Medical Branch medroxyPROG Yes 2.5mg Take 2.5 [...] ity o f tablet 18:57: daily. EC [place] [address] Medical Branch atorvastati Yes 20mg Take 20 mg Univers n 20 mg 9-08 by mouth ity of tablet 18:57: at [place] [address] bedtime. Medical Branch aspirin 81 Yes 81mg Take 81 mg U nivers mg chewable 9-08 by mouth ity of tablet 18:57: daily. [place] [address] Medical Branch acetaZOLAMI Yes 250mg Take 250 U nivers [place] 250 mg 9-08 mg by ity of tablet 18:57: mouth [place] 11 daily. Medical Branch escitalopra Yes 10mg Take 10 mg Univers m oxalate 9-08 by mouth ity of 10 mg 18:57: daily. [address] Branch calcium-vit Yes Take by Uni vers [place] D 500 9-08 mouth ity of mg(1,250mg) 18:57: [place]. [place] 11 Medical per tablet Branch vitamin Yes 1000ug Take 1,000 Un josse B-12 1,000 9-08 mcg by ity of mcg tablet 18:57: mouth [place] [address] daily. Medical Branch donepeziL Yes 10mg Take 10 mg Un josse 10 mg 9-08 by mouth ity of tablet 18:57: daily. [place] [address] Medical Branch foLIC acid Yes 1mg Take 1 mg Un josse 1 mg tablet 9-08 by mouth ity of 18:57: daily. [place] [address] Medical Branch insulin Yes 30U inject 30 Unive [...] the [place] injection 11 skin Medical before [place] meals and at bedtime. Humalog SITagliptin Yes [...] by mouth ity of tablet 18:57: daily. [place] [address] Medical Branch medroxyPROG Yes 2.5mg Take 2.5 [...] ity o f tablet 18:57: daily. EC [place] [address] Medical Branch atorvastati Yes 20mg Take 20 mg Univers n 20 mg 9-08 by mouth ity of tablet 18:57: at [place] [address] bedtime. Medical Branch aspirin 81 Yes 81mg Take 81 mg U nivers mg chewable 9-08 by mouth ity of tablet 18:57: daily. [place] [address] Medical Branch acetaZOLAMI Yes 250mg Take 250 U nivers DE 250 mg 9-08 mg by ity of tablet 18:57: mouth [place] 11 daily. Medical Branch escitalopra Yes 10mg Take 10 mg Univers m oxalate 908 by mouth ity of 10 mg 18:57: daily. [place] tablet 11 [facility] calcium-vit Yes Take by Uni vers [place] D 500 9-08 mouth ity of mg(1,250mg) 18:57: daily. [place] -[place] unit 11 Medical per tablet Branch vitamin Yes 1000ug Take 1,000 Un josse B-12 1,000 9-08 mcg by ity of mcg tablet 18:57: mouth [place] 11 daily. [facility] donepeziL Yes 10mg Take 10 mg Un [place]osse 10 mg 9-08 by mouth ity of tablet 18:57: daily. [address] foLIC acid Yes 1mg Take 1 mg Un [place]osse 1 mg tablet 908 by mouth ity of 18:57: daily. [address] insulin Yes 30U inject 30 Unive rs glargine,hu 9-08 Units ity of m.rec.anlog 18:57: under the [place] 11 skin every Me dical morning. [place] Morning insulin Yes 10U inject 10 Unive rs glargine,hu 9-08 Units ity of m.rec.anlog 18:57: under the [place] 11 skin every Me dical evening. [place] insulin Yes 10U inject 10 Unive rs lispro, 9-08 Units ity of human, 18:57: under the [place] injection 11 skin Medical before [place] meals and at bedtime. Humalog SITagliptin Yes 100mg Take 100 U nivers (JANUVIA) 9-08 mg by ity of 100 mg 18:57: mouth [place] tablet 11 daily. [facility] Levothyroxi Yes 75ug Take 75 Uni vers ne 75 mcg 9-08 mcg by ity of capsule 18:57: mouth [place] 11 daily. [facility] lisinopriL Yes 5mg Take 5 mg Un josse 10 mg 9-08 by mouth ity of tablet 18:57: daily. [address] medroxyPROG Yes 2.5mg Take 2.5 U nivers ESTERone 9-08 mg by ity of 2.5 mg 18:57: mouth [place] tablet 11 daily. Medical Branch meloxicam Yes 7.5mg Take 7.5 Uni vers 7.5 mg 9-08 mg by ity of tablet 18:57: mouth [place] 11 daily. Medical Branch pantoprazol Yes 40mg Take 40 mg Univers e 40 mg EC 08 by mouth ity o f tablet 18:57: daily. EC [place] [address] Medical Branch atorvastati Yes 20mg Take 20 mg Univers n 20 mg 9-08 by mouth ity of tablet 18:57: at [place] [address] bedtime. Medical Branch aspirin 81 Yes 81mg Take 81 mg U nivers mg chewable 9-08 by mouth ity of tablet 18:57: daily. [place] [address] Medical Branch acetaZOLAMI Yes 250mg Take 250 U nivers DE 250 mg 9-08 mg by ity of tablet 18:57: mouth [place] [address] daily. Medical Branch escitalopra Yes 10mg Take 10 mg Univers m oxalate 908 by mouth ity of 10 mg 18:57: daily. [place] [address] Medical Branch calcium-vit Yes Take by Uni vers [place] D 500 9-08 mouth ity of mg(1,250mg) 18:57: daily. [place] unit 11 Medical per tablet Branch vitamin Yes 1000ug Take 1,000 Un josse B-12 1,000 9-08 mcg by ity of mcg tablet 18:57: mouth [place] [address] daily. Medical Branch donepeziL Yes 10mg Take 10 mg Un josse 10 mg 9-08 by mouth ity of tablet 18:57: daily. [address] Branch foLIC acid Yes 1mg Take 1 mg Un josse 1 mg tablet 9-08 by mouth ity of 18:57: daily. [address] Branch insulin Yes 30U inject 30 [...] the [place] injection 11 skin Medical before [place] meals and at bedtime. Humalog SITagliptin Yes [...] by mouth ity of tablet 18:57: daily. [place] [address] Medical Branch medroxyPROG Yes 2.5mg Take 2.5 U nivers ESTERone 9-08 mg by ity of 2.5 mg 18:57: mouth [place] tablet 11 daily. Medical Branch meloxicam Yes 7.5mg Take 7.5 Uni vers 7.5 mg 9-08 mg by ity of tablet 18:57: mouth [place] 11 daily. Medical Branch pantoprazol Yes 40mg Take 40 mg Univers e 40 mg EC 08 by mouth ity o f tablet 18:57: daily. EC [place] [address] Medical Branch atorvastati Yes 20mg Take 20 mg Univers n 20 mg 9-08 by mouth ity of tablet 18:57: at [place] [address] bedtime. Medical Branch aspirin 81 Yes 81mg Take 81 mg U nivers mg chewable 908 by mouth ity of tablet 18:57: daily. [place] [address] Medical Branch acetaZOLAMI Yes 250mg Take 250 U nivers DE 250 mg 9-08 mg by ity of tablet 18:57: mouth [place] 11 daily. Medical Branch escitalopra Yes 10mg Take 10 mg Univers m oxalate 08 by mouth ity of 10 mg 18:57: daily. [place] [address] Medical Branch calcium-vit Yes Take by Uni vers [place] D 500 908 mouth ity of mg(1,250mg) 18:57: daily. [place] -200 unit 11 Medical per tablet Branch vitamin Yes 1000ug Take 1,000 Un josse B-12 1,000 9-08 mcg by ity of mcg tablet 18:57: mouth [place] 11 daily. [facility] donepeziL Yes 10mg Take 10 mg Un josse 10 mg 9-08 by mouth ity of tablet 18:57: daily. [address] foLIC acid Yes 1mg Take 1 mg Un josse 1 mg tablet 9-08 by mouth ity of 18:57: daily. [address] insulin Yes 30U inject 30 Unive rs glargine,hu 9-08 Units ity of m.rec.anlog 18:57: under the [place] 11 skin every Me dical morning. [place] Morning insulin Yes 10U inject 10 Unive rs glargine,hu 9-08 Units ity of .rec.anlog 18:57: under the [place] ([place] 11 skin every Me dical evening. [place] insulin Yes 10U inject 10 Unive rs lispro, 9-08 Units ity of human, 18:57: under the [place] injection 11 skin Medical before Branch meals and at bedtime. Humalog SITagliptin Yes 100mg Take 100 U nivers (JANUVIA) 9-08 mg by ity of 100 mg 18:57: mouth [place] tablet 11 daily. [facility] Levothyroxi Yes 75ug Take 75 Uni vers ne 75 mcg 9-08 mcg by ity of capsule 18:57: mouth [place] 11 daily. [facility] lisinopriL Yes 5mg Take 5 mg Un josse 10 mg 9-08 by mouth ity of tablet 18:57: daily. [address] medroxyPROG Yes 2.5mg Take 2.5 U nivers ESTERone 9-08 mg by ity of 2.5 mg 18:57: mouth [place] tablet 11 daily. [facility] meloxicam Yes 7.5mg Take 7.5 Uni vers 7.5 mg 9-08 mg by ity of tablet 18:57: mouth [place] 11 daily. [facility] pantoprazol Yes 40mg Take 40 mg Univers e 40 mg EC 01-11 by mouth ity o f tablet 18:57: daily. EC [place] [address] Medical Branch atorvastati Yes 20mg Take 20 mg Univers n 20 mg 9-08 by mouth ity of tablet 18:57: at [place] [address] bedtime. Medical Branch aspirin 81 Yes 81mg Take 81 mg U nivers mg chewable 908 by mouth ity of tablet 18:57: daily. [place] [address] Medical Branch acetaZOLAMI Yes 250mg Take 250 U nivers DE 250 mg 9-08 mg by ity of tablet 18:57: mouth [place] [address] daily. Medical Branch escitalopra Yes 10mg Take 10 mg Univers m oxalate 08 by mouth ity of 10 mg 18:57: daily. [address] Branch calcium-vit Yes Take by Uni vers [place] D 500 908 mouth ity of mg(1,250mg) 18:57: daily. [place] unit 11 Medical per tablet Branch vitamin Yes 1000ug Take 1,000 Un josse B-12 1,000 9-08 mcg by ity of mcg tablet 18:57: mouth [place] [address] daily. Medical Branch donepeziL Yes 10mg Take 10 mg Un josse 10 mg 9-08 by mouth ity of tablet 18:57: daily. [address] foLIC acid Yes 1mg Take 1 mg Un josse 1 mg tablet 908 by mouth ity of 18:57: daily. [address] Branch insulin Yes 30U inject 30 Unive rs glargine,hu 9-08 Units ity of m.rec.anlog 18:57: under the [place] ([place] 11 skin every Me dical morning. [place] Morning insulin Yes 10U inject 10 Unive rs glargine,hu 9-08 Units ity of m.rec.anlog 18:57: under the [place] ([place] 11 skin every Me dical evening. [place] insulin Yes 10U inject 10 Unive rs lispro, 9-08 Units ity of human, 18:57: under the [place] injection 11 skin Medical before Branch meals and at [...] by mouth ity of tablet 18:57: daily. [place] [address] Medical Branch medroxyPROG Yes 2.5mg Take 2.5 [...] ity o f tablet 18:57: daily. EC [place] [address] Medical Branch atorvastati Yes 20mg Take 20 mg Univers n 20 mg 9-08 by mouth ity of tablet 18:57: at [place] [address] bedtime. Medical Branch aspirin 81 Yes 81mg Take 81 mg U nivers mg chewable 9-08 by mouth ity of tablet 18:57: daily. [place] [address] Medical Branch acetaZOLAMI Yes 250mg Take 250 U nivers DE 250 mg 9-08 mg by ity of tablet 18:57: mouth [place] 11 daily. Medical Branch escitalopra Yes 10mg Take 10 mg Univers m oxalate 9-08 by mouth ity of 10 mg 18:57: daily. [facility] 11 Medical Branch calcium-vit Yes Take by Uni vers [place] D 500 9-08 mouth ity of mg(1,250mg) 18:57: daily. [place] -200 unit 11 Medical per tablet Branch vitamin Yes 1000ug Take 1,000 Un josse B-12 1,000 9-08 mcg by ity of mcg tablet 18:57: mouth [place] 11 daily. Medical Branch donepeziL Yes 10mg Take 10 mg Un josse 10 mg 9-08 by mouth ity of tablet 18:57: daily. [address] Branch foLIC acid Yes 1mg Take 1 mg Un josse 1 mg tablet 9-08 by mouth ity of 18:57: daily. [address] insulin Yes 30U inject 30 Unive rs glargine,hu 9-08 Units ity of m.rec.anlog 18:57: under the [place] 11 skin every Me dical morning. [place] Morning insulin Yes 10U inject 10 Unive rs glargine,hu 9-08 Units ity of m.rec.anlog 18:57: under the [place] ([place] 11 skin every Me dical evening. [place] insulin Yes 10U inject 10 Unive rs lispro, 9-08 Units ity of human, 18:57: under the [place] injection 11 skin Medical before [place] meals and at bedtime. Humalog SITagliptin Yes 100mg Take 100 U nivers (JANUVIA) 9-08 mg by ity of 100 mg 18:57: mouth [place] tablet 11 daily. Medical Branch Levothyroxi Yes 75ug Take 75 Uni vers ne 75 mcg 9-08 mcg by ity of capsule 18:57: mouth [place] 11 daily. [facility] lisinopriL Yes 5mg Take 5 mg Un josse 10 mg 9-08 by mouth ity of tablet 18:57: daily. [address] medroxyPROG Yes 2.5mg Take 2.5 U [...] ity o f tablet 18:57: daily. EC [address] Branch atorvastati Yes 20mg Take 20 mg Univers n 20 mg 9-08 by mouth ity of tablet 18:57: at [place] [address] bedtime. Medical Branch aspirin 81 Yes 81mg Take 81 mg U nivers mg chewable 9-08 by mouth ity of tablet 18:57: daily. [place] [address] Medical Branch acetaZOLAMI Yes 250mg Take 250 U nivers DE 250 mg 9-08 mg by ity of tablet 18:57: mouth [place] [address] daily. Medical Branch escitalopra Yes 10mg Take 10 mg Univers m oxalate 9-08 by mouth ity of 10 mg 18:57: daily. [place] [address] Medical Branch calcium-vit Yes Take by Uni vers [place] D 500 9-08 mouth ity of mg(1,250mg) 18:57: daily. [place] -200 unit 11 Medical per tablet Branch vitamin Yes 1000ug Take 1,000 Un josse B-12 1,000 9-08 mcg by ity of mcg tablet 18:57: mouth [place] [address] daily. Medical Branch donepeziL Yes 10mg Take 10 mg Un josse 10 mg 9-08 by mouth ity of tablet 18:57: daily. [address] Branch foLIC acid Yes 1mg Take 1 mg Un josse 1 mg tablet 9-08 by mouth ity of 18:57: daily. [address] insulin Yes 30U inject 30 Unive rs glargine,hu 9-08 Units ity of m.rec.anlog 18:57: under the [place] 11 skin every Me dical morning. [place] Morning insulin Yes 10U inject 10 Unive rs glargine,hu 9-08 Units ity of m.rec.anlog 18:57: under the [place] 11 skin every Me dical evening. [place] insulin Yes 10U inject 10 Unive rs lispro, 9-08 Units ity of human, 18:57: under the [place] injection 11 skin Medical before [place] meals and at bedtime. Humalog SITagliptin Yes 100mg Take 100 U nivers (JANUVIA) 9-08 mg by ity of 100 mg 18:57: mouth [place] tablet 11 daily. Medical Branch Levothyroxi 2021-0 Yes 75ug Take 75 Uni vers ne 75 mcg 9-08 mcg by ity of capsule 18:57: mouth [place] 11 daily. Medical Branch lisinopriL Yes 5mg Take 5 mg Un josse 10 mg 9-08 by mouth ity of tablet 18:57: daily. [place] [address] Medical Branch medroxyPROG Yes 2.5mg Take 2.5 [...] ity o f tablet 18:57: daily. EC [place] [address] Medical Branch atorvastati Yes 20mg Take 20 mg Univers n 20 mg 9-08 by mouth ity of tablet 18:57: at [place] [address] bedtime. Medical Branch aspirin 81 Yes 81mg Take 81 mg U nivers mg chewable 9-08 by mouth ity of tablet 18:57: daily. [place] [address] Medical Branch acetaZOLAMI Yes 250mg Take 250 U nivers DE 250 mg 9-08 mg by ity of tablet 18:57: mouth [place] 11 daily. Medical Branch escitalopra Yes 10mg Take 10 mg Univers m oxalate 9-08 by mouth ity of 10 mg 18:57: daily. [place] [address] Medical Branch calcium-vit Yes Take by Uni vers [place] D 500 9-08 mouth ity of mg(1,250mg) 18:57: daily. [place] -200 unit 11 Medical per tablet Branch vitamin Yes 1000ug Take 1,000 Un josse B-12 1,000 9-08 mcg by ity of mcg tablet 18:57: mouth [place] [address] daily. Medical Branch donepeziL Yes 10mg Take 10 mg Un josse 10 mg 9-08 by mouth ity of tablet 18:57: daily. [place] [address] Medical Branch foLIC acid 0 Yes 1mg Take 1 mg Un josse 1 mg tablet 9-08 by mouth ity of 18:57: daily. [address] insulin Yes 30U inject 30 Unive [...] the [place] injection 11 skin Medical before Branch meals and at bedtime. Humalog SITagliptin Yes 100mg Take 100 U nivers (JANUVIA) 9-08 mg by ity of 100 mg 18:57: mouth [place] tablet 11 daily. [facility] Levothyroxi Yes 75ug Take 75 Uni vers ne 75 mcg 9-08 mcg by ity of capsule 18:57: mouth [place] 11 daily. [facility] lisinopriL Yes 5mg Take 5 mg Un josse 10 mg 9-08 by mouth ity of tablet 18:57: daily. [address] medroxyPROG Yes 2.5mg Take 2.5 U nivers ESTERone 9-08 mg by ity of 2.5 mg 18:57: mouth [place] tablet 11 daily. [facility] meloxicam Yes 7.5mg Take 7.5 Uni vers 7.5 mg 9-08 mg by ity of tablet 18:57: mouth [place] 11 daily. [facility] pantoprazol Yes 40mg Take 40 mg Univers e 40 mg EC 9-08 by mouth ity o f tablet 18:57: daily. EC [address] Branch atorvastati Yes 20mg Take 20 mg Univers n 20 mg 9-08 by mouth ity of tablet 18:57: at [place] 11 bedtime. [facility] aspirin 81 Yes 81mg Take 81 mg U nivers mg chewable 9-08 by mouth ity of tablet 18:57: daily. [address] acetaZOLAMI Yes 250mg Take 250 U nivers DE 250 mg 9-08 mg by ity of tablet 18:57: mouth [place] 11 daily. [facility] escitalopra Yes 10mg Take 10 mg Univers m oxalate 9-08 by mouth ity of 10 mg 18:57: daily. [place] tablet 11 [facility] calcium-vit Yes Take by Uni vers g[place] D 500 9-08 mouth ity of mg(1,250mg) 18:57: daily. [place] -200 unit 11 Medical per tablet Branch vitamin Yes 1000ug Take 1,000 Un josse B-12 1,000 9-08 mcg by ity of mcg tablet 18:57: mouth [place] 11 daily. [facility] donepeziL Yes 10mg Take 10 mg Un josse 10 mg 9-08 by mouth ity of tablet 18:57: daily. [address] foLIC acid Yes 1mg Take 1 mg Un josse 1 mg tablet 9-08 by mouth ity of 18:57: daily. [address] insulin Yes 30U inject 30 Unive rs glargine,hu 9-08 Units ity of m.rec.anlog 18:57: under the [place] 11 skin every Me dical morning. [place] Morning insulin Yes 10U inject 10 Unive rs glargine,hu 9-08 Units ity of m.rec.anlog 18:57: under the [place] 11 skin every Me dical evening. [place] insulin Yes 10U inject 10 Unive rs lispro, 9-08 Units ity of human, 18:57: under the [place] injection 11 skin Medical before [place] meals and at bedtime. Humalog SITagliptin Yes 100mg Take 100 U nivers (JANUVIA) 9-08 mg by ity of 100 mg 18:57: mouth [place] tablet 11 daily. [facility] Levothyroxi Yes 75ug Take 75 Uni vers ne 75 mcg 9-08 mcg by ity of capsule 18:57: mouth [place] 11 daily. [facility] lisinopriL Yes 5mg Take 5 mg Un josse 10 mg 9-08 by mouth ity of tablet 18:57: daily. [place] 11 Medical Branch medroxyPROG Yes 2.5mg Take 2.5 [...] ity o f tablet 18:57: daily. EC [place] [address] Medical Branch atorvastati Yes 20mg Take 20 mg Univers n 20 mg 9-08 by mouth ity of tablet 18:57: at [place] [address] bedtime. Medical Branch aspirin 81 Yes 81mg Take 81 mg U nivers mg chewable 908 by mouth ity of tablet 18:57: daily. [address] Branch acetaZOLAMI Yes 250mg Take 250 U nivers DE 250 mg 9-08 mg by ity of tablet 18:57: mouth [place] 11 daily. Medical Branch escitalopra Yes 10mg Take 10 mg Univers m oxalate 908 by mouth ity of 10 mg 18:57: daily. [address] calcium-vit Yes Take by Uni vers g[place]ord D 500 9-08 mouth ity of mg(1,250mg) 18:57: daily. [place] -200 unit 11 Medical per tablet [place] vitamin Yes 1000ug Take 1,000 Un josse B-12 1,000 9-08 mcg by ity of mcg tablet 18:57: mouth [place] [address] daily. Medical Branch donepeziL Yes 10mg Take 10 mg Un josse 10 mg 9-08 by mouth ity of tablet 18:57: daily. [address] foLIC acid Yes 1mg Take 1 mg Un josse 1 mg tablet 9-08 by mouth ity of 18:57: daily. [address] Branch insulin Yes 30U inject 30 [...] the [place] injection 11 skin Medical before Branch meals and at [...] by mouth ity of tablet 18:57: daily. [place] [address] Medical Branch medroxyPROG Yes 2.5mg Take 2.5 [...] ity o f tablet 18:57: daily. EC [place] [address] Medical Branch atorvastati Yes 20mg Take 20 mg Univers n 20 mg 9-08 by mouth ity of tablet 18:57: at [place] [address] bedtime. Medical Branch aspirin 81 Yes 81mg Take 81 mg U nivers mg chewable 9-08 by mouth ity of tablet 18:57: daily. [place] [address] Medical Branch acetaZOLAMI Yes 250mg Take 250 U nivers DE 250 mg 9-08 mg by ity of tablet 18:57: mouth [place] 11 daily. Medical Branch escitalopra Yes 10mg Take 10 mg Univers m oxalate 9-08 by mouth ity of 10 mg 18:57: daily. [place] [address] Medical Branch calcium-vit Yes Take by Uni vers gifford D 500 9-08 mouth ity of mg(1,250mg) 18:57[place]200 unit 11 [place] per tablet Branch vitamin Yes 1000ug Take 1,000 Un josse B-12 1,000 9-08 mcg by ity of mcg tablet 18:57: mouth [place] 11 daily. [facility] Branch donepeziL Yes 10mg Take 10 mg Un josse 10 mg 9-08 by mouth ity of tablet 18:57: daily. [address] foLIC acid Yes 1mg Take 1 mg Un josse 1 mg tablet 9-08 by mouth ity of 18:57: daily. [address] insulin Yes 30U inject 30 Unive rs glargine,hu 9-08 Units ity of m.rec.anlog 18:57: under the [place] ([place] 11 skin every Me dical morning. [place] Morning insulin Yes 10U inject 10 Unive rs glargine,hu 9-08 Units ity of .rec.anlog 18:57: under the [place] ([place]) 11 skin every Me dical evening. [place] insulin Yes 10U inject 10 Unive rs lispro, 9-08 Units ity of human, 18:57: under the [place] injection 11 skin Medical before [place] meals and at bedtime. Humalog SITagliptin Yes 100mg Take 100 U nivers (JANUVIA) 9-08 mg by ity of 100 mg 18:57: mouth [place] tablet 11 daily. [facility] Levothyroxi Yes 75ug Take 75 Uni vers ne 75 mcg 9-08 mcg by ity of capsule 18:57: mouth [place] 11 daily. [facility] lisinopriL Yes 5mg Take 5 mg Un [place] 10 mg 9-08 by mouth ity of tablet 18:57: daily. [address] medroxyPROG Yes 2.5mg Take 2.5 U nivers ESTERone 9-08 mg by ity of 2.5 mg 18:57: mouth [place] tablet 11 daily. [facility] meloxicam Yes 7.5mg Take 7.5 Uni vers 7.5 mg 9-08 mg by ity of tablet 18:57: mouth [place] daily. Medical Branch pantoprazol Yes 40mg Take 40 mg Univers e 40 mg EC 908 by mouth ity o f tablet 18:57: daily. EC [place] [address] Medical Branch atorvastati Yes 20mg Take 20 mg Univers n 20 mg 9-08 by mouth ity of tablet 18:57: at [place] [address] bedtime. Medical Branch aspirin 81 Yes 81mg Take 81 mg U nivers mg chewable 9-08 by mouth ity of tablet 18:57: daily. [place] [address] Medical Branch acetaZOLAMI Yes 250mg Take 250 U nivers [place] 250 mg 9-08 mg by ity of tablet 18:57: mouth [place] [address] daily. Medical Branch escitalopra Yes 10mg Take 10 mg Univers m oxalate 908 by mouth ity of 10 mg 18:57: daily. [address] Branch calcium-vit Yes Take by Uni vers gifford D 500 9-08 mouth ity of mg(1,250mg) 18:57[place] 11 [place] per tablet Branch vitamin Yes 1000ug Take 1,000 Un josse B-12 1,000 9-08 mcg by ity of mcg tablet 18:57: mouth [place] [address] daily. Medical Branch donepeziL Yes 10mg Take 10 mg Un josse 10 mg 9-08 by mouth ity of tablet 18:57: daily. [address] foLIC acid Yes 1mg Take 1 mg Un josse 1 mg tablet 908 by mouth ity of 18:57: daily. [address] Branch insulin Yes 30U inject 30 [...] the [place] injection 11 skin Medical before Branch meals and at [...] by mouth ity of tablet 18:57: daily. [address] Branch medroxyPROG Yes 2.5mg Take 2.5 U nivers ESTERone 9-08 mg by ity of 2.5 mg 18:57: mouth [place] tablet 11 daily. Medical Branch meloxicam Yes 7.5mg Take 7.5 Uni vers 7.5 mg 9-08 mg by ity of tablet 18:57: mouth [place] 11 daily. Medical Branch pantoprazol Yes 40mg Take 40 mg Univers e 40 mg EC 08 by mouth ity o f tablet 18:57: daily. EC [place] 11 Medical Branch atorvastati Yes 20mg Take 20 mg Univers n 20 mg -08 by mouth ity of tablet 18:57: at [place] [address] bedtime. Medical Branch atorvastati Yes 20mg QD Take 20 mg Methodi n (LIPITOR) 8-[address] 20 MG 20:43: daily. Hospita tablet 08 Default OP l ins atorvastati Yes 20mg QD Take 20 mg Methodi n (LIPITOR) 8-[address] 20 MG 20:43: daily. Hospita tablet 08 Default OP l ins atorvastati Yes 20mg QD Take 20 mg [...] MOUTH Hospita 40 TWICE l DAILY medroxyPROG 2017-0 Yes TAKE 1 Meth cyn ESTERone 8-[address] (PROVERA) 14:44: DAILY Hospita 2.5 MG 40 l tablet blood sugar 20170 Yes OneTouch [place] diagnostic 8-[address] strips 14:44: strips Hospita (ONETOUCH 40 l ULTRA TEST) strip test strips blood-gluco 2017 Yes Method i se meter 8-[address] (ONETOUCH 14:44: Hospita ULTRA2) kit 40 l meloxicam 2017-0 Yes TAKE 1 Method i (MOBIC) 7.5 8-[address] mg tablet 14:44: DAILY Hospita 40 l busPIRone 2017-0 Yes TAKE 1 Method i (BUSPAR) 30 8-[address] MG tablet 14:44: MOUTH Hospita 40 TWICE l DAILY medroxyPROG 0 Yes TAKE 1 Meth cyn ESTERone 8-[address] (PROVERA) 14:44: DAILY Hospita 2.5 MG 40 l tablet blood sugar 2017 Yes OneTouch Il thodi diagnostic 8-[address] strips 14:44: strips Hospita (ONETOUCH 40 l ULTRA TEST) strip test strips blood-gluco Yes Method i se meter 8-[address] (ONETOUCH 14:44: Hospita ULTRA2) kit 40 l meloxicam 2017-0 Yes TAKE 1 Method i (MOBIC) 7.5 8-[address] mg tablet 14:44: DAILY Hospita 40 l busPIRone 2017-0 Yes TAKE 1 Method i (BUSPAR) 30 8-[address] MG tablet 14:44: MOUTH Hospita 40 TWICE l DAILY medroxyPROG 2017-0 Yes TAKE 1 Meth cyn ESTERone 8-[address] (PROVERA) 14:44: DAILY Hospita 2.5 MG 40 l tablet blood sugar [id number] Yes OneTouch [place] thodi diagnostic 8-[address] strips 14:44: strips Hospita (ONETOUCH 40 l ULTRA TEST) strip test strips blood-gluco Yes Method i se meter 8-[address] (ONETOUCH 14:44: Hospita ULTRA2) kit 40 l LANTUS 2017-0 Yes Methodi SOLOSTAR 8-08 st 100 unit/mL 00:00: Hospit a injection 00 l (pen) LANTUS [address]70 Yes Methodi SOLOSTAR 8-08 st 100 unit/mL 00:00: Hospit a injection 00 l (pen) LANTUS 2017-0 Yes Methodi SOLOSTAR 8-08 st 100 unit/mL 00:00: Hospit a injection 00 l (pen) insulin 2017-0 Yes 30U QD Inject 30 Metho di GLARGINE 6-[address] (LANTUS) 00:00: under the Hosp jasmin 100 unit/mL 00 skin daily l injection before (vial) breakfast. insulin 2017-0 Yes 30U QD Inject 30 Metho di GLARGINE 6-[address] (LANTUS) 00:00: under the Hosp jasmin 100 unit/mL 00 skin daily l injection before (vial) breakfast. insulin 2017-0 Yes 30U QD Inject 30 Metho di GLARGINE 6-[address] (LANTUS) 00:00: under the Hosp jasmin 100 unit/mL 00 skin daily l injection before (vial) breakfast. lancets Yes CHECK Methodi (onetouch 6-[address] ultrasoft) 14:44: SUGAR 3 Hosp jasmin misc 15 TIMES A l DAY pantoprazol 2017-0 Yes 40mg QD Take 40 mg Methodi e 6-[address] (PROTONIX) 14:44: daily. Hospi ta 40 MG EC 15 l tablet lisinopril 20170 Yes 5mg QD Take 5 mg Me thodi (PRINIVIL,Z 6-[address] ESTRIL) 5 14:44: daily. Hospit a mg tablet 15 l lancets Yes CHECK Methodi (onetouch 6-[address] ultrasoft) 14:44: SUGAR 3 Hosp jasmin misc 15 TIMES A l DAY pantoprazol 2017-0 Yes 40mg QD Take 40 mg Methodi e 6-[address] (PROTONIX) 14:44: daily. Hospi ta 40 MG EC 15 l tablet lisinopril 20170 Yes 5mg QD Take 5 mg Me thodi (PRINIVIL,Z 6-[address] ESTRIL) 5 14:44: daily. Hospit a mg tablet 15 l lancets Yes CHECK Methodi (onetouch 6-[address] ultrasoft) 14:44: SUGAR 3 Hosp jasmin misc 15 TIMES A l DAY pantoprazol 2017-0 Yes 40mg QD Take 40 mg Methodi e 6-[address] (PROTONIX) 14:44: daily. Hospi ta 40 MG EC 15 l tablet lisinopril 2017-0 Yes 5mg QD Take 5 mg Me thodi (PRINIVIL,Z 6-[address] ESTRIL) 5 14:44: daily. Hospit a mg tablet 15 l acetaZOLAMI 2017-0 Yes 250mg Q.5D Take 1 Met hodi DE (DIAMOX) 6-[address] 250 MG 00:00: (250 mg Hospita tablet 00 total) by l mouth 2 (two) times a day. cholecalcif 2017-0 Yes 1000U QD Take 1 Met hodi edd, 6-[address] vitamin D3, 00:00: (1,000 Hosp jasmin (VITAMIN 00 Units l D3) 1,000 total) by unit tablet mouth daily. cyanocobala 2017-0 Yes 1000ug QD Take 1 Me thodi min 1000 6-[address] MCG tablet 00:00: (1,000 mcg H ospita 00 total) by l mouth daily. folic acid Yes 1mg QD Take 1 Metho di (FOLVITE) 1 6-21 tablet (1 st MG tablet 00:00: mg total) Hos celine 00 by mouth l daily. levothyroxi 20170 Yes 75ug QD Take 1 Meth cyn ne 6-21 tablet (75 st (SYNTHROID, 00:00: mcg total) Hospita LEVOXYL) 75 00 by mouth l mcg tablet daily. calcium 2017- Yes 1{tbl} QD Take 1 Method i carbonate-v 6-[address] itamin D3 00:00: mouth Hospita 500 mg-200 00 daily. l unit per tablet insulin 2017-0 Yes 10U [id number] Inject 10 Methodi lispro 6-[id number] (HumaLOG) 00:00: 3D under the Hos celine 100 unit/mL 00 skin 3 l injection (three) times a day before meals. donepezil 2017-0 Yes 10mg QD Take 1 Method i (ARICEPT) 6-21 tablet (10 st 10 MG 00:00: mg total) Hospita tablet 00 by mouth l every morning. HUMALOG 2017-0 Yes 10U [id number] Inject 10 Methodi KWIKPEN 100 6- [id number] Units s t unit/mL 00:00: 3D under the Hospi ta injection 00 skin 3 l pen (three) times a day before meals. acetaZOLAMI 2017-0 Yes 250mg Q.5D Take 1 Met hodi DE (DIAMOX) 6-[address] 250 MG 00:00: (250 mg Hospita tablet 00 total) by l mouth 2 (two) times a day. cholecalcif 2017-0 Yes 1000U QD Take 1 Met hodi edd, 6-[address] vitamin D3, 00:00: (1,000 Hosp jasmin (VITAMIN 00 Units l D3) 1,000 total) by unit tablet mouth daily. cyanocobala 2017-0 Yes 1000ug QD Take 1 Me thodi min 1000 6-[address] MCG tablet 00:00: (1,000 mcg H ospita 00 total) by l mouth daily. folic acid 2017-0 Yes 1mg QD Take 1 Metho di (FOLVITE) 1 6-21 tablet (1 st MG tablet 00:00: mg total) Hos celine 00 by mouth l daily. levothyroxi 2017-0 Yes 75ug QD Take 1 Meth cyn ne 6-21 tablet (75 st (SYNTHROID, 00:00: mcg total) Hospita LEVOXYL) 75 00 by mouth l mcg tablet daily. calcium 2017-0 Yes 1{tbl} QD Take 1 Method i carbonate-v 6-[address] itamin D3 00:00: mouth Hospita 500 mg-200 00 daily. l unit per tablet insulin 2017-0 Yes 10U [id number] Inject 10 Methodi lispro 6-[id number] (HumaLOG) 00:00: 3D under the Hos celine 100 unit/mL 00 skin 3 l injection (three) times a day before meals. donepezil 2017-0 Yes 10mg QD Take 1 Method i (ARICEPT) 6-21 tablet (10 st 10 MG 00:00: mg total) Hospita tablet 00 by mouth l every morning. HUMALOG 2017-0 Yes 10U [id number] Inject 10 Methodi KWIKPEN 100 6- [id number] Units s t unit/mL 00:00: 3D under the Hospi ta injection 00 skin 3 l pen (three) times a day before meals. acetaZOLAMI 2017-0 Yes 250mg Q.5D Take 1 Met hodi DE (DIAMOX) 6-[address] 250 MG 00:00: (250 mg Hospita tablet 00 total) by l mouth 2 (two) times a day. cholecalcif 2017-0 Yes 1000U QD Take 1 Met hodi edd, 6-[address] vitamin D3, 00:00: (1,000 Hosp jasmin (VITAMIN 00 Units l D3) 1,000 total) by unit tablet mouth daily. cyanocobala 2017-0 Yes 1000ug QD Take 1 Me thodi min 1000 6-[address] MCG tablet 00:00: (1,000 mcg H ospita 00 total) by l mouth daily. folic acid 2017-0 Yes 1mg QD Take 1 Metho di (FOLVITE) 1 6-21 tablet (1 st MG tablet 00:00: mg total) Hos celine 00 by mouth l daily. levothyroxi 2017-0 Yes 75ug QD Take 1 Meth cyn ne 6-21 tablet (75 st (SYNTHROID, 00:00: mcg total) Hospita LEVOXYL) 75 00 by mouth l mcg tablet daily. calcium 2017-0 Yes 1{tbl} QD Take 1 Method i carbonate-v 6-[address] itamin D3 00:00: mouth Hospita 500 mg-200 00 daily. l unit per tablet insulin 2017-0 Yes 10U [id number] Inject 10 Methodi lispro - [id number] Units st (HumaLOG) 00:00: 3D under the Hos celine 100 unit/mL 00 skin 3 l injection (three) times a day before meals. donepezil 2017-0 Yes 10mg QD Take 1 Method i (ARICEPT) 6-21 tablet (10 st 10 MG 00:00: mg total) Hospita tablet 00 by mouth l every morning. HUMALOG 2017-0 Yes 10U Q.[id number] Inject 10 Methodi KWIKPEN 100 10-24 [id number] Units s t unit/mL 00:00: 3D under the Hospi ta injection 00 skin 3 l pen (three) times a day before meals. JANUVIA 100 2017-0 Yes Method i mg tablet 09-02 st 00:00: Hospita 00 l PIOIA 100 Yes Method i mg tablet 09-02 st 00:00: Hospita 00 l JANUVIA 100 Yes Method i mg tablet 09-02 st 00:00: Hospita 00 l aspirin 81 Yes Yissel Method i mg chewable 7-[address] tablet 00:00: Aspirin 81 Hospi ta 00 mg l chewable tablet aspirin 81 Yes Yissel Method i mg chewable 7-[address] tablet 00:00: Aspirin 81 Hospi ta 00 mg l chewable tablet aspirin 81 Yes Yissel Method i mg chewable 7-[address] tablet 00:00: Aspirin 81 Hospi ta 00 mg l chewable tablet Immunizations Ordered Immunization Filled Date Status Comments Sour ce Name Immunization Name SARS-COV-2 COVID-19 2020-08-20 Completed Unive rsity of MODERNA 12+ YRS 00:00:00 [place] [facility] ical VACCINE Branch SARS-COV-2 COVID-19 2020-08-20 Completed Unive rsity of MODERNA 12+ YRS 00:00:00 [place] [facility] ical VACCINE Branch SARS-COV-2 COVID-19 2020-08-20 Completed Unive rsity of MODERNA 12+ YRS 00:00:00 [place] Med ical VACCINE Branch SARS-COV-2 COVID-19 2020-08-20 Completed Unive rsity of MODERNA 12+ YRS 00:00:00 [place] Med ical VACCINE Branch SARS-COV-2 COVID-19 2020-08-20 Completed Unive rsity of MODERNA VACCINE 00:00:00 [place] Med ical Branch SARS-COV-2 COVID-19 2020-08-20 Completed Unive rsity of MODERNA 12+ YRS 00:00:00 [place] [facility] ical VACCINE Branch SARS-COV-2 COVID-19 2020-08-20 Completed Unive rsity of MODERNA 12+ YRS 00:00:00 [place] [facility] ical VACCINE Branch SARS-COV-2 COVID-19 2020-08-20 Completed Unive rsity of MODERNA 12+ YRS 00:00:00 [place] [facility] ical VACCINE Branch SARS-COV-2 COVID-19 2020-08-20 Completed Unive rsity of MODERNA 12+ YRS 00:00:00 [place] [facility] ical VACCINE Branch SARS-COV-2 COVID-19 2020-08-20 Completed Unive rsity of MODERNA 12+ YRS 00:00:00 [place] [facility] ical VACCINE Branch SARS-COV-2 COVID-19 2020-08-20 Completed Unive rsity of MODERNA 12+ YRS 00:00:00 [place] [facility] ical VACCINE Branch SARS-COV-2 COVID-19 2020-08-20 Completed Unive rsity of MODERNA 12+ YRS 00:00:00 [place] [facility] ical VACCINE Branch SARS-COV-2 COVID-19 2020-08-20 Completed Unive rsity of MODERNA 12+ YRS 00:00:00 [place] [facility] ical VACCINE Branch SARS-COV-2 COVID-19 2020-08-20 Completed Unive rsity of MODERNA 12+ YRS 00:00:00 [place] [facility] ical VACCINE Branch SARS-COV-2 COVID-19 2020-08-20 Completed Unive rsity of MODERNA 12+ YRS 00:00:00 [place] [facility] ical VACCINE Branch SARS-COV-2 COVID-19 2020-08-20 Completed Unive rsity of MODERNA 12+ YRS 00:00:00 [place] [facility] ical VACCINE Branch SARS-COV-2 COVID-19 2020-07-20 Completed Unive rsity of MODERNA 12+ YRS 00:00:00 [place] [facility] ical VACCINE Branch SARS-COV-2 COVID-19 2020-07-20 Completed Unive rsity of MODERNA 12+ YRS 00:00:00 [place] [facility] ical VACCINE Branch SARS-COV-2 COVID-19 2020-07-20 Completed Unive rsity of MODERNA 12+ YRS 00:00:00 [place] Med ical VACCINE Branch SARS-COV-2 COVID-19 2020-07-20 Completed Unive rsity of MODERNA 12+ YRS 00:00:00 [place] Med ical VACCINE Branch SARS-COV-2 COVID-19 2020-07-20 Completed Unive rsity of MODERNA VACCINE 00:00:00 [place] [facility] ical Branch SARS-COV-2 COVID-19 2020-07-20 Completed Unive rsity of MODERNA 12+ YRS 00:00:00 [place] [facility] ical VACCINE Branch SARS-COV-2 COVID-19 2020-07-20 Completed Unive rsity of MODERNA 12+ YRS 00:00:00 [place] [facility] ical VACCINE Branch SARS-COV-2 COVID-19 2020-07-20 Completed Unive rsity of MODERNA 12+ YRS 00:00:00 [place] [facility] ical VACCINE Branch SARS-COV-2 COVID-19 2020-07-20 Completed Unive rsity of MODERNA 12+ YRS 00:00:00 [place] [facility] ical VACCINE Branch SARS-COV-2 COVID-19 2020-07-20 Completed Unive rsity of MODERNA 12+ YRS 00:00:00 [place] [facility] ical VACCINE Branch SARS-COV-2 COVID-19 2020-07-20 Completed Unive rsity of MODERNA 12+ YRS 00:00:00 [place] [facility] ical VACCINE Branch SARS-COV-2 COVID-19 2020-07-20 Completed Unive rsity of MODERNA 12+ YRS 00:00:00 [place] [facility] ical VACCINE Branch SARS-COV-2 COVID-19 2020-07-20 Completed Unive rsity of MODERNA 12+ YRS 00:00:00 [place] [facility] ical VACCINE Branch SARS-COV-2 COVID-19 2020-07-20 Completed Unive rsity of MODERNA 12+ YRS 00:00:00 [place] [facility] ical VACCINE Branch SARS-COV-2 COVID-19 2020-07-20 Completed Unive rsity of MODERNA 12+ YRS 00:00:00 [place] [facility] ical VACCINE Branch SARS-COV-2 COVID-19 2020-07-20 Completed Unive rsity of MODERNA 12+ YRS 00:00:00 [place] [facility] ical VACCINE Branch Pneumococcal 13 2015-01-03 Completed Universit y of Conjugate, PCV13 00:00:00 [facility] [place] [facility] dical (Prevnar 13) Branch Pneumococcal 13 2015-01-03 Completed Universit y of Conjugate, PCV13 00:00:00 [facility] [place] [facility] dical (Prevnar 13) Branch Pneumococcal 13 2015-01-03 Completed Universit y of Conjugate, PCV13 00:00:00 [facility] [place] [facility] dical (Prevnar 13) Branch Pneumococcal 13 2015-01-03 Completed Universit y of Conjugate, PCV13 00:00:00 [facility] [place] [facility] dical (Prevnar 13) Branch Pneumococcal 13 2015-01-03 Completed Universit y of Conjugate, PCV13 00:00:00 [place] [facility] dical (Prevnar 13) Branch Pneumococcal 13 2015-01-03 Completed Universit y of Conjugate, PCV13 00:00:00 [place] [facility] dical (Prevnar 13) Branch Pneumococcal 13 2015-01-03 Completed Universit y of Conjugate, PCV13 00:00:00 [place] [facility] dical (Prevnar 13) Branch Pneumococcal 13 2015-01-03 Completed Universit y of Conjugate, PCV13 00:00:00 [place] [facility] dical (Prevnar 13) Branch Pneumococcal 13 2015-01-03 Completed Universit y of Conjugate, PCV13 00:00:00 [place] [facility] dical (Prevnar 13) Branch Pneumococcal 13 2015-01-03 Completed Universit y of Conjugate, PCV13 00:00:00 [place] Me dical (Prevnar 13) Branch Pneumococcal 13 2015-01-03 Completed Universit y of Conjugate, PCV13 00:00:00 [place] [facility] dical (Prevnar 13) Branch Pneumococcal 13 2015-01-03 Completed Universit y of Conjugate, PCV13 00:00:00 [place] [facility] dical (Prevnar 13) Branch Pneumococcal 13 2015-01-03 Completed Universit y of Conjugate, PCV13 00:00:00 [place] [facility] dical (Prevnar 13) Branch Pneumococcal 13 2015-01-03 Completed Universit y of Conjugate, PCV13 00:00:00 [place] [facility] dical (Prevnar 13) Branch Pneumococcal 13 2015-01-03 Completed Universit y of Conjugate, PCV13 00:00:00 [place] [facility] dical (Prevnar 13) Branch Pneumococcal 13 2015-01-03 Completed Universit y of Conjugate, PCV13 00:00:00 [place] [facility]ical (Prevnar 13) Branch Pneumococcal 2010-01-25 Completed Scientologist Polysaccharide 00:00:00 Hospital Zoster 2010-01-25 Completed Scientologist 00:00:00 Hospital Pneumococcal 2010-01-25 Completed University o f Polysaccharide, 00:00:00 [facility] ical PPSV23 (PNEUMOVAX) Branch Zoster(Zostavax)([facility] 2010-01-25 Completed [facility]) 00:00:00 [facility] Branch Pneumococcal 2010-01-25 Completed University o f Polysaccharide, 00:00:00 [place] [facility] ical PPSV23 (PNEUMOVAX) Branch Zoster(Zostavax)([facility] 2010-01-25 Completed Univ ersity of ngles) 00:00:00 [facility] Pneumococcal 2010-01-25 Completed University o f Polysaccharide, 00:00:00 [place] [facility] ical PPSV23 (PNEUMOVAX) Branch Zoster(Zostavax)([facility] 2010-01-25 Completed Univ ersity of ngles) 00:00:00 [facility] Pneumococcal 2010-01-25 Completed University o f Polysaccharide, 00:00:00 [place] [facility] ical PPSV23 (PNEUMOVAX) Branch Zoster(Zostavax)([facility] 2010-01-25 Completed Univ ersity of ngles) 00:00:00 [facility] Pneumococcal 2010-01-25 Completed University o f Polysaccharide, 00:00:00 [place] [facility] ical PPSV23 (PNEUMOVAX) Branch Zoster(Zostavax)([facility] 2010-01-25 Completed Univ ersity of ngles) 00:00:00 [facility] Pneumococcal 2010-01-25 Completed University o f Polysaccharide, 00:00:00 [place] [facility] ical PPSV23 (PNEUMOVAX) Branch Zoster(Zostavax)([facility] 2010-01-25 Completed Univ ersity of ngles) 00:00:00 [facility] Pneumococcal 2010-01-25 Completed University o f Polysaccharide, 00:00:00 [place] [facility] ical PPSV23 (PNEUMOVAX) Branch Zoster(Zostavax)([facility] 2010-01-25 Completed Univ ersity of ngles) 00:00:00 [facility] Pneumococcal 2010-01-25 Completed University o f Polysaccharide, 00:00:00 [place] [facility] ical PPSV23 (PNEUMOVAX) Branch Zoster(Zostavax)([facility] 2010-01-25 Completed Univ ersity of ngles) 00:00:00 [facility] Pneumococcal 2010-01-25 Completed University o f Polysaccharide, 00:00:00 [place] [facility] ical PPSV23 (PNEUMOVAX) Branch Zoster(Zostavax)([facility] 2010-01-25 Completed Univ ersity of ngles) 00:00:00 [facility] Pneumococcal 2010-01-25 Completed University o f Polysaccharide, 00:00:00 [place] [facility] ical PPSV23 (PNEUMOVAX) Branch Zoster(Zostavax)([facility] 2010-01-25 Completed Univ ersity of ngles) 00:00:00 [facility] Pneumococcal 2010-01-25 Completed University o f Polysaccharide, 00:00:00 [place] [facility] ical PPSV23 (PNEUMOVAX) Branch Zoster(Zostavax)([facility] 2010-01-25 Completed Univ ersity of ngles) 00:00:00 [facility] Pneumococcal 2010-01-25 Completed University o f Polysaccharide, 00:00:00 [place] [facility] ical PPSV23 (PNEUMOVAX) Branch Zoster(Zostavax)([facility] 2010-01-25 Completed Univ ersity of ngles) 00:00:00 [facility] Pneumococcal 2010-01-25 Completed University o f Polysaccharide, 00:00:00 [place] [facility] ical PPSV23 (PNEUMOVAX) Branch Zoster(Zostavax)([facility] 2010-01-25 Completed Univ ersity of ngles) 00:00:00 [facility] Pneumococcal 2010-01-25 Completed University o f Polysaccharide, 00:00:00 [place] [facility] ical PPSV23 (PNEUMOVAX) Branch Zoster(Zostavax)([facility] 2010-01-25 Completed [facility] 00:00:00 [facility] Pneumococcal 2010-01-25 Completed University o f Polysaccharide, 00:00:00 [place] [facility] ical PPSV23 (PNEUMOVAX) Branch Zoster(Zostavax)([facility] 2010-01-25 Completed Univ ersity of les) 00:00:00 [facility] Pneumococcal 2010-01-25 Completed University o f Polysaccharide, 00:00:00 [place] [facility] ical PPSV23 (PNEUMOVAX) Branch Zoster(Zostavax)([facility] 2010-01-25 Completed [facility]) 00:00:00 [facility] Influenza Split 2008-05-06 Completed Scientologist 00:00:00 [facility] Influenza Virus 2008-05-06 Completed Universit y of Vaccine 00:00:00 [facility] Influenza Virus 2008-05-06 Completed Universit y of Vaccine 00:00:00 [facility] Influenza Virus 2008-05-06 Completed Universit y of Vaccine 00:00:00 [facility] Influenza Virus 2008-05-06 Completed Universit y of Vaccine 00:00:00 [facility] Influenza Virus 2008-05-06 Completed Universit y of Vaccine 00:00:00 [facility] Influenza Virus 2008-05-06 Completed Universit y of Vaccine 00:00:00 [facility] Influenza Virus 2008-05-06 Completed Universit y of Vaccine 00:00:00 [facility] Influenza Virus 2008-05-06 Completed Universit y of Vaccine 00:00:00 [facility] Influenza Virus 2008-05-06 Completed Universit y of Vaccine 00:00:00 [facility] Influenza Virus 2008-05-06 Completed Universit y of Vaccine 00:00:00 [facility] Influenza Virus 2008-05-06 Completed Universit y of Vaccine 00:00:00 [facility] Influenza Virus 2008-05-06 Completed Universit y of Vaccine 00:00:00 [facility] Influenza Virus 2008-05-06 Completed Universit y of Vaccine 00:00:00 [facility] Influenza Virus 2008-05-06 Completed Universit y of Vaccine 00:00:00 [facility] Influenza Virus 2008-05-06 Completed Universit y of Vaccine 00:00:00 [facility] Influenza Virus 2008-05-06 Completed Universit y of Vaccine 00:00:00 [facility] Influenza Split Unknown Completed [facility] Pneumococcal Unknown Completed [facility] Zoster Unknown Completed [facility] SARS-COV-2 COVID-19 Unknown Completed Unive rsity of MODERNA 12+ YRS [place] [facility] ical VACCINE Branch SARS-COV-2 COVID-19 Unknown Completed Unive rsity of MODERNA 12+ YRS [place] [facility] ical VACCINE Branch Pneumococcal 13 Unknown Completed Universit y of Conjugate, PCV13 [facility] [place] [facility] dical (Prevnar 13) Branch Pneumococcal Unknown Completed University o f Polysaccharide, [place] [facility] ical PPSV23 (PNEUMOVAX) Branch Zoster(Zostavax)([place] Unknown Completed [facility] Influenza Virus Unknown Completed Universit y of Vaccine [facility] SARS-COV-2 COVID-19 Unknown Completed Unive rsity of MODERNA 12+ YRS [place] [facility] ical VACCINE Branch SARS-COV-2 COVID-19 Unknown Completed Unive rsity of MODERNA 12+ Y[facility] [place] [facility] VACCINE [facility] Pneumococcal 13 Unknown Completed Universit y of Conjugate, PCV13 [place] [facility] (Prevnar 13) Branch Pneumococcal Unknown Completed University o f Polysaccharide, [place] [facility] PPSV23 (PNEUMOVAX) Branch Zoster(Zostavax)(Pennie Unknown Completed Univ ersity of ngles) [facility] Influenza Virus Unknown Completed Universit y of Vaccine [facility] SARS-COV-2 COVID-19 Unknown Completed Unive rsity of MODERNA 12+ YRS [facility] ical VACCINE Branch SARS-COV-2 COVID-19 Unknown Completed Unive rsity of MODERNA 12+ YRS [facility] ical VACCINE Branch Pneumococcal 13 Unknown Completed Universit y of Conjugate, PCV13 [facility] dical (Prevnar 13) Branch Pneumococcal Unknown Completed University o f Polysaccharide, [facility] ical PPSV23 (PNEUMOVAX) Branch Zoster(Zostavax)(Pennie Unknown Completed Univ ersity of ngles) [facility] Influenza Virus Unknown Completed Universit y of Vaccine [facility] Influenza Split Unknown Completed [facility] Pneumococcal Unknown Completed [facility] Zoster Unknown Completed [facility] Vital Signs Vital Name Observation Time Observation Value Comments Source Systolic blood 2022-08-27 18:41:00 156 mm[Hg] Univer sity of [facility] Diastolic blood 2022-08-27 18:41:00 93 mm[Hg] Unive rsity of [facility] Heart rate 2022-08-27 18:33:00 69 /min [facility] Body weight 2022-08-27 18:33:00 54.432 kg [facility] BMI 2022-08-27 18:33:00 23.44 kg/m2 [facility] Systolic blood 2022-05-07 16:49:00 158 mm[Hg] Univer sity of [facility] Diastolic blood 2022-05-07 16:49:00 88 mm[Hg] Unive rsity of [facility] Heart rate 2022-05-07 16:49:00 75 /min [facility] Body height 2022-05-07 16:49:00 152.4 cm [facility] Body weight 2022-05-07 16:49:00 55.339 kg [facility] BMI 2022-05-07 16:49:00 23.83 kg/m2 [facility] Oxygen saturation in 2022-05-07 16:49:00 99 /min [facility] Arterial blood by [facility] Pulse oximetry Branch Heart Rate 2021-09-03 20:48:29 [facility] Respitory Rate 2021-09-03 20:48:29 Homer Tamayo Temperature Oral (F) 2021-09-03 20:47:30 98.3 F [facility] Systolic (mm Hg) 2021-09-03 20:47:14 Carlos [facility] Diastolic (mm Hg) 2021-09-03 20:47:14 [facility] [place] Heart Rate 2021-09-03 20:47:14 [facility] Heart Rate 2021-09-03 16:23:02 [facility] Respitory Rate 2021-09-03 16:23:02 [facility] Systolic (mm Hg) 2021-09-03 16:22:56 Carlos [facility] [place] Diastolic (mm Hg) 2021-09-03 16:22:56 Mem [facility] [place] Temperature Oral (F) 2021-09-03 16:22:36 98.1 F [facility] Respitory Rate 2021-09-03 12:50:15 [facility] Systolic (mm Hg) 2021-09-03 12:50:09 Carlos [facility] Diastolic (mm Hg) 2021-09-03 12:50:09 [facility] [place] Temperature Oral (F) 2021-09-03 08:33:26 98.3 F [facility] Height 2021-09-02 01:00:00 152.4 cm [facility] Weight 2021-09-02 01:00:00 [facility] [place] BMI Calculated 2021-09-02 01:00:00 [facility] [place] Height 2021-09-01 21:14:00 152.4 cm [facility] Weight 2021-09-01 21:14:00 [facility] [place] BMI Calculated 2021-09-01 21:14:00 [facility] Height 2021-09-01 21:13:00 152.4 cm [facility] [place] Weight 2021-09-01 21:13:00 [facility] [place] BMI Calculated 2021-09-01 21:13:00 [facility] Procedures Procedure Date / Time Performed Performing Clinician [facility] e EXTERNAL PROVIDER 2023-01-02 05:01:00 [facility] EXTERNAL PROVIDER 2022-11-07 05:01:00 [facility] POCT HEMOGLOBIN A1C 2022-08-27 18:55:00 Ana Napoles [facility] TEST Medical Branch EXTERNAL PROVIDER 2022-08-09 05:01:00 Doctor Unassigned, No [facility] [place] REC[facility] Name Medical Branch EXTERNAL PROVIDER 2022-05-24 06:01:00 Doctor Unassigned, No Univ [facility] [place] RECORDS Name Medical Branch POCT HEMOGLOBIN A1C 2022-05-07 16:56:00 Ana Napoles [facility] [id number] 2021-06-12 00:00:00 KUM.02 [facility] [id number] 2021-05-19 00:00:00 NICOLA [facility] Plan of Care Planned Activity Planned Date Details Comments Source Future Scheduled 2023-02-21 COVID-19 VACCINE (#1) [facility] Hospital Test 08:41:57 [code = COVID-19 VACCINE (#1)] Future Scheduled 2023-02-21 RSV VACCINES > 60 YR Met [facility] Test 08:41:57 (1 - 1-dose 60+ series) [code = RSV VACCINES > 60 YR (1 - 1-dose 60+ series)] Future Scheduled 2023-02-21 SHINGLES VACCINES (2 Met [facility] Hospital Test 08:41:57 of 3) [code = SHINGLES VACCINES (2 of 3)] Future Scheduled 2023-02-21 65+ [facility] 08:41:57 VACCINE (2 - PCV) [code = 65+ PNEUMOCOCCAL VACCINE (2 - PCV)] Future Scheduled 2023-02-21 INFLUENZA VACCINE (#1) [facility] Test 08:41:57 [code = INFLUENZA VACCINE (#1)] Future Scheduled 2023-02-02 COVID-19 VACCINE (#1) [facility] Hospital Test 06:13:26 [code = COVID-19 VACCINE (#1)] Future Scheduled 2023-02-02 SHINGLES VACCINES (2 Met [facility] Hospital Test 06:13:26 of 3) [code = SHINGLES VACCINES (2 of 3)] Future Scheduled 2023-02-02 65+ [facility]OCOCCAL [facility] Test 06:13:26 VACCINE (2 - PCV) [code = 65+ PNEUMOCOCCAL VACCINE (2 - PCV)] Future Scheduled 2023-02-02 INFLUENZA VACCINE (#1) [facility] Test 06:13:26 [code = INFLUENZA VACCINE (#1)] Future Scheduled 2022-01-02 65+ [facility]AL [facility] Test 06:01:58 VACCINE (2 - PCV) [code = 65+ PNEUMOCOCCAL VACCINE (2 - PCV)] Future Scheduled 2022-01-02 INFLUENZA VACCINE Method [facility] Test 06:01:58 [code = INFLUENZA VACCINE] Future Scheduled 2022-01-02 HEPATITIS B VACCINES Met [facility] Test 06:01:58 (1 of 3 - 3-dose series) [code = HEPATITIS B VACCINES (1 of 3 - 3-dose series)] Future Scheduled 2022-01-02 COVID-19 VACCINE (#1) [facility] Test 06:01:58 [code = COVID-19 VACCINE (#1)] Future Scheduled 2022-01-02 BREAST CANCER [facility] Test 06:01:58 SCREENING [code = BREAST CANCER SCREENING] Future Scheduled 2022-01-02 COLONOSCOPY SCREENING [facility] Test 06:01:58 [code = COLONOSCOPY SCREENING] Future Scheduled 2022-01-02 SHINGLES VACCINES (2 Met [facility] Test 06:01:58 of 3) [code = SHINGLES VACCINES (2 of 3)] Encounters Start End Encounter Admission Attending Care Care Encounter Source Date/Time Date/Time Type Type Clinicians Facility Department ID 2023-02-05 2023-02-05 Outpatient R JAMES [facility] [id number] Univers 13:00:00 14:03:14 NUBIA [facility] 2023-01-02 2023-01-02 Orders Doctor MARCELO [id number] Univers 00:00:00 00:00:00 Only Unassigned, FREDY 350.1.13.10 ity of [place] [facility] 4.2.7.2.686 Leonel as [phone] [address] 2022-12-31 2022-12-31 Outpatient R ANA NAPOLES [facility] [id number] Univers 14:30:00 14:30:00 ANA NAPOLES [facility] 2022-11-14 2022-11-14 Jenniffer Sharma [facility] [id number] Univers 00:00:00 00:00:00 Natali Pak MULTISPEC 350.1.13.10 [place] [id number] [address] [facility] 2022-11-07 2022-11-07 Orders Doctor MARCELO [id number] Univers 00:00:00 00:00:00 Only Unassigned, FREDY 350.1.13.10 ity of [place] [facility] 4.2.7.2.686 Leonel as [id number] [address] 2022-10-17 2022-10-[address] [facility] [id number] Univers 00:00:00 00:00:00 Natali A MULTISPEC 350.1.13.10 [place] [id number] [address] [facility] 2022-09-28 2022-09-[address] [facility] [id number] Univers 00:00:00 00:00:00 Natali A MULTISPEC 350.1.13.10 [place] [id number] [address] [facility]IC 2022-08-27 2022-08-27 Outpatient R ANA NAPOLES [facility] [id number] Univers 13:30:00 14:32:36 ANA NAPOLES ity of [facility] 2022-08-27 2022-08-27 Office Ana Napoles [facility] [id number] Univers 13:30:00 14:32:36 Visit HEALTH 350.1.13.10 it y of [place] 4.2.7.2.686 Leonel as JO-ANN?BLEA [id number] [address] MEDICAL OFFICE BUILDING 2022-08-09 2022-08-09 Orders Doctor MARCELO 1.2.840.114 [id number] Univers 00:00:00 00:00:00 Only Unassigned, FREDY 350.1.13.10 ity of [place] [facility] 4.2.7.2.686 Leonel as [id number] [address] 2022-05-24 2022-05-24 Orders Doctor MARCELO 1.2.840.114 [id number] Univers 00:00:00 00:00:00 Only Unassigned, FREDY 350.1.13.10 ity of [place] [facility] 4.2.7.2.686 Leonel as [id number] [address] 2022-05-07 2022-05-07 Outpatient R ANA NAPOLES [facility] [id number] Univers 10:00:00 11:40:56 [facility]OLES [facility] 2022-05-07 2022-05-07 Office Yesika [facility] 1.2.840.114 [id number] Univers 10:00:00 11:40:56 Visit HEALTH 350.1.13.10 it y of [place] 4.2.7.2.686 Leonel as JO-ANN?BLEA [id number] [address] OFFICE [facility] 2022-04-16 2022-04-16 Outpatient R YESIKA [facility] [id number] Univers 08:30:00 08:30:00 [facility]IKAANA [facility] 2022-04-09 2022-04-09 Telephone Yesika [facility] [id number] Univers 00:00:00 00:00:00 HEALTH 350.1.13.10 it y of [place] 4.2.7.2.686 Leonel as JO-ANN?BLEA [id number] [address] OFFICE [facility] 2022-03-13 2022-03-13 Telephone Yesika [facility] [id number] Univers 00:00:00 00:00:00 HEALTH 350.1.13.10 it y of [place] 4.2.7.2.686 Leonel as JO-ANN?BLEA [id number] [address] MEDICAL OFFICE [facility] 2022-01-07 2022-01-07 Telephone Yesika [facility] [id number] Univers 00:00:00 00:00:00 PRIMARY 350.1.13.10 [place] [id number] [address] 2021-12-28 2021-12-28 Telephone Ana Napoles [facility] [id number] Univers 00:00:00 00:00:00 HEALTH 350.1.13.10 it y of [place] 4.2.7.2.686 Leonel as JO-ANN?BLEA [id number] [address] MEDICAL OFFICE [facility] 2021-12-27 2021-12-27 Telephone Yesika [facility] [id number] Univers 00:00:00 00:00:00 HEALTH 350.1.13.10 it y of [place] 4.2.7.2.686 Leonel as JO-ANN?BLEA [id number] [address] OFFICE [facility] 2021-11-14 2021-11-14 Orders Doctor MARCELO 1.2.840.114 [id number] Univers 00:00:00 00:00:00 Only Unassigned, FREDY 350.1.13.10 ity of [place] [facility] 4.2.7.2.686 Leonel as [phone] [address] 2021-11-09 2021-11-09 Telephone [facility] [id number] Univers 00:00:00 00:00:00 Patient HEALTH 350.1.13.10 it y of [place] Not [place] JO-ANN?BLEA [id number] [address] OFFICE [facility] 2021-10-09 2021-10-09 Outpatient R ANA NAPOLES [facility] [id number] Univers 15:00:00 16:13:14 ANA NAPOLES of [facility] 2021-10-09 2021-10-09 Office Yesika [facility] 1.2.840.114 [id number] Univers 15:00:00 16:13:14 Visit HEALTH 350.1.13.10 it y of [place] 4.2.7.2.686 Leonel as JO-ANN?BLEA [id number] [address] MEDICAL OFFICE [facility] 2021-10-09 2021-10-09 Outpatient R YESIKA, ANA [facility] [id number] Univers 15:00:00 16:13:14 ANA NAPOLES ity of [facility] 2021-10-09 2021-10-09 Orders Doctor MARCELO 1.2.840.114 [id number] Univers 00:00:00 00:00:00 Only Unassigned, FREDY 350.1.13.10 ity of [facility] 4.2.7.2.686 [facility] [id number] [address] 2021-09-01 2021-09-03 Inpatient [facility] [id number] Memoria 15:08:00 23:00:00 r Raoul 00 [facility] 2021-09-01 2021-09-03 Inpatient [facility] [id number] Memoria 15:08:00 23:00:00 r Raoul 00 [facility] 2021-09-01 2021-09-03 Inpatient E NATASHA QUINTANILLA MED [id number] 14:27:00 18:00:00 [facility] 2021-09-01 2021-09-03 Outpatient NATASHA Quintanilla [place] [id number] 10:08:00 18:00:00 Gyanendra 00 [facility] 2021-09-01 2021-09-03 Outpatient NATASHA Quintanilla [place] [id number] 10:08:00 18:00:00 Gyanendra 00 Jeancarlos 2021-06-29 2021-06-29 Emergency EM Willi Osullivan HCAPM KANDY LA00 [id number] [facility] 13:12:00 21:46:00 12 [facility] 2021-06-11 2021-06-17 Inpatient EM ZACHARY Arshad INTE [id number] [facility] 19:47:00 15:00:00 [facility] 96 [facility] 2021-06-12 2021-06-12 Outpatient JENNIFER Johnson LABO [id number] [facility] 01:15:00 01:15:00 [facility] 33 [facility] 2021-05-20 2021-05-22 Inpatient EM ZACHARY Montgomery MEDI.01 [id number] [facility] 10:41:00 19:00:00 Oladipo 26 [facility] 2021-05-19 2021-05-19 Outpatient JENNIFER Montgomery LABO [id number] [facility] 23:50:00 23:50:00 Oladipo 08 [facility] 2021-01-12 2021-01-12 Transition Bradly Watt 1.2.840.114 [id number] Univers 00:00:00 00:00:00 of Care Ana Maria Maddoxy 350.1.13.10 it y of [place] 4.2.7.2.686 [facility] [id number] [facility] 403 Branch 2021-01-08 2021-01-11 [facility] Joey Macdonald [facility] 1.2.840. 114 [id number] Univers 04:27:00 18:53:00 Encounter Maegan Weston 350.1.13.10 ity of [place] 4.2.7.2.686 [facility] [id number] [facility] 081 Branch 2021-01-08 2021-01-11 Inpatient X [facility]ISCILL[facility] [id number] Univers 04:27:00 18:53:00 TAJ [facility] Results Test Description Test Time Test Comments Results Result Comments Source POCT HEMOGLOBIN A1C TEST 2022-08-27 18:55:00 Test Item Value Reference Range Interpretation Comme nts POCT HBA1C (test code = 4548-4) 9.1 % 4-6 A Lab Interpretation (test code = 52039-3) Abnormal [facility] HEMOGLOBIN A1C [id number] 18:55:00 Test Item Value Reference Range Interpretation Comments POCT HBA1C (test code = 4548-4) 9.1 % 4-6 A Lab Interpretation (test code = Abnormal 06492-6) [facility] HEMOGLOBIN A1C [id number] 16:56:00 Test Item Value Reference Range Interpretation Comments POCT HBA1C (test code = 4548-4) 9.2 % 4-6 A Lab Interpretation (test code = Abnormal 26928-7) [facility] HEMOGLOBIN A1C [id number] 16:56:00 Test Item Value Reference Range Interpretation Comments POCT HBA1C (test code = 4548-4) 9.2 % 4-6 A Lab Interpretation (test code = Abnormal 62115-5) [facility] [id number] 16:56:00 Test Item Value Reference Range Interpretation Comments POCT HBA1C (test code = 4548-4) 9.2 % 4-6 A Lab Interpretation (test code = Abnormal 72655-4) [facility] [id number] 23:39:00 Test Item Value Reference Range Interpretation Comments Glucose Lvl (test code = Glucose Lvl) 214 70-99 [facility]2022-04-30 23:39:00 Test Item Value Reference Range Interpretation Comments BUN (test code = BUN) 20 7-22 [facility]2022-04-30 23:39:00 Test Item Value Reference Range Interpretation Comments Creatinine Lvl (test code = Creatinine 1.15 0.50-1.40 Lvl) [facility]2022-04-30 23:39:00 Test Item Value Reference Range Interpretation Comments Sodium Lvl (test code = Sodium Lvl) 135 135-145 [facility]2022-04-30 23:39:00 Test Item Value Reference Range Interpretation Comments Potassium Lvl (test code = Potassium 4.3 3.5-5.1 Lvl) [facility]2022-04-30 23:39:00 Test Item Value Reference Range Interpretation Comments Chloride Lvl (test code = Chloride Lvl) 106 95-109 [facility]2022-04-30 23:39:00 Test Item Value Reference Range Interpretation Comments CO2 (test code = CO2) 22 24-32 [facility]2022-04-30 23:39:00 Test Item Value Reference Range Interpretation Comments AGAP (test code = AGAP) 11.3 10.0-20.0 [facility]2022-04-30 23:39:00 Test Item Value Reference Range Interpretation Comments Calcium Lvl (test code = Calcium Lvl) 8.2 8.5-10.5 [facility]2022-04-30 23:39:00 Test Item Value Reference Range Interpretation Comments eGFR (test code = eGFR) 47 [facility]2022-04-30 23:39:00 Test Item Value Reference Range Interpretation Comments Ketone Quantitative (test code = Ketone 0.16 Quantitative) [facility]2022-04-30 23:39:00 Test Item Value Reference Range Interpretation Comments Glucose Lvl (test code = Glucose Lvl) 214 70-99 [place] 019822-04-30 23:39:00 Test Item Value Reference Range Interpretation Comments BUN (test code = BUN) 20 7- [place] 019822-04-30 23:39:00 Test Item Value Reference Range Interpretation Comments Creatinine Lvl (test code = Creatinine 1.15 0.50-1.40 Lvl) [place] 019822-04-30 23:39:00 Test Item Value Reference Range Interpretation Comments Sodium Lvl (test code = Sodium Lvl) 135 135-145 [facility]2022-04-30 23:39:00 Test Item Value Reference Range Interpretation Comments Potassium Lvl (test code = Potassium 4.3 3.5-5.1 Lvl) [facility]2022-04-30 23:39:00 Test Item Value Reference Range Interpretation Comments Chloride Lvl (test code = Chloride Lvl) 106 95-109 [place] 019822-04-30 23:39:00 Test Item Value Reference Range Interpretation Comments CO2 (test code = CO2) 22 24-32 [place] 019822-04-30 23:39:00 Test Item Value Reference Range Interpretation Comments AGAP (test code = AGAP) 11.3 10.0-20.0 [facility]2022-04-30 23:39:00 Test Item Value Reference Range Interpretation Comments Calcium Lvl (test code = Calcium Lvl) 8.2 8.5-10.5 [facility]2022-04-30 23:39:00 Test Item Value Reference Range Interpretation Comments eGFR (test code = eGFR) 47 [place] 019822-04-30 23:39:00 Test Item Value Reference Range Interpretation Comments Ketone Quantitative (test code = Ketone 0.16 Quantitative) [facility]2022-04-30 23:39:00 Test Item Value Reference Range Interpretation Comments Glucose Lvl (test code = Glucose Lvl) 214 70-99 [place] 019822-04-30 23:39:00 Test Item Value Reference Range Interpretation Comments BUN (test code = BUN) 20 7- [facility] [id number] 23:39:00 Test Item Value Reference Range Interpretation Comments Creatinine Lvl (test code = Creatinine 1.15 0.50-1.40 Lvl) [place] 019822-04-30 23:39:00 Test Item Value Reference Range Interpretation Comments Sodium Lvl (test code = Sodium Lvl) 135 135-145 [place] 019822-04-30 23:39:00 Test Item Value Reference Range Interpretation Comments Potassium Lvl (test code = Potassium 4.3 3.5-5.1 Lvl) [id number] 23:39:00 Test Item Value Reference Range Interpretation Comments Chloride Lvl (test code = Chloride Lvl) 106 95-109 [place] 019822-04-30 23:39:00 Test Item Value Reference Range Interpretation Comments CO2 (test code = CO2) - [place] 019822-04-30 23:39:00 Test Item Value Reference Range Interpretation Comments AGAP (test code = AGAP) 11.3 10.0-20.0 [facility] [id number] 23:39:00 Test Item Value Reference Range Interpretation Comments Calcium Lvl (test code = Calcium Lvl) 8.2 8.5-10.5 [facility] [id number] 23:39:00 Test Item Value Reference Range Interpretation Comments eGFR (test code = eGFR) 47 [facility]2022-04-30 23:39:00 Test Item Value Reference Range Interpretation Comments Ketone Quantitative (test code = Ketone 0.16 Quantitative) [place] 019822-04-30 23:39:00 Test Item Value Reference Range Interpretation Comments Glucose Lvl (test code = Glucose Lvl) 214 70-99 [place] 019822-04-30 23:39:00 Test Item Value Reference Range Interpretation Comments BUN (test code = BUN) 20 - [place] 019822-04-30 23:39:00 Test Item Value Reference Range Interpretation Comments Creatinine Lvl (test code = Creatinine 1.15 0.50-1.40 Lvl) [place] 019822-04-30 23:39:00 Test Item Value Reference Range Interpretation Comments Sodium Lvl (test code = Sodium Lvl) 135 135-145 [place] 019822-04-30 23:39:00 Test Item Value Reference Range Interpretation Comments Potassium Lvl (test code = Potassium 4.3 3.5-5.1 Lvl) [place] 019822-04-30 23:39:00 Test Item Value Reference Range Interpretation Comments Chloride Lvl (test code = Chloride Lvl) 106 95-109 [place] 019822-04-30 23:39:00 Test Item Value Reference Range Interpretation Comments CO2 (test code = CO2) 22 24-32 [place] 019822-04-30 23:39:00 Test Item Value Reference Range Interpretation Comments AGAP (test code = AGAP) 11.3 10.0-20.0 [place] 019822-04-30 23:39:00 Test Item Value Reference Range Interpretation Comments Calcium Lvl (test code = Calcium Lvl) 8.2 8.5-10.5 [place] 019822-04-30 23:39:00 Test Item Value Reference Range Interpretation Comments eGFR (test code = eGFR) 47 [place] 019822-04-30 23:39:00 Test Item Value Reference Range Interpretation Comments Ketone Quantitative (test code = Ketone 0.16 Quantitative) [place] 019822-04-30 23:39:00 Test Item Value Reference Range Interpretation Comments Glucose Lvl (test code = Glucose Lvl) 214 70-99 [place] 019822-04-30 23:39:00 Test Item Value Reference Range Interpretation Comments BUN (test code = BUN) 20 7-22 [place] 019822-04-30 23:39:00 Test Item Value Reference Range Interpretation Comments Creatinine Lvl (test code = Creatinine 1.15 0.50-1.40 Lvl) [place] 019822-04-30 23:39:00 Test Item Value Reference Range Interpretation Comments Sodium Lvl (test code = Sodium Lvl) 135 135-145 [place] 019822-04-30 23:39:00 Test Item Value Reference Range Interpretation Comments Potassium Lvl (test code = Potassium 4.3 3.5-5.1 Lvl) [place] 019822-04-30 23:39:00 Test Item Value Reference Range Interpretation Comments Chloride Lvl (test code = Chloride Lvl) 106 95-109 [place] 019822-04-30 23:39:00 Test Item Value Reference Range Interpretation Comments CO2 (test code = CO2) 22 24-32 [place] 019822-04-30 23:39:00 Test Item Value Reference Range Interpretation Comments AGAP (test code = AGAP) 11.3 10.0-20.0 [place] 019822-04-30 23:39:00 Test Item Value Reference Range Interpretation Comments Calcium Lvl (test code = Calcium Lvl) 8.2 8.5-10.5 [place] 019822-04-30 23:39:00 Test Item Value Reference Range Interpretation Comments eGFR (test code = eGFR) 47 [place] 019822-04-30 23:39:00 Test Item Value Reference Range Interpretation Comments Ketone Quantitative (test code = Ketone 0.16 Quantitative) [place] 019822-04-30 19:35:00 Test Item Value Reference Range Interpretation Comments Ketone Quantitative (test code = Ketone 2.98 Quantitative) [place] 019822-04-30 19:35:00 Test Item Value Reference Range Interpretation Comments Magnesium Lvl (test code = Magnesium 2.1 1.8-2.4 Lvl) [facility] [id number] 19:35:00 Test Item Value Reference Range Interpretation Comments Phosphorus (test code = Phosphorus) 2.9 2.5-4.5 [place] 019822-04-30 19:35:00 Test Item Value Reference Range Interpretation Comments Glucose Lvl (test code = Glucose Lvl) 351 70-99 [place] 019822-04-30 19:35:00 Test Item Value Reference Range Interpretation Comments Ketone Quantitative (test code = Ketone 2.98 Quantitative) [facility] [id number] 19:35:00 Test Item Value Reference Range Interpretation Comments Magnesium Lvl (test code = Magnesium 2.1 1.8-2.4 Lvl) [place] 019822-04-30 19:35:00 Test Item Value Reference Range Interpretation Comments Phosphorus (test code = Phosphorus) 2.9 2.5-4.5 [place] 019822-04-30 19:35:00 Test Item Value Reference Range Interpretation Comments Glucose Lvl (test code = Glucose Lvl) 351 70- [facility]2022-04-30 19:35:00 Test Item Value Reference Range Interpretation Comments BUN (test code = BUN) 22 - [place] 019822-04-30 19:35:00 Test Item Value Reference Range Interpretation Comments BUN (test code = BUN) 22 - [place] 019822-04-30 19:35:00 Test Item Value Reference Range Interpretation Comments Creatinine Lvl (test code = Creatinine 1.12 0.50-1.40 Lvl) [facility]2022-04-30 19:35:00 Test Item Value Reference Range Interpretation Comments Sodium Lvl (test code = Sodium Lvl) 135 135-145 [facility]2022-04-30 19:35:00 Test Item Value Reference Range Interpretation Comments Potassium Lvl (test code = Potassium 4.3 3.5-5.1 Lvl) [facility]2022-04-30 19:35:00 Test Item Value Reference Range Interpretation Comments Chloride Lvl (test code = Chloride Lvl) 104 95-109 [facility]2022-04-30 19:35:00 Test Item Value Reference Range Interpretation Comments CO2 (test code = CO2) 19 24-32 [facility]2022-04-30 19:35:00 Test Item Value Reference Range Interpretation Comments AGAP (test code = AGAP) 16.3 10.0-20.0 [place] 019822-04-30 19:35:00 Test Item Value Reference Range Interpretation Comments Calcium Lvl (test code = Calcium Lvl) 8.0 8.5-10.5 [facility]2022-04-30 19:35:00 Test Item Value Reference Range Interpretation Comments eGFR (test code = eGFR) 49 [place] 019822-04-30 19:35:00 Test Item Value Reference Range Interpretation Comments Glucose Lvl (test code = Glucose Lvl) 351 70-99 [facility]2022-04-30 19:35:00 Test Item Value Reference Range Interpretation Comments BUN (test code = BUN) 23 - [place] 019822-04-30 19:35:00 Test Item Value Reference Range Interpretation Comments Creatinine Lvl (test code = Creatinine 1.12 0.50-1.40 Lvl) [facility]2022-04-30 19:35:00 Test Item Value Reference Range Interpretation Comments Creatinine Lvl (test code = Creatinine 1.14 0.50-1.40 Lvl) [facility]2022-04-30 19:35:00 Test Item Value Reference Range Interpretation Comments Sodium Lvl (test code = Sodium Lvl) 135 135-145 [place] 019822-04-30 19:35:00 Test Item Value Reference Range Interpretation Comments Potassium Lvl (test code = Potassium 4.3 3.5-5.1 Lvl) [id number] 19:35:00 Test Item Value Reference Range Interpretation Comments Chloride Lvl (test code = Chloride Lvl) 104 95-109 [facility]2022-04-30 19:35:00 Test Item Value Reference Range Interpretation Comments CO2 (test code = CO2) [place] 019822-04-30 19:35:00 Test Item Value Reference Range Interpretation Comments AGAP (test code = AGAP) 16.3 10.0-20.0 [place] 019822-04-30 19:35:00 Test Item Value Reference Range Interpretation Comments Calcium Lvl (test code = Calcium Lvl) 7.9 8.5-10.5 [facility]inoP[facility] [id number] 19:35:00 Test Item Value Reference Range Interpretation Comments eGFR (test code = eGFR) 47 [facility]2022-04-30 19:35:00 Test Item Value Reference Range Interpretation Comments Sodium Lvl (test code = Sodium Lvl) 135 135-145 [facility]2022-04-30 19:35:00 Test Item Value Reference Range Interpretation Comments Potassium Lvl (test code = Potassium 4.3 3.5-5.1 Lvl) [facility]inoP[facility] [id number] 19:35:00 Test Item Value Reference Range Interpretation Comments Chloride Lvl (test code = Chloride Lvl) 104 95-109 [place] 019822-04-30 19:35:00 Test Item Value Reference Range Interpretation Comments CO2 (test code = CO2) [facility] [id number] 19:35:00 Test Item Value Reference Range Interpretation Comments AGAP (test code = AGAP) 16.3 10.0-20.0 [facility]2022-04-30 19:35:00 Test Item Value Reference Range Interpretation Comments Calcium Lvl (test code = Calcium Lvl) 8.0 8.5-10.5 [place] 019822-04-30 19:35:00 Test Item Value Reference Range Interpretation Comments eGFR (test code = eGFR) 49 [place] 019822-04-30 19:35:00 Test Item Value Reference Range Interpretation Comments Glucose Lvl (test code = Glucose Lvl) 351 70-99 [place] 019822-04-30 19:35:00 Test Item Value Reference Range Interpretation Comments BUN (test code = BUN) 23 7-22 [place] 019822-04-30 19:35:00 Test Item Value Reference Range Interpretation Comments Creatinine Lvl (test code = Creatinine 1.14 0.50-1.40 Lvl) [place] 019822-04-30 19:35:00 Test Item Value Reference Range Interpretation Comments Sodium Lvl (test code = Sodium Lvl) 135 135-145 [place] 019822-04-30 19:35:00 Test Item Value Reference Range Interpretation Comments Potassium Lvl (test code = Potassium 4.3 3.5-5.1 Lvl) [facility]2022-04-30 19:35:00 Test Item Value Reference Range Interpretation Comments Chloride Lvl (test code = Chloride Lvl) 104 95-109 [place] 019822-04-30 19:35:00 Test Item Value Reference Range Interpretation Comments CO2 (test code = CO2) 19 24-32 [facility]2022-04-30 19:35:00 Test Item Value Reference Range Interpretation Comments AGAP (test code = AGAP) 16.3 10.0-20.0 [facility]2022-04-30 19:35:00 Test Item Value Reference Range Interpretation Comments Calcium Lvl (test code = Calcium Lvl) 7.9 8.5-10.5 [place] 019822-04-30 19:35:00 Test Item Value Reference Range Interpretation Comments eGFR (test code = eGFR) 47 [facility]2022-04-30 19:35:00 Test Item Value Reference Range Interpretation Comments Ketone Quantitative (test code = Ketone 2.98 Quantitative) [place] 019822-04-30 19:35:00 Test Item Value Reference Range Interpretation Comments Magnesium Lvl (test code = Magnesium 2.1 1.8-2.4 Lvl) [place] 019822-04-30 19:35:00 Test Item Value Reference Range Interpretation Comments Phosphorus (test code = Phosphorus) 2.9 2.5-4.5 [place] 019822-04-30 19:35:00 Test Item Value Reference Range Interpretation Comments Glucose Lvl (test code = Glucose Lvl) 351 70-99 [place] 019822-04-30 19:35:00 Test Item Value Reference Range Interpretation Comments BUN (test code = BUN) 22 7-22 [place] 019822-04-30 19:35:00 Test Item Value Reference Range Interpretation Comments Creatinine Lvl (test code = Creatinine 1.12 0.50-1.40 Lvl) [place] 019822-04-30 19:35:00 Test Item Value Reference Range Interpretation Comments Sodium Lvl (test code = Sodium Lvl) 135 135-145 [place] 019822-04-30 19:35:00 Test Item Value Reference Range Interpretation Comments Potassium Lvl (test code = Potassium 4.3 3.5-5.1 Lvl) [place] 019822-04-30 19:35:00 Test Item Value Reference Range Interpretation Comments Chloride Lvl (test code = Chloride Lvl) 104 95-109 [place] 019822-04-30 19:35:00 Test Item Value Reference Range Interpretation Comments CO2 (test code = CO2) 19 24-32 [place] 019822-04-30 19:35:00 Test Item Value Reference Range Interpretation Comments AGAP (test code = AGAP) 16.3 10.0-20.0 [place] 019822-04-30 19:35:00 Test Item Value Reference Range Interpretation Comments Calcium Lvl (test code = Calcium Lvl) 8.0 8.5-10.5 [place] 019822-04-30 19:35:00 Test Item Value Reference Range Interpretation Comments eGFR (test code = eGFR) 49 [place] 019822-04-30 19:35:00 Test Item Value Reference Range Interpretation Comments Glucose Lvl (test code = Glucose Lvl) 351 70-99 [place] 019822-04-30 19:35:00 Test Item Value Reference Range Interpretation Comments BUN (test code = BUN) 23 7-22 [place] 019822-04-30 19:35:00 Test Item Value Reference Range Interpretation Comments Creatinine Lvl (test code = Creatinine 1.14 0.50-1.40 Lvl) [place] 019822-04-30 19:35:00 Test Item Value Reference Range Interpretation Comments Sodium Lvl (test code = Sodium Lvl) 135 135-145 [place] 019822-04-30 19:35:00 Test Item Value Reference Range Interpretation Comments Potassium Lvl (test code = Potassium 4.3 3.5-5.1 Lvl) [place] 019822-04-30 19:35:00 Test Item Value Reference Range Interpretation Comments Chloride Lvl (test code = Chloride Lvl) 104 95-109 [place] 019822-04-30 19:35:00 Test Item Value Reference Range Interpretation Comments CO2 (test code = CO2) 19 24-32 [place] 019822-04-30 19:35:00 Test Item Value Reference Range Interpretation Comments AGAP (test code = AGAP) 16.3 10.0-20.0 [facility]2022-04-30 19:35:00 Test Item Value Reference Range Interpretation Comments Calcium Lvl (test code = Calcium Lvl) 7.9 8.5-10.5 [place] 019822-04-30 19:35:00 Test Item Value Reference Range Interpretation Comments eGFR (test code = eGFR) 47 [place] 019822-04-30 19:35:00 Test Item Value Reference Range Interpretation Comments Ketone Quantitative (test code = Ketone 2.98 Quantitative) [facility]2022-04-30 19:35:00 Test Item Value Reference Range Interpretation Comments Magnesium Lvl (test code = Magnesium 2.1 1.8-2.4 Lvl) [facility]2022-04-30 19:35:00 Test Item Value Reference Range Interpretation Comments Phosphorus (test code = Phosphorus) 2.9 2.5-4.5 [place] 019822-04-30 19:35:00 Test Item Value Reference Range Interpretation Comments Glucose Lvl (test code = Glucose Lvl) 351 70-99 [facility]2022-04-30 19:35:00 Test Item Value Reference Range Interpretation Comments BUN (test code = BUN) 22 7- [facility]2022-04-30 19:35:00 Test Item Value Reference Range Interpretation Comments Creatinine Lvl (test code = Creatinine 1.12 0.50-1.40 Lvl) [facility]2022-04-30 19:35:00 Test Item Value Reference Range Interpretation Comments Sodium Lvl (test code = Sodium Lvl) 135 135-145 [facility]2022-04-30 19:35:00 Test Item Value Reference Range Interpretation Comments Potassium Lvl (test code = Potassium 4.3 3.5-5.1 Lvl) [facility]2022-04-30 19:35:00 Test Item Value Reference Range Interpretation Comments Chloride Lvl (test code = Chloride Lvl) 104 95-109 [facility]2022-04-30 19:35:00 Test Item Value Reference Range Interpretation Comments CO2 (test code = CO2) 19 24-32 [facility]2022-04-30 19:35:00 Test Item Value Reference Range Interpretation Comments AGAP (test code = AGAP) 16.3 10.0-20.0 [facility]2022-04-30 19:35:00 Test Item Value Reference Range Interpretation Comments Calcium Lvl (test code = Calcium Lvl) 8.0 8.5-10.5 [facility]2022-04-30 19:35:00 Test Item Value Reference Range Interpretation Comments eGFR (test code = eGFR) 49 [facility]2022-04-30 19:35:00 Test Item Value Reference Range Interpretation Comments Glucose Lvl (test code = Glucose Lvl) 351 70-99 [facility]2022-04-30 19:35:00 Test Item Value Reference Range Interpretation Comments BUN (test code = BUN) 23 7- [facility]2022-04-30 19:35:00 Test Item Value Reference Range Interpretation Comments Creatinine Lvl (test code = Creatinine 1.14 0.50-1.40 Lvl) [place] 019822-04-30 19:35:00 Test Item Value Reference Range Interpretation Comments Sodium Lvl (test code = Sodium Lvl) 135 135-145 [place] 019822-04-30 19:35:00 Test Item Value Reference Range Interpretation Comments Potassium Lvl (test code = Potassium 4.3 3.5-5.1 Lvl) [place] 019822-04-30 19:35:00 Test Item Value Reference Range Interpretation Comments Chloride Lvl (test code = Chloride Lvl) 104 95-109 [place] 019822-04-30 19:35:00 Test Item Value Reference Range Interpretation Comments CO2 (test code = CO2) 19 24-32 [place] 019822-04-30 19:35:00 Test Item Value Reference Range Interpretation Comments AGAP (test code = AGAP) 16.3 10.0-20.0 [place] 019822-04-30 19:35:00 Test Item Value Reference Range Interpretation Comments Calcium Lvl (test code = Calcium Lvl) 7.9 8.5-10.5 [place] 019822-04-30 19:35:00 Test Item Value Reference Range Interpretation Comments eGFR (test code = eGFR) 47 [place] 019822-04-30 19:35:00 Test Item Value Reference Range Interpretation Comments Ketone Quantitative (test code = Ketone 2.98 Quantitative) [place] 019822-04-30 19:35:00 Test Item Value Reference Range Interpretation Comments Magnesium Lvl (test code = Magnesium 2.1 1.8-2.4 Lvl) [place] 019822-04-30 19:35:00 Test Item Value Reference Range Interpretation Comments Phosphorus (test code = Phosphorus) 2.9 2.5-4.5 [place] 019822-04-30 19:35:00 Test Item Value Reference Range Interpretation Comments Glucose Lvl (test code = Glucose Lvl) 351 70-99 [place] 019822-04-30 19:35:00 Test Item Value Reference Range Interpretation Comments BUN (test code = BUN) 22 7-22 [place] 019822-04-30 19:35:00 Test Item Value Reference Range Interpretation Comments Creatinine Lvl (test code = Creatinine 1.12 0.50-1.40 Lvl) [place] 019822-04-30 19:35:00 Test Item Value Reference Range Interpretation Comments Sodium Lvl (test code = Sodium Lvl) 135 135-145 [place] 019822-04-30 19:35:00 Test Item Value Reference Range Interpretation Comments Potassium Lvl (test code = Potassium 4.3 3.5-5.1 Lvl) [place] 019822-04-30 19:35:00 Test Item Value Reference Range Interpretation Comments Chloride Lvl (test code = Chloride Lvl) 104 95-109 [place] 019822-04-30 19:35:00 Test Item Value Reference Range Interpretation Comments CO2 (test code = CO2) 19 24-32 [place] 019822-04-30 19:35:00 Test Item Value Reference Range Interpretation Comments AGAP (test code = AGAP) 16.3 10.0-20.0 [place] 019822-04-30 19:35:00 Test Item Value Reference Range Interpretation Comments Calcium Lvl (test code = Calcium Lvl) 8.0 8.5-10.5 [place] 019822-04-30 19:35:00 Test Item Value Reference Range Interpretation Comments eGFR (test code = eGFR) 49 [place] 019822-04-30 19:35:00 Test Item Value Reference Range Interpretation Comments Glucose Lvl (test code = Glucose Lvl) 351 70-99 [place] 019822-04-30 19:35:00 Test Item Value Reference Range Interpretation Comments BUN (test code = BUN) 23 7-22 [place] 019822-04-30 19:35:00 Test Item Value Reference Range Interpretation Comments Creatinine Lvl (test code = Creatinine 1.14 0.50-1.40 Lvl) [facility]2022-04-30 19:35:00 Test Item Value Reference Range Interpretation Comments Sodium Lvl (test code = Sodium Lvl) 135 135-145 [place] 019822-04-30 19:35:00 Test Item Value Reference Range Interpretation Comments Potassium Lvl (test code = Potassium 4.3 3.5-5.1 Lvl) [place] 019822-04-30 19:35:00 Test Item Value Reference Range Interpretation Comments Chloride Lvl (test code = Chloride Lvl) 104 95-109 [facility]2022-04-30 19:35:00 Test Item Value Reference Range Interpretation Comments CO2 (test code = CO2) 19 24-32 [facility] [id number] 19:35:00 Test Item Value Reference Range Interpretation Comments AGAP (test code = AGAP) 16.3 10.0-20.0 [facility]2022-04-30 19:35:00 Test Item Value Reference Range Interpretation Comments Calcium Lvl (test code = Calcium Lvl) 7.9 8.5-10.5 [facility]2022-04-30 19:35:00 Test Item Value Reference Range Interpretation Comments eGFR (test code = eGFR) 47 [facility]RotasbiJKYDWBXEFQ4295-98-86 11:24:00 Test Item Value Reference Range Interpretation Comments WBC (test code = WBC) 9.7 3.7-10.4 [facility]aNcnvnsiEDFYQDNEGJ4466-80-63 11:24:00 Test Item Value Reference Range Interpretation Comments RBC (test code = RBC) 3.11 4.20-5.40 [facility]aTmxaxqoDESGGAHFAY2308-25-13 11:24:00 Test Item Value Reference Range Interpretation Comments Hgb (test code = Hgb) 8.5 12.0-16.0 [facility]aTwymknnGOQUWAEVNK0106-23-93 11:24:00 Test Item Value Reference Range Interpretation Comments Hct (test code = Hct) 26.6 36.0-48.0 [facility]aNauvlyrFYNJVXUVPY1355-08-14 11:24:00 Test Item Value Reference Range Interpretation Comments MCV (test code = MCV) 85.5 80.0-98.0 [facility]aHdjstuyFQWNWIEROA6165-15-24 11:24:00 Test Item Value Reference Range Interpretation Comments MCH (test code = MCH) 27.3 pg 27.0-31.0 [place] 546562-04-30 11:24:00 Test Item Value Reference Range Interpretation Comments MCHC (test code = MCHC) 32.0 32.0-36.0 [place] 546562-04-30 11:24:00 Test Item Value Reference Range Interpretation Comments RDW (test code = RDW) 17.0 11.5-14.5 [facility]aUcfqxiqPDGTKLSUNO4008-23-52 11:24:00 Test Item Value Reference Range Interpretation Comments Platelet (test code = Platelet) 248 133-450 [place] 546562-04-30 11:24:00 Test Item Value Reference Range Interpretation Comments MPV (test code = MPV) 8.2 7.4-10.4 [place] [address]-04-30 11:24:00 Test Item Value Reference Range Interpretation Comments Segs (test code = Segs) 73.5 45.0-75.0 [place] 546562-04-30 11:24:00 Test Item Value Reference Range Interpretation Comments Lymphocytes (test code = Lymphocytes) 16.3 20.0-40.0 [place] [address]-04-30 11:24:00 Test Item Value Reference Range Interpretation Comments Monocytes (test code = Monocytes) 8.1 2.0-12.0 [place] [address]-04-30 11:24:00 Test Item Value Reference Range Interpretation Comments Eosinophils (test code = 0.7 See_Comment [A utomated message] The Eosinophils) system which ge nerated this result tra nsmitted reference range : <=4.0. The reference r lizabeth was not used to int erpret this result as normal/abnormal . [facility]aHxjkclmWMSGJZNFIB0738-32-12 11:24:00 Test Item Value Reference Range Interpretation Comments Basophils (test code = 1.4 See_Comment [Aut omated message] The Basophils) system which ge nerated this result tra nsmitted reference range : <=1.0. The reference r lizabeth was not used to int erpret this result as normal/abnormal . [facility]aDxhrzurZWIKVTOIVJ5523-63-34 11:24:00 Test Item Value Reference Range Interpretation Comments Neutrophils # (test code = Neutrophils 7.1 1.5-8.1 #) [place] [address]-04-30 11:24:00 Test Item Value Reference Range Interpretation Comments Lymphocytes # (test code = Lymphocytes 1.6 1.0-5.5 #) [place] 546562-04-30 11:24:00 Test Item Value Reference Range Interpretation Comments Monocytes # (test code 0.8 See_Comment [Aut omated message] The = Monocytes #) system which generated this result tra nsmitted reference range : <=0.8. The reference r lizabeth was not used to int erpret this result as normal/abnormal . [facility]aLeuquqcWZBFXEHIWK7758-14-11 11:24:00 Test Item Value Reference Range Interpretation Comments Eosinophils # (test code 0.1 See_Comment [A utomated message] The = Eosinophils #) system whic h generated this result tra nsmitted reference range : <=0.5. The reference r lizabeth was not used to int erpret this result as normal/abnormal . [facility]aPjjdikpQVYKRKYVVT9228-25-84 11:24:00 Test Item Value Reference Range Interpretation Comments Basophils # (test code 0.1 See_Comment [Aut omated message] The = Basophils #) system which generated this result tra nsmitted reference range : <=0.2. The reference r lizabeth was not used to int erpret this result as normal/abnormal . [facility]aRjdbceyXXHQCMCKLG2477-43-63 11:24:00 Test Item Value Reference Range Interpretation Comments WBC (test code = WBC) 9.7 3.7-10.4 [facility]aEastmqiLRLECKZQFD7100-37-83 11:24:00 Test Item Value Reference Range Interpretation Comments RBC (test code = RBC) 3.11 4.20-5.40 [facility]aNbsjdegZKWKYKLBVQ8284-55-31 11:24:00 Test Item Value Reference Range Interpretation Comments Hgb (test code = Hgb) 8.5 12.0-16.0 [facility]aHlrydwlOFHVNVUHBB5369-76-93 11:24:00 Test Item Value Reference Range Interpretation Comments Hct (test code = Hct) 26.6 36.0-48.0 [place] 546562-04-30 11:24:00 Test Item Value Reference Range Interpretation Comments MCV (test code = MCV) 85.5 80.0-98.0 [place] [address]-04-30 11:24:00 Test Item Value Reference Range Interpretation Comments MCH (test code = MCH) 27.3 pg 27.0-31.0 [place] 546562-04-30 11:24:00 Test Item Value Reference Range Interpretation Comments MCHC (test code = MCHC) 32.0 32.0-36.0 [facility]aCutfggiCRDKPNPTZO4309-74-16 11:24:00 Test Item Value Reference Range Interpretation Comments RDW (test code = RDW) 17.0 11.5-14.5 [place] 546562-04-30 11:24:00 Test Item Value Reference Range Interpretation Comments Platelet (test code = Platelet) 248 133-450 [facility]aKjfnwgmZFCBIKCPCN1145-92-55 11:24:00 Test Item Value Reference Range Interpretation Comments MPV (test code = MPV) 8.2 7.4-10.4 [place] 546562-04-30 11:24:00 Test Item Value Reference Range Interpretation Comments Segs (test code = Segs) 73.5 45.0-75.0 [place] 546562-04-30 11:24:00 Test Item Value Reference Range Interpretation Comments Lymphocytes (test code = Lymphocytes) 16.3 20.0-40.0 [place] 546562-04-30 11:24:00 Test Item Value Reference Range Interpretation Comments Monocytes (test code = Monocytes) 8.1 2.0-12.0 [facility]aInkkcsuOJODMRAOSK2599-82-63 11:24:00 Test Item Value Reference Range Interpretation Comments Eosinophils (test code = Eosinophils) 0.7 <=4.0 [facility]aEktjuwnJCMCCXMTVO7108-48-18 11:24:00 Test Item Value Reference Range Interpretation Comments Basophils (test code = Basophils) 1.4 <=1.0 [facility]aAkeywepJSBOZJYUTV9813-88-45 11:24:00 Test Item Value Reference Range Interpretation Comments Neutrophils # (test code = Neutrophils 7.1 1.5-8.1 #) [facility]aMpmecmxLBBCXGQFSE5478-50-43 11:24:00 Test Item Value Reference Range Interpretation Comments Lymphocytes # (test code = Lymphocytes 1.6 1.0-5.5 #) [facility]aNeqqmhhIIKIKBZODO8542-70-03 11:24:00 Test Item Value Reference Range Interpretation Comments Monocytes # (test code = Monocytes #) 0.8 <=0.8 [place] 546562-04-30 11:24:00 Test Item Value Reference Range Interpretation Comments Eosinophils # (test code = Eosinophils 0.1 <=0.5 #) [place] 546562-04-30 11:24:00 Test Item Value Reference Range Interpretation Comments Basophils # (test code = Basophils #) 0.1 <=0.2 [facility]2022-04-30 11:24:00 Test Item Value Reference Range Interpretation Comments Ketone Quantitative (test code = Ketone 2.53 Quantitative) [place] 019822-04-30 11:24:00 Test Item Value Reference Range Interpretation Comments Magnesium Lvl (test code = Magnesium 2.6 1.8-2.4 Lvl) [place] 019822-04-30 11:24:00 Test Item Value Reference Range Interpretation Comments Phosphorus (test code = Phosphorus) 3.0 2.5-4.5 [place] 019822-04-30 11:24:00 Test Item Value Reference Range Interpretation Comments Ketone Quantitative (test code = Ketone 2.53 Quantitative) [place] 019822-04-30 11:24:00 Test Item Value Reference Range Interpretation Comments Magnesium Lvl (test code = Magnesium 2.6 1.8-2.4 Lvl) [place] 019822-04-30 11:24:00 Test Item Value Reference Range Interpretation Comments Phosphorus (test code = Phosphorus) 3.0 2.5-4.5 [place] 546562-04-30 11:24:00 Test Item Value Reference Range Interpretation Comments WBC (test code = WBC) 9.7 3.7-10.4 [place] [address]-04-30 11:24:00 Test Item Value Reference Range Interpretation Comments RBC (test code = RBC) 3.11 4.20-5.40 [place] [address]-04-30 11:24:00 Test Item Value Reference Range Interpretation Comments Hgb (test code = Hgb) 8.5 12.0-16.0 [place] [address]-04-30 11:24:00 Test Item Value Reference Range Interpretation Comments Hct (test code = Hct) 26.6 36.0-48.0 [place] [address]-04-30 11:24:00 Test Item Value Reference Range Interpretation Comments MCV (test code = MCV) 85.5 80.0-98.0 [place] [address]-04-30 11:24:00 Test Item Value Reference Range Interpretation Comments MCH (test code = MCH) 27.3 pg 27.0-31.0 [place] [address]-04-30 11:24:00 Test Item Value Reference Range Interpretation Comments MCHC (test code = MCHC) 32.0 32.0-36.0 [place] 546562-04-30 11:24:00 Test Item Value Reference Range Interpretation Comments RDW (test code = RDW) 17.0 11.5-14.5 [place] 546562-04-30 11:24:00 Test Item Value Reference Range Interpretation Comments Platelet (test code = Platelet) 248 133-450 [place] 546562-04-30 11:24:00 Test Item Value Reference Range Interpretation Comments MPV (test code = MPV) 8.2 7.4-10.4 [place] 546562-04-30 11:24:00 Test Item Value Reference Range Interpretation Comments Segs (test code = Segs) 73.5 45.0-75.0 [place] 546562-04-30 11:24:00 Test Item Value Reference Range Interpretation Comments Lymphocytes (test code = Lymphocytes) 16.3 20.0-40.0 [place] 546562-04-30 11:24:00 Test Item Value Reference Range Interpretation Comments Monocytes (test code = Monocytes) 8.1 2.0-12.0 [id number] 11:24:00 Test Item Value Reference Range Interpretation Comments Eosinophils (test code = 0.7 See_Comment [A utomated message] The Eosinophils) system which ge nerated this result tra nsmitted reference range : <=4.0. The reference r lizabeth was not used to int erpret this result as normal/abnormal . [facility]aHfnqbucNREYVWSSJN6495-00-28 11:24:00 Test Item Value Reference Range Interpretation Comments Basophils (test code = 1.4 See_Comment [Aut omated message] The Basophils) system which ge nerated this result tra nsmitted reference range : <=1.0. The reference r lizabeth was not used to int erpret this result as normal/abnormal . [facility]aQpabdmmHVILNXNCXE0811-69-20 11:24:00 Test Item Value Reference Range Interpretation Comments Neutrophils # (test code = Neutrophils 7.1 1.5-8.1 #) [facility]aHfwqdfhJOCTYDNKFG0280-24-56 11:24:00 Test Item Value Reference Range Interpretation Comments Lymphocytes # (test code = Lymphocytes 1.6 1.0-5.5 #) [place] 546562-04-30 11:24:00 Test Item Value Reference Range Interpretation Comments Monocytes # (test code 0.8 See_Comment [Aut omated message] The = Monocytes #) system which generated this result tra nsmitted reference range : <=0.8. The reference r lizabeth was not used to int erpret this result as normal/abnormal . [place] 546562-04-30 11:24:00 Test Item Value Reference Range Interpretation Comments Eosinophils # (test code 0.1 See_Comment [A utomated message] The = Eosinophils #) system whic h generated this result tra nsmitted reference range : <=0.5. The reference r lizabeth was not used to int erpret this result as normal/abnormal . [place] 546562-04-30 11:24:00 Test Item Value Reference Range Interpretation Comments Basophils # (test code 0.1 See_Comment [Aut omated message] The = Basophils #) system which generated this result tra nsmitted reference range : <=0.2. The reference r lizabeth was not used to int erpret this result as normal/abnormal . [facility] [id number] 11:24:00 Test Item Value Reference Range Interpretation Comments Ketone Quantitative (test code = Ketone 2.53 Quantitative) [facility] [id number] 11:24:00 Test Item Value Reference Range Interpretation Comments Magnesium Lvl (test code = Magnesium 2.6 1.8-2.4 Lvl) [facility] [id number] 11:24:00 Test Item Value Reference Range Interpretation Comments Phosphorus (test code = Phosphorus) 3.0 2.5-4.5 [place] 546562-04-30 11:24:00 Test Item Value Reference Range Interpretation Comments WBC (test code = WBC) 9.7 3.7-10.4 [place] [address]-04-30 11:24:00 Test Item Value Reference Range Interpretation Comments RBC (test code = RBC) 3.11 4.20-5.40 [place] [address]-04-30 11:24:00 Test Item Value Reference Range Interpretation Comments Hgb (test code = Hgb) 8.5 12.0-16.0 [place] [address]-04-30 11:24:00 Test Item Value Reference Range Interpretation Comments Hct (test code = Hct) 26.6 36.0-48.0 [facility]aJxiepqhGRMOBNPCBK9063-59-97 11:24:00 Test Item Value Reference Range Interpretation Comments MCV (test code = MCV) 85.5 80.0-98.0 [place] 546562-04-30 11:24:00 Test Item Value Reference Range Interpretation Comments MCH (test code = MCH) 27.3 pg 27.0-31.0 [facility]aXaiocjwTQLTFIILJT5254-01-56 11:24:00 Test Item Value Reference Range Interpretation Comments MCHC (test code = MCHC) 32.0 32.0-36.0 [facility]aCvssouvIFCKTJSUGZ6540-42-21 11:24:00 Test Item Value Reference Range Interpretation Comments RDW (test code = RDW) 17.0 11.5-14.5 [place] 546562-04-30 11:24:00 Test Item Value Reference Range Interpretation Comments Platelet (test code = Platelet) 248 133-450 [facility]aFreezwpKUPKSKONGV3989-94-60 11:24:00 Test Item Value Reference Range Interpretation Comments MPV (test code = MPV) 8.2 7.4-10.4 [facility]aTejltdpWECOCADOLZ5555-51-76 11:24:00 Test Item Value Reference Range Interpretation Comments Segs (test code = Segs) 73.5 45.0-75.0 [facility]aIzfmekoSHOOQCFLMS4059-72-05 11:24:00 Test Item Value Reference Range Interpretation Comments Lymphocytes (test code = Lymphocytes) 16.3 20.0-40.0 [facility]aZcctdrtNJLRZLNBVT8883-19-47 11:24:00 Test Item Value Reference Range Interpretation Comments Monocytes (test code = Monocytes) 8.1 2.0-12.0 [place] 546562-04-30 11:24:00 Test Item Value Reference Range Interpretation Comments Eosinophils (test code = Eosinophils) 0.7 <=4.0 [place] 546562-04-30 11:24:00 Test Item Value Reference Range Interpretation Comments Basophils (test code = Basophils) 1.4 <=1.0 [place] 546562-04-30 11:24:00 Test Item Value Reference Range Interpretation Comments Neutrophils # (test code = Neutrophils 7.1 1.5-8.1 #) [place] [address]-04-30 11:24:00 Test Item Value Reference Range Interpretation Comments Lymphocytes # (test code = Lymphocytes 1.6 1.0-5.5 #) [place] [address]-04-30 11:24:00 Test Item Value Reference Range Interpretation Comments Monocytes # (test code = Monocytes #) 0.8 <=0.8 [address]04-30 11:24:00 Test Item Value Reference Range Interpretation Comments Eosinophils # (test code = Eosinophils 0.1 <=0.5 #) [address]04-30 11:24:00 Test Item Value Reference Range Interpretation Comments Basophils # (test code = Basophils #) 0.1 <=0.[address]04-30 11:24:00 Test Item Value Reference Range Interpretation Comments Ketone Quantitative (test code = Ketone 2.53 Quantitative) [address]04-30 11:24:00 Test Item Value Reference Range Interpretation Comments Magnesium Lvl (test code = Magnesium 2.6 1.8-2.4 Lvl) [place] 019822-04-30 11:24:00 Test Item Value Reference Range Interpretation Comments Phosphorus (test code = Phosphorus) 3.0 2.5-4.5 [place] [address]-04-30 11:24:00 Test Item Value Reference Range Interpretation Comments WBC (test code = WBC) 9.7 3.7-10.4 [place] [address]-04-30 11:24:00 Test Item Value Reference Range Interpretation Comments RBC (test code = RBC) 3.11 4.20-5.40 [place] [address]-04-30 11:24:00 Test Item Value Reference Range Interpretation Comments Hgb (test code = Hgb) 8.5 12.0-16.0 [place] [address]-04-30 11:24:00 Test Item Value Reference Range Interpretation Comments Hct (test code = Hct) 26.6 36.0-48.0 [place] [address]-04-30 11:24:00 Test Item Value Reference Range Interpretation Comments MCV (test code = MCV) 85.5 80.0-98.0 [place] [address]-04-30 11:24:00 Test Item Value Reference Range Interpretation Comments MCH (test code = MCH) 27.3 pg 27.0-31.0 [id number] 11:24:00 Test Item Value Reference Range Interpretation Comments MCHC (test code = MCHC) 32.0 32.0-36.0 [facility]aKxoneueLZTXPOKEVI8772-61-24 11:24:00 Test Item Value Reference Range Interpretation Comments RDW (test code = RDW) 17.0 11.5-14.5 [facility]aVtixhkyGCZYCRHWYI6337-15-18 11:24:00 Test Item Value Reference Range Interpretation Comments Platelet (test code = Platelet) 248 133-450 [id number] 11:24:00 Test Item Value Reference Range Interpretation Comments MPV (test code = MPV) 8.2 7.4-10.4 [facility]aPiqgzrlYNWENPAURJ4927-33-97 11:24:00 Test Item Value Reference Range Interpretation Comments Segs (test code = Segs) 73.5 45.0-75.0 [facility]aMlboyfxBMBWLLIKWF6360-45-10 11:24:00 Test Item Value Reference Range Interpretation Comments Lymphocytes (test code = Lymphocytes) 16.3 20.0-40.0 [facility]aMdkddjtYVIOIBIZMU6385-66-34 11:24:00 Test Item Value Reference Range Interpretation Comments Monocytes (test code = Monocytes) 8.1 2.0-12.0 [facility]aPqfpwrsPVMFONENZF0175-50-14 11:24:00 Test Item Value Reference Range Interpretation Comments Eosinophils (test code = Eosinophils) 0.7 <=4.0 [facility]aGxyvatrJOWBYKXQQT4360-59-33 11:24:00 Test Item Value Reference Range Interpretation Comments Basophils (test code = Basophils) 1.4 <=1.0 [place] [address]6562-04-30 11:24:00 Test Item Value Reference Range Interpretation Comments Neutrophils # (test code = Neutrophils 7.1 1.5-8.1 #) [facility]aOaqwrknMTYRJEAJFS8078-37-02 11:24:00 Test Item Value Reference Range Interpretation Comments Lymphocytes # (test code = Lymphocytes 1.6 1.0-5.5 #) [facility]aHmbsncePBYTVYPIZX4142-58-56 11:24:00 Test Item Value Reference Range Interpretation Comments Monocytes # (test code = Monocytes #) 0.8 <=0.8 [facility]wq[facility]PJLJURALEN2854-38-55 11:24:00 Test Item Value Reference Range Interpretation Comments Eosinophils # (test code = Eosinophils 0.1 <=0.5 #) [facility]HujenlbVDIHMNSKEC4068-41-18 11:24:00 Test Item Value Reference Range Interpretation Comments Basophils # (test code = Basophils #) 0.1 <=0.2 [facility]2022-04-30 11:24:00 Test Item Value Reference Range Interpretation Comments Ketone Quantitative (test code = Ketone 2.53 Quantitative) [facility]2022-04-30 11:24:00 Test Item Value Reference Range Interpretation Comments Magnesium Lvl (test code = Magnesium 2.6 1.8-2.4 Lvl) [facility]2022-04-30 11:24:00 Test Item Value Reference Range Interpretation Comments Phosphorus (test code = Phosphorus) 3.0 2.5-4.5 [facility]2022-04-30 04:04:00 Test Item Value Reference Range Interpretation Comments Magnesium Lvl (test code = Magnesium 1.0 1.8-2.4 Lvl) [facility] PlayCH[facility]BUSWIUTTHAKJ4784-31-05 04:04:00 Test Item Value Reference Range Interpretation Comments Hgb A1C (test code = Hgb A1C) 9.0 [facility] [id number] 04:04:00 Test Item Value Reference Range Interpretation Comments Magnesium Lvl (test code = Magnesium 1.0 1.8-2.4 Lvl) [facility] PlayCHILDR[facility] [id number] 04:04:00 Test Item Value Reference Range Interpretation Comments Hgb A1C (test code = Hgb A1C) 9.0 [facility] [id number] 04:04:00 Test Item Value Reference Range Interpretation Comments Magnesium Lvl (test code = Magnesium 1.0 1.8-2.4 Lvl) [facility] PlayCHIL[facility] [id number] 04:04:00 Test Item Value Reference Range Interpretation Comments Hgb A1C (test code = Hgb A1C) 9.0 [facility] [id number] 04:04:00 Test Item Value Reference Range Interpretation Comments Magnesium Lvl (test code = Magnesium 1.0 1.8-2.4 Lvl) [facility] [id number] 04:04:00 Test Item Value Reference Range Interpretation Comments Hgb A1C (test code = Hgb A1C) 9.0 [facility]annCHEM [id number] 04:04:00 Test Item Value Reference Range Interpretation Comments Magnesium Lvl (test code = Magnesium 1.0 1.8-2.4 Lvl) [facility] [id number] 04:04:00 Test Item Value Reference Range Interpretation Comments Hgb A1C (test code = Hgb A1C) 9.0 [facility] AND [id number] 19:39:00 Test Item Value Reference Range Interpretation Comments UA Turbidity (test code = Clear (09/01/21 2:39 UA Turbidity) PM) [facility] AND [id number] 19:39:00 Test Item Value Reference Range Interpretation Comments UA Spec Grav (test code = UA Spec 1.016 1 Grav) [facility] AND [id number] 19:39:00 Test Item Value Reference Range Interpretation Comments UA pH (test code = UA pH) 5.0 1 5.0-8.0 [facility] AND [id number] 19:39:00 Test Item Value Reference Range Interpretation Comments UA Protein (test code = UA Negative mg/dL Protein) [facility] AND [id number] 19:39:00 Test Item Value Reference Range Interpretation Comments UA Glucose (test code = UA Glucose) 500 mg/dL [facility] AND [id number] 19:39:00 Test Item Value Reference Range Interpretation Comments UA Ketones (test code = UA Ketones) 80 mg/dL [facility] AND [id number] 19:39:00 Test Item Value Reference Range Interpretation Comments UA Bili (test code = Negative *NA*(09/01/21 UA Bili) 2:39 PM) [facility] AND [id number] 19:39:00 Test Item Value Reference Range Interpretation Comments UA Blood (test code = Negative (09/01/21 2:39 UA Blood) PM) [facility] AND [id number] 19:39:00 Test Item Value Reference Range Interpretation Comments UA Nitrite (test code Negative (09/01/21 2:39 = UA Nitrite) PM) [facility] AND [id number] 19:39:00 Test Item Value Reference Range Interpretation Comments UA Leuk Est (test Negative (09/01/21 2:39 code = UA Leuk Est) PM) [facility] AND [id number] 19:39:00 Test Item Value Reference Range Interpretation Comments UA Sq Epi (test code = UA Sq Occasional /LPF Epi) [facility] AND [id number] 19:39:00 Test Item Value Reference Range Interpretation Comments UA WBC (test code = UA WBC) no gt <=5 [facility] [id number] 19:39:00 Test Item Value Reference Range Interpretation Comments UA Bacteria (test code = UA Occasional /HPF Bacteria) [facility] AND [id number] 19:39:00 Test Item Value Reference Range Interpretation Comments UA Mucus (test code = UA Mucus) Few /LPF [facility] AND [id number] 19:39:00 Test Item Value Reference Range Interpretation Comments UA Color (test code = UA Color) Ltyellow [facility] AND [id number] 19:39:00 Test Item Value Reference Range Interpretation Comments UA Urobilinogen (test code = UA <=1.0 mg/dL 0.1-1.0 Urobilinogen) [facility] AND [id number] 19:39:00 Test Item Value Reference Range Interpretation Comments UA Turbidity (test code = Clear (09/01/21 2:39 UA Turbidity) PM) [facility] AND [id number] 19:39:00 Test Item Value Reference Range Interpretation Comments UA Spec Grav (test code = UA Spec 1.016 1 Grav) [facility] AND [id number] 19:39:00 Test Item Value Reference Range Interpretation Comments UA pH (test code = UA pH) 5.0 1 5.0-8.0 [facility] AND [id number] 19:39:00 Test Item Value Reference Range Interpretation Comments UA Protein (test code = UA Negative mg/dL Protein) [facility] AND [id number] 19:39:00 Test Item Value Reference Range Interpretation Comments UA Glucose (test code = UA Glucose) 500 mg/dL [facility] AND [id number] 19:39:00 Test Item Value Reference Range Interpretation Comments UA Ketones (test code = UA Ketones) 80 mg/dL [facility] AND [id number] 19:39:00 Test Item Value Reference Range Interpretation Comments UA Bili (test code = Negative *NA*(09/01/21 UA Bili) 2:39 PM) [facility] AND [id number] 19:39:00 Test Item Value Reference Range Interpretation Comments UA Blood (test code = Negative (09/01/21 2:39 UA Blood) PM) [facility] AND [id number] 19:39:00 Test Item Value Reference Range Interpretation Comments UA Nitrite (test code Negative (09/01/21 2:39 = UA Nitrite) PM) [facility] AND [id number] 19:39:00 Test Item Value Reference Range Interpretation Comments UA Leuk Est (test Negative (09/01/21 2:39 code = UA Leuk Est) PM) [facility] AND [id number] 19:39:00 Test Item Value Reference Range Interpretation Comments UA Sq Epi (test code = UA Sq Occasional /LPF Epi) [facility] AND [id number] 19:39:00 Test Item Value Reference Range Interpretation Comments UA WBC (test code = no gt See_Comment [Automa marge message] The UA WBC) system which ge nerated this result transmit marge reference range : <=5. The reference range was not used to interpr et this result as dain l/abnormal. [facility] AND [id number] 19:39:00 Test Item Value Reference Range Interpretation Comments UA Bacteria (test code = UA Occasional /HPF Bacteria) [facility] AND [id number] 19:39:00 Test Item Value Reference Range Interpretation Comments UA Mucus (test code = UA Mucus) Few /LPF [facility]annME[facility] AND [id number] 19:39:00 Test Item Value Reference Range Interpretation Comments UA Color (test code = UA Color) Ltyellow [facility] AND [id number] 19:39:00 Test Item Value Reference Range Interpretation Comments UA Urobilinogen (test code = UA <=1.0 mg/dL 0.1-1.0 Urobilinogen) [facility] AND [id number] 19:39:00 Test Item Value Reference Range Interpretation Comments UA Turbidity (test code = Clear (09/01/21 2:39 UA Turbidity) PM) [facility] AND [id number] 19:39:00 Test Item Value Reference Range Interpretation Comments UA Spec Grav (test code = UA Spec 1.016 1 Grav) [facility] AND [id number] 19:39:00 Test Item Value Reference Range Interpretation Comments UA pH (test code = UA pH) 5.0 1 5.0-8.0 [facility] AND [id number] 19:39:00 Test Item Value Reference Range Interpretation Comments UA Protein (test code = UA Negative mg/dL Protein) [facility] AND [id number] 19:39:00 Test Item Value Reference Range Interpretation Comments UA Glucose (test code = UA Glucose) 500 mg/dL [facility] AND [id number] 19:39:00 Test Item Value Reference Range Interpretation Comments UA Ketones (test code = UA Ketones) 80 mg/dL [facility] AND [id number] 19:39:00 Test Item Value Reference Range Interpretation Comments UA Bili (test code = Negative *NA*(09/01/21 UA Bili) 2:39 PM) [facility] AND [id number] 19:39:00 Test Item Value Reference Range Interpretation Comments UA Blood (test code = Negative (09/01/21 2:39 UA Blood) PM) [facility] AND [id number] 19:39:00 Test Item Value Reference Range Interpretation Comments UA Nitrite (test code Negative (09/01/21 2:39 = UA Nitrite) PM) [facility] AND [id number] 19:39:00 Test Item Value Reference Range Interpretation Comments UA Leuk Est (test Negative (09/01/21 2:39 code = UA Leuk Est) PM) [facility] AND [id number] 19:39:00 Test Item Value Reference Range Interpretation Comments UA Sq Epi (test code = UA Sq Occasional /LPF Epi) [facility] AND [id number] 19:39:00 Test Item Value Reference Range Interpretation Comments UA WBC (test code = no gt See_Comment [Automa marge message] The UA WBC) system which ge nerated this result transmit marge reference range : <=5. The reference range was not used to interpr et this result as dain l/abnormal. [facility] AND [id number] 19:39:00 Test Item Value Reference Range Interpretation Comments UA Bacteria (test code = UA Occasional /HPF Bacteria) [facility] AND [id number] 19:39:00 Test Item Value Reference Range Interpretation Comments UA Mucus (test code = UA Mucus) Few /LPF [facility] AND [id number] 19:39:00 Test Item Value Reference Range Interpretation Comments UA Color (test code = UA Color) Ltyellow [facility] AND [id number] 19:39:00 Test Item Value Reference Range Interpretation Comments UA Urobilinogen (test code = UA <=1.0 mg/dL 0.1-1.0 Urobilinogen) [facility] AND [id number] 19:39:00 Test Item Value Reference Range Interpretation Comments UA Turbidity (test code = Clear (09/01/21 2:39 UA Turbidity) PM) [facility] AND [id number] 19:39:00 Test Item Value Reference Range Interpretation Comments UA Spec Grav (test code = UA Spec 1.016 1 Grav) [facility] AND [id number] 19:39:00 Test Item Value Reference Range Interpretation Comments UA pH (test code = UA pH) 5.0 1 5.0-8.0 [facility] AND [id number] 19:39:00 Test Item Value Reference Range Interpretation Comments UA Protein (test code = UA Negative mg/dL Protein) [facility] AND [id number] 19:39:00 Test Item Value Reference Range Interpretation Comments UA Glucose (test code = UA Glucose) 500 mg/dL [facility] AND [id number] 19:39:00 Test Item Value Reference Range Interpretation Comments UA Ketones (test code = UA Ketones) 80 mg/dL [facility] AND [id number] 19:39:00 Test Item Value Reference Range Interpretation Comments UA Bili (test code = Negative *NA*(09/01/21 UA Bili) 2:39 PM) [facility] [id number] 19:39:00 Test Item Value Reference Range Interpretation Comments UA Blood (test code = Negative (09/01/21 2:39 UA Blood) PM) [facility] [id number] 19:39:00 Test Item Value Reference Range Interpretation Comments UA Nitrite (test code Negative (09/01/21 2:39 = UA Nitrite) PM) [facility] [id number] 19:39:00 Test Item Value Reference Range Interpretation Comments UA Leuk Est (test Negative (09/01/21 2:39 code = UA Leuk Est) PM) [facility] [id number] 19:39:00 Test Item Value Reference Range Interpretation Comments UA Sq Epi (test code = UA Sq Occasional /LPF Epi) [facility] [id number] 19:39:00 Test Item Value Reference Range Interpretation Comments UA WBC (test code = UA WBC) no gt <=5 [facility] AND [id number] 19:39:00 Test Item Value Reference Range Interpretation Comments UA Bacteria (test code = UA Occasional /HPF Bacteria) [facility] [id number] 19:39:00 Test Item Value Reference Range Interpretation Comments UA Mucus (test code = UA Mucus) Few /LPF [facility] [id number] 19:39:00 Test Item Value Reference Range Interpretation Comments UA Color (test code = UA Color) [facility] AND [id number] 19:39:00 Test Item Value Reference Range Interpretation Comments UA Urobilinogen (test code = UA <=1.0 mg/dL 0.1-1.0 Urobilinogen) [facility] [id number] 19:39:00 Test Item Value Reference Range Interpretation Comments UA Turbidity (test code = Clear (09/01/21 2:39 UA Turbidity) PM) [facility] [id number] 19:39:00 Test Item Value Reference Range Interpretation Comments UA Spec Grav (test code = UA Spec 1.016 1 Grav) [facility] [id number] 19:39:00 Test Item Value Reference Range Interpretation Comments UA pH (test code = UA pH) 5.0 1 5.0-8.0 [facility] [id number] 19:39:00 Test Item Value Reference Range Interpretation Comments UA Protein (test code = UA Negative mg/dL Protein) [facility] AND [id number] 19:39:00 Test Item Value Reference Range Interpretation Comments UA Glucose (test code = UA Glucose) 500 mg/dL [facility] AND [id number] 19:39:00 Test Item Value Reference Range Interpretation Comments UA Ketones (test code = UA Ketones) 80 mg/dL [facility] AND [id number] 19:39:00 Test Item Value Reference Range Interpretation Comments UA Bili (test code = Negative *NA*(09/01/21 UA Bili) 2:39 PM) [facility] AND [id number] 19:39:00 Test Item Value Reference Range Interpretation Comments UA Blood (test code = Negative (09/01/21 2:39 UA Blood) PM) [facility] AND [id number] 19:39:00 Test Item Value Reference Range Interpretation Comments UA Nitrite (test code Negative (09/01/21 2:39 = UA Nitrite) PM) [facility] AND [id number] 19:39:00 Test Item Value Reference Range Interpretation Comments UA Leuk Est (test Negative (09/01/21 2:39 code = UA Leuk Est) PM) [facility] AND [id number] 19:39:00 Test Item Value Reference Range Interpretation Comments UA Sq Epi (test code = UA Sq Occasional /LPF Epi) [facility] AND [id number] 19:39:00 Test Item Value Reference Range Interpretation Comments UA WBC (test code = UA WBC) no gt <=5 [facility] AND [id number] 19:39:00 Test Item Value Reference Range Interpretation Comments UA Bacteria (test code = UA Occasional /HPF Bacteria) [facility] AND [id number] 19:39:00 Test Item Value Reference Range Interpretation Comments UA Mucus (test code = UA Mucus) Few /LPF [facility] AND [id number] 19:39:00 Test Item Value Reference Range Interpretation Comments UA Color (test code = UA Color) [facility] AND [id number] 19:39:00 Test Item Value Reference Range Interpretation Comments UA Urobilinogen (test code = UA <=1.0 mg/dL 0.1-1.0 Urobilinogen) [facility] CenterCARS[facility]ionAC [id number] 16:52:00 Test Item Value Reference Range Interpretation Comments HS Troponin I (test code = HS Troponin 8 I) [facility] CenterJoss TechnologyAC [id number] 16:52:00 Test Item Value Reference Range Interpretation Comments Total CK (test code = Total CK) 37 12-191 [facility] [id number] 16:52:00 Test Item Value Reference Range Interpretation Comments Phosphorus (test code = Phosphorus) 4.8 2.5-4.5 [facility] [id number] 16:52:00 Test Item Value Reference Range Interpretation Comments Total Protein (test code = Total 6.4 6.4-8.4 Protein) [facility] CenterZen99 [id number] 16:52:00 Test Item Value Reference Range Interpretation Comments Albumin Lvl (test code = Albumin Lvl) 3.3 3.5-5.0 [facility] CenterZen99 [id number] 16:52:00 Test Item Value Reference Range Interpretation Comments ALT (test code = ALT) 12 <=65 [facility] [id number] 16:52:00 Test Item Value Reference Range Interpretation Comments AST (test code = AST) 11 <=37 [facility] Center[facility] [id number] 16:52:00 Test Item Value Reference Range Interpretation Comments Alk Phos (test code = Alk Phos) 43 39-136 [facility] CenterZ[facility] [id number] 16:52:00 Test Item Value Reference Range Interpretation Comments Bili Total (test code = Bili Total) 0.6 0.2-1.3 [facility] CenterZ[facility]99 [id number] 16:52:00 Test Item Value Reference Range Interpretation Comments Bili Direct (test code = Bili Direct) 0.2 <=0.3 [facility] Center[facility] [id number] 16:52:00 Test Item Value Reference Range Interpretation Comments Bili Indirect (test code = Bili 0.4 <=1.0 Indirect) [facility] Center[facility] [id number] 16:52:00 Test Item Value Reference Range Interpretation Comments Globulin (test code = Globulin) 3.1 2.7-4.2 [facility] [id number] 16:52:00 Test Item Value Reference Range Interpretation Comments A/G Ratio (test code = A/G Ratio) 1.1 1 0.7-1.6 [facility] [employer] [id number] 16:52:00 Test Item Value Reference Range Interpretation Comments HS Troponin I (test code = HS Troponin 8 I) [facility] [employer] [id number] 16:52:00 Test Item Value Reference Range Interpretation Comments Total CK (test code = Total CK) 37 12-191 [facility] [employer] [id number] 16:52:00 Test Item Value Reference Range Interpretation Comments Phosphorus (test code = Phosphorus) 4.8 2.5-4.5 [facility] [employer] [id number] 16:52:00 Test Item Value Reference Range Interpretation Comments Total Protein (test code = Total 6.4 6.4-8.4 Protein) [facility] [employer] [id number] 16:52:00 Test Item Value Reference Range Interpretation Comments Albumin Lvl (test code = Albumin Lvl) 3.3 3.5-5.0 [facility] [id number] 16:52:00 Test Item Value Reference Range Interpretation Comments ALT (test code = ALT) 12 See_Comment [Auto mated message] The system which ge nerated this result transmit marge reference range : <=65. The reference range was not used to interpr et this result as dain l/abnormal. [employer] [id number] 16:52:00 Test Item Value Reference Range Interpretation Comments AST (test code = AST) 11 See_Comment [Auto mated message] The system which ge nerated this result transmit marge reference range : <=37. The reference range was not used to interpr et this result as dain l/abnormal. [employer] [id number] 16:52:00 Test Item Value Reference Range Interpretation Comments Alk Phos (test code = Alk Phos) 43 39-136 [facility] [employer] [id number] 16:52:00 Test Item Value Reference Range Interpretation Comments Bili Total (test code = Bili Total) 0.6 0.2-1.3 [employer]2022-04-29 16:52:00 Test Item Value Reference Range Interpretation Comments Bili Direct (test code 0.2 See_Comment [Aut omated message] The = Bili Direct) system which generated this result tra nsmitted reference range : <=0.3. The reference r lizabeth was not used to int erpret this result as dain l/abnormal. [employer]2022-04-29 16:52:00 Test Item Value Reference Range Interpretation Comments Bili Indirect (test 0.4 See_Comment [Automa marge message] The code = Bili Indirect) system which generated this result tra nsmitted reference range : <=1.0. The reference r lizabeth was not used to int erpret this result as normal/abnormal . [employer]2022-04-29 16:52:00 Test Item Value Reference Range Interpretation Comments Globulin (test code = Globulin) 3.1 2.7-4.2 [facility] [employer]2022-04-29 16:52:00 Test Item Value Reference Range Interpretation Comments A/G Ratio (test code = A/G Ratio) 1.1 1 0.7-1.6 [facility] [employer]2022-04-29 16:52:00 Test Item Value Reference Range Interpretation Comments HS Troponin I (test code = HS Troponin 8 I) [facility] [employer]2022-04-29 16:52:00 Test Item Value Reference Range Interpretation Comments Total CK (test code = Total CK) 37 12-191 [facility] [employer]2022-04-29 16:52:00 Test Item Value Reference Range Interpretation Comments Phosphorus (test code = Phosphorus) 4.8 2.5-4.5 [facility] [employer]2022-04-29 16:52:00 Test Item Value Reference Range Interpretation Comments Total Protein (test code = Total 6.4 6.4-8.4 Protein) [facility] [employer]2-04-29 16:52:00 Test Item Value Reference Range Interpretation Comments Albumin Lvl (test code = Albumin Lvl) 3.3 3.5-5.0 [facility] [employer]2-04-29 16:52:00 Test Item Value Reference Range Interpretation Comments ALT (test code = ALT) 12 See_Comment [Auto mated message] The system which ge nerated this result transmit marge reference range : <=65. The reference range was not used to interpr et this result as dain l/abnormal. [employer]2022-04-29 16:52:00 Test Item Value Reference Range Interpretation Comments AST (test code = AST) 11 See_Comment [Auto mated message] The system which ge nerated this result transmit marge reference range : <=37. The reference range was not used to interpr et this result as dain l/abnormal. [employer]2022-04-29 16:52:00 Test Item Value Reference Range Interpretation Comments Alk Phos (test code = Alk Phos) 43 39-136 [facility] [employer]2022-04-29 16:52:00 Test Item Value Reference Range Interpretation Comments Bili Total (test code = Bili Total) 0.6 0.2-1.3 [facility] [employer]2022-04-29 16:52:00 Test Item Value Reference Range Interpretation Comments Bili Direct (test code 0.2 See_Comment [Aut omated message] The = Bili Direct) system which generated this result tra nsmitted reference range : <=0.3. The reference r lizabeth was not used to int erpret this result as dian l/abnormal. [employer]2022-04-29 16:52:00 Test Item Value Reference Range Interpretation Comments Bili Indirect (test 0.4 See_Comment [Automa marge message] The code = Bili Indirect) system which generated this result tra nsmitted reference range : <=1.0. The reference r lizabeth was not used to int erpret this result as normal/abnormal . [employer]2022-04-29 16:52:00 Test Item Value Reference Range Interpretation Comments Globulin (test code = Globulin) 3.1 2.7-4.2 [facility] [employer]-04-29 16:52:00 Test Item Value Reference Range Interpretation Comments A/G Ratio (test code = A/G Ratio) 1.1 1 0.7-1.6 [facility] [employer]2022-04-29 16:52:00 Test Item Value Reference Range Interpretation Comments HS Troponin I (test code = HS Troponin 8 I) [facility] [employer]2022-04-29 16:52:00 Test Item Value Reference Range Interpretation Comments Total CK (test code = Total CK) 37 12-191 [facility] [id number] 16:52:00 Test Item Value Reference Range Interpretation Comments Phosphorus (test code = Phosphorus) 4.8 2.5-4.5 [facility] [id number] 16:52:00 Test Item Value Reference Range Interpretation Comments Total Protein (test code = Total 6.4 6.4-8.4 Protein) [facility] [id number] 16:52:00 Test Item Value Reference Range Interpretation Comments Albumin Lvl (test code = Albumin Lvl) 3.3 3.5-5.0 [facility] [id number] 16:52:00 Test Item Value Reference Range Interpretation Comments ALT (test code = ALT) 12 <=65 [facility] [id number] 16:52:00 Test Item Value Reference Range Interpretation Comments AST (test code = AST) 11 <=37 [facility] [employer] [id number] 16:52:00 Test Item Value Reference Range Interpretation Comments Alk Phos (test code = Alk Phos) 43 39-136 [facility] [id number] 16:52:00 Test Item Value Reference Range Interpretation Comments Bili Total (test code = Bili Total) 0.6 0.2-1.3 [facility] [employer] [id number] 16:52:00 Test Item Value Reference Range Interpretation Comments Bili Direct (test code = Bili Direct) 0.2 <=0.3 [facility] [employer] [id number] 16:52:00 Test Item Value Reference Range Interpretation Comments Bili Indirect (test code = Bili 0.4 <=1.0 Indirect) [facility] [id number] 16:52:00 Test Item Value Reference Range Interpretation Comments Globulin (test code = Globulin) 3.1 2.7-4.2 [facility] [employer] [id number] 16:52:00 Test Item Value Reference Range Interpretation Comments A/G Ratio (test code = A/G Ratio) 1.1 1 0.7-1.6 [facility] [employer] [id number] 16:52:00 Test Item Value Reference Range Interpretation Comments HS Troponin I (test code = HS Troponin 8 I) [facility] [id number] 16:52:00 Test Item Value Reference Range Interpretation Comments Total CK (test code = Total CK) 37 12-191 [facility] [id number] 16:52:00 Test Item Value Reference Range Interpretation Comments Phosphorus (test code = Phosphorus) 4.8 2.5-4.5 [facility] [id number] 16:52:00 Test Item Value Reference Range Interpretation Comments Total Protein (test code = Total 6.4 6.4-8.4 Protein) [facility] [id number] 16:52:00 Test Item Value Reference Range Interpretation Comments Albumin Lvl (test code = Albumin Lvl) 3.3 3.5-5.0 [facility] [id number] 16:52:00 Test Item Value Reference Range Interpretation Comments ALT (test code = ALT) 12 <=65 [facility] [id number] 16:52:00 Test Item Value Reference Range Interpretation Comments AST (test code = AST) 11 <=37 [facility] [id number] 16:52:00 Test Item Value Reference Range Interpretation Comments Alk Phos (test code = Alk Phos) 43 39-136 [facility] [id number] 16:52:00 Test Item Value Reference Range Interpretation Comments Bili Total (test code = Bili Total) 0.6 0.2-1.3 [facility] [id number] 16:52:00 Test Item Value Reference Range Interpretation Comments Bili Direct (test code = Bili Direct) 0.2 <=0.3 [facility]2022-04-29 16:52:00 Test Item Value Reference Range Interpretation Comments Bili Indirect (test code = Bili 0.4 <=1.0 Indirect) [facility]2022-04-29 16:52:00 Test Item Value Reference Range Interpretation Comments Globulin (test code = Globulin) 3.1 2.7-4.2 [facility]2022-04-29 16:52:00 Test Item Value Reference Range Interpretation Comments A/G Ratio (test code = A/G Ratio) 1.1 1 0.7-1.6 [facility]NujmkrbTDQSNFQFHH8061-62-42 15:44:00 Test Item Value Reference Range Interpretation Comments Coronavirus (COVID-19) Not Detected (09/01/21 DANIELLE (test code = 10:44 AM) Coronavirus (COVID-19) DANIELLE) [id number] 15:44:00 Test Item Value Reference Range Interpretation Comments Coronavirus (COVID-19) Not Detected (09/01/21 DANIELLE (test code = 10:44 AM) Coronavirus (COVID-19) DANIELLE) [place] [id number] 15:44:00 Test Item Value Reference Range Interpretation Comments Coronavirus (COVID-19) Not Detected (09/01/21 DANIELLE (test code = 10:44 AM) Coronavirus (COVID-19) [facility] 15:44:00 Test Item Value Reference Range Interpretation Comments Coronavirus (COVID-19) Not Detected (09/01/21 DANIELLE (test code = 10:44 AM) Coronavirus (COVID-19) DANIELLE) [place] [id number] 15:44:00 Test Item Value Reference Range Interpretation Comments Coronavirus (COVID-19) Not Detected (09/01/21 DANIELLE (test code = 10:44 AM) Coronavirus (COVID-19) DANIELLE) [facility]FJNEOJXYHM4072-[facility]-61 15:31:00 Test Item Value Reference Range Interpretation Comments WBC (test code = WBC) 7.5 3.7-10.4 [place] [address]-04-29 15:31:00 Test Item Value Reference Range Interpretation Comments RBC (test code = RBC) 3.85 4.20-5.40 [place] [address]-04-29 15:31:00 Test Item Value Reference Range Interpretation Comments Hgb (test code = Hgb) 10.6 12.0-16.0 [place] [address]-04-29 15:31:00 Test Item Value Reference Range Interpretation Comments Hct (test code = Hct) 36.3 36.0-48.0 [place] [address]-04-29 15:31:00 Test Item Value Reference Range Interpretation Comments MCV (test code = MCV) 94.2 80.0-98.0 [place] [address]-04-29 15:31:00 Test Item Value Reference Range Interpretation Comments MCH (test code = MCH) 27.6 pg 27.0-31.0 [id number] 15:31:00 Test Item Value Reference Range Interpretation Comments MCHC (test code = MCHC) 29.3 32.0-36.0 [facility]aZtkndcuFIADQLKMAX0918-19-24 15:31:00 Test Item Value Reference Range Interpretation Comments RDW (test code = RDW) 18.4 11.5-14.5 [facility]aMvtwwedYZPHSWQEIA3959-59-11 15:31:00 Test Item Value Reference Range Interpretation Comments Platelet (test code = Platelet) 336 133-450 [facility]aElnwnxyATBOZUYLPQ9527-41-93 15:31:00 Test Item Value Reference Range Interpretation Comments MPV (test code = MPV) 9.1 7.4-10.4 [facility]aYjbzxjbZRCFDCONMO8657-31-55 15:31:00 Test Item Value Reference Range Interpretation Comments PT (test code = PT) 13.2 s 12.0-14.7 [facility]aCleqzlnIRCPIKKYTL0245-91-71 15:31:00 Test Item Value Reference Range Interpretation Comments INR (test code = INR) 1.01 1 0.85-1.17 [facility]aMoqumflFTHIEAOZIJ1685-08-83 15:31:00 Test Item Value Reference Range Interpretation Comments PTT (test code = PTT) 23.7 s 22.9-35.8 [facility]aHwoffzvMNULQPESUD7253-46-99 15:31:00 Test Item Value Reference Range Interpretation Comments Plt Morph (test code = Normal (09/01/21 10:31 Plt Morph) AM) [id number] 15:31:00 Test Item Value Reference Range Interpretation Comments Segs (test code = Segs) 81.9 45.0-75.0 [facility]aZhojmobUJUUJIRLLZ7871-60-00 15:31:00 Test Item Value Reference Range Interpretation Comments Lymphocytes (test code = Lymphocytes) 14.4 20.0-40.0 [facility]aOjhmuqnWUEVPZVCWR1988-51-26 15:31:00 Test Item Value Reference Range Interpretation Comments Monocytes (test code = Monocytes) 2.6 2.0-12.0 [facility]aCtziqsaQONSCKPLOZ2244-87-56 15:31:00 Test Item Value Reference Range Interpretation Comments Eosinophils (test code = Eosinophils) 0.4 <=4.0 [facility]aXasxiatTNFIJXBZSE4595-60-57 15:31:00 Test Item Value Reference Range Interpretation Comments Basophils (test code = Basophils) 0.7 <=1.0 [facility]aQcvryejDVRVEQBIIS9003-07-95 15:31:00 Test Item Value Reference Range Interpretation Comments Neutrophils # (test code = Neutrophils 6.1 1.5-8.1 #) [facility]aSmakfuzBNQCEARUTK0897-01-28 15:31:00 Test Item Value Reference Range Interpretation Comments Lymphocytes # (test code = Lymphocytes 1.1 1.0-5.5 #) [facility]aGszjjijLTAWWWPXEL3469-97-77 15:31:00 Test Item Value Reference Range Interpretation Comments Monocytes # (test code = Monocytes #) 0.2 <=0.8 [facility]aLflqvijEXNOBETPOV6692-05-40 15:31:00 Test Item Value Reference Range Interpretation Comments Basophils # (test code = Basophils #) 0.1 <=0.2 [facility]aUjhpgrbEARLVMVSNN5883-33-58 15:31:00 Test Item Value Reference Range Interpretation Comments Hypochrom (test code = 2+ (09/01/21 10:31 Hypochrom) AM) [facility]aOidiiubLVRFXZBWZQ8839-35-30 15:31:00 Test Item Value Reference Range Interpretation Comments WBC (test code = WBC) 7.5 3.7-10.4 [facility]aJprdwkbKTAUJXXQTL0127-33-61 15:31:00 Test Item Value Reference Range Interpretation Comments RBC (test code = RBC) 3.85 4.20-5.40 [facility]aMbsrorqSFMWAMDUDB8962-84-77 15:31:00 Test Item Value Reference Range Interpretation Comments Hgb (test code = Hgb) 10.6 12.0-16.0 [facility]aPpfdwuuNDSLSGLWMG5929-38-99 15:31:00 Test Item Value Reference Range Interpretation Comments Hct (test code = Hct) 36.3 36.0-48.0 [facility]aAkbasdfCNHHWZAEHY3023-48-93 15:31:00 Test Item Value Reference Range Interpretation Comments MCV (test code = MCV) 94.2 80.0-98.0 [facility]aQikygcjYLPHBKAXWB8201-32-78 15:31:00 Test Item Value Reference Range Interpretation Comments MCH (test code = MCH) 27.6 pg 27.0-31.0 [place] 546562-04-29 15:31:00 Test Item Value Reference Range Interpretation Comments MCHC (test code = MCHC) 29.3 32.0-36.0 [facility]aOhwtetnIRTBMYBCZJ5620-92-04 15:31:00 Test Item Value Reference Range Interpretation Comments RDW (test code = RDW) 18.4 11.5-14.5 [place] 546562-04-29 15:31:00 Test Item Value Reference Range Interpretation Comments Platelet (test code = Platelet) 336 133-450 [facility]aMzlsnraRSQJYMXSJP4798-27-27 15:31:00 Test Item Value Reference Range Interpretation Comments MPV (test code = MPV) 9.1 7.4-10.4 [facility]aCwzgvdbXGPDNTEAIN2499-77-38 15:31:00 Test Item Value Reference Range Interpretation Comments PT (test code = PT) 13.2 s 12.0-14.7 [facility]aPgoviobPBUBKFXZGL7077-12-08 15:31:00 Test Item Value Reference Range Interpretation Comments INR (test code = INR) 1.01 1 0.85-1.17 [facility]aDnwwhnoEZOZIZXFSC9156-81-19 15:31:00 Test Item Value Reference Range Interpretation Comments PTT (test code = PTT) 23.7 s 22.9-35.8 [place] 546562-04-29 15:31:00 Test Item Value Reference Range Interpretation Comments Plt Morph (test code = Normal (09/01/21 10:31 Plt Morph) AM) [facility]aBpvsqqiEFCOUEKYOC4314-60-89 15:31:00 Test Item Value Reference Range Interpretation Comments Segs (test code = Segs) 81.9 45.0-75.0 [facility]aHirtbxoXCHRMACTOA1516-13-86 15:31:00 Test Item Value Reference Range Interpretation Comments Lymphocytes (test code = Lymphocytes) 14.4 20.0-40.0 [place] 546562-04-29 15:31:00 Test Item Value Reference Range Interpretation Comments Monocytes (test code = Monocytes) 2.6 2.0-12.0 [place] 546562-04-29 15:31:00 Test Item Value Reference Range Interpretation Comments Eosinophils (test code = 0.4 See_Comment [A utomated message] The Eosinophils) system which ge nerated this result tra nsmitted reference range : <=4.0. The reference r lizabeth was not used to int erpret this result as normal/abnormal . [facility]aYcqzrvdLLPTEKNUYI7499-30-62 15:31:00 Test Item Value Reference Range Interpretation Comments Basophils (test code = 0.7 See_Comment [Aut omated message] The Basophils) system which ge nerated this result tra nsmitted reference range : <=1.0. The reference r lizabeth was not used to int erpret this result as normal/abnormal . [facility]aWqljjqoHIGCLRQTGO3192-36-91 15:31:00 Test Item Value Reference Range Interpretation Comments Neutrophils # (test code = Neutrophils 6.1 1.5-8.1 #) [facility]aOtmaxpdLUFLOJIZPK1113-46-82 15:31:00 Test Item Value Reference Range Interpretation Comments Lymphocytes # (test code = Lymphocytes 1.1 1.0-5.5 #) [facility]aIsbzzldQJGQMUEOCG6498-94-05 15:31:00 Test Item Value Reference Range Interpretation Comments Monocytes # (test code 0.2 See_Comment [Aut omated message] The = Monocytes #) system which generated this result tra nsmitted reference range : <=0.8. The reference r lizabeth was not used to int erpret this result as normal/abnormal . [facility]dddycmRQAHNZYHPX2373-65-95 15:31:00 Test Item Value Reference Range Interpretation Comments Basophils # (test code 0.1 See_Comment [Aut omated message] The = Basophils #) system which generated this result tra nsmitted reference range : <=0.2. The reference r lizabeth was not used to int erpret this result as normal/abnormal . [facility]aIjhnpnyOLFCMHTCWO1055-11-08 15:31:00 Test Item Value Reference Range Interpretation Comments Hypochrom (test code = 2+ (09/01/21 10:31 Hypochrom) AM) [place]62-04-29 15:31:00 Test Item Value Reference Range Interpretation Comments WBC (test code = WBC) 7.5 3.7-10.4 [place] 546562-04-29 15:31:00 Test Item Value Reference Range Interpretation Comments RBC (test code = RBC) 3.85 4.20-5.40 [place] 546562-04-29 15:31:00 Test Item Value Reference Range Interpretation Comments Hgb (test code = Hgb) 10.6 12.0-16.0 [facility]QhgxvzeHWGRPHSUBE1524-87-37 15:31:00 Test Item Value Reference Range Interpretation Comments Hct (test code = Hct) 36.3 36.0-48.0 [facility]aVmtxdcnHTUQQCNRXX9451-74-61 15:31:00 Test Item Value Reference Range Interpretation Comments MCV (test code = MCV) 94.2 80.0-98.0 [facility]aIgehjyqFZSWOEUOWP5824-08-03 15:31:00 Test Item Value Reference Range Interpretation Comments MCH (test code = MCH) 27.6 pg 27.0-31.0 [facility]aAynqagqRNEQCGMJLS1474-78-12 15:31:00 Test Item Value Reference Range Interpretation Comments MCHC (test code = MCHC) 29.3 32.0-36.0 [facility]aLmcqmvpEISSUOWEEM7815-23-56 15:31:00 Test Item Value Reference Range Interpretation Comments RDW (test code = RDW) 18.4 11.5-14.5 [facility]aYnhrayeIESUEVYQSQ5987-95-39 15:31:00 Test Item Value Reference Range Interpretation Comments Platelet (test code = Platelet) 336 133-450 [facility]aIxndlgdJDHHDBCRHH0461-78-63 15:31:00 Test Item Value Reference Range Interpretation Comments MPV (test code = MPV) 9.1 7.4-10.4 [facility]aLjowhtzOSPAYSRDUG7722-23-04 15:31:00 Test Item Value Reference Range Interpretation Comments PT (test code = PT) 13.2 s 12.0-14.7 [facility]aCtxjwhrVFGTJWVZJF3313-10-31 15:31:00 Test Item Value Reference Range Interpretation Comments INR (test code = INR) 1.01 1 0.85-1.17 [facility]aAzrwoxnYAGDXWWGJN8321-03-58 15:31:00 Test Item Value Reference Range Interpretation Comments PTT (test code = PTT) 23.7 s 22.9-35.8 [facility]aMqftowpWSTQYLQHNO6987-37-74 15:31:00 Test Item Value Reference Range Interpretation Comments Plt Morph (test code = Normal (09/01/21 10:31 Plt Morph) AM) [facility]aNyytdarRFZVGKMPQR7572-34-85 15:31:00 Test Item Value Reference Range Interpretation Comments Segs (test code = Segs) 81.9 45.0-75.0 [place] [address]-04-29 15:31:00 Test Item Value Reference Range Interpretation Comments Lymphocytes (test code = Lymphocytes) 14.4 20.0-40.0 [place] [address]-04-29 15:31:00 Test Item Value Reference Range Interpretation Comments Monocytes (test code = Monocytes) 2.6 2.0-12.0 [place] [address]-04-29 15:31:00 Test Item Value Reference Range Interpretation Comments Eosinophils (test code = 0.4 See_Comment [A utomated message] The Eosinophils) system which ge nerated this result tra nsmitted reference range : <=4.0. The reference r lizabeth was not used to int erpret this result as normal/abnormal . [address]04-29 15:31:00 Test Item Value Reference Range Interpretation Comments Basophils (test code = 0.7 See_Comment [Aut omated message] The Basophils) system which ge nerated this result tra nsmitted reference range : <=1.0. The reference r lizabeth was not used to int erpret this result as normal/abnormal . [place] [address]-04-29 15:31:00 Test Item Value Reference Range Interpretation Comments Neutrophils # (test code = Neutrophils 6.1 1.5-8.1 #) [address]04-29 15:31:00 Test Item Value Reference Range Interpretation Comments Lymphocytes # (test code = Lymphocytes 1.1 1.0-5.5 #) [address]04-29 15:31:00 Test Item Value Reference Range Interpretation Comments Monocytes # (test code 0.2 See_Comment [Aut omated message] The = Monocytes #) system which generated this result tra nsmitted reference range : <=0.8. The reference r lizabeth was not used to int erpret this result as normal/abnormal . [place] [address]-04-29 15:31:00 Test Item Value Reference Range Interpretation Comments Basophils # (test code 0.1 See_Comment [Aut omated message] The = Basophils #) system which generated this result tra nsmitted reference range : <=0.2. The reference r lizabeth was not used to int erpret this result as normal/abnormal . [facility]aYrkjvefFZVGFRJSJU0242-13-69 15:31:00 Test Item Value Reference Range Interpretation Comments Hypochrom (test code = 2+ (09/01/21 10:31 Hypochrom) AM) [facility]aEgpajhcFAQVHLTYFC6300-14-65 15:31:00 Test Item Value Reference Range Interpretation Comments WBC (test code = WBC) 7.5 3.7-10.4 [facility]aArelrifANWWRJUOAE2772-15-19 15:31:00 Test Item Value Reference Range Interpretation Comments RBC (test code = RBC) 3.85 4.20-5.40 [facility]aOoskvpoLDVAXWEKEC4616-70-53 15:31:00 Test Item Value Reference Range Interpretation Comments Hgb (test code = Hgb) 10.6 12.0-16.0 [facility]aIpyooygCYQNLJUNQH7972-10-12 15:31:00 Test Item Value Reference Range Interpretation Comments Hct (test code = Hct) 36.3 36.0-48.0 [facility]aZrlbyjkFVULNETNGB6328-67-83 15:31:00 Test Item Value Reference Range Interpretation Comments MCV (test code = MCV) 94.2 80.0-98.0 [facility]aGyqzcdaTBPIDKRGPL0535-73-10 15:31:00 Test Item Value Reference Range Interpretation Comments MCH (test code = MCH) 27.6 pg 27.0-31.0 [facility]aGxqlynvWORZKXTUSI3081-27-83 15:31:00 Test Item Value Reference Range Interpretation Comments MCHC (test code = MCHC) 29.3 32.0-36.0 [facility]aIksruabUZAWHBONYV7861-89-04 15:31:00 Test Item Value Reference Range Interpretation Comments RDW (test code = RDW) 18.4 11.5-14.5 [facility]aKmjtvasNCOGAMYYGZ8538-50-49 15:31:00 Test Item Value Reference Range Interpretation Comments Platelet (test code = Platelet) 336 133-450 [facility]aIfayulcCSVFIFRJKU4359-93-14 15:31:00 Test Item Value Reference Range Interpretation Comments MPV (test code = MPV) 9.1 7.4-10.4 [facility]aXeeejitWUOJCHVUAM1744-49-92 15:31:00 Test Item Value Reference Range Interpretation Comments PT (test code = PT) 13.2 s 12.0-14.7 [facility]aCfvuiaxFHBVFGBGCN4597-03-47 15:31:00 Test Item Value Reference Range Interpretation Comments INR (test code = INR) 1.01 1 0.85-1.17 [place]6562-04-29 15:31:00 Test Item Value Reference Range Interpretation Comments PTT (test code = PTT) 23.7 s 22.9-35.8 [facility]aPsdcjpzYEPXKGTQKJ7809-46-45 15:31:00 Test Item Value Reference Range Interpretation Comments Plt Morph (test code = Normal (09/01/21 10:31 Plt Morph) AM) [facility]QofrcwkVPQCTSEQZJ6138-12-21 15:31:00 Test Item Value Reference Range Interpretation Comments Segs (test code = Segs) 81.9 45.0-75.0 [place]6562-04-29 15:31:00 Test Item Value Reference Range Interpretation Comments Lymphocytes (test code = Lymphocytes) 14.4 20.0-40.0 [place] 546562-04-29 15:31:00 Test Item Value Reference Range Interpretation Comments Monocytes (test code = Monocytes) 2.6 2.0-12.0 [facility]aHgdpjulEVABAVWNGY0264-03-68 15:31:00 Test Item Value Reference Range Interpretation Comments Eosinophils (test code = Eosinophils) 0.4 <=4.0 [facility]aXpbevlgUMCRHOXZOJ2532-95-18 15:31:00 Test Item Value Reference Range Interpretation Comments Basophils (test code = Basophils) 0.7 <=1.0 [facility]aVxamnzvPTOYVYHJAZ4830-35-73 15:31:00 Test Item Value Reference Range Interpretation Comments Neutrophils # (test code = Neutrophils 6.1 1.5-8.1 #) [facility]aHzproxcECIGTTUDXZ4637-19-41 15:31:00 Test Item Value Reference Range Interpretation Comments Lymphocytes # (test code = Lymphocytes 1.1 1.0-5.5 #) [place]6562-04-29 15:31:00 Test Item Value Reference Range Interpretation Comments Monocytes # (test code = Monocytes #) 0.2 <=0.8 [place]6562-04-29 15:31:00 Test Item Value Reference Range Interpretation Comments Basophils # (test code = Basophils #) 0.1 <=0.2 [place]6562-04-29 15:31:00 Test Item Value Reference Range Interpretation Comments Hypochrom (test code = 2+ (09/01/21 10:31 Hypochrom) AM) [facility]aOmaefazVYVLXYYSEJ1256-83-86 15:31:00 Test Item Value Reference Range Interpretation Comments WBC (test code = WBC) 7.5 3.7-10.4 [facility]aUciopsgNMMNZBDVTX4841-33-09 15:31:00 Test Item Value Reference Range Interpretation Comments RBC (test code = RBC) 3.85 4.20-5.40 [facility]aLlkogqwDTGCUZUASF4021-39-64 15:31:00 Test Item Value Reference Range Interpretation Comments Hgb (test code = Hgb) 10.6 12.0-16.0 [facility]aAhryjttYVVEXNPPYX5494-68-25 15:31:00 Test Item Value Reference Range Interpretation Comments Hct (test code = Hct) 36.3 36.0-48.0 [facility]aYhupmhoYOOTLXGEDH5719-61-78 15:31:00 Test Item Value Reference Range Interpretation Comments MCV (test code = MCV) 94.2 80.0-98.0 [facility]aAqxrxekDDNOWAQRUA7883-60-59 15:31:00 Test Item Value Reference Range Interpretation Comments MCH (test code = MCH) 27.6 pg 27.0-31.0 [facility]aVgpeepcRHATXZWMXL8337-31-12 15:31:00 Test Item Value Reference Range Interpretation Comments MCHC (test code = MCHC) 29.3 32.0-36.0 [facility]aFxmkizhGDHLPGDCDP9109-16-30 15:31:00 Test Item Value Reference Range Interpretation Comments RDW (test code = RDW) 18.4 11.5-14.5 [facility]aGoxxsjlGDBHRGGFMR1423-68-19 15:31:00 Test Item Value Reference Range Interpretation Comments Platelet (test code = Platelet) 336 133-450 [facility]aXtvmuyjURLRJOEFAV1601-62-96 15:31:00 Test Item Value Reference Range Interpretation Comments MPV (test code = MPV) 9.1 7.4-10.4 [facility]aRcimjsjICHMFQYUNT8799-68-48 15:31:00 Test Item Value Reference Range Interpretation Comments PT (test code = PT) 13.2 s 12.0-14.7 [facility]aTgclpcrAKVYGJVCDR4931-66-64 15:31:00 Test Item Value Reference Range Interpretation Comments INR (test code = INR) 1.01 1 0.85-1.17 [facility]aSdwjivaIBIMFAVDMV3131-72-36 15:31:00 Test Item Value Reference Range Interpretation Comments PTT (test code = PTT) 23.7 s 22.9-35.8 [facility]aBocrhxbDRNNFYGIMV6391-41-25 15:31:00 Test Item Value Reference Range Interpretation Comments Plt Morph (test code = Normal (09/01/21 10:31 Plt Morph) AM) [facility]aWryhtgiQJHJWCCZDE9119-72-52 15:31:00 Test Item Value Reference Range Interpretation Comments Segs (test code = Segs) 81.9 45.0-75.0 [place]6562-04-29 15:31:00 Test Item Value Reference Range Interpretation Comments Lymphocytes (test code = Lymphocytes) 14.4 20.0-40.0 [place]6562-04-29 15:31:00 Test Item Value Reference Range Interpretation Comments Monocytes (test code = Monocytes) 2.6 2.0-12.0 [place] 546562-04-29 15:31:00 Test Item Value Reference Range Interpretation Comments Eosinophils (test code = Eosinophils) 0.4 <=4.0 [place] 546562-04-29 15:31:00 Test Item Value Reference Range Interpretation Comments Basophils (test code = Basophils) 0.7 <=1.0 [facility]aRqjyeveYETDUCZHVL8226-12-03 15:31:00 Test Item Value Reference Range Interpretation Comments Neutrophils # (test code = Neutrophils 6.1 1.5-8.1 #) [facility]aRiornygNORDHOKESJ2479-47-96 15:31:00 Test Item Value Reference Range Interpretation Comments Lymphocytes # (test code = Lymphocytes 1.1 1.0-5.5 #) [place] [address]6562-04-29 15:31:00 Test Item Value Reference Range Interpretation Comments Monocytes # (test code = Monocytes #) 0.2 <=0.8 [place] [address]-04-29 15:31:00 Test Item Value Reference Range Interpretation Comments Basophils # (test code = Basophils #) 0.1 <=0.2 [place] [address]-04-29 15:31:00 Test Item Value Reference Range Interpretation Comments Hypochrom (test code = 2+ (09/01/21 10:31 Hypochrom) AM) [facility] METABOLIC [id number] 18:33:00 Test Item Value Reference Range Interpretation [...] CA) 8.2 MG/DL 8.5-10.1 L GLUCOSE BEDSIDE [id number] 17:40:00 Test Item Value Reference Range Interpretation Comments GLUCOSE BEDSIDE TESTING (test code 274 mg/dL 70-110 H = GLUBED) VENOUS BLOOD [id number] 15:34:00 Test Item Value Reference Range Interpretation [...] = SITEV) UA RFLX MICR CULT IF [id number] 14:55:00 Test Item Value Reference Range Interpretation [...] Indication for culture: RiskForSepsis-no oth srcBASIC METABOLIC [id number] 14:51:00 Test Item Value Reference Range Interpretation [...] CA) 9.1 MG/DL 8.5-10.1 N HEPATIC FUNCTION [id number] 14:51:00 Test Item Value Reference Range Interpretation [...] 79 Unit/L 45-117 N code = ALKP) [id number] 14:51:00 Test Item Value Reference Range Interpretation Comments LIPASE (test code = LIP) 149 Unit/L 114-286 N CBC W/AUTO [id number] 14:14:00 Test Item Value Reference Range Interpretation [...] NO DIFF/SCN CRITERIA = MDIFF) GLUCOSE BEDSIDE [id number] 11:42:00 Test Item Value Reference Range Interpretation Comments GLUCOSE BEDSIDE TESTING (test code 222 mg/dL 70-110 H = GLUBED) GLUCOSE BEDSIDE [id number] 07:46:00 Test Item Value Reference Range Interpretation Comments GLUCOSE BEDSIDE TESTING (test code 170 mg/dL 70-110 H = GLUBED) GLUCOSE BEDSIDE [id number] 20:26:00 Test Item Value Reference Range Interpretation Comments GLUCOSE BEDSIDE TESTING (test code 235 mg/dL 70-110 H = GLUBED) GLUCOSE BEDSIDE [id number] 16:22:00 Test Item Value Reference Range Interpretation Comments GLUCOSE BEDSIDE TESTING (test code 120 mg/dL 70-110 H = GLUBED) GLUCOSE BEDSIDE [id number] 12:04:00 Test Item Value Reference Range Interpretation Comments GLUCOSE BEDSIDE TESTING (test code 146 mg/dL 70-110 H = GLUBED) GLUCOSE BEDSIDE [id number] 08:03:00 Test Item Value Reference Range Interpretation Comments GLUCOSE BEDSIDE TESTING (test code 137 mg/dL 70-110 H = GLUBED) GLUCOSE BEDSIDE [id number] 07:39:00 Test Item Value Reference Range Interpretation Comments GLUCOSE BEDSIDE TESTING (test code = 24 mg/dL 70-110 LL GLUBED) CBC W/AUTO [id number] 06:39:00 Test Item Value Reference Range Interpretation [...] NO DIFF/SCN CRITERIA = MDIFF) GLUCOSE BEDSIDE [id number] 21:13:00 Test Item Value Reference Range Interpretation Comments GLUCOSE BEDSIDE TESTING (test code 168 mg/dL 70-110 H = GLUBED) BASIC METABOLIC [id number] 05:43:00 Test Item Value Reference Range Interpretation [...] code = CA) 8.4 MG/DL 8.5-10.1 L [id number] 05:43:00 Test Item Value Reference Range Interpretation Comments PHOSPHOROUS (test code = PHOS) 2.5 MG/DL 2.5-4.9 N [id number] 05:43:00 Test Item Value Reference Range Interpretation Comments MAGNESIUM (test code = MAG) 1.9 MG/DL 1.8-2.4 N CBC W/AUTO [id number] 05:28:00 Test Item Value Reference Range Interpretation [...] NO DIFF/SCN CRITERIA = MDIFF) GLUCOSE BEDSIDE [id number] 21:02:00 Test Item Value Reference Range Interpretation Comments GLUCOSE BEDSIDE TESTING (test code 155 mg/dL 70-110 H = GLUBED) GLUCOSE BEDSIDE [id number] 16:10:00 Test Item Value Reference Range Interpretation Comments GLUCOSE BEDSIDE TESTING (test code 146 mg/dL 70-110 H = GLUBED) GLUCOSE BEDSIDE [id number] 12:23:00 Test Item Value Reference Range Interpretation Comments GLUCOSE BEDSIDE TESTING (test code 329 mg/dL 70-110 H = GLUBED) GLUCOSE BEDSIDE [id number] 07:59:00 Test Item Value Reference Range Interpretation Comments GLUCOSE BEDSIDE TESTING (test code 225 mg/dL 70-110 H = GLUBED) - XR CHEST 1 [id number] 07:34:00 [facility] 1945 Sex: F Name: AKIRA RODRIGUEZ [facility] : 1945 Age/S: 75 / F [address] Unit #: [id number] Loc: [place] [address] Phys: Yanet Bragg [facility] Acct: [id number] Dis Date: Status: ADM IN PHONE #: [phone] Exam Date: 06/14/2021 0700 FAX #: Reason: cough EXAMS: CPT: [id number] XR CHEST 1 V 36784 Fluoro Time: DAP (Gy m2): Air Kerma [...] RODRIGUEZland : 1945 Age/S: 75 / F [address] [address] Unit #: [id number] Loc: [place] [address] Phys: Rhoda Braggalisonangela CHAPINPAcct: [id number] Dis Date: Status: ADM IN PHONE #: [phone] Exam Date: 06/14/2021 0700 FAX #:Reason: cough EXAMS: CPT: [id number] XR CHEST 1 V 08230 Fluoro Time: DAP (Gy m2): Air Kerma (mGy): (C ontinued) Technologist: Twin Lopez, RT(R)(CT) Trnscb Date/Time: 06/14/2021 (733) Sis1Orig Print D/T: S: 06/14/2021 (0737) PAGE 2 Signed ReportT4 [id number] 05:13:00 Test Item Value Reference Range Interpretation Comments T4 FREE (test code = T4F) 1.00 NG/DL 0.89-1.76 N THYROID STIMULATING [id number] 05:13:00 Test Item Value Reference Range Interpretation Comments THYROID STIMULATING HORMONE 2.680 mcIU/ML 0.340-4.820 (test code = TSH) BASIC METABOLIC [id number] 04:48:00 Test Item Value Reference Range Interpretation [...] code = CA) 7.2 MG/DL 8.5-10.1 L [id number] 04:48:00 Test Item Value Reference Range Interpretation Comments PHOSPHOROUS (test code = PHOS) 2.3 MG/DL 2.5-4.9 L [id number] 04:48:00 Test Item Value Reference Range Interpretation Comments MAGNESIUM (test code = MAG) 1.6 MG/DL 1.8-2.4 L CBC W/AUTO [id number] 04:30:00 Test Item Value Reference Range Interpretation [...] NO DIFF/SCN CRITERIA = MDIFF) GLUCOSE BEDSIDE [id number] 01:33:00 Test Item Value Reference Range Interpretation Comments GLUCOSE BEDSIDE TESTING (test code 156 mg/dL 70-110 H = GLUBED) BASIC METABOLIC [id number] 23:08:00 Test Item Value Reference Range Interpretation [...] code = CA) 6.9 MG/DL 8.5-10.1 L [id number] 23:08:00 Test Item Value Reference Range Interpretation Comments PHOSPHOROUS (test code = PHOS) 2.4 MG/DL 2.5-4.9 L [id number] 23:08:00 Test Item Value Reference Range Interpretation Comments MAGNESIUM (test code = MAG) 1.9 MG/DL 1.8-2.4 GLUCOSE BEDSIDE [id number] 21:28:00 Test Item Value Reference Range Interpretation Comments GLUCOSE BEDSIDE TESTING (test code 280 mg/dL 70-110 H = GLUBED) GLUCOSE BEDSIDE [id number] 19:42:00 Test Item Value Reference Range Interpretation Comments GLUCOSE BEDSIDE TESTING (test code 242 mg/dL 70-110 H = GLUBED) GLUCOSE BEDSIDE [id number] 18:53:00 Test Item Value Reference Range Interpretation Comments GLUCOSE BEDSIDE TESTING (test code 231 mg/dL 70-110 H = GLUBED) GLUCOSE BEDSIDE [id number] 17:55:00 Test Item Value Reference Range Interpretation Comments GLUCOSE BEDSIDE TESTING (test code 159 mg/dL 70-110 H = GLUBED) GLUCOSE BEDSIDE [id number] 17:53:00 Test Item Value Reference Range Interpretation Comments GLUCOSE BEDSIDE TESTING (test code 196 mg/dL 70-110 H = GLUBED) BASIC METABOLIC [id number] 16:26:00 Test Item Value Reference Range Interpretation [...] code = CA) 7.0 MG/DL 8.5-10.1 L [id number] 16:26:00 Test Item Value Reference Range Interpretation Comments PHOSPHOROUS (test code = PHOS) 2.6 MG/DL 2.5-4.9 N [id number] 16:26:00 Test Item Value Reference Range Interpretation Comments MAGNESIUM (test code = MAG) 2.2 MG/DL 1.8-2.4 N GLUCOSE BEDSIDE [id number] 16:20:00 Test Item Value Reference Range Interpretation Comments GLUCOSE BEDSIDE TESTING (test code 115 mg/dL 70-110 H = GLUBED) GLUCOSE BEDSIDE [id number] 16:20:00 Test Item Value Reference Range Interpretation Comments GLUCOSE BEDSIDE TESTING (test code 112 mg/dL 70-110 H = GLUBED) GLUCOSE BEDSIDE [id number] 16:04:00 Test Item Value Reference Range Interpretation Comments GLUCOSE BEDSIDE TESTING (test code 147 mg/dL 70-110 H = GLUBED) GLUCOSE BEDSIDE [id number] 11:58:00 Test Item Value Reference Range Interpretation Comments GLUCOSE BEDSIDE TESTING (test code 165 mg/dL 70-110 H = GLUBED) GLUCOSE BEDSIDE [id number] 11:58:00 Test Item Value Reference Range Interpretation Comments GLUCOSE BEDSIDE TESTING (test code 199 mg/dL 70-110 H = GLUBED) BASIC METABOLIC [id number] 11:00:00 Test Item Value Reference Range Interpretation [...] code = CA) 6.6 MG/DL 8.5-10.1 L [id number] 11:00:00 Test Item Value Reference Range Interpretation Comments PHOSPHOROUS (test code = PHOS) 2.2 MG/DL 2.5-4.9 L [id number] 11:00:00 Test Item Value Reference Range Interpretation Comments MAGNESIUM (test code = MAG) 2.0 MG/DL 1.8-2.4 VENOUS BLOOD [id number] 10:20:00 Test Item Value Reference Range Interpretation [...] Site DESCRIPTION code = SITEV) GLUCOSE BEDSIDE [id number] 09:21:00 Test Item Value Reference Range Interpretation Comments GLUCOSE BEDSIDE TESTING (test code 256 mg/dL 70-110 H = GLUBED) GLUCOSE BEDSIDE [id number] 09:21:00 Test Item Value Reference Range Interpretation Comments GLUCOSE BEDSIDE TESTING (test code 281 mg/dL 70-110 H = GLUBED) - XR CHEST 1 [id number] 08:49:00 [facility] : 1945 Sex: F Name: AKIRA RODRIGUEZ [facility] : 1945 Age/S: 75 / F [address] Unit #: [id number] Loc: [place] [address] Phys: Indra Corado MD Acct: [id number] Dis Date: Status: ADM IN PHONE #: [phone] Exam Date: 06/13/2021 0840 FAX #: Reason: POSSIBLE PNA EXAMS: CPT: [id number] XR CHEST 1 V 03606 Fluoro Time: DAP (Gy m2): Air Kerma [...] RODRIGUEZ : 1945 Age/S: 75 / F [address] Unit #: [id number] Loc: [place] [address] Phys: Indra Corado MD Acct: [id number] Dis Date: Status: ADM IN PHONE #: [phone] Exam Date: 06/13/2021 0840 FAX #: Reason: POSSIBLEPNA EXAMS: CPT: [id number] XR CHEST 1 V 48566 Fluoro Time: DAP (Gy m2): Air Kerma (mGy): (Continued) Technologist: GUILHERME COLES, RT(R)(CT) Trnscb Date/Time: 06/13/2021 (49) [email or web address] Orig PrintD/T: S: 06/13/2021 (0852) PAGE 2 Signed ReportGLUCOSE BEDSIDE [id number] 07:17:00 Test Item Value Reference Range Interpretation Comments GLUCOSE BEDSIDE TESTING (test code 340 mg/dL 70-110 H = GLUBED) GLUCOSE BEDSIDE [id number] 07:17:00 Test Item Value Reference Range Interpretation Comments GLUCOSE BEDSIDE TESTING (test code 418 mg/dL 70-110 H = GLUBED) BASIC METABOLIC [id number] 04:54:00 Test Item Value Reference Range Interpretation [...] code = 7.1 MG/DL 8.5-10.1 L CA) [id number] 04:54:00 Test Item Value Reference Range Interpretation Comments PHOSPHOROUS (test code = PHOS) 2.4 MG/DL 2.5-4.9 L [id number] 04:54:00 Test Item Value Reference Range Interpretation Comments MAGNESIUM (test code = MAG) 2.3 MG/DL 1.8-2.4 CBC W/AUTO [id number] 04:39:00 Test Item Value Reference Range Interpretation [...] NO DIFF/SCN CRITERIA = MDIFF) GLUCOSE BEDSIDE [id number] 04:20:00 Test Item Value Reference Range Interpretation Comments GLUCOSE BEDSIDE TESTING (test code 414 mg/dL 70-110 H = GLUBED) GLUCOSE BEDSIDE [id number] 23:58:00 Test Item Value Reference Range Interpretation Comments GLUCOSE BEDSIDE TESTING (test code 236 mg/dL 70-110 H = GLUBED) - [facility] [id number] 23:14:00 [facility] RODRIGUEZBRITTON SANZAN : 1945 Sex: F Name: AKIRA RODRIGUEZ : 1945 Age/S: 75 / F [id number] [address] Unit #: [id number] Loc: [place] [address] Phys: Rufus Luke MD Acct: [id number] Dis Date: Status: ADM IN PHONE #: [phone] Exam Date: 06/12/2021 2302 FAX #: Reason: urinary retention EXAMS: CPT: [id number] US RETROPERITONEAL COM 16934 EXAM: - US RETROPERITONEAL COM LOCATION: H61 REASON FOR EXAM: urinary retention TECHNIQUE: Grayscale grayscale and color Doppler evaluation of the kidneys was performed by the body shop floorperson. Multiple still images were saved and submitted for interpretation. COMPARISON: None. FINDINGS: RIGHT KIDNEY: The right kidney measures 10.7 x 3.9 x 4.4 cm. The right kidney is normal in size, morphology, a nd echogenicity, without evidence of solid mass or [...] fluid in the right upper quadrant. at 1924 Reported and signed by: Lawrence Kennedy M.D. CC: Rufus Luke MD; Piotr Arshad MD Technologist: Velasquez Ronquillo Trnscb Date/Time: 06/12/2021 (7301) JeniferTH19 PAGE 1 Signed Report Name: AKIRA RODRIGUEZ : 1945 Age/S: 75 / F [address] Unit #: [id number] Loc: [place] [address] Phys: Rufus Luke MD Acct: [id number] Dis Date: Status: ADM IN PHONE #: [phone] Exam Date: 06/12/20212304 FAX #: Reason: urinary retention EXAMS: CPT: [id number] [facility] COM 31118 (Continued) Orig Print D/T: S: 06/12/2021 (2317) Probe: PAGE 2 Signed Report BASIC METABOLIC [id number] 19:03:00 Test Item Value Reference Range Interpretation [...] code = CA) 6.9 MG/DL 8.5-10.1 L [id number] 19:03:00 Test Item Value Reference Range Interpretation Comments PHOSPHOROUS (test code = PHOS) 2.7 MG/DL 2.5-4.9 [id number] 19:03:00 Test Item Value Reference Range Interpretation Comments MAGNESIUM (test code = MAG) 1.8 MG/DL 1.8-2.4 LACTIC [id number] 18:57:00 Test Item Value Reference Range Interpretation Comments LACTIC ACID (test code = LACT) 1.6 mmol/L 0.4-2.0 N GLUCOSE BEDSIDE [id number] 18:44:00 Test Item Value Reference Range Interpretation Comments GLUCOSE BEDSIDE TESTING (test code = 94 mg/dL 70-110 N GLUBED) GLUCOSE BEDSIDE [id number] 16:46:00 Test Item Value Reference Range Interpretation Comments GLUCOSE BEDSIDE TESTING (test code 104 mg/dL 70-110 N = GLUBED) LACTIC [id number] 15:02:00 Test Item Value Reference Range Interpretation Comments LACTIC ACID (test code = LACT) 3.0 mmol/L 0.4-2.0 H GLUCOSE BEDSIDE [id number] 13:34:00 Test Item Value Reference Range Interpretation Comments GLUCOSE BEDSIDE TESTING (test code = 70 mg/dL 70-110 N GLUBED) GLUCOSE BEDSIDE [id number] 13:34:00 Test Item Value Reference Range Interpretation Comments GLUCOSE BEDSIDE TESTING (test code 160 mg/dL 70-110 H = GLUBED) GLUCOSE BEDSIDE [id number] 13:34:00 Test Item Value Reference Range Interpretation Comments GLUCOSE BEDSIDE TESTING (test code 173 mg/dL 70-110 H = GLUBED) GLUCOSE BEDSIDE [id number] 13:34:00 Test Item Value Reference Range Interpretation Comments GLUCOSE BEDSIDE TESTING (test code 178 mg/dL 70-110 H = GLUBED) GLUCOSE BEDSIDE [id number] 13:34:00 Test Item Value Reference Range Interpretation Comments GLUCOSE BEDSIDE TESTING (test code 230 mg/dL 70-110 H = GLUBED) - XR CHEST 1 [id number] 12:00:00 [facility] : 1945 Sex: F Name: AKIRA RODRIGUEZ [facility] : 1945 Age/S: 75 / F [address] Unit #: [id number] Loc: [place] [address] Phys: Indra Corado MD Acct: [id number] Dis Date: Status: ADM IN PHONE #: [phone] Date: 06/12/2021 1153 FAX #: Reason: SOB EXAMS: CPT: [id number] XR CHEST 1 V 86602 Fluoro Time: DAP (Gy m2): Air Kerma (mGy): EXAM: - XR CHEST 1 V CLINICAL HISTORY: SOB TECHNIQUE: Single frontal view. COMPARISON: Chest radiograph 05/20/2021 LOCATION: U19 FINDINGS: The trachea appears normal. The mediastinum and cardiac silhouette are within the upper limits for normal size. The lungs are clear. Nopleural effusions. Mild thoracic levocurvature noted. IMPRESSION: No acute cardiopulmonary process. at 1200 Reported and signed by: Bautista Delgado D.O. CC: Indra Corado MD; Piotr Arshad MD PAGE 1 Signed Report Name: AKIRA RODRIGUEZ [place] : 1945 Age/S: 75 / F [address] Unit #: [id number] Loc: [place] [address] Phys: Indra Corado MD Acct: [id number] Dis Date: Status: ADM IN PHONE #: [phone] Exam Date: 06/12/2021 1153 FAX #: Reason: SOB EXAMS: CPT: [id number] XR CHEST 1 V 99439 Fluoro Time: DAP (Gy m2): Air Kerma (mGy): (Continued) Technologist: RT Cassie(R) Trnscb Date/Time: 06/12/2021 (1200) [email or web address] Orig Print D/T: S: 06/12/2021 (1203) PAGE 2 Signed ReportBASIC METABOLIC [id number] 11:33:00 Test Item Value Reference Range Interpretation [...] code = CA) 6.9 MG/DL 8.5-10.1 L [id number] 10:36:00 Test Item Value Reference Range Interpretation Comments MAGNESIUM (test code = MAG) 1.4 MG/DL 1.8-2.4 L CBC W/AUTO [id number] 10:26:00 Test Item Value Reference Range Interpretation [...] code NO DIFF/SCN CRITERIA = MDIFF) LACTIC [id number] 09:08:00 Test Item Value Reference Range Interpretation Comments LACTIC ACID (test code = LACT) 3.8 mmol/L 0.4-2.0 H GLUCOSE BEDSIDE [id number] 07:16:00 Test Item Value Reference Range Interpretation Comments GLUCOSE BEDSIDE TESTING (test code 254 mg/dL 70-110 H = GLUBED) UA RFLX MICR CULT IF [id number] 06:53:00 Test Item Value Reference Range Interpretation [...] MUCU) Indication for culture: Suprapubic PainBASIC METABOLIC [id number] 06:17:00 Test Item Value Reference Range Interpretation [...] code = CA) 7.1 MG/DL 8.5-10.1 L [id number] 06:17:00 Test Item Value Reference Range Interpretation Comments PHOSPHOROUS (test code = PHOS) 1.6 MG/DL 2.5-4.9 L [id number] 06:17:00 Test Item Value Reference Range Interpretation Comments MAGNESIUM (test code = MAG) 0.5 MG/DL 1.8-2.4 LL VENOUS BLOOD [id number] 06:16:00 Test Item Value Reference Range Interpretation [...] Other Site DESCRIPTION code = SITEV) LACTIC [id number] 06:02:00 Test Item Value Reference Range Interpretation Comments LACTIC ACID (test code = LACT) 3.4 mmol/L 0.4-2.0 H GLUCOSE BEDSIDE [id number] 05:13:00 Test Item Value Reference Range Interpretation Comments GLUCOSE BEDSIDE TESTING (test code 297 mg/dL 70-110 H = GLUBED) GLUCOSE BEDSIDE [id number] 03:10:00 Test Item Value Reference Range Interpretation Comments GLUCOSE BEDSIDE TESTING (test code 396 mg/dL 70-110 H = GLUBED) VENOUS BLOOD [id number] 02:04:00 Test Item Value Reference Range Interpretation [...] Other Site DESCRIPTION code = SITEV) LACTIC [id number] 01:22:00 Test Item Value Reference Range Interpretation Comments LACTIC ACID (test code = LACT) 2.4 mmol/L 0.4-2.0 H BASIC METABOLIC [id number] 01:21:00 Test Item Value Reference Range Interpretation [...] code = CA) 7.4 MG/DL 8.5-10.1 L [id number] 01:21:00 Test Item Value Reference Range Interpretation Comments PHOSPHOROUS (test code = PHOS) 4.5 MG/DL 2.5-4.9 N [id number] 01:21:00 Test Item Value Reference Range Interpretation Comments MAGNESIUM (test code = MAG) 1.2 MG/DL 1.8-2.4 L GLUCOSE BEDSIDE [id number] 00:27:00 Test Item Value Reference Range Interpretation Comments GLUCOSE BEDSIDE TESTING (test code 525 mg/dL 70-110 HH = GLUBED) BASIC METABOLIC [id number] 22:41:00 Test Item Value Reference Range Interpretation [...] CA) 8.0 MG/DL 8.5-10.1 L TROP-I HIGH [id number] 22:39:00 Test Item Value Reference Range Interpretation [...] URLs may varyby method. Completed by Nursing: NOPaO2/[id number] 22:04:00 Test Item Value Reference Range Interpretation Comments PaO2/FiO2 (test 542.9 mm/Hg See_Comment [Automated message] The code = FIY9UYH3) system [facility] h generated this result tra nsmitted reference range : 200. The reference r lizabeth was not used to int erpret this result as normal/abnormal . ARTERIAL BLOOD [id number] 22:04:00 Test Item Value Reference Range Interpretation [...] (test Yes Circ.CHK POSITIVE code = MODALL) [id number] 21:37:00 Test Item Value Reference Range Interpretation Comments POTASSIUM (test code = K) 4.9 mmol/L 3.4-5.0 N LACTIC [id number] 21:31:00 Test Item Value Reference Range Interpretation Comments LACTIC ACID (test code = LACT) 4.7 mmol/L 0.4-2.0 HH LACTIC [id number] 20:01:00 Test Item Value Reference Range Interpretation Comments LACTIC ACID (test code = LACT) 4.4 mmol/L 0.4-2.0 HH VENOUS BLOOD [id number] 19:50:00 Test Item Value Reference Range Interpretation [...] DESCRIPTION (test code = SITEV) COMPREHENSIVE METABOLIC [id number] 19:14:00 Test Item Value Reference Range Interpretation [...] (test code = ALKP) Completed by Nursing: [id number] 19:14:00 Test Item Value Reference Range Interpretation Comments MAGNESIUM (test code = MAG) 1.3 MG/DL 1.8-2.4 L Completed by Nursing: NOTROP-I HIGH [id number] 19:14:00 Test Item Value Reference Range Interpretation Comments TROP-I HIGH 19.1 ng/L 0-34 N CAUTION: Units of the SENSITIVITY (test current [facility] methodology code = TROPIHS) (ng/L) diffe rfrom [...] Completed by Nursing: NO- CT HEAD/BRAIN W/O [id number] 18:42:00 [facility] : 1945 Sex: F Name: AKIRA RODRIGUEZ [facility] : 1945 Age/S: 75 / F [address] Unit #: [id number] Loc: [place] [address] Phys: Savanah Crowley MD Acct: [id number] Dis Date: Status: REG ER PHONE #: [phone] Exam Date: 06/11/2021 1832 FAX #: Reason: AMS EXAMS: CPT: [id number] CT HEAD/BRAIN W/O CONT 40012 Exam: CT head without contrast. Location: H 12 History: AMS Technique: Unenhanced spiral slices were taken from the base of the skull, through the vertex. One or more of the following dose reductiontechniques were used: Automated exposure control, adjustment of [...] Atherosclerotic microvascular disease. 4. Otherwise unremarkable exam. at 1842 Reported and signed by: Benoit Modi M.D. CC: Savanah Crowley MD Technologist:Geovanna Iglesias, RT(R) CTDI: DLP: Trnscb Date/Time: 06/11/2021 (1841) [email or web address] Orig Print D/T: S: 06/11/2021 (1845) PAGE 1 Signed ReportCBC W/AUTO [id number] 18:31:00 Test Item Value Reference Range Interpretation [...] CRITERIA = MDIFF) COVID 19 Asymptomatic IH [id number] 18:24:00 Test Item Value Reference Range Interpretation Comments COVID 19 Asymptomatic NEGATIVE Negative Per deshawn ibarra, IH AG (test code = negative results [...] symptoms consis tent with COVID-19. GLUCOSE BEDSIDE [id number] 17:21:00 Test Item Value Reference Range Interpretation Comments GLUCOSE BEDSIDE TESTING (test code 271 mg/dL 70-110 H = GLUBED) - DUP VEIN UNI [id number] 13:04:00 [facility] : 1945 Sex: F Name: [place]IRA ROD[place]IG[place] : 1945 Age/S: 75 / F [address] Unit #: [id number] Loc: [place] [address] Phys: Lyudmila Montgomery MD Acct: [id number] Dis Date: Status: ADM IN PHONE #: [phone] Exam Date: 05/22/2021 1245 FAX #: Reason: left arm swelling EXAMS: CPT: [id number] D[place] [facility] [address] HISTORY: Right leg pain TECHNIQUE: Grayscale real-time [...] CC: Lyudmila Montgomery MD Technologist: Tash Vargas Trnscb Date/Time: 05/22/2021 (0674) SannaR.RXC2 PAGE 1 Signed Report Name: AKIRA RODRIGUEZland : 1945 Age/S: 75 / F [address] Unit #: [id number] Loc: [place] [address] Phys: Lyudmila Montgomery MD Acct: [id number] Dis Date: Status: ADM IN PHONE #: [phone] Exam Date: 05/22/2021 1245 FAX #: Reason: left arm swelling EXAMS: CPT: [id number] [address] (Continued) Orig Print D/T: S: 05/22/2021 (9067)Probe: PAGE 2 Signed ReportGLUCOSE BEDSIDE [id number] 11:46:00 Test Item Value Reference Range Interpretation Comments GLUCOSE BEDSIDE TESTING (test code 205 mg/dL 70-110 H = GLUBED) GLUCOSE BEDSIDE [id number] 07:54:00 Test Item Value Reference Range Interpretation Comments GLUCOSE BEDSIDE TESTING (test code = 94 mg/dL 70-110 N GLUBED) COMPREHENSIVE METABOLIC [id number] 06:29:00 Test Item Value Reference Range Interpretation [...] 45-117 N TOTAL (test code = ALKP) [id number] 06:29:00 Test Item Value Reference Range Interpretation Comments PHOSPHOROUS (test code = PHOS) 2.2 MG/DL 2.5-4.9 L [id number] 06:29:00 Test Item Value Reference Range Interpretation Comments MAGNESIUM (test code = MAG) 2.3 MG/DL 1.8-2.4 CBC W/AUTO [id number] 06:27:00 Test Item Value Reference Range Interpretation [...] indicativ e of the presence code = BLCBI24XY) ofSARS-CoV -2 RNA, clinical correlation wit h [...] det ection of nucleic acids f rom pdoTRWX-HoN-8 v irus and diagnosis of SA RS-CoV-2 virusinfection. It is an Emergency Use Authorization ( EUA) testauthorized by the U.S. FDA. Novel Coronavirus 20:45:00 Test Item Value Reference Range Interpretation Comments Novel Coronavirus Negative Negative Positive r esults are 2019 Inhouse (test indicativ e of the presence code = [id number]) ofSARS-CoV -2 RNA, clinical correlation wit h [...] det ection of nucleic acids f rom obqGNOR-BwO-9 v irus and diagnosis of SA RS-CoV-2 virusinfection. It is an Emergency Use Authorization ( EUA) testauthorized by the U.S. FDA. GLUCOSE BEDSIDE [id number] 20:18:00 Test Item Value Reference Range Interpretation Comments GLUCOSE BEDSIDE TESTING (test code 212 mg/dL 70-110 H = GLUBED) GLUCOSE BEDSIDE [id number] 16:28:00 Test Item Value Reference Range Interpretation Comments GLUCOSE BEDSIDE TESTING (test code 202 mg/dL 70-110 H = GLUBED) GLUCOSE BEDSIDE [id number] 11:13:00 Test Item Value Reference Range Interpretation Comments GLUCOSE BEDSIDE TESTING (test code 102 mg/dL 70-110 N = GLUBED) [id number] 06:57:00 Test Item Value Reference Range Interpretation Comments PHOSPHOROUS (test code = PHOS) 1.9 MG/DL 2.5-4.9 L [id number] 06:57:00 Test Item Value Reference Range Interpretation Comments MAGNESIUM (test code = MAG) 1.6 MG/DL 1.8-2.4 L GLUCOSE BEDSIDE [id number] 06:41:00 Test Item Value Reference Range Interpretation Comments GLUCOSE BEDSIDE TESTING (test code = 95 mg/dL 70-110 N GLUBED) BASIC METABOLIC [id number] 05:04:00 Test Item Value Reference Range Interpretation [...] CA) 6.9 MG/DL 8.5-10.1 L CBC W/AUTO [id number] 04:49:00 Test Item Value Reference Range Interpretation [...] NO DIFF/SCN CRITERIA = MDIFF) BASIC METABOLIC [id number] 20:58:00 Test Item Value Reference Range Interpretation [...] CA) 7.7 MG/DL 8.5-10.1 L GLUCOSE BEDSIDE [id number] 20:17:00 Test Item Value Reference Range Interpretation Comments GLUCOSE BEDSIDE TESTING (test code 212 mg/dL 70-110 H = GLUBED) BASIC METABOLIC [id number] 18:31:00 Test Item Value Reference Range Interpretation [...] code = CA) 7.9 MG/DL 8.5-10.1 L [id number] 18:31:00 Test Item Value Reference Range Interpretation Comments MAGNESIUM (test code = MAG) 3.0 MG/DL 1.8-2.4 H GLUCOSE BEDSIDE [id number] 16:33:00 Test Item Value Reference Range Interpretation Comments GLUCOSE BEDSIDE TESTING (test code 172 mg/dL 70-110 H = GLUBED) UA RFLX MICR CULT IF [id number] 13:31:00 Test Item Value Reference Range Interpretation [...] code = UACULT) Indication for culture: Flank [id number] 10:41:00 Test Item Value Reference Range Interpretation Comments PHOSPHOROUS (test code = PHOS) 3.2 MG/DL 2.5-4.9 N [id number] 10:41:00 Test Item Value Reference Range Interpretation Comments MAGNESIUM (test code = MAG) 0.9 MG/DL 1.8-2.4 LL BASIC METABOLIC [id number] 08:10:00 Test Item Value Reference Range Interpretation [...] CA) 7.9 MG/DL 8.5-10.1 L CBC W/AUTO [id number] 07:50:00 Test Item Value Reference Range Interpretation [...] CRITERIA = MDIFF) - XR CHEST 1 [id number] 07:30:00 [facility] : 1945 Sex: F Name: AKIRA RODRIGUEZ [place] : 1945 Age/S: 75 / F [address] Unit #: [id number] Loc: [place] [address] Phys: Indra Corado MD Acct: [id number] Dis Date: Status: ADM IN PHONE #: [phone] Date: 05/20/2021714 FAX #: Reason: NEW ICU ADMIT EXAMS: CPT: [id number] XR CHEST 1 V 03046 Fluoro Time: DAP (Gy m2): Air Kerma [...] at 0730 Reported and signed by: Jhon Aguilar M.D. CC: Indra Corado MD; Lyudmila Montgomery MD PAGE 1 Signed Report Name: AKIRA RODRIGUEZ [place] : 1945 Age/S: 75 / F [address] Unit #: [id number] Loc: [place] [address] Phys: Indra Corado MD Acct: [id number] Dis Date: Status: ADM IN PHONE #: [phone] Exam Date: 05/20/2021714 FAX #: Reason: NEW ICU ADMIT EXAMS: CPT: [id number] XR CHEST 1 V 63545 Fluoro Time:DAP (Gy m2): Air Kerma (mGy): (Continued) Technologist: Twin Lopez, RT(R)(CT) Trnscb Date/Time: 05/20/2021 (07) JeniferTS14 Orig Print D/T: S: 05/20/2021 (2910) PAGE 2 Signed ReportT3 [id number] 02:08:00 Test Item Value Reference Range Interpretation Comments T3 FREE (test code = 1.4 pg/mL 2.0-4.4 A Perform ed At: [facility]) [address] [place], [place] [id number] Serafin Fuentes MD Ph:[phone] [id number] 19:02:00 Test Item Value Reference Range Interpretation Comments GLYCOSYLATED HEMOGLOBIN (HA1C) 10.4 % A1C 0.0-5.7 H (test code = GLYHGB) ESTIMATED AVERAGE GLUCOSE (test 252 MG/DLest code = EAG) THYROID STIMULATING [id number] 18:56:00 Test Item Value Reference Range Interpretation Comments THYROID STIMULATING HORMONE 0.130 mcIU/ML 0.340-4.820 L (test code = TSH) T4 [id number] 18:52:00 Test Item Value Reference Range Interpretation Comments T4 FREE (test code = T4F) 1.22 NG/DL 0.89-1.76 N - CT HEAD/BRAIN W/O [id number] 14:53:00 [facility] : 1945 Sex: F Name: AKIRA RODRIGUEZ [facility] : 1945 Age/S: 75 / F [address] Unit #: [id number] Loc: [place] [address] Phys: Lyudmila Montgomery MD Acct: [id number] Dis Date: Status: ADM IN PHONE #: [phone] Exam Date: 05/19/2021 1440 FAX #: Reason: syncope EXAMS: CPT: [id number] CT HEAD/BRAIN W/O CONT 80604 LOCATION: T18 EXAM: CT HEAD WITHOUT CONTRAST [...] territorial infarct. Age- related volume loss. at 4143 Reported and signed by: Otis Jiang M.D. CC: Lyudmila Montgomery MD Technologist:Cyndi Landrum, RT(R); Jacqueline CTDI: DLP: Trnscb Date/Time: 05/19/2021 (1073) t.CIARRAR.[email or web address] Orig Print D/T: S: 05/19/2021 (9612) PAGE 1 Signed Report- XR CHEST 1 [id number] 13:56:00 [facility] : 1945 Sex: F Name: AKIRA RODRIGUEZ [place] : 1945 Age/S: 75 / F [address] [address] Unit #: [id number] Loc: [place] [address] Phys: Lyudmila Montgomery MD Acct: [id number] Dis Date: Status: ADM IN PHONE #: [phone] Exam Date: 05/19/2021 1345 FAX #: Reason: PICC LINE PLACEMENT EXAMS: CPT: [id number] XR CHEST 1 V 81889 Fluoro Time: DAP (Gy m2): Air Kerma [...] PAGE 1 Signed Report Name: AKIRA RODRIGUEZ [place] : 1945 Age/S: 75 / F [address] [address] Unit #: [id number] Loc: [place] [address] Phys: Lyudmila Montgomery MD Acct: [id number] Dis Date: Status: ADM IN PHONE #: [phone] Exam Date: 05/19/2021 1345 FAX #: Reason: PICC LINE PLACEMENT EXAMS: CPT: [id number] XRCHEST 1 V 38707 Fluoro Time: DAP (Gy m2): Air Kerma (mGy): (Continued) Technologist: Sophie Naylor RT(R) Trnscb Date/Time: 05/19/2021 (1160) Sherrell Orig Print D/T: S: 05/19/2021 (5225) PAGE 2 Signed ReportCOVID 19 Asymptomatic IH [id number] 11:23:00 Test Item Value Reference Range Interpretation Comments COVID 19 Asymptomatic NEGATIVE Negative Per ma doritafacturer, IH AG (test code = negative results [...] nd symptoms consis tent with COVID-19. RBC [id number] 10:25:00 Test Item Value Reference Range Interpretation Comments PLATELET ESTIMATE (test ADEQUATE THOUSAND ADEQUATE code = PLTEST) PLATELET MORPHOLOGY (test NORMAL code = PLTMORPH) CBC W/AUTO [id number] 10:25:00 Test Item Value Reference Range Interpretation [...] NO DIFF/SCN CRITERIA = MDIFF) TROP-I HIGH [id number] 10:14:00 Test Item Value Reference Range Interpretation [...] varyby method. Completed by Nursing: NOBASIC METABOLIC [id number] 10:14:00 Test Item Value Reference Range Interpretation [...] 8.5-10.1 N Completed by Nursing: NOHEPATIC FUNCTION [id number] 10:14:00 Test Item Value Reference Range Interpretation [...] Completed by Nursing: NO- XR CHEST 1 [id number] 10:14:00 [facility] : 1945 Sex: F Name: AKIRA RODRIGUEZ [place] : 1945 Age/S: 75 / F [address] [address] Unit #: [id number] Loc: [place] [address] Phys: Willi Osullivan DO Acct: [id number] Dis Date: Status: REG ER PHONE #: [phone] Exam Date: 05/19/2021 1010 FAX #: Reason: Code Sepsis EXAMS: CPT: [id number] XR CHEST 1 V 80645 Fluoro Time: DAP (Gy m2): Air Kerma [...] PAGE 1 Signed Report Name: AKIRA RODRIGUEZ [place] : 1945 Age/S: 75 / F [address] [address] Unit #: [id number] Loc: [place] [address] Phys: Willi Osullivan DO Acct: [id number] Dis Date: Status: REG ER PHONE #: [phone] Exam Date: 05/19/2021 1010 FAX #: Reason: Code Sepsis EXAMS: CPT: [id number] XR CHEST 1 V 30269 Fluoro Time: DAP (Gy m2): Air Kerma (mGy): (Continued) Technologist: Francesco Delgado RT(R)(CT) Trnscb Date/Time: 05/19/2021 (8365) JeniferPE1 Orig Print D/T: S: 05/19/2021 (0662) PAGE 2 Signed ReportLACTIC [id number] 10:11:00 Test Item Value Reference Range Interpretation Comments LACTIC ACID (test code = LACT) 1.7 mmol/L 0.4-2.0 N
[2023-02-21] MEDS ORDERED: NA CHLORIDE 0.9% 0 ML ONE (09:05)
[2023-02-21] MEDS ORDERED: NA CHLORIDE 0.9% 1,000 ML ONE (09:10)
--- NOTE | 2023-02-21 09:32 | RAD REPORT ---
EXAM DESCRIPTION: CT - Head C Spine Cap Wo Con - 02/21/2023 9:06 am CLINICAL HISTORY: Head and neck injury with chest and abdominal pain status post fall. Seizure TECHNIQUE: Computed axial tomography of head, neck, chest, abdomen and pelvis obtained. IV and oral contrast not requested. Coronal and sagittal reconstruction performed. All CT scans are performed using dose optimization technique as appropriate and may include automated exposure control or mA/KV adjustment according to patient size. COMPARISON: CT head and C-spine FINDINGS: An intracranial bleed is not seen. Mild low-density periventricular, deep subcortical white matter likely ischemic changes secondary sma ll vessel disease. The ventricles are normal in caliber. An extra-axial fluid collection is not noted. Fluid within the sinuses/mastoids is not seen. A cervical fracture is not seen. No dislocation is noted. The evaluation of mediastinum, coral, vessels, solid organs and bowel are limited secondary to the lac k of contrast administration. A mediastinal hematoma is not noted. A pleural effusion is not seen. A lung contusion is not present. The liver,spleen, pancreas, adrenals,kidneys and bladder do not demonstrate an acute traumatic injury Small to moderate hiatal hernia. Postsurgical changes lumbar spine Mild to moderate compression fracture L1 vertebral body IMPRESSION: No acute intracranial abnormality is seen. A cervical fracture is not visualized. If the patient continues to have symptoms to suggest intracran ial/spinal cord pathology MRI be recommended Mild to moderate compression fracture L1 vertebral body probably is chronic. No acute traumatic injury involving chest, abdomen/pelvis is seen
[2023-02-21 09:55] LABS: Absolute Lymphocytes (CBC) 1.3 K/uL (0.7-4.9); Hematocrit 39.5 % (36.0-45.0); Lymphocytes % 15.7 % (15.3-44.8); MPV 7.5 fL (7.6-11.3); Platelets 309 thou/uL (152-406); RBC Red Blood Cell Count 4.29 M/uL (3.86-4.86)
--- NOTE | 2023-02-21 10:02 | RAD REPORT ---
EXAM DESCRIPTION: [place] Single View02/21/2023 9:19 am CLINICAL HISTORY: cough COMPARISON: 2021 FINDINGS: A few areas of subsegmental atelectasis within the lungs Heart is normal size
[2023-02-21 10:10] LABS: Albumin 3.1 g/dL (3.4-5.0); Bilirubin Direct 0.1 mg/dL (0-0.2); Bilirubin Indirect, Calculated 0.3 mg/dL (0.2-0.8); Bilirubin Total 0.4 mg/dL (0.2-1.0); Magnesium 2.1 mg/dL (1.6-2.4); Potassium 3.8 mEq/L (3.5-5.1); Protein, Total 7.2 g/dL (6.4-8.2); Troponin High Sensitivity 20.8 pg/mL (<58.9)
[2023-02-21] MEDS ORDERED: LEVETIRACETAM 500 MG/5 ML VIAL IV ONE (11:00)
[2023-02-21] MEDS ORDERED: NA CHLORIDE 0.9% 100 ML ONE (11:01)
[2023-02-21 11:02] LABS: Specific Gravity 1.007 (1.005-1.030); Urine Bilirubin NEGATIVE (Negative); Urine Blood Negative (Negative); Urine Clarity Clear (Clear); Urine Color Light-Yellow (Yellow); Urine Glucose NEGATIVE (Negative); Urine Protein NEGATIVE (Negative); Urine Urobilinogen Normal (Normal); Urine pH 7.5 (5.0-7.0)
--- NOTE | 2023-02-21 11:05 | ER ---
Nurse's Notes [facility] Name: Lavonne Vitale Age: 77 yrs Sex: Female : 1945 Arrival Date: 02/21/2023 Time: 08:39 Bed 4 Private MD: Diagnosis: Dementia in other diseases classified elsewhere without behavioral disturbance;Other seizures Presentation: 02/21 08:45 Chief complaint: EMS states: Pt is from [facility] and nurses from [facility] stated rs5 "We think she might've had a seizure last night, no one called until this morning, and we want to get her checked out". Coronavirus screen: At this time, the client does not indicate any symptoms associated with coronavirus-19. Ebola Screen: No symptoms or risks identified at this time. Initial Sepsis Screen: Does the patient meet any 2 criteria? No. Patient's initial sepsis screen is negative. Does the patient have a suspected source of infection? No. Patient's initial sepsis screen is negative. Risk Assessment: Do you want to hurt yourself or someone else? Patient reports no desire to harm self or others. Onset of symptoms was February 21, 2023. 08:45 Method Of Arrival: EMS: [facility] rs5 08:45 Acuity: ESTRELLA 3 rs5 Triage Assessment: 09:00 General: Appears in no apparent distress. comfortable, Behavior is calm, cooperative. db Pain: Denies pain. Neuro: Level of Consciousness is awake, alert, obeys commands, Oriented to person, place, time, situation. Respiratory: Airway is patent Respiratory effort is even, unlabored, Respiratory pattern is regular, symmetrical. Historical: - Allergies: 08:50 Sulfa (Sulfonamide Antibiotics); rs5 - PMHx: 08:50 Dementia; depressive disorder; diabetes mellitus; Hypertensive disorder; rs5 - Immunization history:: Adult Immunizations unknown. - Social history:: Smoking status: unknown. - Family history:: not pertinent. Screenin:44 [facility] ED Fall Risk Assessment (Adult) History of falling in the last 3 months, rs5 including since admission No falls in past 3 months (0 pts) Confusion or Disorientation No (0 pts) Intoxicated or Sedated No (0 pts) Impaired Gait Yes (1 pt) Mobility Assist Device Used Yes (1 pt) Altered Elimination No (0 pt) Score/Fall Risk Level 0 - 2 = Low Risk Oriented to surroundings, Maintained a safe environment. Abuse screen: Denies threats or abuse. Nutritional screening: No deficits noted. Tuberculosis screening: No symptoms or risk factors identified. Assessment: 08:44 General: Appears in no apparent distress. comfortable, Behavior is calm, cooperative. rs5 08:44 Pain: Denies pain. Neuro: Level of Consciousness is awake, alert, obeys commands, rs5 Oriented to person, place, time. Neuro: Oriented to situation. Cardiovascular: Heart tones S1 S2 present Rhythm is regular. Respiratory: Airway is patent Respiratory effort is even, unlabored, Respiratory pattern is regular, symmetrical. GI: Abdomen is round non-distended, Bowel sounds present X 4 quads. Abd is soft and non tender X 4 quads. : No signs and/or symptoms were reported regarding the genitourinary system. EENT: No signs and/or symptoms were reported regarding the EENT system. Derm: Skin is intact, Skin is pink, warm \\T\\ dry. Musculoskeletal: Range of motion: intact in all extremities. 08:51 Reassessment: Pt taken for CT scan. rs5 09:46 Reassessment: No changes from previously documented assessment. rs5 10:50 Reassessment: Patient and/or family updated on plan of care and expected duration. Pain rs5 level reassessed. Patient is alert, oriented x 3, equal unlabored respirations, skin warm/dry/pink. 11:23 Reassessment: Pt is up for discharge, report given to Nurse from [facility].rs5 12:30 Reassessment: Patient appears in no apparent distress at this time. Patient and/or db family updated on plan of care and expected duration. Pain level reassessed. Patient is alert, oriented x 3, equal unlabored respirations, skin warm/dry/pink. PENDING RIDE FROM [facility]. 13:55 Reassessment: Patient appears in no apparent distress at this time. Patient and/or db family updated on plan of care and expected duration. Pain level reassessed. Patient is alert, oriented x 3, equal unlabored respirations, skin warm/dry/pink. Vital Signs: 08:45 BP 179 / 89; Pulse 84; Resp 18; Temp 98.4(O); Pulse Ox 99% on R/A; rs5 10:51 BP 156 / 72; Pulse 61; Resp 18; Pulse Ox 97% on R/A; db 11:45 BP 117 / 64; Pulse 70; Resp 16; Pulse Ox 97% on R/A; db 12:30 BP 154 / 83; Pulse 68; Resp 16; Pulse Ox 100% on R/A; db 13:15 BP 128 / 89; Pulse 65; Resp 16; Pulse Ox 99% on R/A; db [place] Coma Score: 09:00 Eye Response: spontaneous(4). Motor Response: obeys commands(6). Verbal Response: db confused(4). Total: 14. ED Course: 08:43 Patient arrived in ED. janel 08:44 Ernst Contreras MD is Attending Physician. janel 08:44 Patient has correct armband on for positive identification. Bed in low position. Call rs5 light in reach. Side rails up X2. 08:50 Triage completed. rs5 08:52 Melany Patrick, RN is Primary Nurse. db 09:00 Arm band placed on Patient placed in an exam room. db 09:08 CT Traumagram (Head C Spine CAP wo con) In Process Unspecified. EDMS 09:20 XRAY Chest (1 view) In Process Unspecified. EDMS 09:25 Initial lab(s) drawn, by pr, sent to lab. Inserted saline lock: 20 gauge in right rs5 antecubital area, using aseptic technique. Blood collected. 10:00 Seizure precautions initiated. db 11:05 Aidan Chacko MD is Referral Physician. janel 14:02 Patient has correct armband on for positive identification. Provided Education on: db DISCHARGE . 14:02 No provider procedures requiring assistance completed. IV discontinued, intact, db bleeding controlled, No redness/swelling at site. Administered Medications: 09:48 Drug: NS 0.9% IV 1000 ml IV at 1 bolus Per protocol; 1000 mL bolus Route: IV; Rate: 1 aa5 bolus; Site: right antecubital; 11:05 Follow up: Response: No adverse reaction rs5 14:04 Follow up: Response: No adverse reaction; IV Status: Completed infusion db 10:50 Drug: Keppra IV 1000 mg IV at per protocol once Route: IV; Rate: per protocol; Site: rs5 right antecubital; 11:05 Follow up: Response: No adverse reaction rs5 14:04 Follow up: Response: No adverse reaction; IV Status: Completed infusion db Medication: 14:02 VIS not applicable for this client. db Outcome: 11:05 Discharge ordered by . janel 14:02 Discharged to long term. Report called to [facility] db 14:02 Discharged to home via wheelchair, 14:02 Condition: stable 14:02 Discharge instructions given to long term, Instructed on discharge instructions, follow up and referral plans. 14:04 Patient left the ED. db Signatures: Dispatcher [employer] EDNM Ernst Conterras MD MD cha Calderon, Audri, RN RN aa5 Melany Patrick RN RN db Aneesh Bonilla, OPAL RN rs5 Corrections: (The following items were deleted from the chart) 10:05 09:40 Inserted saline lock: 20 gauge in right antecubital area, using aseptic rs5 technique. Blood collected. aa5 10: 09:40 Initial lab(s) drawn, by pr, sent to lab. aa5 rs5 11:21 11:20 Reassessment: Patient and/or family updated on plan of care and expected rs5 duration. Pain level reassessed. Patient is alert, oriented x 3, equal unlabored respirations, skin warm/dry/pink. rs5 11:24 11:21 Reassessment: rs5 rs5
--- NOTE | 2023-02-21 11:06 | EDPHYS ---
Physician Documentation [facility] Name: Lavonne Vitale Age: 77 yrs Sex: Female : 1945 Arrival Date: 02/21/2023 Time: 08:39 Bed 4 Private MD: Ernst Padilla HPI: 02/21 10:31 This 77 yrs old Female presents to ER via EMS with complaints of Probable janel Seizure. 10:31 The patient presents after having a possible seizure episode, unk. Character of janel seizure(s): unk. Seizure onset: the onset is not known. Context: the seizure(s) was witnessed, none. Seizure Hx: the patient has no previous seizure history. Associated injury: The patient did not suffer any apparent associated injury, Other: tounge. Current symptoms: Currently, the patient is not experiencing any symptoms, the patient feels back to baseline. The patient has not experienced similar symptoms in the past. Historical: - Allergies: 08:50 Sulfa (Sulfonamide Antibiotics); rs5 - PMHx: 08:50 Dementia; depressive disorder; diabetes mellitus; Hypertensive disorder; rs5 - Immunization history:: Adult Immunizations unknown. - Social history:: Smoking status: unknown. - Family history:: not pertinent. ROS: 10:35 Constitutional: Negative for fever, chills, and weight loss, Eyes: Negative for injury, janel pain, redness, and discharge, Neck: Negative for injury, pain, and swelling, Cardiovascular: Negative for chest pain, palpitations, and edema, Respiratory: Negative for shortness of breath, cough, wheezing, and pleuritic chest pain, Abdomen/GI: Negative for abdominal pain, nausea, vomiting, diarrhea, and constipation, Back: Negative for injury and pain, : Negative for injury, bleeding, discharge, and swelling, MS/Extremity: Negative for injury and deformity, Skin: Negative for injury, rash, and discoloration, Neuro: Negative for headache, weakness, numbness, tingling, and seizure, Psych: Negative for depression, anxiety, suicide ideation, homicidal ideation, and hallucinations, Allergy/Immunology: Negative for hives, rash, and allergies, Endocrine: Negative for neck swelling, polydipsia, polyuria, polyphagia, and marked weight changes, Hematologic/Lymphatic: Negative for swollen nodes, abnormal bleeding, and unusual bruising, 10:35 ENT: Positive for of the tongue, Exam: 10:31 Constitutional: This is a well developed, well nourished patient who is awake, alert, janel and in no acute distress. Eyes: Pupils equal round and reactive to light, extra-ocular motions intact. Lids and lashes normal. Conjunctiva and sclera are non-icteric and not injected. Cornea within normal limits. Periorbital areas with no swelling, redness, or edema. ENT: Nares patent. No nasal discharge, no septal abnormalities noted. Tympanic membranes are normal and external auditory canals are clear. Oropharynx with no redness, swelling, or masses, exudates, or evidence of obstruction, uvula midline. Mucous membranes moist. Neck: Trachea midline, no thyromegaly or masses palpated, and no cervical lymphadenopathy. Supple, full range of motion without nuchal rigidity, or vertebral point tenderness. No Meningismus. Chest/axilla: Normal chest wall appearance and motion. Nontender with no deformity. No lesions are appreciated. Cardiovascular: Regular rate and rhythm with a normal S1 and S2. No gallops, murmurs, or rubs. Normal PMI, no JVD. No pulse deficits. Respiratory: Lungs have equal breath sounds bilaterally, clear to auscultation and percussion. No rales, rhonchi or wheezes noted. No increased work of breathing, no retractions or nasal flaring. Abdomen/GI: Soft, non-tender, with normal bowel sounds. No distension or tympany. No guarding or rebound. No evidence of tenderness throughout. Back: No spinal tenderness. No costovertebral tenderness. Full range of motion. Female : Normal external genitalia. Skin: Warm, dry with normal turgor. Normal color with no rashes, no lesions, and no evidence of cellulitis. MS/ Extremity: Pulses equal, no cyanosis. Neurovascular intact. Full, normal range of motion. Neuro: Awake and alert, GCS 15, oriented to person, place, time, and situation. Cranial nerves II-XII grossly intact. Motor strength 5/5 in all extremities. Sensory grossly intact. Cerebellar exam normal. Normal gait. Psych: Awake, alert, with orientation to person, place and time. Behavior, mood, and affect are within normal limits. 10:31 ENT: bite tounge. 10:31 ECG was reviewed by the Attending Physician. Vital Signs: 08:45 BP 179 / 89; Pulse 84; Resp 18; Temp 98.4(O); Pulse Ox 99% on R/A; rs5 10:51 BP 156 / 72; Pulse 61; Resp 18; Pulse Ox 97% on R/A; db 11:45 BP 117 / 64; Pulse 70; Resp 16; Pulse Ox 97% on R/A; db 12:30 BP 154 / 83; Pulse 68; Resp 16; Pulse Ox 100% on R/A; db 13:15 BP 128 / 89; Pulse 65; Resp 16; Pulse Ox 99% on R/A; db [place] Coma Score: 09:00 Eye Response: spontaneous(4). Motor Response: obeys commands(6). Verbal Response: db confused(4). Total: 14. MDM: 08:44 Patient medically screened. janel 08:44 Patient medically screened. janel 10:36 Differential diagnosis: cerebral vascular accident, cardiac arrhythmia, seizure, TIA. janel Data reviewed: vital signs, nurses notes, EMS record, lab test result(s), EKG, radiologic studies, CT scan, plain films. Consideration of Admission/Observation Escalation of care including admission/observation considered. I considered the following discharge prescriptions or medication management in the emergency department Medications were administered in the Emergency Department. See MAR. Independent interpretation of the following test(s) in the Emergency Department EKG: See my EKG interpretation above. Test considered but Not performed: MRI: no mri. Care significantly affected by the following chronic conditions: Diabetes, Hypertension, dementia, depression. 02/21 08:45 Order name: Basic Metabolic Panel; Complete Time: 10:27 janel 02/21 08:45 Order name: CBC with Diff; Complete Time: 10:27 janel 02/21 08:45 Order name: LFT's; Complete Time: 10:27 janel 02/21 08:45 Order name: Magnesium; Complete Time: 10:27 janel 02/21 08:45 Order name: NT PRO-BNP; Complete Time: 10:27 janel 02/21 08:45 Order name: PT-INR; Complete Time: 10:27 janel 02/21 08:45 Order name: Troponin HS; Complete Time: 10:27 janel 02/21 08:45 Order name: Lipase; Complete Time: 10:27 janel 02/21 08:45 Order name: Urinalysis w/ reflexes; Complete Time: 11:04 02/21 08:45 Order name: Flu 02/21 08:45 Order name: COVID-19 SARS RT PCR 02/21 08:45 Order name: XRAY Chest (1 view); Complete Time: 10:27 02/21 08:45 Order name: CT Traumagram (Head C Spine CAP wo con); Complete Time: 10:27 02/21 08:45 Order name: EKG; Complete Time: 08:46 02/21 08:45 Order name: Cardiac monitoring; Complete Time: 09:47 02/21 08:45 Order name: EKG - Nurse/Tech; Complete Time: 09:47 02/21 08:45 Order name: IV Saline Lock; Complete Time: 09:47 02/21 08:45 Order name: Labs collected and sent; Complete Time: 09:47 02/21 08:45 Order name: O2 Per Protocol; Complete Time: 09:47 02/21 08:45 Order name: O2 Sat Monitoring; Complete Time: 09:48 02/21 10:30 Order name: Misc. Order: get ua; Complete Time: 10:48 02/21 10:48 Order name: Straight Cath - Urine; Complete Time: 10:49 iw EC:31 Rate is 67 beats/min. Rhythm is regular. QRS [place] is Normal. CT interval is normal. QRS janel interval is normal. QT interval is normal. No Q waves. T waves are Normal. No ST changes noted. Clinical impression: NSR w/ Non-specific ST/T Changes and No evidence of ischemia. Interpreted by me. Reviewed by me. Administered Medications: 09:48 Drug: NS 0.9% IV 1000 ml IV at 1 bolus Per protocol; 1000 mL bolus Route: IV; Rate: 1 aa5 bolus; Site: right antecubital; 11:05 Follow up: Response: No adverse reaction rs5 14:04 Follow up: Response: No adverse reaction; IV Status: Completed infusion db 10:50 Drug: Keppra IV 1000 mg IV at per protocol once Route: IV; Rate: per protocol; Site: rs5 right antecubital; 11:05 Follow up: Response: No adverse reaction rs5 14:04 Follow up: Response: No adverse reaction; IV Status: Completed infusion db Disposition Summary: 02/21/23 11:05 Discharge Ordered Notes: Location: Home janel Problem: new janel Symptoms: have improved janel Condition: Stable janel Diagnosis - Dementia in other diseases classified elsewhere without behavioral disturbance janel - Other seizures janel Followup: janel - With: Private Physician - When: 2 - 3 days - Reason: Recheck today's complaints, Continuance of care, Re-evaluation by your physician Followup: janel - With: Aidan Chacko MD - When: 2 - 3 days - Reason: Recheck today's complaints, Re-evaluation by your physician Discharge Instructions: - Discharge Summary Sheet janel - Dementia janel - Seizure, Adult janel - Seizure, Adult, [id number] janel - Epilepsy, [id number] janel Forms: - Medication Reconciliation Form janel - Thank You Letter janel - Antibiotic Education janel - Prescription Opioid Use janel - Patient Portal Instructions janel - Leadership Thank You Letter janel Prescriptions: - Keppra 500 mg Oral tablet - take 1 tablet ORAL route every 12 hours; 40 tablet; Refills: 0, Product janel Selection Permitted Signatures: Dispatcher [employer] Ernst Feldman MD MD cha Williams, Irene RN RN Fatmata Balderas RN RN aa5 Aneesh Bonilla RN RN rs5 Melany Patrick RN db
[2023-02-21 14:17] VITALS: TEMP 98.4
[2023-02-21 14:24] VITALS: BP 128/89; O2SAT 99
--- NOTE | 2023-02-22 14:44 | EKG ---
Test Date: 2023-02-21 Test Time: 09:43:43 Garnett Fixer: ROCCO MEASUREMENT RESULTS: Intervals: Rate: 67 FL: 184 QRSD: 70 QT: 448 QTc: 473 [place]: P: 70 FL: 184 QRS: 60 T: 56 INTERPRETIVE STATEMENTS: Normal sinus rhythm Normal ECG Compared to ECG 02/21/2023 09:42:22 ST (T wave) deviation no longer present Electronically Signed On 02-22-23 14:41:22 CDT by Austin Costa
--- NOTE | 2023-02-22 14:44 | EKG ---
Test Date: 2023-02-21 Test Time: 09:42:22 Operations And Maintenance Technican: ROCCO MEASUREMENT RESULTS: Intervals: Rate: 69 MT: 182 QRSD: 74 QT: 450 QTc: 482 [place]: P: 66 MT: 182 QRS: 62 T: 67 INTERPRETIVE STATEMENTS: Normal sinus rhythm Nonspecific ST abnormality Abnormal ECG Compared to ECG 11/04/2021 07:41:40 ST (T wave) deviation now present Electronically Signed On 02-22-23 14:41:23 CDT by Austin Costa
== END 2023-02-21 14:04 | disposition home or self-care (01) ==
LOC: ER 08:39
DX: G40.89 Other seizures (principal); F02.80 Dementia in other diseases classified elsewhere, unspecified severity, without behavioral disturbance, psychotic disturbance, mood disturbance, and anxiety; I10 Essential (primary) hypertension; Z20.822 Contact with and (suspected) exposure to COVID-19; Z88.2 Allergy status to sulfonamides
CPT/HCPCS: 96365; 96361; 93005 ×2; 85025; 80048; 36415; 83735; 85610; 80076; 81003; 84484; 83690; 83880; 87635; 87804 ×2; 70450; 71250; 72125; 71045; 99284; 96366; J1953; J7030

== ENCOUNTER 2023-11-03 12:14 | Inpatient (IN) | payer OTHER ==
[2023-11-03 13:09] LABS: Absolute Lymphocytes (CBC) 0.8 K/uL (0.7-4.9); Absolute Monocytes 0.7 K/uL (0.1-1.3); Absolute Neutrophil 11.1 K/uL (1.8-8.0); Basophils % 0.2 % (0-1.3); Hematocrit 34.2 % (36.0-45.0); Hemoglobin 11.5 g/dL (12.0-15.0); Lymphocytes % 6.3 % (15.3-44.8); MCH 32.2 pg (27.0-35.0); MCHC 33.8 g/dL (32.0-36.0); MCV 95.5 fL (80-100); MPV 7.7 fL (7.6-11.3); Monocytes % 5.6 % (3.3-12.3); Neutrophils % 87.9 % (41.7-73.7); Nucleated Red Blood Cells % 0.2 % (0-0); Platelets 261 thou/uL (152-406); RBC Red Blood Cell Count 3.58 M/uL (3.86-4.86); Red Cell Distribution Width 15.7 % (12.1-15.2)
[2023-11-03] MEDS ORDERED: PANTOPRAZOLE 40 MG INJ ONE (13:10)
[2023-11-03] MEDS ORDERED: NA CHLORIDE 0.9% 1,000 ML ONE (13:10)
[2023-11-03 13:15] LABS: PT Prothrombin Time 10.7 SECONDS (9.4-12.5); PTT, Activated Partial Thromb 25.6 SECONDS (24.3-36.9); Protime INR 0.97
[2023-11-03 13:25] LABS: Specific Gravity 1.021 (1.005-1.030); Sqamous Epithelial None Seen /HPF (None Seen); Urine Bacteria None Seen /HPF (<20); Urine Bilirubin NEGATIVE (Negative); Urine Blood Negative (Negative); Urine Clarity Clear (Clear); Urine Color Light-Yellow (Yellow); Urine Culture Reflex Order NOT NEEDED; Urine Glucose 4+ (Over) (Negative); Urine Ketones 4+ (Over) (Negative); Urine Microscopic Reflex YN ORDER UMIC; Urine Mucus Slight /HPF (None Seen); Urine Nitrite NEGATIVE (Negative); Urine Protein TRACE (Negative); Urine RBC <5 /HPF (None Seen); Urine Urobilinogen Normal (Normal); Urine WBC <5 /HPF (<5); Urine pH 5.5 (5.0-7.0)
[2023-11-03 13:43] LABS: Albumin 2.8 g/dL (3.4-5.0); Albumin/Globulin Ratio 0.9 (1.1-1.8); Anion Gap 15.6 mEq/L (5.0-15.0); BETA HYDROXYBUTYRATE 3.87 mmol/L (0.02-0.27); Bilirubin Total 0.5 mg/dL (0.2-1.0); Potassium 3.6 mEq/L (3.5-5.1); Protein, Total 5.8 g/dL (6.4-8.2)
[2023-11-03 13:45] LABS: Troponin High Sensitivity 795.5 pg/mL (<58.9)
--- NOTE | 2023-11-03 13:49 | RAD REPORT ---
EXAM DESCRIPTION: RAD - Chest Single View - 11/03/2023 1:39 pm CLINICAL HISTORY: AMS Chest pain. COMPARISON: <Comparisons> FINDINGS: Portable technique limits examination quality. Mild linear subsegmental atelectasis is seen in the right mid lung. The lungs are otherwise clear. Th e heart is normal in size. No displaced fractures. IMPRESSION: No acute intrathoracic process suspected.
[2023-11-03] MEDS ORDERED: INSULIN REGULAR (HUMAN) 100 UNIT/ML ONE (13:57)
[2023-11-03] MEDS ORDERED: GLUCAGON 1 MG/VIAL IM PRN (13:59)
[2023-11-03] MEDS ORDERED: D10W 250 ML BAG IV PRN (13:59)
[2023-11-03 14:05] LABS: Blood Morphology Comment NOT SEEN (NOT SEEN); Platelet Estimate ADEQ; White Blood Cell Scan OK (OK)
--- NOTE | 2023-11-03 14:26 | EDPHYS ---
Physician Documentation [facility] Name: Lavonne Vitale Age: 77 yrs Sex: Female : 1945 Arrival Date: 11/03/2023 Time: 12:14 Bed 7 Private MD: ED Physician Amy Rader HPI: 11/02 12:29 This 77 yrs old Female presents to ER via EMS with complaints of Altered Mental Status, sd2 High Blood Sugar. 12:29 77 yo F presents via EMS for AMS from [facility]. She has a hx of dementia but they sd2 report worse mental status than normal. She is A\T\Ox0. Also reported coffee ground emesis seen on patient's gown and blood sugar 440s today. Unknown if patient received her insulin this AM. Further hx limited due to patient's dementia and mental status.. Historical: - Allergies: 12:16 Sulfa (Sulfonamide Antibiotics); ld1 - PMHx: 12:16 Dementia; diabetes mellitus; depressive disorder; Hypertensive disorder; ld1 - Immunization history:: Adult Immunizations up to date. - Infectious Disease History:: Denies. - Social history:: Smoking status: Patient denies any tobacco usage or history of. ROS: 12:29 Unable to obtain ROS due to baseline dementia, sd2 Exam: 12:29 Constitutional: This is a well developed, well nourished patient who is drowsy but sd2 awakens to minimal stimulation. Dry mucous membranes. Head/Face: Normocephalic, atraumatic. Eyes: EOMI, normal conjunctiva bilaterally Neck: Trachea midline, no thyromegaly or masses palpated, and no cervical lymphadenopathy. Supple, full range of motion without nuchal rigidity, or vertebral point tenderness. No Meningismus. Chest/axilla: Normal chest wall appearance and motion. Nontender with no deformity. Cardiovascular: Regular rate and rhythm with a normal S1 and S2. Loud systolic murmur heard at the left 2nd ICS. 2+ distal pulses. Respiratory: Lungs have equal breath sounds bilaterally, clear to auscultation and percussion. No rales, rhonchi or wheezes noted. No increased work of breathing, no retractions or nasal flaring. Abdomen/GI: Soft, non-tender, with normal bowel sounds. No guarding or rebound. No evidence of tenderness throughout. Skin: Warm, dry with normal turgor. Normal color with no rashes, no lesions, and no evidence of cellulitis. MS/ Extremity: Pulses equal, no cyanosis. Neurovascular intact. Full, normal range of motion. 15:28 ECG was reviewed by the Attending Physician. NSR, rate 82, no STEMI criteria sd2 Vital Signs: 12:18 BP 97 / 63; Pulse 88; Resp 18; Pulse Ox 97% on R/A; ld1 13:16 Temp 97.9(TE); ld1 13:16 Weight 62.14 kg; Height 5 ft. 3 in. ; ld1 13:16 BP 100 / 50; Pulse 80; Resp 18; Pulse Ox 99% on R/A; ld1 14:14 BP 107 / 68; Pulse 88; Resp 18; Pulse Ox 100% on R/A; ld1 15:16 BP 108 / 69; Pulse 76; Resp 18; Pulse Ox 100% on R/A; ld1 16:52 BP 95 / 52; Pulse 65; Resp 17; Pulse Ox 99% on R/A; ld1 17:11 BP 100 / 48; Pulse 71; Resp 17; Temp 97.3(TE); Pulse Ox 100% on R/A; ld1 18:57 BP 92 / 52; Pulse 65; Resp 18; Pulse Ox 100% on R/A; ld1 20:11 BP 110 / 55; Pulse 62; Pulse Ox 99% on R/A; tm6 13:16 Body Mass Index 24.27 (62.14 kg, 160.02 cm) ld1 MDM: 12:18 Patient medically screened. sd2 12:29 Differential Diagnosis: CVA, electrolyte abnormality, alcohol intoxication, sd2 intracranial bleed, pneumonia, TIA, UTI, volume depletion, DKA among others. Data reviewed: vital signs, nurses notes, EMS record, lab test result(s), EKG, radiologic studies. I considered the following discharge prescriptions or medication management in the emergency department Medications were administered in the Emergency Department. See MAR. Historians other than the Patient: EMS: provides initial report. 15:28 Care significantly affected by the following chronic conditions: Diabetes, sd2 Hypertension, Dementia. Counseling: I had a detailed discussion with the patient and/or guardian regarding. ED course: Labs and imaging reviewed. Consistent with DKA with elevated BHB and insulin gtt started. Trop and BNP elevated as well. No further IVFs given at this time. ASA given. Due to coffee ground emesis seen in ER and lack of GI application security consultant at this facility, transfer has been initiated. . 11/02 12:28 Order name: CBC with Diff; Complete Time: 15:01 sd2 11/02 12:28 Order name: CMP; Complete Time: 13:49 sd2 11/02 12:28 Order name: Lipase; Complete Time: 13:49 sd2 11/02 12:28 Order name: Troponin High Sensitivity; Complete Time: 13:49 sd2 11/02 12:28 Order name: BNP; Complete Time: 13:49 sd2 11/02 12:28 Order name: Procalcitonin; Complete Time: 13:56 sd2 11/02 12:28 Order name: Urinalysis w/ reflexes; Complete Time: 13:28 sd2 11/02 12:28 Order name: BETA HYDROXYBUTYRATE; Complete Time: 13:49 sd2 11/02 12:28 Order name: PT-INR; Complete Time: 13:28 sd2 11/02 12:28 Order name: Ptt, Activated; Complete Time: 13:28 sd2 11/02 13:12 Order name: CBC Smear Scan; Complete Time: 15:01 EDMS 11/02 13:12 Order name: Glucose, Ancillary Testing; Complete Time: 13:28 EDMS 11/02 14:07 Order name: ABG: VBG; Complete Time: 16:02 ld1 11/02 14:43 Order name: Glucose, Ancillary Testing; Complete Time: 15:01 EDMS 11/02 14:46 Order name: Glucose, Ancillary Testing EDMS 11/02 16:09 Order name: Glucose, Ancillary Testing EDMS 11/02 17:12 Order name: Glucose, Ancillary Testing EDMS 11/02 18:09 Order name: Glucose, Ancillary Testing EDMS 11/02 19:06 Order name: Glucose, Ancillary Testing EDMS 11/02 20:03 Order name: Basic Metabolic Panel EDMS 11/02 20:03 Order name: Basic Metabolic Panel EDMS 11/02 20:03 Order name: Basic Metabolic Panel EDMS 11/02 20:03 Order name: Basic Metabolic Panel EDMS 11/02 20:03 Order name: Magnesium EDMS 11/02 20:03 Order name: Magnesium EDMS 11/02 20:03 Order name: Magnesium EDMS 11/02 20:03 Order name: Magnesium EDMS 11/02 20:03 Order name: Phosphorus EDMS 11/02 20:03 Order name: Phosphorus EDMS 11/02 20:03 Order name: Phosphorus EDMS 11/02 20:03 Order name: Phosphorus EDMS 11/02 20:18 Order name: Glucose, Ancillary Testing EDMS 11/02 20:54 Order name: Glucose, Ancillary Testing EDMS 11/02 12:28 Order name: XRAY Chest (1 view); Complete Time: 13:50 sd2 11/02 13:55 Order name: CT Head Brain wo Cont; Complete Time: 15:01 sd2 11/02 14:19 Order name: Abdomen ; Complete Time: 15:01 EDMS 11/02 20:03 Order name: CONS Physician Consult EDMS 11/02 12:28 Order name: EKG - Nurse/Tech; Complete Time: 13:02 sd2 11/02 12:28 Order name: Blood Glucose Level; Complete Time: 13:02 sd2 11/02 12:28 Order name: Misc. Order: Venous blood gas; Complete Time: 14:15 sd2 Administered Medications: 13:14 Drug: NS 0.9% IV 1000 ml IV at 1 bolus Per protocol; 1000 mL bolus Route: IV; Rate: 1 ld1 bolus; Site: right hand; 13:14 Drug: Pantoprazole IVP 80 mg IVP once Route: IVP; Site: right hand; ld1 13:59 Drug: Insulin Regular Human IVP 6 units IVP once {Co-Signature: ko1 (Laura Dinh RN).} Route: IVP; Site: right hand; 13:59 Not Given (Other Intervention Used): aspirinchewable tablet 324 mg PO once; 81 mg ld1 tablets x 4 14:34 Drug: Insulin Drip - (Insulin Regular Human IVP 100 units, NS 0.9% IV 100 ml) IV at ko1 calculated rate continuous; Standard concentration 1unit/ml; Dose for DKA is 0.1 units/kg/hr {Co-Signature: [place]1 (Gisell Weathers RN).} {Note: 0.1U/kg/hour= 6U/hr.} Route: IV; Rate: calculated rate; Site: right hand; 16:08 Follow up: Response: Blood sugar is lowered; Rate change 3 units/hr; IV Status: ld1 Infusion continued 17:08 Follow up: Response: Blood sugar is unchanged; Rate change 3 units/hr; IV Status: ld1 Infusion continued; BGL decreased by 10. 18:55 Follow up: Response: Blood sugar is lowered; Rate change 1.5 units/hr; IV Status: ld1 Infusion continued; blood sugar decreased by 24. Decreased insulin drip from 3 to 1.5 U/hr. 20:08 Follow up: Rate change calculated rate; BGL 141, per protocol hold insulin drip for 30 tm6 min Disposition Summary: 11/03/23 17:13 Hospitalization Ordered Notes: Hospitalization Status: Inpatient Admission sd2 Provider: Shakeel Brannon Location: Intensive Care Unit sd2 Condition: Stable(11/03/23 17:13) sd2 Problem: new(11/03/23 17:13) sd2 Symptoms: have improved(11/03/23 17:13) sd2 Bed/Room Type: Standard mi2 Room Assignment: 6-(11/03/23 20:26) as6 Diagnosis - Diabetic ketoacidosis sd2 - NSTEMI sd2 - Coffee ground emesis sd2 Forms: - Medication Reconciliation Form sd2 - SBAR form sd2 - Leadership Thank You Letter sd2 Signatures: Dispatcher [employer] EDGisell Lopez RN RN ld1 Raj De La O RN RN as6 Amy Rader MD MD sd2 Laura Dinh, RN RN ko1 Ray Reinoso RN tm6 Gisell Weathers RN ld1 Laura Dinh RN ko1 Corrections: (The following items were deleted from the chart) 13:56 13:56 Head Brain Wo Cont+CT.RAD.BRZ ordered. EDMS EDMS 13:56 13:56 Abdomen Pelvis W Con+CT.RAD.BRZ ordered. EDGA EDMS 17:11 14:25 Accepting Physician sd2 sd2 17:11 14:[address] [facility] sd2 sd2 17:11 14:25 Higher level of care sd2 sd2 17:11 14:25 Stable sd2 sd2 17:11 14:25 new sd2 sd2 17:11 14:25 are unchanged sd2 sd2 17:11 14:25 Altered mental status sd2 sd2 17:11 14:25 Hyperglycemia sd2 sd2 17:11 14:25 Diabetic ketoacidosis sd2 sd2 17:11 14:25 NSTEMI sd2 sd2 17:11 14:25 GI Bleed sd2 sd2 20: 17:13 sd2 as6
--- NOTE | 2023-11-03 14:26 | ER ---
Nurse's Notes [facility] Name: Lavonne Vitale Age: 77 yrs Sex: Female : 1945 Arrival Date: 11/03/2023 Time: 12:14 Bed 7 Private MD: Diagnosis: Diabetic ketoacidosis;NSTEMI;Coffee ground emesis Presentation: 11/02 12:18 Chief complaint: EMS states: toned out to [facility] for unresponsive patient. AMS, ld1 fever, vomiting coffee brown emesis. Coronavirus screen: At this time, the client does not indicate any symptoms associated with coronavirus-19. Ebola Screen: No symptoms or risks identified at this time. Initial Sepsis Screen: Does the patient meet any 2 criteria? No. Patient's initial sepsis screen is negative. Does the patient have a suspected source of infection? No. Patient's initial sepsis screen is negative. Risk Assessment: Do you want to hurt yourself or someone else? Patient reports no desire to harm self or others. Onset of symptoms was November 03, 2023. 12:18 Method Of Arrival: EMS: [facility] ld1 12:18 Acuity: ESTRELLA 3 ld1 Triage Assessment: 12:18 General: Appears in no apparent distress. comfortable, Behavior is calm, cooperative, ld1 appropriate for age. Pain: Unable to use pain scale. Does not appear to understand pain scale. EENT: No signs and/or symptoms were reported regarding the EENT system. Neuro: Level of Consciousness is awake, alert, confused, Oriented to none. Cardiovascular: Capillary refill < 3 seconds Patient's skin is warm and dry. Rhythm is sinus rhythm. Respiratory: Airway is patent Respiratory effort is even, unlabored. GI: Abdomen is round non-distended, Pt is actively vomiting coffee brown emesis. : No signs and/or symptoms were reported regarding the genitourinary system. Derm: No signs and/or symptoms reported regarding the dermatologic system. Musculoskeletal: No signs and/or symptoms reported regarding the musculoskeletal system. Historical: - Allergies: 12:16 Sulfa (Sulfonamide Antibiotics); ld1 - PMHx: 12:16 Dementia; diabetes mellitus; depressive disorder; Hypertensive disorder; ld1 - Immunization history:: Adult Immunizations up to date. - Infectious Disease History:: Denies. - Social history:: Smoking status: Patient denies any tobacco usage or history of. Screenin:21 [facility] ED Fall Risk Assessment (Adult) History of falling in the last 3 months, ld1 including since admission No falls in past 3 months (0 pts) Confusion or Disorientation Yes (5 pts) Intoxicated or Sedated No (0 pts) Impaired Gait No (0 pts) Mobility Assist Device Used No (0 pt) Altered Elimination Yes (1 pt) Score/Fall Risk Level 3 or more points = High Risk Oriented to surroundings, Maintained a safe environment, Educated pt \T\ family on fall prevention, incl call for assistance when getting out of bed, Assessed \T\ reinforced patient's understanding of fall precautions, Provided non-skid footwear, Hourly rounding (assess needs \T\ fall precautionary measures) done, Used ambulatory aids as needed (educated on \T\ assisted with), Used gait belt as appropriate Implemented a Fall Risk Plan of Care, Apply high fall risk patient identification: yellow non skid footwear/ fall signage, Placed fall mat w/ non beveled edge next to bed, Activated bed/chair alarm, Remained w/in arm's length of patient and in sight while toileting, Offered frequent toileting (1:1 observation), Remained with patient while ambulating, Utilized family, sitter, or virtual asphalt raker as indicated. Abuse screen: Denies threats or abuse. Denies injuries from another. Nutritional screening: No deficits noted. Tuberculosis screening: No symptoms or risk factors identified. Assessment: 12:21 Reassessment: See triage assessment. ld1 13:15 Reassessment: Purewick applied to patient with clean brief. Removed dirty gown and put ld1 pt in clean gown. 14:25 Reassessment: Consuelo Aguilar - sister - [phone]. bp 16:00 Reassessment: Titrated insulin drip from 6 U/hr to 3 U/hr. BGL went from 282 to 199. ld1 Fluids changed to D5 .45 NS at 100ml/hr per Dr. Rader and Drake Burt [employer]. 16:53 Reassessment: No changes from previously documented assessment. Patient and/or family ld1 updated on plan of care and expected duration. Pain level reassessed. 17:08 Reassessment: Rate change maintained at 3 U/hr due to BGL decreasing by 10. ld1 18:56 Reassessment: Patient appears in no apparent distress at this time. No changes from ld1 previously documented assessment. Patient and/or family updated on plan of care and expected duration. Pain level reassessed. 18:56 Reassessment: Connected with Dr. Rader. request patient to not be ld1 transferred to [facility] at this time. phone number [phone]. 20:12 Reassessment: patient has eyes closed. General: Appears in no apparent distress. tm6 20:16 Reassessment: report attempted to ICU. RN Ryne will call back. tm6 20:32 Reassessment: report given to Ryne JOSEPH in ICU. tm6 Vital Signs: 12:18 BP 97 / 63; Pulse 88; Resp 18; Pulse Ox 97% on R/A; ld1 13:16 Temp 97.9(TE); ld1 13:16 Weight 62.14 kg; Height 5 ft. 3 in. ; ld1 13:16 BP 100 / 50; Pulse 80; Resp 18; Pulse Ox 99% on R/A; ld1 14:14 BP 107 / 68; Pulse 88; Resp 18; Pulse Ox 100% on R/A; ld1 15:16 BP 108 / 69; Pulse 76; Resp 18; Pulse Ox 100% on R/A; ld1 16:52 BP 95 / 52; Pulse 65; Resp 17; Pulse Ox 99% on R/A; ld1 17:11 BP 100 / 48; Pulse 71; Resp 17; Temp 97.3(TE); Pulse Ox 100% on R/A; ld1 18:57 BP 92 / 52; Pulse 65; Resp 18; Pulse Ox 100% on R/A; ld1 20:11 BP 110 / 55; Pulse 62; Pulse Ox 99% on R/A; tm6 13:16 Body Mass Index 24.27 (62.14 kg, 160.02 cm) ld1 ED Course: 12:15 Patient arrived in ED. ld1 12:18 Amy Rader MD is Attending Physician. sd2 12:18 Arm band placed on right wrist. ld1 12:19 Triage completed. ld1 12:21 Patient has correct armband on for positive identification. Placed in gown. Bed in low ld1 position. Call light in reach. Side rails up X2. equipment monitor phototypesetting on. Pulse ox on. NIBP on. Door closed. Noise minimized. Warm blanket given. 12:21 No provider procedures requiring assistance completed. Maintain EMS IV. Dressing ld1 intact. Good blood return noted. Site clean \T\ dry. Gauge \T\ site: 18g RH. 12:50 Straight cath inserted, using sterile technique, Specimen obtained. Returned clear ld1 yellow urine. Patient tolerated well. 13:02 EKG done, by ED staff, reviewed by Amy Rader MD. em1 13:05 Urinalysis w/ reflexes Sent. ld1 13:05 Lipase Sent. ld1 13:05 CMP Sent. ld1 13:05 CBC with Diff Sent. ld1 13:05 Troponin High Sensitivity Sent. ld1 13:05 BNP Sent. ld1 13:05 Procalcitonin Sent. ld1 13:05 Ptt, Activated Sent. ld1 13:05 PT-INR Sent. ld1 13:06 BETA HYDROXYBUTYRATE Sent. ld1 13:14 Gisell Weathers, RN is Primary Nurse. ld1 13:15 Urinalysis w/ reflexes Sent. ld1 13:16 Cleaned of incontinence. Linen changed. ld1 13:41 XRAY Chest (1 view) In Process Unspecified. EDMS 14:48 CT Head Brain wo Cont In Process Unspecified. EDMS 14:51 Abdomen In Process Unspecified. EDMS 15:16 \T\[id number] initiated a transfer with Aide Grant from the [facility]\T\1602 connected the GI and hospitalist public administration professor for [facility] with Dr. Rader for patient transfer consultation. \T\ 1609 GI at [facility] said he is not going to scope the patient so no reason to transfer for GI services\T\1712 transfer cancelled with transfer center. 17:12 Shakeel Brannon MD is Hospitalizing Provider. sd2 20:10 Primary Nurse role handed off by Gisell Weathers, RN as6 20:29 Ray Reinoso, OPAL is Primary Nurse. tm6 21:14 Provided Education on: need for admit. tm6 21:14 Danielson cath inserted, using sterile technique, 16 Fr., by filer and sander, balloon inflated, to tm6 gravity drainage, clamped. returned clear yellow urine. 21:14 Patient admitted, IV remains in place. tm6 Administered Medications: 13:14 Drug: NS 0.9% IV 1000 ml IV at 1 bolus Per protocol; 1000 mL bolus Route: IV; Rate: 1 ld1 bolus; Site: right hand; 13:14 Drug: Pantoprazole IVP 80 mg IVP once Route: IVP; Site: right hand; ld1 13:59 Drug: Insulin Regular Human IVP 6 units IVP once {Co-Signature: ko1 (Laura Dinh RN).} Route: IVP; Site: right hand; 13:59 Not Given (Other Intervention Used): aspirinchewable tablet 324 mg PO once; 81 mg ld1 tablets x 4 14:34 Drug: Insulin Drip - (Insulin Regular Human IVP 100 units, NS 0.9% IV 100 ml) IV at ko1 calculated rate continuous; Standard concentration 1unit/ml; Dose for DKA is 0.1 units/kg/hr {Co-Signature: ld1 (Gisell Weathers RN).} {Note: 0.1U/kg/hour= 6U/hr.} Route: IV; Rate: calculated rate; Site: right hand; 16:08 Follow up: Response: Blood sugar is lowered; Rate change 3 units/hr; IV Status: ld1 Infusion continued 17:08 Follow up: Response: Blood sugar is unchanged; Rate change 3 units/hr; IV Status: ld1 Infusion continued; BGL decreased by 10. 18:55 Follow up: Response: Blood sugar is lowered; Rate change 1.5 units/hr; IV Status: ld1 Infusion continued; blood sugar decreased by 24. Decreased insulin drip from 3 to 1.5 U/hr. 20:08 Follow up: Rate change calculated rate; BGL 141, per protocol hold insulin drip for 30 tm6 min Medication: 12:21 VIS not applicable for this client. ld1 Intake: Outcome: 14:25 ER care complete, transfer ordered by . sd2 17:13 Decision to Hospitalize by Provider. sd2 21:14 Admitted to ICU accompanied by nurse, via stretcher, room 6, on monitor, with chart, tm6 Report called to Ryne JOSEPH 21:14 Condition: stable 21:14 Instructed on the need for admit, 21:15 Patient left the ED. tm6 Signatures: Dispatcher [employer] Malcolm Brito em1 Rian Ramirez, RN Aide [place] Lauren, RN RN ld1 Raj De La O RN RN as6 Amy Rader MD MD sd2 Laura Dinh RN RN ko1 Ray Reinoso RN RN tm6 Gisell Weathers RN1 Laura Dinh RN1 Corrections: (The following items were deleted from the chart) 17:26 15:16 \T\[id number] initiated a transfer with Aide Grant from the [facility]
--- NOTE | 2023-11-03 14:55 | RAD REPORT ---
EXAM DESCRIPTION: CT - Head Brain Wo Cont - 11/03/2023 2:46 pm CLINICAL HISTORY: AMS Headache, drowsiness COMPARISON: <Comparisons> TECHNIQUE: All CT scans are performed using dose optimization technique as appropriate and may inclu de automated exposure control or mA/KV adjustment according to patient size. FINDINGS: No intracranial hemorrhage, hydrocephalus or extra-axial fluid collection.Moderate general ized brain atrophy is present with mild periventricular and deep white matter chronic microvascular i schemic changes.No areas of brain edema or evidence of midline shift. The paranasal sinuses and mastoids are clear. The calvarium is intact. IMPRESSION: No acute intracranial abnormality.
--- NOTE | 2023-11-03 14:57 | RAD REPORT ---
EXAM DESCRIPTION: CT - Abdomen Pelvis Wo Contrast - 11/03/2023 2:49 pm CLINICAL HISTORY: Abdominal pain. GI BLEED COMPARISON: No comparisonsNo comparisonsHead Brain Wo Cont dated 10/28/2023; Head Brain Wo Cont dated 2Abdomen Pelvis W Contrast dated 10/28/2023 TECHNIQUE: CT imaging of the abdomen and pelvis was performed without contrast. Solid organ, bowel a nd vascular assessment is limited due to lack of IV and oral contrast. All CT scans are performed using dose optimization technique as appropriate and may include automated exposure control or mA/KV adjustment according to patient size. FINDINGS: Mild atelectasis is present in both lung bases.Trace pleural effusion, greater on the righ t. Moderate hiatal hernia. Cholecystectomy clips. The liver, spleen, pancreas, adrenal glands and kidneys are within normal limits for a limited non-co ntrast examination. No bowel obstruction, free air, free fluid or abscess. The appendix is normal. Hardware in place spanning L4-5. IMPRESSION: No acute intra-abdominal or pelvic findings. A limited non-contrast examination was performed as detailed.
[2023-11-03 15:08] LABS: Arterial Blood Carboxyhemoglob 0.9 % (0-1.5); Blood Gas Oxyhemoglobin 53.9 % (94-97); Blood Gas THB 10.2 g/dl (12-18); Blood O2 Saturation 55.3 % (92-98.5)
[2023-11-03] MEDS ORDERED: D5 0.45 NS 1,000 ML IV ONE (16:02)
[2023-11-03] MEDS ORDERED: ONDANSETRON 4 MG/2 ML VIAL IV PRN (19:56)
--- NOTE | 2023-11-03 19:57 | P.HP ---
Certification for Inpatient Patient admitted to: Inpatient With expected LOS: >2 Midnights Practitioner: I am a practitioner with admitting privileges, knowledge of patient current condition, hospital course, and medical plan of care. Services: Services provided to patient in accordance with Admission requirements found in Title 42 Section 412.3 of the Code of Federal Regulations Patient History Date of Service: 11/03/23 Reason for admission: AMS History of Present Illness: 77 yrs old Female with past medical history of dementia, diabetes, depression, hypertension who was brought to ER with altered mental status and high blood sugar. Patient is altered at the time of interview hence most of the history is obtained from the chart review and also talking with the ER physician. Patient has an history of advanced dementia and is being in longterm. Found her blood sugars been high and she has been found more drowsy and difficult to arouse, patient also was reported to have coffee-ground emesis. Patient was assessed in the ER and as we do not have GI coverage, initially was planned to transfer to higher level of care but patient's family insisted that they are on want to proceed with any aggressive measures due to her advanced dementia hence was admitted to the hospital. Patient also was noted to DKA and was started on insulin drip and was admitted to the ICU Allergies Sulfa (Sulfonamide Antibiotics) [Sulfa(Sulfonamide Antibiotics)] Allergy (Mild, Verified 06/22/11 08:31) Hives Home medications list reviewed: Yes Home Medications: Aspirin Chewable [Aspirin Chewable*] 81 mg PO DAILY 10/28/23 Atorvastatin Calcium 20 mg PO BEDTIME 10/28/23 Calcium Carbonate/Vitamin D3 [Calcium 600-Vit D3 400 Caplet] 600 mg PO BID 10/28/23 Cyanocobalamin [Vitamin B-12*] 1,000 mcg PO DAILY 10/28/23 Famotidine 20 mg PO BEDTIME 10/28/23 Insulin Aspart [Novolog Flexpen] 14 units SQ BID 10/28/23 Levothyroxine [Synthroid*] 125 mcg PO [id number] 10/28/23 Meloxicam 7.5 mg PO DAILY 10/28/23 levETIRAcetam [Levetiracetam] 500 mg PO BID 10/28/23 Cefdinir [Cefdinir*] 300 mg PO BID #14 cap 10/30/23 Hydrocortisone [Cortef*] 10 mg PO BID #90 tab 10/30/23 - Past Medical/Surgical History Diabetic: Yes Past Medical History: Reviewed- Non-Contributory -: HTN -: dementia -: seizures -: depression -: anxiety -: hypothyroidism -: DM type 1 -: DM type 2 -: hyperlipidemia -: vitamin D deficiency -: GERD -: OA Past Surgical History: Reviewed- Non-Contributory - Family History Family History: Reviewed- Non-Contributory - Social History Smoking Status: Never smoker Review of Systems is unable to be obtained Physical Examination - Vital Signs Temperature: 98.2 F Blood Pressure: 96/62 Pulse: 88 Respirations: 20 Pulse Ox (%): 92 - Physical Exam General: Disheveled, Moderate distress, Confused HEENT: Atraumatic, Normocephalic Neck: Supple, 2+ carotid pulse no bruit Respiratory: Clear to auscultation bilaterally, Normal air movement Cardiovascular: Regular rate/rhythm, Normal S1 S2 Capillary refill: <2 Seconds Gastrointestinal: Soft and benign, Non-distended, W/out hepatosplenomegaly Musculoskeletal: No clubbing, No swelling Integumentary: No rashes, No cyanosis Neurological: Abnormal gait, Abnormal speech, Abnormal strength Lymphatics: No axilla or inguinal lymphadenopathy - Studies Laboratory Data (last 24 hrs) 11/03/23 11/03/23 11/03/23 13:01 13:01 13:01 WBC 12.70 H Hgb 11.5 L Hct 34.2 L Plt Count 261 PT 10.7 INR 0.97 APTT 25.6 Sodium 139 Potassium 3.6 BUN 31 H Creatinine 1.54 H Glucose 361 H Total Bilirubin 0.5 AST 79 H ALT 79 H Alkaline Phosphatase 70 Lipase 28 Assessment and Plan - Problems (Diagnosis) (1) Acute metabolic encephalopathy Current Visit: Yes Status: Acute Plan: Acute encephalopathy possibly metabolic Monitor closely on telemetry Neuro vital signs monitor Ketoacidosis DKA versus HHS Aggressive hydration Monitor closely Insulin drip Monitor BMP serially GI bleed Started on Protonix Monitor H&H closely Transfuse as needed NSTEMI Will trend cardiac enzymes Will monitor telemetry Will get an echocardiogram Cardiology consult Advanced Dementia Supportive measures GI/DVT prophylaxis Advanced directive : DNR Family does not want any aggressive measures Discharge Plan: Home Plan to discharge in: Greater than 2 days - Advance Directives Does patient have a Living Will: No Does patient have a Durable POA for Healthcare: No - Code Status/Comfort Care Code Status: Do Not Attempt Resuscitat Time Spent Managing Pts Care (In Minutes): 56
[2023-11-03] MEDS: NACHLORIDE 0.45% 1,000 ML IV SCH (20:00)
[2023-11-03] MEDS ORDERED: SODIUM CHLORIDE 0.9% 10ML INJ IV PRN (20:02)
[2023-11-03] MEDS: INSULIN REGULAR, HUMAN 100 UNIT in NA CHLORIDE 0.9% 100 ML IV SCH (22:00)
[2023-11-03] MEDS: D5 0.45 NS 1,000 ML IV SCH (22:04)
[2023-11-03] MEDS: PANTOPRAZOLE 40 MG INJ IVP SCH (22:04)
[2023-11-03 23:09] VITALS: O2SAT 100; BMI 23.7
[2023-11-04 00:30] LABS: Anion Gap 9.6 mEq/L (5.0-15.0); Potassium 3.6 mEq/L (3.5-5.1)
[2023-11-04 02:57] LABS: Anion Gap 8.3 mEq/L (5.0-15.0); Potassium 3.3 mEq/L (3.5-5.1)
[2023-11-04] MEDS ORDERED: POTASSIUM CL 40 MEQ in NA CHLORIDE 0.9% 500 ML IV SCH (03:30)
[2023-11-04] MEDS: KCL 20 MEQ/100 mL IVPB 100 ML IV SCH (04:04)
[2023-11-04] MEDS: NA CHLORIDE 0.9% 100 ML ONE (04:04)
[2023-11-04 07:32] LABS: Anion Gap 5.9 mEq/L (5.0-15.0); Potassium 2.9 mEq/L (3.5-5.1)
[2023-11-04] MEDS ORDERED: D10W 250 ML BAG IV PRN (07:37)
[2023-11-04] MEDS ORDERED: GLUCAGON 1 MG/VIAL IM PRN (07:37)
[2023-11-04 07:44] LABS: Phosphorus 1.4 mg/dL (2.5-4.9)
[2023-11-04] MEDS: POTASS/SODIUM PHOSPHATE 1 PKT POWD.PACK PO SCH (08:03)
[2023-11-04] MEDS: POTASSIUM CL SA 10 MEQ TAB PO ONE (08:03)
[2023-11-04] MEDS: INSULIN GLARGINE 100 UNIT/ML SQ ONE (08:04)
--- NOTE | 2023-11-04 09:41 | P.PN ---
Subjective Date of Service: 11/04/23 Chief Complaint: AMS Pt is resting comfortably in bed. She was eating breakfast when I saw her. She denies any complaints. ROS is limited due to underlying dementia. Review of Systems General: Unremarkable Eyes: Unremarkable ENT: Unremarkable Respiratory: Unremarkable Cardiovascular: Unremarkable Gastrointestinal: Unremarkable Genitourinary: Unremarkable Musculoskeletal: Unremarkable Integumentary: Unremarkable Neurological: Unremarkable Lymphatics: Unremarkable Physical Examination - Vital Signs Temperature: 97.6 F Blood Pressure: 124/78 Pulse: 81 Respirations: 15 Pulse Ox (%): 100 - Physical Exam General: Alert, In no apparent distress, Oriented x2 HEENT: Atraumatic, Normocephalic, PERRLA Neck: Supple, 2+ carotid pulse no bruit, JVD not distended Respiratory: Clear to auscultation bilaterally, Normal air movement Cardiovascular: No edema, Normal pulses, Regular rate/rhythm, Normal S1 S2 Capillary refill: <2 Seconds Gastrointestinal: Normal bowel sounds, Soft and benign, Non-distended Musculoskeletal: No clubbing, No swelling, No contractures Integumentary: No rashes, No breakdown, No significant lesion Neurological: Normal gait, Normal speech, Normal strength at 5/5 x4 extr Lymphatics: No axilla or inguinal lymphadenopathy - Studies Laboratory Data (last 24 hrs) 11/03/23 11/03/23 11/03/23 13:01 13:01 13:01 WBC 12.70 H Hgb 11.5 L Hct 34.2 L Plt Count 261 PT 10.7 INR 0.97 APTT 25.6 Sodium 139 Potassium 3.6 BUN 31 H Creatinine 1.54 H Glucose 361 H Total Bilirubin 0.5 AST 79 H ALT 79 H Alkaline Phosphatase 70 Lipase 28 Assessment And Plan - Plan Acute encephalopathy, Likely metabolic: CT head is unremarkable. Will f/u Ammonia level. Continue neurochecks and telemetry. Ketoacidosis DKA versus HHS: resolved. Will continue accuchek , SSI and ADA diet. GI bleed: Hgb is 11.5. Will monitor H/H. Continue protonix NSTEMI: Troponin is 795. Consulted cardiology. Will trend troponin Q6h. F/u Echo. Advanced Dementia: Will continue suppottive care GI ppx: rotonix DVT ppx: SCD Code: DNR
[2023-11-04] MEDS: INSULIN LISPRO 100 UNIT/ML SQ SCH (11:45)
[2023-11-04] MEDS: NA CHLORIDE 0.9% 1,000 ML IV SCH (12:11)
--- NOTE | 2023-11-04 12:34 | P.CNS ---
Date of Consult: 11/04/23 Chief Complaint: AMS History of Present Illness: Patient with PMH of DM, advanced dementia, was presented due to AMS, patient denies having chest pain today when seen, no SOB, no palpitations, no syncope. Allergies Sulfa (Sulfonamide Antibiotics) [Sulfa(Sulfonamide Antibiotics)] Allergy (Mild, Verified 06/22/11 08:31) Hives Home Medications: Aspirin Chewable [Aspirin Chewable*] 81 mg PO DAILY 10/28/23 Atorvastatin Calcium 20 mg PO BEDTIME 10/28/23 Calcium Carbonate/Vitamin D3 [Calcium 600-Vit D3 400 Caplet] 600 mg PO BID 10/28/23 Cyanocobalamin [Vitamin B-12*] 1,000 mcg PO DAILY 10/28/23 Famotidine 20 mg PO BEDTIME 10/28/23 Insulin Aspart [Novolog Flexpen] 14 units SQ BID 10/28/23 Levothyroxine [Synthroid*] 125 mcg PO [id number] 10/28/23 Meloxicam 7.5 mg PO DAILY 10/28/23 levETIRAcetam [Levetiracetam] 500 mg PO BID 10/28/23 Cefdinir [Cefdinir*] 300 mg PO BID #14 cap 10/30/23 Hydrocortisone [Cortef*] 10 mg PO BID #90 tab 10/30/23 - Past Medical/Surgical History Diabetic: Yes -: HTN -: dementia -: seizures -: depression -: anxiety -: hypothyroidism -: DM type 1 -: DM type 2 -: hyperlipidemia -: vitamin D deficiency -: GERD -: OA - Social History Smoking Status: Unknown if ever smoked Place of Residence: [facility] Review of Systems 10-point ROS is otherwise unremarkable Physical Examination Temp Pulse Resp BP Pulse Ox 97.2 F 72 18 138/80 99 11/04/23 12:00 11/04/23 12:00 11/04/23 12:00 11/04/23 12:11/04/23 12:00 General: Alert, In no apparent distress HEENT: Atraumatic, PERRLA, Mucous membr. moist/pink, EOMI, Sclerae nonicteric Neck: Supple, 2+ carotid pulse no bruit, No LAD, Without JVD or thyroid abnormality Respiratory: Clear to auscultation bilaterally, Normal air movement Cardiovascular: Regular rate/rhythm, Normal S1 S2 Gastrointestinal: Normal bowel sounds, No tenderness Musculoskeletal: No tenderness Integumentary: No rashes Neurological: Normal gait, Normal speech, Normal tone, Normal affect Lymphatics: No axilla or inguinal lymphadenopathy Laboratory Data (last 24 hrs) 11/03/23 11/03/23 11/03/23 13:01 13:01 13:01 WBC 12.70 H Hgb 11.5 L Hct 34.2 L Plt Count 261 PT 10.7 INR 0.97 APTT 25.6 Sodium 139 Potassium 3.6 BUN 31 H Creatinine 1.54 H Glucose 361 H Total Bilirubin 0.5 AST 79 H ALT 79 H Alkaline Phosphatase 70 Lipase 28 - Problems (1) NSTEMI (non-ST elevated myocardial infarction) Current Visit: Yes Status: Acute Plan: Most likely type 2 LA from DKA, still patient got multiple risk factors for CAD but she got advanced dementia and per H&P note, patient family is not interested in proceeding with any advanced interventions, i tired calling but it will got straight to voicemail. would recommend aggressive medical management. ASA 81 mg daily Lipitor 40 mg daily no plan of further cardiac work up.
--- NOTE | 2023-11-04 14:16 | EKG ---
Test Date: 2023-11-03 Test Time: 12:53:09 Diesel Mechanic: Gina LEW MEASUREMENT RESULTS: Intervals: Rate: 82 WV: 158 QRSD: 92 QT: 404 QTc: 472 [place]: P: 74 WV: 158 QRS: 80 T: 82 INTERPRETIVE STATEMENTS: Normal sinus rhythm Normal ECG Compared to ECG 10/28/2023 10:29:00 Sinus tachycardia no longer present ST (T wave) deviation no longer present Possible ischemia no longer present Electronically Signed On 11-04-23 14:13:58 CDT by Austin Costa
[2023-11-04 18:25] LABS: Phosphorus 1.8 mg/dL (2.5-4.9); Potassium 4.2 mEq/L (3.5-5.1)
[2023-11-04] MEDS: POTASSIUM PHOS IN 0.9 % NACL 15 MMOL/250 ML BAG IV ONE (20:28)
[2023-11-05 05:33] LABS: Magnesium 1.6 mg/dL (1.6-2.4)
[2023-11-05 06:09] LABS: Potassium 4.3 mEq/L (3.5-5.1)
[2023-11-05] MEDS: MAGNESIUM SULFATE 1 gm IVPB 1 GM/100 ML BAG IV ONE (06:43)
--- NOTE | 2023-11-05 09:47 | P.PN ---
Subjective Date of Service: 11/05/23 Chief Complaint: AMS Pt is resting comfortably in bed. She was eating breakfast when I saw her. No further cardiac work up per cardiology. No other complaints. Review of Systems General: Unremarkable Eyes: Unremarkable ENT: Unremarkable Respiratory: Unremarkable Cardiovascular: Unremarkable Gastrointestinal: Unremarkable Genitourinary: Unremarkable Musculoskeletal: Unremarkable Integumentary: Unremarkable Neurological: Unremarkable Lymphatics: Unremarkable Physical Examination - Vital Signs Temperature: 97.0 F Blood Pressure: 164/98 Pulse: 65 Respirations: 13 Pulse Ox (%): 98 - Physical Exam General: Alert, In no apparent distress, Oriented x3 HEENT: Atraumatic, Normocephalic, PERRLA Neck: Supple, 2+ carotid pulse no bruit, JVD not distended Respiratory: Clear to auscultation bilaterally, Normal air movement Cardiovascular: No edema, Normal pulses, Regular rate/rhythm, Normal S1 S2 Capillary refill: <2 Seconds Gastrointestinal: Normal bowel sounds, Soft and benign, Non-distended Musculoskeletal: No clubbing, No swelling, No contractures Integumentary: No rashes, No breakdown, No significant lesion Neurological: Normal gait, Normal speech, Normal strength at 5/5 x4 extr Lymphatics: No axilla or inguinal lymphadenopathy Assessment And Plan - Plan Acute encephalopathy, Likely metabolic: CT head is unremarkable. Continue neurochecks and telemetry. Ketoacidosis DKA versus HHS: resolved. Will continue accuchek , SSI and ADA diet. GI bleed: Hgb is 11.5. Will monitor H/H. Continue protonix NSTEMI: Troponin is 795. Consulted cardiology. Will trend troponin Q6h. F/u Echo. Advanced Dementia: Will continue suppottive care GI ppx: rotonix DVT ppx: SCD Code: DNR Dispo: Ok to downgrade to med/surg floor.
--- NOTE | 2023-11-05 10:56 | P.PN ---
Subjective Date of Service: 11/05/23 Chief Complaint: AMS Subjective: No new changes, No C/O voiced, Tolerating diet, Ambulating, Improving Review of Systems 10-point ROS is otherwise unremarkable Physical Examination - Vital Signs Temperature: 97.0 F Blood Pressure: 164/98 Pulse: 65 Respirations: 13 Pulse Ox (%): 98 - Physical Exam General: Alert, In no apparent distress HEENT: Atraumatic, PERRLA, EOMI Neck: Supple, JVD not distended Respiratory: Clear to auscultation bilaterally, Normal air movement Cardiovascular: Regular rate/rhythm, Normal S1 S2 Gastrointestinal: Normal bowel sounds, No tenderness Musculoskeletal: No tenderness Integumentary: No rashes Neurological: Normal speech, Normal tone, Normal affect Lymphatics: No axilla or inguinal lymphadenopathy - Studies Medications List Reviewed: Yes Assessment And Plan - Current Problems (Diagnosis) (1) NSTEMI (non-ST elevated myocardial infarction) Current Visit: Yes Status: Acute Plan: Most likely type 2 IA from DKA, still patient got multiple risk factors for CAD but she got advanced dementia and per H&P note, patient family is not interested in proceeding with any advanced interventions. would recommend aggressive medical management. ASA 81 mg daily Lipitor 40 mg daily no plan of further cardiac work up. (2) HTN (hypertension) Current Visit: Yes Status: Acute Plan: start patient on Cored 3.125 mg po BID Start patient on Lisinopril 10 mg daily (3) HLD (hyperlipidemia) Current Visit: Yes Status: Acute Plan: start Lipitor 40 mg daily.
--- NOTE | 2023-11-05 12:49 | P.DS ---
Admission Date: 11/03/23 Discharge Date: 11/05/23 Disposition: TRANSFER TO SENIOR CARE Discharge Condition: GOOD Reason for Admission: AMS Brief History of Present Illness: 77 yrs old Female with past medical history of dementia, diabetes, depression, hypertension who was brought to ER with altered mental status and high blood sugar. Patient is altered at the time of interview hence most of the history is obtained from the chart review and also talking with the ER physician. Patient has an history of advanced dementia and is being in longterm. Found her blood sugars been high and she has been found more drowsy and difficult to arouse, patient also was reported to have coffee-ground emesis. Patient was assessed in the ER and as we do not have GI coverage, initially was planned to transfer to higher level of care but patient's family insisted that they are on want to proceed with any aggressive measures due to her advanced dementia hence was admitted to the hospital. Patient also was noted to DKA and was started on insulin drip and was admitted to the ICU Hospital Course: Pt is a 77 yo female with past medical history of dementia, diabetes, depressio n, and hypertension who presented with altered mental status and hyperglycemia. Most of the history on admission came from chart review. Lab studies showed elevated troponin and hyperglycemia. CT head was unremarkable. We admitted in the ICU for DKA protocol. The hyperglycemia resolved. We continued to monitor blood sugar. Cardiology evaluated pt and recommended cardiac cath but her family members did not want any invasive procedure due to pt's dementia. Cardiology added coreg and lisinopril and later signed off. She had GI bleed on admission but her hemoglobin remained stable. We continued supportive care for dementia and later discharged pt to SNF. She was in NAD prior to discharge. Vital Signs/Physical Exam: Temp Pulse Resp BP Pulse Ox 96.9 F 60 14 155/83 H 99 11/05/23 12:00 11/05/23 12:00 11/05/23 12:00 11/05/23 12:11/05/23 12:00 Laboratory Data at Discharge: WBC 12.70 thou/uL (4.3-10.9) H 11/03/23 13:01 Hgb 11.5 g/dL (12.0-15.0) L 11/03/23 13:01 Hct 34.2 % (36.0-45.0) L 11/03/23 13:01 Plt Count 261 thou/uL (152-406) 11/03/23 13:01 PT 10.7 SECONDS (9.4-12.5) 11/03/23 13:01 INR 0.97 11/03/23 13:01 APTT 25.6 SECONDS (24.3-36.9) 11/03/23 13:01 Sodium 140 mEq/L (136-145) 11/04/23 06:16 Potassium 4.3 mEq/L (3.5-5.1) 11/05/23 04:50 BUN 20 mg/dL (7-18) H 11/04/23 06:16 Creatinine 0.96 mg/dL (0.55-1.02) 11/04/23 06:16 Glucose 166 mg/dL (74-106) H 11/04/23 06:16 Phosphorus 3.0 mg/dL (2.5-4.9) 11/05/23 04:50 Magnesium 1.6 mg/dL (1.6-2.4) 11/05/23 04:50 Total Bilirubin 0.5 mg/dL (0.2-1.0) 11/03/23 13:01 AST 79 U/L (15-37) H 11/03/23 13:01 ALT 79 U/L (13-56) H 11/03/23 13:01 Alkaline Phosphatase 70 U/L (45-117) 11/03/23 13:01 Lipase 28 U/L (13-75) 11/03/23 13:01 Home Medications: Aspirin Chewable [Aspirin Chewable*] 81 mg PO DAILY 10/28/23 Atorvastatin Calcium 20 mg PO BEDTIME 10/28/23 Calcium Carbonate/Vitamin D3 [Calcium 600-Vit D3 400 Caplet] 600 mg PO BID 10/28/23 Cyanocobalamin [Vitamin B-12*] 1,000 mcg PO DAILY 10/28/23 Famotidine 20 mg PO BEDTIME 10/28/23 Insulin Aspart [Novolog Flexpen] 14 units SQ BID 10/28/23 Levothyroxine [Synthroid*] 125 mcg PO [id number] 10/28/23 Meloxicam 7.5 mg PO DAILY 10/28/23 levETIRAcetam [Levetiracetam] 500 mg PO BID 10/28/23 Cefdinir [Cefdinir*] 300 mg PO BID #14 cap 10/30/23 Hydrocortisone [Cortef*] 10 mg PO BID #90 tab 10/30/23 carvediloL [Coreg] 3.125 mg PO BID 30 Days #60 tab 11/05/23 lisinopriL [Lisinopril] 10 mg PO DAILY 60 Days #60 tab 11/05/23 New Medications: carvediloL [Coreg] 3.125 mg PO BID 30 Days #60 tab lisinopriL [Lisinopril] 10 mg PO DAILY 60 Days #60 tab Physician Discharge Instructions: Continue ad samuel activity. Take lisinopril, coreg and other home meds as prescribed. Follow up with PCP within 1 - 2 weeks Diet: AHA Activity: Ad samuel Followup: Maury Slaughter MD [Primary Care Provider] -
[2023-11-05 12:54] VITALS: BP 155/83; TEMP 96.9
== END 2023-11-05 15:30 | DRG 637 ==
LOC: ER 12:14 → ERHOLD 19:56 → 3RD-ICU 20:44
PROVIDERS: ADMIT Family Medicine; ATTEND Hospitalist
PROC: 0T9B70Z Drainage of Bladder with Drainage Device, Via Natural or Artificial Opening (ICD-10-PCS; principal; 2023-11-05)
DX: E11.10 Type 2 diabetes mellitus with ketoacidosis without coma (principal); G93.41 Metabolic encephalopathy; I21.A1 Myocardial infarction type 2; K92.2 Gastrointestinal hemorrhage, unspecified; E03.9 Hypothyroidism, unspecified; I10 Essential (primary) hypertension; M19.90 Unspecified osteoarthritis, unspecified site; K21.9 Gastro-esophageal reflux disease without esophagitis; F03.90 Unspecified dementia, unspecified severity, without behavioral disturbance, psychotic disturbance, mood disturbance, and anxiety; Z66 Do not resuscitate; Z88.2 Allergy status to sulfonamides; Z79.4 Long term (current) use of insulin; Z79.82 Long term (current) use of aspirin; Z79.890 Hormone replacement therapy; Z79.899 Other long term (current) drug therapy
CPT/HCPCS: 36415; 51702; 70450; 71045; 74176; 80048; 80053; 81001; 82010; 82805; 82947; 83690; 83735; 83880; 84100; 84132; 84145; 84484; 85025; 85610; 85730; 93005; 96365; 96366; 96375; 97161; 97530; 99285; C9113; J1815; J3475; J3480; J7030; J7799

== ENCOUNTER 2024-03-31 13:21 | Inpatient (IN) | payer OTHER ==
[2024-03-31] MEDS ORDERED: LEVALBUTEROL 1.25 MG/3 ML NEB ONE (14:03)
--- NOTE | 2024-03-31 14:07 | RAD REPORT ---
Procedure: Chest Single View HISTORY: Cough. Possible aspiration. COMPARISON: October 2023 FINDINGS: The lungs appear clear of acute infiltrate. No significant pleural effusion noted. The heart is mildly enlarged. . IMPRESSION: No acute abnormality is displayed.
[2024-03-31 14:51] LABS: Absolute Monocytes 0.9 K/uL (0.1-1.3); Absolute Neutrophil 4.7 K/uL (1.8-8.0); Basophils % 0.6 % (0-1.3); Eosinophils % 0.5 % (0-4.4); Hematocrit 38.7 % (36.0-45.0); Hemoglobin 12.6 g/dL (12.0-15.0); Lymphocytes % 26.1 % (15.3-44.8); MCH 29.5 pg (27.0-35.0); MCHC 32.5 g/dL (32.0-36.0); MCV 90.6 fL (80-100); MPV 7.8 fL (7.6-11.3); Monocytes % 11.2 % (3.3-12.3); Neutrophils % 61.6 % (41.7-73.7); Nucleated Red Blood Cells % 0.1 % (0-0); Platelets 319 thou/uL (152-406); RBC Red Blood Cell Count 4.27 M/uL (3.86-4.86); Red Cell Distribution Width 14.7 % (12.1-15.2)
[2024-03-31 14:57] LABS: PT Prothrombin Time 10.6 SECONDS (9.4-12.5); PTT, Activated Partial Thromb 28.1 SECONDS (24.3-36.9); Protime INR 0.94
[2024-03-31 15:02] LABS: Albumin 3.3 g/dL (3.4-5.0); Albumin/Globulin Ratio 0.8 (1.1-1.8); Anion Gap 10.2 mEq/L (5.0-15.0); Bilirubin Total 0.4 mg/dL (0.2-1.0); Potassium 4.2 mEq/L (3.5-5.1); Protein, Total 7.3 g/dL (6.4-8.2)
--- NOTE | 2024-03-31 15:47 | EDPHYS ---
Physician Documentation [facility] Name: Lavonne Vitale Age: 78 yrs Sex: Female : 1945 Arrival Date: 03/31/2024 Time: 13:21 Bed 14 Private MD: ED Physician Escobar Sotelo HPI: 03/31 14:35 This 78 yrs old Female presents to ER via EMS with complaints of sob. rn 14:36 The patient has shortness of breath at rest, with light activity. Onset: The rn symptoms/episode began/occurred just prior to arrival. Duration: The symptoms are continuous. The patient's shortness of breath is aggravated by coughing, is alleviated by nothing. Severity of symptoms: At their worst the symptoms were moderate in the emergency department the symptoms have improved. The patient has not experienced similar symptoms in the past. Patient was eating a piece of chicken and had trouble swallowing, felt like she was choking then coughed it up. Has not stopped coughing since then. Does not feel like there is a foreign body remaining in her throat. Now is having a lot of mucus production and mild shortness of breath.. Historical: - Allergies: 13:39 Sulfa (Sulfonamide Antibiotics); iw - Home Meds: 13:42 lorazepam 0.5 mg Oral tablet every 2 hours, as needed for agitation for 14 days iw [Active]; Humalog U-100 Insulin 100 unit/mL Sub-Q solution before meals [Active]; hyoscyamine sulfate 0.125 mg oral tablet every 2 hors as needed for secretions [Active]; promethazine 25 mg Oral tablet every 4 hours as needed [Active]; bisacodyl 10 mg Rectal suppository [Active]; famotidine 20 mg Oral tablet 2 times per day [Active]; insulin glargine 100 unit/mL Sub-Q solution 40 units daily [Active]; paroxetine HCl 40 mg oral tablet daily [Active]; carvedilol 3.125 mg oral tablet 2 times per day [Active]; hydrocortisone 10 mg Oral tablet every 12 hours [Active]; levothyroxine 112 mcg tablet daily [Active]; atorvastatin 20 mg oral tablet every day at bedtime [Active]; - PMHx: 13:39 Dementia; diabetes mellitus; Hypertensive disorder; iw 13:41 hyperlipidemia; Depressive disorder; gastroenteritis/colitis; GERD; Hypothyroidism; iw Osteoarthritis; - Immunization history:: Adult Immunizations. - Infectious Disease History:: Denies. - Social history:: Smoking status: Patient denies any tobacco usage or history of. - Family history:: not pertinent. - Hospitalizations: : No recent hospitalization is reported. ROS: 14:36 Constitutional: Negative for fever, chills, and weight loss, Cardiovascular: Negative rn for chest pain, palpitations, and edema, Respiratory: Positive cough and shortness of breath Abdomen/GI: Negative for abdominal pain, nausea, vomiting, diarrhea, and constipation, MS/Extremity: Negative for injury and deformity, Neuro: Negative for headache, weakness, numbness, tingling, and seizure, Exam: 14:35 ECG was reviewed by the Attending Physician. rn 14:36 Constitutional: This is a well developed, well nourished patient who is awake, alert, rn persistent cough that is productive, no stridor Head/Face: Normocephalic, atraumatic. Cardiovascular: Regular rate and rhythm. No pulse deficits. Respiratory: Mild tachypnea with persistent cough. Was able to stop coughing after initial evaluation Abdomen/GI: Soft, non-tender MS/ Extremity: Pulses equal, no cyanosis. Neuro: Awake and alert, GCS 15 Vital Signs: 13:38 BP 143 / 80; Pulse 86; Resp 19; Temp 98.5; Pulse Ox 99% on R/A; Weight 62.14 kg; Height iw 5 ft. 0 in. ; Pain 0/10; 14:30 BP 139 / 97; Pulse 84; Resp 16; Pulse Ox 97% on R/A; ph 15:30 BP 148 / 80; Pulse 85; Resp 18; Pulse Ox 99% on R/A; ph 16:34 BP 148 / 77; Pulse 91; Resp 18; Pulse Ox 98% on R/A; ph 13:38 Body Mass Index 26.76 (62.14 kg, 152.4 cm) iw 13:38 Pain Scale: Adult iw MDM: 13:30 Medical Screening Exam initiated rn 15:41 Differential diagnosis: pneumonia, Pneumothorax pulmonary edema, Pneumonitis, rn aspiration pneumonitis. Data reviewed: vital signs, nurses notes, lab test result(s), radiologic studies, plain films, and as a result, I will admit patient. Consideration of Admission/Observation Patient was admitted/placed on observation. Escalation of care including admission/observation considered. Counseling: I had a detailed discussion with the patient and/or guardian regarding the historical points, exam findings, and any diagnostic results supporting the discharge/admit diagnosis, lab results, radiology results, the need for further work-up and treatment in the hospital. Response to treatment: the patient's symptoms have markedly improved after treatment, and as a result, I will admit patient. ED course: Patient improved, still mild tachypnea and elevated lactic acid. Will admit to hospitalist service for further observation. Antibiotics ordered empirically given elevated lactic acid and likelihood of aspiration. Chest x-ray images negative for pneumonia or pneumothorax per my interpretation.. 03/31 13:31 Order name: CBC with Diff; Complete Time: 15:13 03/31 13:31 Order name: Blood Culture Adult (2) 03/31 13:31 Order name: CMP; Complete Time: 15:13 03/31 13:31 Order name: Lactate w/ 2H reflex if indic.; Complete Time: 15:35 03/31 13:31 Order name: Protime (+inr); Complete Time: 15:13 03/31 13:31 Order name: Ptt, Activated; Complete Time: 15:13 03/31 17:13 Order name: Ghost Lactate-NO COLLECT Timer [facility] 03/31 13:31 Order name: XRAY Chest (1 view); Complete Time: 14:25 03/31 13:31 Order name: EKG; Complete Time: 13:31 03/31 13:31 Order name: IV Start; Complete Time: 15:03 03/31 13:31 Order name: Accucheck; Complete Time: 14:32 rn 03/31 13:31 Order name: Cardiac monitoring; Complete Time: 14:32 rn 03/31 13:31 Order name: EKG - Nurse/Tech; Complete Time: 14:32 rn 03/31 13:31 Order name: IV Saline Lock - Large Bore; Complete Time: 14:32 rn 03/31 13:31 Order name: Labs collected and sent; Complete Time: 14:32 rn 03/31 13:31 Order name: O2 Per Protocol; Complete Time: 14:32 03/31 13:31 Order name: O2 Sat Monitoring; Complete Time: 14:32 rn 03/31 13:31 Order name: Vital Signs; Complete Time: 14:32 rn 03/31 13:31 Order name: Suction; Complete Time: 14:32 rn 03/31 16:24 Order name: Swallow Screen; Complete Time: 16:32 la1 EC:35 Rate is 89 beats/min. Rhythm is regular. QRS [place] is Normal. GA interval is normal. QRS rn interval is normal. QT interval is normal. No Q waves. T waves are Normal. No ST changes noted. Clinical impression: NSR w/ Non-specific ST/T Changes. Interpreted by me. Reviewed by me. Administered Medications: 14:30 Drug: Levalbuterol Inhalation 1.25 mg Inhalation once Route: Inhalation; ph 15:00 Follow up: Response: No adverse reaction ph 16:32 Drug: Piperacillin-Tazobactam IVPB 3.375 grams IVPB once over 60 mins; (mix in NS 100 ph mL) Route: IVPB; Infused Over: 60 mins; Site: right antecubital; 17:30 Follow up: Response: No adverse reaction; IV Status: Completed infusion ph Disposition Summary: 03/31/24 15:47 Hospitalization Ordered Notes: Hospitalization Status: Observation rn Provider: Rusty Kuhn rn Location: Telemetry/MedSurg (observation)(03/31/24 15:47) rn Condition: Stable(03/31/24 15:47) rn Problem: new(03/31/24 15:47) rn Symptoms: have improved(03/31/24 15:47) rn Bed/Room Type: Standard rn Room Assignment: 201(03/31/24 16:45) bd Diagnosis - Aspiration pneumonitis rn Forms: - Medication Reconciliation Form rn - SBAR form rn - Leadership Thank You Letter rn Signatures: Dispatcher [employer] Rafaela Hilton Irene RN RN iw Escobar Sotelo MD MD rn [place], Drake, REVENUE OFFICER-C REVENUE OFFICER-Cla1 Shi Azul RN RN ph Corrections: (The following items were deleted from the chart) 13:42 13:39 PMHx: depressive disorder; iw 15:47 15:45 Home rn rn 15:47 15:45 new rn rn 15:47 15:45 have improved rn rn 15:47 15:45 Stable rn rn 15:47 15:45 Aspiration Pneumonitis rn rn 16:45 15:47 rn bd
--- NOTE | 2024-03-31 15:47 | ER ---
Nurse's Notes [facility] Name: Lavonne Vitale Age: 78 yrs Sex: Female : 1945 Arrival Date: 03/31/2024 Time: 13:21 Bed 14 Private MD: Diagnosis: Aspiration pneumonitis Presentation: 03/31 13:38 Chief complaint: EMS states: pt choked on a piece of chicken , was able to cough it up, iw now is having a lot of throat irritation and has a copious amount of saliva. Coronavirus screen: At this time, the client does not indicate any symptoms associated with coronavirus-19. Ebola Screen: No symptoms or risks identified at this time. Initial Sepsis Screen: Does the patient meet any 2 criteria? No. Patient's initial sepsis screen is negative. Does the patient have a suspected source of infection? No. Patient's initial sepsis screen is negative. Risk Assessment: Do you want to hurt yourself or someone else? Patient reports no desire to harm self or others. Onset of symptoms was March 31, 2024. Care prior to arrival: Oxygen administered. via nasal cannula. 13:38 Method Of Arrival: EMS: [facility] iw 13:38 Acuity: ESTRELLA 3 iw Historical: - Allergies: 13:39 Sulfa (Sulfonamide Antibiotics); iw - Home Meds: 13:42 lorazepam 0.5 mg Oral tablet every 2 hours, as needed for agitation for 14 days iw [Active]; Humalog U-100 Insulin 100 unit/mL Sub-Q solution before meals [Active]; hyoscyamine sulfate 0.125 mg oral tablet every 2 hors as needed for secretions [Active]; promethazine 25 mg Oral tablet every 4 hours as needed [Active]; bisacodyl 10 mg Rectal suppository [Active]; famotidine 20 mg Oral tablet 2 times per day [Active]; insulin glargine 100 unit/mL Sub-Q solution 40 units daily [Active]; paroxetine HCl 40 mg oral tablet daily [Active]; carvedilol 3.125 mg oral tablet 2 times per day [Active]; hydrocortisone 10 mg Oral tablet every 12 hours [Active]; levothyroxine 112 mcg tablet daily [Active]; atorvastatin 20 mg oral tablet every day at bedtime [Active]; - PMHx: 13:39 Dementia; diabetes mellitus; Hypertensive disorder; iw 13:41 hyperlipidemia; Depressive disorder; gastroenteritis/colitis; GERD; Hypothyroidism; iw Osteoarthritis; - Immunization history:: Adult Immunizations. - Infectious Disease History:: Denies. - Social history:: Smoking status: Patient denies any tobacco usage or history of. - Family history:: not pertinent. - Hospitalizations: : No recent hospitalization is reported. Screenin:09 [facility] ED Fall Risk Assessment (Adult) History of falling in the last 3 months, ph including since admission No falls in past 3 months (0 pts) Confusion or Disorientation Yes (5 pts) Intoxicated or Sedated No (0 pts) Impaired Gait No (0 pts) Mobility Assist Device Used No (0 pt) Altered Elimination No (0 pt) Score/Fall Risk Level 3 or more points = High Risk Oriented to surroundings, Maintained a safe environment, Hourly rounding (assess needs \T\ fall precautionary measures) done, Used ambulatory aids as needed (educated on \T\ assisted with), Used gait belt as appropriate Implemented a Fall Risk Plan of Care. Abuse screen: Denies threats or abuse. Denies injuries from another. Nutritional screening: No deficits noted. Tuberculosis screening: No symptoms or risk factors identified. 16:37 Corin Swallow Protocol Brief Cognitive Screen What is your name? Normal, Where are you ph right now? Normal, What year is it? Abnormal Oral Mechanism Examination Facial Symmetry: Normal, Motion: Normal, Lip Closure: Normal, Oral Mechanism Result: Normal. 3 oz Water Swallow Challenge: Pt able to drink all water without stopping, coughing, choking or throat clearing: No Result: FAIL MD Notified: Escobar Sotelo MD. Assessment: 14:15 General: Appears in no apparent distress. comfortable, Behavior is cooperative. Pain: ph Denies pain. Neuro: Level of Consciousness is awake, alert, obeys commands, Oriented to person, place. Cardiovascular: Capillary refill < 3 seconds in bilateral fingers Patient's skin is warm and dry. Respiratory: Airway is patent Respiratory effort is even, unlabored, Respiratory pattern is regular, symmetrical, Breath sounds are clear bilaterally. GI: No signs and/or symptoms were reported involving the gastrointestinal system. Derm: Skin is pink, warm \T\ dry. Musculoskeletal: Circulation, motion, and sensation intact. Range of motion: intact in all extremities. Vital Signs: 13:38 BP 143 / 80; Pulse 86; Resp 19; Temp 98.5; Pulse Ox 99% on R/A; Weight 62.14 kg; Height iw 5 ft. 0 in. ; Pain 0/10; 14:30 BP 139 / 97; Pulse 84; Resp 16; Pulse Ox 97% on R/A; ph 15:30 BP 148 / 80; Pulse 85; Resp 18; Pulse Ox 99% on R/A; ph 16:34 BP 148 / 77; Pulse 91; Resp 18; Pulse Ox 98% on R/A; ph 13:38 Body Mass Index 26.76 (62.14 kg, 152.4 cm) iw 13:38 Pain Scale: Adult iw ED Course: 13:30 Patient arrived in ED. rn 13:30 Escobar Sotelo MD is Attending Physician. rn 13:39 Triage completed. iw 13:40 Arm band placed on Patient placed. iw 14:01 XRAY Chest (1 view) In Process Unspecified. EDMS 14:01 Shi Azul, OPAL is Primary Nurse. ph 14:35 Initial lab(s) drawn, by me, sent to lab. Inserted saline lock: 20 gauge in right bc6 antecubital area, using aseptic technique. Blood collected. Flushed with 10 mL NS. 14:35 First set of blood cultures drawn by me. bc6 15:02 Blood Culture Adult (2) Sent. bc6 15:02 Lactate w/ 2H reflex if indic. Sent. bc6 15:04 Second set of blood cultures drawn by me. bc6 15:10 Patient has correct armband on for positive identification. Placed in gown. Bed in low ph position. Call light in reach. Side rails up X2. Client placed on continuous cardiac and pulse oximetry monitoring. NIBP monitoring applied. monitor technician on. Noise minimized. Lights dimmed. Warm blanket given. Pillow given. 15:47 Rusty Kuhn is Hospitalizing Provider. rn 16:38 No provider procedures requiring assistance completed. Patient admitted, IV remains in ph place. Administered Medications: 14:30 Drug: Levalbuterol Inhalation 1.25 mg Inhalation once Route: Inhalation; ph 15:00 Follow up: Response: No adverse reaction ph 16:32 Drug: Piperacillin-Tazobactam IVPB 3.375 grams IVPB once over 60 mins; (mix in NS 100 ph mL) Route: IVPB; Infused Over: 60 mins; Site: right antecubital; 17:30 Follow up: Response: No adverse reaction; IV Status: Completed infusion ph Medication: 15:10 VIS not applicable for this client. ph Outcome: 15:45 Discharge ordered by . rn 15:47 Decision to Hospitalize by Provider. rn 17:30 Admitted to Med/surg accompanied by felisha, ph 17:30 Condition: good 17:30 Instructed on the need for admit, 17:31 Patient left the ED. ph Signatures: Dispatcher [employer] EDKatie De Leon RN OPAL Esocbar Sotelo MD MD rn Hall, Patricia, RN RN Debora Eduardo [facility] Corrections: (The following items were deleted from the chart) 13:40 13:38 Acuity: ESTRELLA 2 [facility] 13:42 13:39 PMHx: depressive disorder; [facility]
[2024-03-31] MEDS ORDERED: PIPERACIL/TAZO 3.375 GM VIAL IV ONE (16:07)
[2024-03-31] MEDS ORDERED: NA CHLORIDE 0.9% 100 ML ONE (16:07)
--- NOTE | 2024-03-31 17:07 | P.HP ---
Certification for Inpatient Patient admitted to: Inpatient With expected LOS: >2 Midnights Patient will require the following post-hospital care: None Practitioner: I am a practitioner with admitting privileges, knowledge of patient current condition, hospital course, and medical plan of care. Services: Services provided to patient in accordance with Admission requirements found in Title 42 Section 412.3 of the Code of Federal Regulations Patient History Date of Service: 03/31/24 Reason for admission: Choked/aspiration History of Present Illness: 78-year-old female with history of dementia, hypertension, hyperlipidemia, hypothyroidism, GERD, diabetes mellitus type 2 presents to the emergency department with a chief complaint of discharge. She is from the [facility] and reportedly choked on a piece of chicken. Upon arrival to the emergency department patient was dyspneic, having difficulty speaking in full sentences with oxygen saturations in the 80s. Chest x-ray was negative for acute findings but quite early after the event. She improved with time, suction her labs were significant for lactic acid 3.232 chloride 97 glucose 224. Did fail her bedside swallow screen she had a bit of coughing after trying to drink some juice. She will be admitted for evaluation of possible aspiration, speech eval Allergies Sulfa (Sulfonamide Antibiotics) [Sulfa(Sulfonamide Antibiotics)] Allergy (Mild, Verified 06/22/11 08:31) [facility] Home Medications: Aspirin Chewable [Aspirin Chewable*] 81 mg PO DAILY 10/28/23 Atorvastatin Calcium 20 mg PO BEDTIME 10/28/23 Calcium Carbonate/Vitamin D3 [Calcium 600-Vit D3 400 Caplet] 600 mg PO BID 10/28/23 Cyanocobalamin [Vitamin B-12*] 1,000 mcg PO DAILY 10/28/23 Famotidine 20 mg PO BEDTIME 10/28/23 Insulin Aspart [Novolog Flexpen] 14 units SQ BID 10/28/23 Levothyroxine [Synthroid*] 125 mcg PO [id number] 10/28/23 Meloxicam 7.5 mg PO DAILY 10/28/23 levETIRAcetam [Levetiracetam] 500 mg PO BID 10/28/23 Cefdinir [Cefdinir*] 300 mg PO BID #14 cap 10/30/23 Hydrocortisone [Cortef*] 10 mg PO BID #90 tab 10/30/23 carvediloL [Coreg] 3.125 mg PO BID 30 Days #60 tab 11/05/23 lisinopriL [Lisinopril] 10 mg PO DAILY 60 Days #60 tab 11/05/23 - Past Medical/Surgical History Diabetic: Yes -: HTN -: dementia -: seizures -: depression -: anxiety -: hypothyroidism -: DM type 1 -: DM type 2 -: hyperlipidemia -: vitamin D deficiency -: GERD -: OA Past Surgical History: Unable to obtain - Social History Alcohol use: No CD- Drugs: No Caffeine use: No Place of Residence: Home Review of Systems 10-point ROS is otherwise unremarkable Respiratory: Cough, Shortness of Breath Physical Examination - Physical Exam General: Alert, In no apparent distress, Oriented x2 HEENT: Atraumatic, PERRLA, Mucous membr. moist/pink, EOMI Neck: Supple, 2+ carotid pulse no bruit, No LAD Respiratory: Normal air movement, Diminished Cardiovascular: Regular rate/rhythm, Normal S1 S2 Gastrointestinal: Normal bowel sounds, No tenderness Musculoskeletal: No tenderness Integumentary: No rashes Neurological: Normal gait, Normal speech, Normal strength at 5/5 x4 extr, Normal tone, Normal affect - Studies Laboratory Data (last 24 hrs) 03/31/24 03/31/24 03/31/24 14:35 14:35 14:35 WBC 7.70 Hgb 12.6 Hct 38.7 Plt Count 319 PT 10.6 INR 0.94 APTT 28.1 Sodium 132 L Potassium 4.2 BUN 17 Creatinine 1.08 H Glucose 224 H Total Bilirubin 0.4 AST 22 ALT 28 Alkaline Phosphatase 67 Assessment and Plan - Plan Assessment: Choking episode/concern for aspiration, dysphagia Diabetes mellitus type 2 Hypertension Hyperlipidemia Hypothyroidism Dementia Plan: Choking episode/concern for aspiration, dysphagia Failed bedside swallow screen N.p.o., speech evaluation Gentle IV fluids, every 6 hours Accu-Cheks Empiric antibiotics Repeat chest x-ray in the morning Diabetes mellitus type 2 Every 6 hours Accu-Chek, sliding scale insulin Hypertension Hyperlipidemia Hypothyroidism Dementia Hold oral medications at this time until passed bedside swallow DVT PPX: Lovenox Code status: Full Discharge Plan: Home Plan to discharge in: 48 Hours - Advance Directives Does patient have a Living Will: No Does patient have a Durable POA for Healthcare: No - Code Status/Comfort Care Code Status Assessed: Yes (Full code) Critical Care: No Time Spent Managing Pts Care (In Minutes): 52
[2024-03-31] MEDS: INSULIN REGULAR (HUMAN) 100 UNIT/ML SQ SCH (18:29)
[2024-03-31] MEDS ORDERED: ONDANSETRON 4 MG/2 ML VIAL IV PRN (18:29)
[2024-03-31] MEDS ORDERED: GLUCAGON 1 MG/VIAL IM PRN (18:32)
[2024-03-31 18:39] VITALS: BMI 26.7
[2024-03-31] MEDS: D5 0.45 NS 1,000 ML IV SCH (19:54)
[2024-03-31] MEDS: ENOXAPARIN 40 MG/0.4 ML SQ SCH (20:51)
[2024-03-31] MEDS: PIPER TAZO 3.375 GM in NA CHLORIDE 0.9% 100 ML IV SCH (20:51)
[2024-04-01] MEDS: D10W 125 ML IV PRN (00:44)
[2024-04-01 05:15] LABS: Absolute Basophils 0.1 K/uL (0-0.5); Absolute Eosinophils 0.1 K/uL (0-0.5); Absolute Lymphocytes (CBC) 2.4 K/uL (0.7-4.9); Absolute Monocytes 0.9 K/uL (0.1-1.3); Absolute Neutrophil 3.3 K/uL (1.8-8.0); Basophils % 1.1 % (0-1.3); Eosinophils % 1.9 % (0-4.4); Hematocrit 34.7 % (36.0-45.0); Hemoglobin 11.3 g/dL (12.0-15.0); MCH 29.4 pg (27.0-35.0); MCHC 32.6 g/dL (32.0-36.0); MCV 90.4 fL (80-100); Monocytes % 13.7 % (3.3-12.3); Neutrophils % 48.3 % (41.7-73.7); Nucleated Red Blood Cells % 0.1 % (0-0); Platelets 285 thou/uL (152-406); RBC Red Blood Cell Count 3.84 M/uL (3.86-4.86); Red Cell Distribution Width 14.8 % (12.1-15.2)
[2024-04-01 05:27] LABS: Anion Gap 8.7 mEq/L (5.0-15.0); Potassium 3.7 mEq/L (3.5-5.1)
[2024-04-01] MEDS: NA CHLORIDE 0.9% 100 ML ONE (06:23)
[2024-04-01] MEDS: KCL 20 MEQ/100 mL IVPB 20 MEQ/100 ML BAG IV SCH (06:28)
--- NOTE | 2024-04-01 11:34 | EKG ---
Test Date: 2024-03-31 Test Time: 14:28:27 Chucker: PH MEASUREMENT RESULTS: Intervals: Rate: 89 CO: 160 QRSD: 70 QT: 376 QTc: 457 Lawrence: P: 49 CO: 160 QRS: -2 T: 25 INTERPRETIVE STATEMENTS: Sinus rhythm with premature ventricular complexes or fusion complexes Possible Left atrial enlargement Cannot rule out Anterior infarct, age undetermined Abnormal ECG Compared to ECG 11/03/2023 12:53:09 Fusion complex(es) now present Ventricular premature complex(es) now present Myocardial infarct finding now present Electronically Signed On 04-01-24 11:31:29 SKI TOPPER by Jean Marie Bonilla
--- NOTE | 2024-04-01 13:15 | P.PN ---
Date of Service: 04/01/24 Subjective: Blood sugar dropped overnight Drowsy this morning Still n.p.o. waiting on speech eval ROS: 10 point ROS as noted above, otherwise negative Physical exam GEN: Alert, oriented x2 , NAD HEENT: Normal conjunctiva, sclera anicteric CV: Regular rate and rhythm, no edema Pulm: Nonlabored respirations on room air ABD: Soft, nontender, nondistended MSK: No joint tenderness Integumentary: No rashes Neuro: Normal speech, normal affect Vitals reviewed Assessment: Choking episode/concern for aspiration, dysphagia Diabetes mellitus type 2 Hypertension Hyperlipidemia Hypothyroidism Dementia Plan: Choking episode/concern for aspiration, dysphagia Failed bedside swallow screen N.p.o., speech evaluation Gentle IV fluids, every 6 hours Accu-Cheks Empiric antibiotics Pending repeat chest x-ray from this morning Diabetes mellitus type 2 Every 6 hours Accu-Chek, sliding scale insulin Hypertension Hyperlipidemia Hypothyroidism Dementia Hold oral medications at this time until passed bedside swallow DVT PPX: Lovenox Code status: Full Discharge Plan: Home Plan to discharge in: 48 Hours Time Spent Managing Pts Care (In Minutes): 35 <Drake Burt - Last Filed: 04/01/24 13:15> Patient seen and examined, plan of care discussed with Drake Burt. Patient is confused, refused everything. Uncooperative with swallow evaluation. Patient defiance probably related to delirium. Repeat chest x-ray shows no acute disease Continue IV Zosyn. IV fluid. <emmanuelle ruff - Last Filed: 04/02/24 17:08>
--- NOTE | 2024-04-01 14:41 | RAD REPORT ---
EXAMINATION: ONE VIEW CHEST XR CLINICAL INDICATION: eval for aspiration/pneumonia TECHNIQUE: Frontal chest projection is submitted. Examination is limited by patient positioning and t echnique. COMPARISON: 03/31/2024 FINDINGS: Mild linear atelectasis is seen right midlung. Lungs otherwise clear. The heart is upper limit of nor mal in size. No displaced fractures identified. Tortuous thoracic aorta. IMPRESSION: No acute intrathoracic abnormalities.
[2024-04-02 06:19] LABS: Absolute Basophils 0.1 K/uL (0-0.5); Absolute Eosinophils 0.2 K/uL (0-0.5); Absolute Lymphocytes (CBC) 1.8 K/uL (0.7-4.9); Absolute Monocytes 0.7 K/uL (0.1-1.3); Absolute Neutrophil 2.5 K/uL (1.8-8.0); Basophils % 1.4 % (0-1.3); Eosinophils % 2.9 % (0-4.4); Hematocrit 35.5 % (36.0-45.0); Hemoglobin 11.3 g/dL (12.0-15.0); MCHC 31.8 g/dL (32.0-36.0); MCV 91.2 fL (80-100); MPV 7.6 fL (7.6-11.3); Monocytes % 13.5 % (3.3-12.3); Neutrophils % 48.2 % (41.7-73.7); Platelets 264 thou/uL (152-406); RBC Red Blood Cell Count 3.89 M/uL (3.86-4.86); Red Cell Distribution Width 15.1 % (12.1-15.2)
[2024-04-02 07:42] VITALS: O2SAT 95
[2024-04-02] MEDS: HYDROCORTISONE 10 MG TAB PO SCH (08:53)
[2024-04-02] MEDS: FAMOTIDINE 20 MG TAB PO SCH (08:54)
[2024-04-02] MEDS: carvediloL 3.125 MG TAB PO SCH (08:54)
[2024-04-02] MEDS: levETIRAcetam 500 MG TAB PO SCH (08:54)
[2024-04-02] MEDS: ASPIRIN 81 MG CHEWABLE TABLET PO SCH (08:54)
[2024-04-02] MEDS: MELOXICAM 7.5 MG TAB PO SCH (08:54)
[2024-04-02] MEDS: lisinopriL 10 MG TAB PO SCH (08:55)
--- NOTE | 2024-04-02 10:21 | P.DS ---
Admission Date: 03/31/24 Discharge Date: 04/02/24 Disposition: TRANSFER TO CORRECTION Discharge Condition: GOOD Reason for Admission: Choked/aspiration Brief History of Present Illness: 78-year-old female with history of dementia, hypertension, hyperlipidemia, hypothyroidism, GERD, diabetes mellitus type 2 presents to the emergency department with a chief complaint of discharge. She is from the skilled nursing and reportedly choked on a piece of chicken. Upon arrival to the emergency department patient was dyspneic, having difficulty speaking in full sentences with oxygen saturations in the 80s. Chest x-ray was negative for acute findings but quite early after the event. She improved with time, suction her labs were significant for lactic acid 3.232 chloride 97 glucose 224. Did fail her bedside swallow screen she had a bit of coughing after trying to drink some juice. She will be admitted for evaluation of possible aspiration, speech eval Hospital Course: Assessment: Choking episode/concern for aspiration, dysphagia Diabetes mellitus type 2 Hypertension Hyperlipidemia Hypothyroidism Dementia Ms. Vitale was admitted to the hospital after a choking episode on chicken. She initially failed bedside swallow screen and was kept n.p.o. until speech can evaluate her. Yesterday speech therapist evaluated her and recommended pured diet with thin liquids. This morning she tolerated her diet as well as her home medications. Repeat chest x-ray was performed on 04/01 and did not show any signs of pneumonia/aspiration. She has been maintaining her sats on room air 95 to 97% and has remained afebrile. She is stable for discharge back to the skilled nursing where she lives. Continue home medications as previously prescribed. Will recommend an additional 3 days of Augmentin to cover for possible pneumonitis/aspiration event Vital Signs/Physical Exam: Temp Pulse Resp BP Pulse Ox 96.8 F 82 16 101/62 95 04/02/24 07:29 04/02/24 08:54 04/02/24 07:29 04/02/24 08:54 04/02/24 07:29 General: Alert, In no apparent distress, Oriented x2 HEENT: Atraumatic, PERRLA Neck: Supple, JVD not distended Respiratory: Clear to auscultation bilaterally, Normal air movement Cardiovascular: Regular rate/rhythm, Normal S1 S2 Gastrointestinal: Normal bowel sounds, No tenderness Musculoskeletal: No tenderness Neurological: Normal speech, Normal affect Laboratory Data at Discharge: WBC 5.30 thou/uL (4.3-10.9) 04/02/24 06:03 Hgb 11.3 g/dL (12.0-15.0) L 04/02/24 06:03 Hct 35.5 % (36.0-45.0) L 04/02/24 06:03 Plt Count 264 thou/uL (152-406) 04/02/24 06:03 PT 10.6 SECONDS (9.4-12.5) 03/31/24 14:35 INR 0.94 03/31/24 14:35 APTT 28.1 SECONDS (24.3-36.9) 03/31/24 14:35 Sodium 139 mEq/L (136-145) 04/02/24 06:03 Potassium 4.0 mEq/L (3.5-5.1) 04/02/24 06:03 BUN 6 mg/dL (7-18) L 04/02/24 06:03 Creatinine 0.83 mg/dL (0.55-1.02) 04/02/24 06:03 Glucose 247 mg/dL (74-106) H 04/02/24 06:03 Total Bilirubin 0.4 mg/dL (0.2-1.0) 03/31/24 14:35 AST 22 U/L (15-37) 03/31/24 14:35 ALT 28 U/L (13-56) 03/31/24 14:35 Alkaline Phosphatase 67 U/L (45-117) 03/31/24 14:35 Home Medications: Aspirin Chewable [Aspirin Chewable*] 81 mg PO DAILY 10/28/23 Atorvastatin Calcium 20 mg PO BEDTIME 10/28/23 Calcium Carbonate/Vitamin D3 [Calcium 600-Vit D3 400 Caplet] 600 mg PO DAILY 10/28/23 Cyanocobalamin [Vitamin B-12*] 1,000 mcg PO DAILY 10/28/23 Famotidine 20 mg PO BID* 10/28/23 Levothyroxine [Synthroid*] 125 mcg PO [id number] 10/28/23 Meloxicam 7.5 mg PO DAILY 10/28/23 levETIRAcetam [Levetiracetam] 500 mg PO BID 10/28/23 Hydrocortisone [Cortef*] 10 mg PO BID #90 tab 10/30/23 carvediloL [Coreg*] 3.125 mg PO BID 30 Days #60 tab 11/05/23 lisinopriL [Lisinopril] 10 mg PO DAILY 60 Days #60 tab 11/05/23 Amox/Clavulanate [Augmentin 875-125 Tab] 875 mg PO BID 3 Days #6 tab 04/02/24 New Medications: Amox/Clavulanate [Augmentin 875-125 Tab] 875 mg PO BID 3 Days #6 tab Physician Discharge Instructions: Ms. Vitale was admitted to the hospital after a choking episode on chicken. She initially failed bedside swallow screen and was kept n.p.o. until speech can evaluate her. Yesterday speech therapist evaluated her and recommended pured diet with thin liquids. This morning she tolerated her diet as well as her home medications. Repeat chest x-ray was performed on 04/01 and did not show any signs of pneumonia/aspiration. She has been maintaining her sats on room air 95 to 97% and has remained afebrile. She is stable for discharge back to the skilled nursing where she lives. Continue home medications as previously prescribed. Will recommend an additional 3 days of Augmentin to cover for possible pneumonitis/aspiration event Diet: Pure Activity: Bedrest Followup: Maury Slaughter MD [Primary Care Provider] - 1 Week Time spent managing pt's care (in minutes): 36
[2024-04-02 10:42] VITALS: BP 114/79; TEMP 97.4
[2024-04-02] MEDS ORDERED: ATORVASTATIN 20 MG TAB PO SCH (21:00)
[2024-04-03] MEDS ORDERED: LEVOTHYROXINE SOD 0.125 MG TAB PO SCH (06:00)
== END 2024-04-02 11:25 | DRG 179 ==
LOC: ER 13:21 → ERHOLD 16:25 → 2ND 17:09
PROVIDERS: ADMIT Internal Medicine; ATTEND Internal Medicine
DX: J69.0 Pneumonitis due to inhalation of food and vomit (principal); I10 Essential (primary) hypertension; E11.9 Type 2 diabetes mellitus without complications; E78.5 Hyperlipidemia, unspecified; K21.9 Gastro-esophageal reflux disease without esophagitis; E03.9 Hypothyroidism, unspecified; M19.90 Unspecified osteoarthritis, unspecified site; F03.90 Unspecified dementia, unspecified severity, without behavioral disturbance, psychotic disturbance, mood disturbance, and anxiety; Z88.2 Allergy status to sulfonamides; Z79.4 Long term (current) use of insulin; Z79.02 Long term (current) use of antithrombotics/antiplatelets; Z79.890 Hormone replacement therapy; Z79.899 Other long term (current) drug therapy
CPT/HCPCS: 36415; 71045; 80048; 80053; 82947; 83605; 84132; 85025; 85610; 85730; 87040; 92610; 93005; 96365; 99285; J1650; J2543; J3480; J7614; J7799